=== PATIENT | female | born 1945 | race Caucasian/White ===

== ENCOUNTER 2016-09-10 07:58 | Inpatient (IN) | payer MEDICARE ==
[~2016-09-10] VITALS: Ht 167.6 cm; Wt 102.1 kg
[~2016-09-10 07:58] MED LIST: AC500T PO; ACYC800T PO; ASP81TEC PO; ASPI-892 PO; CLIN-62 PO; CLIN300C11 PO; COLON HEALTH PO; CPR500T PO; CYCL5TAB11 PO; HCT25T PO; HYDR-3583 PO; HYDR118S10 PO; LISI-593 PO; LISI1TAB10 PO; LISI40TA PO; LORA10TA7 PO; MAGN400T6 PO; METF1000 PO; METF500T8 PO; METR500T PO; MULT1TAB53 PO; OMEP20CA12 PO; OXYC-12 PO; PIOG1TAB PO; ROSI1TAB PO; SULF1TAB35 PO; VIT1CAPS9 PO; [UNRECOGNIZED DRUG - OTHER]
--- NOTE | 2016-09-10 08:28 | ED Upper Extremity ---
General Chief Complaint: Upper Extremity Stated Complaint: INFECTION L ARM FROM FALL Nursing Triage Note: AMBULATED TO ROOM 07 ET STATES SHE HAS AN INFECTION AND LYMPHODEMA IN LEFT ARM AFTER FALLING ONTO CONCRETE ON SUN. STATES SHE HAS HAD THIS IN THE PAST. Nursing Sepsis Screen: Possible Sepsis Risk Source: patient History of Present Illness Time seen by provider: 08:15 Initial Comments PT ARRIVES VIA POV FROM HOME C/O LEFT ARM REDNESS, WARMTH AND TENDERNESS TO ENTIRE LEFT ARM PT HAS CHRONIC LYMPHEDEMA TO LEFT ARM, FOLLOWING LEFT MASTECTOMY AND AXILLARY NODE REMOVAL IN 1999 FOR BREAST CANCE HAS HAD 3 PRIOR EPISODES OF CELLULITIS IN THIS ARM, USUALLY AFTER MINOR TRAUMA STATES SHE FELL ON SUNDAY, AND HAD BRUISE TO LEFT PALM--DID NOT BREAK THE SKIN. NO PAIN IN HAND FROM THAT INJURY SAW DR. JONAS ON SUNDAY FOR ROUTINE SCHEDULED VISIT, AND DISCUSSED THE INJURY AT THAT TIME, BUT WAS NOT HAVING THESE SYMPTOMS AT THAT TIME--WAS TOLD TO COME STRAIGHT TO ER AND GET ADMITTED IF SHE STARTED SHOWING SIGNS OF INFECTION PT STATES YESTERDAY SHE NOTED SOME REDNESS AND INCREASED WARMTH AND SWELLING AND TENDERNESS TO ARM, THEN BEGAN TO HAVE BODY ACHES AND CHILLS/SWEATS. DID NOT TAKE TEMPERATURE NO PARESTHESIAS OR MOTOR DEFICITS PCP: DR. JONAS Allergies and Home Medications Allergies Coded Allergies: No Known Drug Allergies (Unverified , 08/04/10) Home Medications Aspirin 81 Mg Judy., 81 MG PO DAILY, (Reported) Clindamycin HCl 300 Mg Capsule, 600 MG PO TID, #32 Prescribed by: EMERALD JONAS on 04/01/16 1112 Lisinopril/Hydrochlorothiazide 1 Each Tablet, 2 TAB PO DAILY, (Reported) Loratadine 10 Mg Tablet, 10 MG PO DAILY, (Reported) Multivit,Ther Iron,Ca,Fa & Min 1 Each Tablet, 1 TAB PO DAILY, (Reported) Constitutional: see HPI, chills, diaphoresis, malaise, other (BODY ACHES) Respiratory: no symptoms reported Cardiovascular: no symptoms reported Gastrointestinal: no symptoms reported Genitourinary: no symptoms reported Musculoskeletal: see HPI Skin: see HPI Psychiatric/Neurological: No Symptoms Reported Past [id number] Hx Patient Social History Alcohol Use: Occasionally Uses Recreational Drug Use: No Smoking Status: Never a Smoker Recent Foreign Travel: No Contact w/Someone Who Travel: No Recent Infectious Disease Expo: No Recent Hopitalizations: No Immunizations Up To Date Date of Pneumonia Vaccine: Jun 19, 2013 Seasonal Allergies Seasonal Allergies: No Surgeries HX Surgeries: Yes (LEFT MASTECTOMY WITH LEFT AXILLARY NODE DISSECTION 1999, [employer]ICK 2011; UMBILICAL HERNIA REPAIR WITH [employer]; LEFT ANKLE FX/ORIF; RIGHT KNEE SCOPE) Surgeries: Abdominal, Breast, Gallbladder, Orthopedic Respiratory Hx Respiratory Disorders: Yes (CPAP AT HS) Respiratory Disorders: Sleep Apnea Cardiovascular Hx Cardiac Disorders: Yes Cardiac Disorders: Hypertension Neurological Hx Neurological Disorders: No 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 System Hx 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 Disorders: No Sexually Transmitted Disease: No HIV/AIDS: No Female 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 Disorders: Denies [employer] 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 Genitourinary Hx Genitourinary Disorders: Yes Genitourinary Disorders: UTI-Chronic Gastrointestinal Hx Gastrointestinal Disorders: Yes (UMBILICAL HERNIA REPAIR WITH [employer]ICK) Gastrointestinal Disorders: Abdominal Hernia, C-Diff, Gall Bladder Disease Musculoskeletal Hx Musculoskeletal Disorders: Yes (CHRONIC LYMPHEDEMA LEFT ARM; LEFT ANKLE FX/ ORIF; RIGHT KNEE SCOPE) Endocrine Hx Endocrine Disorders: Yes (DIET CONTROLLED DIABETES) Endocrine Disorders: Diabetes, Non-Insulin dep HEENT HX ENT Disorders: No Cancer Hx Cancer: Yes (LEFT BREAST CANCER 1999--S/P LEFT MASTECTOMY WITH LEFT AXILLARY NODE DISSECTION + CHEMO. NO RADIATION) Cancer: Breast Psychosocial Hx Psychiatric Problems: No Integumentary HX Skin/Integumentary Disorder: Yes (SHINGLES; RECURRENT CELLULITIS LEFT ARM) Blood Transfusions Hx Blood Disorders: No Adverse Reaction to a Blood Tr: No Physical Exam Vital Signs Vital Sign - Last 12Hours 09/10/16 08:10 Temp 99.3 Pulse 92 Resp 16 B/P (MAP) 177/73 Pulse Ox 91 O2 Delivery Room Air Capillary Refill : Less Than 3 Seconds General Appearance: WD/WN, no apparent distress Neck: normal inspection Cardiovascular: regular rate, rhythm, no murmur Respiratory: normal breath sounds, no respiratory distress, no accessory muscle use Gastrointestinal: non tender, soft Back: normal inspection Shoulder: normal inspection Elbow/Forearm: Left (REDNESS, WARMTH, TENDERNESS AND SWELLING TO ENTIRE LEFT ARM AND HAND), pain, soft tissue tenderness, swelling Wrist: Yes pain, Yes soft tissue tenderness, Yes swelling Hand: Left, soft tissue tenderness, swelling Neurologic/Tendon: normal sensation, normal motor functions, normal tendon functions Neurologic/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 ) Progress/Results/Core Measures Results/Orders Lab Results Laboratory Tests Test 09/10/16 08:20 Range/Units White Blood Count 18.8 H 4.3-11.0 10^3/uL Red Blood Count 4.53 4.35-5.85 10^6/uL Hemoglobin 13.8 11.5-16.0 G/DL Hematocrit 41 35-52 % Mean Corpuscular Volume 90 80-99 FL Mean Corpuscular Hemoglobin 31 25-34 PG Mean Corpuscular Hemoglobin Concent 34 32-36 G/DL Red Cell Distribution Width 12.4 10.0-14.5 % Platelet Count 217 130-400 10^3/uL Mean Platelet Volume 9.8 7.4-10.4 FL Neutrophils (%) (Auto) 94 H 42-75 % Lymphocytes (%) (Auto) 3 L 12-44 % Monocytes (%) (Auto) 3 0-12 % Eosinophils (%) (Auto) 0 0-10 % Basophils (%) (Auto) 0 0-10 % Neutrophils # (Auto) 17.7 H 1.8-7.8 X 10^3 Lymphocytes # (Auto) 0.6 L 1.0-4.0 X 10^3 Monocytes # (Auto) 0.5 0.0-1.0 X 10^3 Eosinophils # (Auto) 0.0 0.0-0.3 10^3/uL Basophils # (Auto) 0.0 0.0-0.1 10^3/uL Neutrophils % (Manual) 96 % Lymphocytes % (Manual) 4 % Blood Morphology Comment NORMAL Sodium Level 136 135-145 MMOL/L Potassium Level 3.7 3.6-5.0 MMOL/L Chloride Level 101 98-107 MMOL/L Carbon Dioxide Level 22 21-32 MMOL/L Anion Gap 13 5-14 MMOL/L Blood Urea Nitrogen 23 H 7-18 MG/DL Creatinine 0.81 0.60-1.30 MG/DL Estimat Glomerular Filtration Rate > 60 BUN/Creatinine Ratio 28 Glucose Level 159 H 70-105 MG/DL Lactic Acid Level 0.70 0.50-2.00 MMOL/L Calcium Level 9.3 8.5-10.1 MG/DL Total Bilirubin 0.9 0.1-1.0 MG/DL Aspartate Amino Transf (AST/SGOT) 19 5-34 U/L Alanine Aminotransferase (ALT/SGPT) 16 0-55 U/L Alkaline Phosphatase 64 40-136 U/L Total Protein 6.8 6.4-8.2 G/DL Albumin 3.8 3.2-4.5 G/DL My Orders Orders - YVONNE MALIK DO Saline Lock/Iv-Start (09/10/16 08:19) Cbc With Automated Diff (09/10/16 08:19) Comprehensive Metabolic Panel (09/10/16 08:19) Lactic Acid Analyzer (09/10/16 08:19) Blood Culture (09/10/16 08:19) Manual Differential (09/10/16 08:20) Clindamycin Injection (Cleocin Injection (09/10/16 08:45) Medications Given in ED Current Medications Medications Dose Ordered Sig/Lyndon Route Start Time Stop Time Status Last Admin Dose Admin Clindamycin Phosphate 900 mg/ Sodium Chloride 56 ml @ 100 mls/hr ONCE ONCE IV 09/10/16 08:45 09/10/16 09:18 09/10/16 08:54 100 MLS/HR Vital Signs/I&O Vital Sign - Last 12Hours 09/10/16 08:10 Temp 99.3 Pulse 92 Resp 16 B/P (MAP) 177/73 Pulse Ox 91 O2 Delivery Room Air Blood Pressure Mean: 107 Departure Communication Progress Notes 0850--SPOKE WITH DR. Kim SIMONS, PUBLIC WORKS LABORER FOR DR. JONAS. ACCEPTS PT FOR ADMIT Impression Impression: Primary Impression: CELLULITIS OF ENTIRE LEFT ARM Additional Impression: CHRONIC LYMPHEDEMA OF LEFT ARM Disposition: ADMITTED INPATIENT Condition: Stable Decision to Admit Reason: Admit from ER (General) Decision to Admit/Date: September 10, 2016 Time/Decision to Admit Time: 08:50 Departure-Patient Inst. Referrals: EMERALD JONAS DO (PCP) Primary Care Physician YVONNE MALIK DO September 10, 2016 08:27
[2016-09-10 08:38] LABS: BASOPHILS % (AUTO) 0 % (0-10); EOSINOPHILS % (AUTO) 0 % (0-10); LYMPHOCYTES # (AUTO) 0.6 X 10^3 (1.0-4.0); LYMPHOCYTES % (AUTO) 3 % (12-44); MEAN CORPUSCULAR HEMOGLOBIN 31 PG (25-34); MEAN CORPUSCULAR HGB CONC 34 G/DL (32-36); MEAN CORPUSCULAR VOLUME 90 FL (80-99); MEAN PLATELET VOLUME 9.8 FL (7.4-10.4); MONOCYTES # (AUTO) 0.5 X 10^3 (0.0-1.0); MONOCYTES % (AUTO) 3 % (0-12); NEUTROPHILS # (AUTO) 17.7 X 10^3 (1.8-7.8); NEUTROPHILS % (AUTO) 94 % (42-75); PLATELET COUNT 217 10^3/uL (130-400); RED BLOOD COUNT 4.53 10^6/uL (4.35-5.85); RED CELL DISTRIBUTION WIDTH 12.4 % (10.0-14.5); WHITE BLOOD COUNT 18.8 10^3/uL (4.3-11.0)
[2016-09-10] MEDS ORDERED: CLINDAMYCIN INJECTION 900 MG in NS (IVPB) 50 ML IV ONE (08:45)
[2016-09-10 08:54] LABS: LYMPHOCYTES % (MANUAL) 4 %; NEUTROPHILS % (MANUAL) 96 %
[2016-09-10 08:57] LABS: ANION GAP 13 MMOL/L (5-14); BLOOD UREA NITROGEN 23 MG/DL (7-18); BUN/CREATININE RATIO 28; CARBON DIOXIDE 22 MMOL/L (21-32); CHLORIDE 101 MMOL/L (98-107); CREATININE SERUM 0.81 MG/DL (0.60-1.30); POTASSIUM 3.7 MMOL/L (3.6-5.0); SODIUM 136 MMOL/L (135-145)
[2016-09-10 08:58] LABS: ALANINE AMINOTRANSFERASE 16 U/L (0-55); ALBUMIN 3.8 G/DL (3.2-4.5); ASPARTATE AMINO TRANSFERASE 19 U/L (5-34); BILIRUBIN,TOTAL 0.9 MG/DL (0.1-1.0); CALCIUM 9.3 MG/DL (8.5-10.1); GFR ESTIMATED > 60; GLUCOSE 159 MG/DL (70-105); TOTAL PROTEIN 6.8 G/DL (6.4-8.2)
[2016-09-10] MEDS: KETOROLAC 30 MG/ML VIAL IV PRN ×2 (11:15→17:19)
[2016-09-10] MEDS ORDERED: CATHETER FLUSH 10 ML SYR IV PRN (11:15)
[2016-09-10 12:00] VITALS: BP 182/81
--- NOTE | 2016-09-10 13:35 | Progress Note (SOAP) ---
Subjective Subjective 70 yo F with history of chronic left upper extremity lymphedema and cellulitis- admitted for cellulitis of her left arm- extending from her hand up to her shoulder/axilla. She reports 4 days prior she slipped on her patio as it was wet from the rain and fell to her left side with her left hand/arm taking the brunt of the fall- she noticed palmar bruising - but no break in the skin. She saw Dr. Lubin the following day and was advised to monitor it- if the cardinal signs of infection (redness,warmth,swelling,etc) occur go to the hospital to be admitted. She notice this am, she was more nauseated and felt like her hand/arm were warm, definitely red. Family members were concerned so she came to the ER. She didn't want to come in because she knew she would be admitted. She is very frustrated that this keeps happening. She also feels achy, pain all over her body- shoulder, legs, arms- attributed to the fall. -She feels like once she gets fluids and clindamycin in she will start feeling better. -Pt also has diabetes but was happy to report she no longer takes metformin. -Htn under control. ED course- she was given clindamycin and ketoralac and admitted. Review of Systems General: No Chills, No Night Sweats HEENT: No Head Aches Pulmonary: No Dyspnea, No Cough Cardiovascular: No: Chest Pain Gastrointestinal: Nausea, No: Abdominal Pain, Vomiting Genitourinary: No Dysuria, No Frequency Musculoskeletal: arm pain, back pain, hand pain, leg pain, neck pain, shoulder pain Neurological: Weakness, No: Numbness Objective Exam Vital Signs Vital Sign - Last 12Hours 09/10/16 08:10 Temp 99.3 Pulse 92 Resp 16 B/P (MAP) 177/73 Pulse Ox 91 O2 Delivery Room Air Capillary Refill : Less Than 3 Seconds General Appearance: Mild Distress (upset and frustrated) Eyes: Bilateral Eye Normal Inspection HEENT: PERRL/EOMI Neck: Non Tender, Supple Respiratory: Chest Non Tender, Lungs Clear, Normal Breath Sounds, No Accessory Muscle Use, No Respiratory Distress Cardiovascular: Regular Rate, Rhythm Gastrointestinal: Normal Bowel Sounds, Non Tender, Soft Rectal: Deferred Back: Normal Inspection, No CVA Tenderness Extremity: Normal Capillary Refill, Other (left upper extremity 2+ pitting edema- warm to touch, erythema) Neurologic/Psychiatric: Alert, Oriented x3, Depressed Affect Skin: Warm/Dry Results Lab Laboratory Tests 09/10/16 08:20: White Blood Count 18.8H, Red Blood Count 4.53, Hemoglobin 13.8, Hematocrit 41, Mean Corpuscular Volume 90, Mean Corpuscular Hemoglobin 31, Mean Corpuscular Hemoglobin Concent 34, Red Cell Distribution Width 12.4, Platelet Count 217, Mean Platelet Volume 9.8, Neutrophils (%) (Auto) 94H, Lymphocytes (%) (Auto) 3L , Monocytes (%) (Auto) 3, Eosinophils (%) (Auto) 0, Basophils (%) (Auto) 0, Neutrophils # (Auto) 17.7H, Lymphocytes # (Auto) 0.6L, Monocytes # (Auto) 0.5, Eosinophils # (Auto) 0.0, Basophils # (Auto) 0.0, Neutrophils % (Manual) 96, Lymphocytes % (Manual) 4, Blood Morphology Comment NORMAL, Sodium Level 136, Potassium Level 3.7, Chloride Level 101, Carbon Dioxide Level 22, Anion Gap 13, Blood Urea Nitrogen 23H, Creatinine 0.81, Estimat Glomerular Filtration Rate > 60, BUN/Creatinine Ratio 28, Glucose Level 159H, Lactic Acid Level 0.70, Calcium Level 9.3, Total Bilirubin 0.9, Aspartate Amino Transf (AST/SGOT) 19, Alanine Aminotransferase (ALT/SGPT) 16, Alkaline Phosphatase 64, Total Protein 6.8, Albumin 3.8 Assessment/Plan Assessment/Plan Assessment/Plan 70 yo F Left Upper Extremity Cellulitis--IV clindamycin, elevate extremity Recent fall- likely etiology for the cellulitis- no noticable break in the skin. Chronic Lymphedema of Left Arm due to h/o breast cancer tx--monitor Diabetes mellitus, II--SSI A Hypertension--normotensive, home meds- hctz, lisinopril nausea- zofran DVT ppx- lovenox Dispo: continue clindamycin- keep a close eye on left arm exam. suspect transition to po clindamycin and home when noticeable improvement is seen- Problems: Clinical Quality Measures DVT/VTE Risk/Contraindication: Risk Factor Score Per Nursin RFS Level Per Nursing on Admit: 3=High RHODA SIMONS MD September 10, 2016 13:35
[2016-09-10] MEDS: ONDANSETRON 4 MG/2 ML (SDV) Z0FRAN IVP PRN (14:55)
[2016-09-10] MEDS: CATHETER FLUSH 10 ML SYR IV SCH ×2 (14:55→22:02)
[2016-09-10] MEDS: CLINDAMYCIN 900 MG/NS 50 ML IVPB IV SCH ×4 (15:06→20:04)
[2016-09-10 16:00] VITALS: BP 163/78
[2016-09-10] MEDS: lisINopril 20 MG (ZESTRIL) TAB PO SCH (16:26)
[2016-09-10] MEDS: NS IV 1000 ML 1,000 ML IV SCH (16:26)
[2016-09-10] MEDS: ENOXAPARIN 40 MG/0.4 ML (LOVENOX) SYR SC SCH (16:26)
[2016-09-10] MEDS: HYDROCHLOROTHIAZIDE 25 MG (HCTZ) TAB PO SCH (16:26)
[2016-09-10] MEDS: ACETAMINOPHEN 500 MG TAB (TYLENOL) PO PRN (16:27)
[2016-09-10] MEDS: inSUlin ASPART (NovoLOG) 1 UNIT/0.01 ML (CHARGE PER UNIT) SC SCH (16:52)
[2016-09-10 20:00] VITALS: BP 140/64
[2016-09-11 00:15] VITALS: BP 113/67
[2016-09-11] MEDS: NS IV 1000 ML 1,000 ML IV SCH ×3 (01:53→23:46)
[2016-09-11] MEDS: CLINDAMYCIN 900 MG/NS 50 ML IVPB IV SCH ×8 (01:53→20:22)
[2016-09-11] MEDS: ONDANSETRON 4 MG/2 ML (SDV) Z0FRAN IVP PRN ×2 (01:55→17:28)
[2016-09-11 04:10] VITALS: BP 113/67
[2016-09-11 05:17] LABS: BASOPHILS % (AUTO) 0 % (0-10); EOSINOPHILS % (AUTO) 0 % (0-10); LYMPHOCYTES # (AUTO) 0.8 X 10^3 (1.0-4.0); LYMPHOCYTES % (AUTO) 8 % (12-44); MEAN CORPUSCULAR HEMOGLOBIN 31 PG (25-34); MEAN CORPUSCULAR HGB CONC 34 G/DL (32-36); MEAN CORPUSCULAR VOLUME 90 FL (80-99); MONOCYTES # (AUTO) 0.5 X 10^3 (0.0-1.0); MONOCYTES % (AUTO) 5 % (0-12); NEUTROPHILS # (AUTO) 8.5 X 10^3 (1.8-7.8); NEUTROPHILS % (AUTO) 86 % (42-75); PLATELET COUNT 187 10^3/uL (130-400); RED BLOOD COUNT 4.24 10^6/uL (4.35-5.85); RED CELL DISTRIBUTION WIDTH 12.4 % (10.0-14.5); WHITE BLOOD COUNT 9.8 10^3/uL (4.3-11.0)
[2016-09-11 05:38] LABS: ALANINE AMINOTRANSFERASE 17 U/L (0-55); ALBUMIN 3.3 G/DL (3.2-4.5); ANION GAP 9 MMOL/L (5-14); ASPARTATE AMINO TRANSFERASE 18 U/L (5-34); BILIRUBIN,TOTAL 0.5 MG/DL (0.1-1.0); BLOOD UREA NITROGEN 21 MG/DL (7-18); BUN/CREATININE RATIO 25; CALCIUM 8.5 MG/DL (8.5-10.1); CARBON DIOXIDE 26 MMOL/L (21-32); CHLORIDE 100 MMOL/L (98-107); CREATININE SERUM 0.85 MG/DL (0.60-1.30); GFR ESTIMATED > 60; GLUCOSE 115 MG/DL (70-105); POTASSIUM 3.5 MMOL/L (3.6-5.0); SODIUM 135 MMOL/L (135-145); TOTAL PROTEIN 5.9 G/DL (6.4-8.2)
[2016-09-11] MEDS: ACETAMINOPHEN 500 MG TAB (TYLENOL) PO PRN (06:03)
[2016-09-11] MEDS: CATHETER FLUSH 10 ML SYR IV SCH ×3 (06:04→20:12)
[2016-09-11] MEDS: inSUlin ASPART (NovoLOG) 1 UNIT/0.01 ML (CHARGE PER UNIT) SC SCH ×2 (06:09→16:08)
[2016-09-11 08:21] VITALS: BP 141/62
[2016-09-11] MEDS: HYDROCHLOROTHIAZIDE 25 MG (HCTZ) TAB PO SCH (08:22)
[2016-09-11] MEDS: lisINopril 20 MG (ZESTRIL) TAB PO SCH (08:22)
[2016-09-11 12:00] VITALS: BP 123/60
[2016-09-11] MEDS: ENOXAPARIN 40 MG/0.4 ML (LOVENOX) SYR SC SCH (13:55)
[2016-09-11 16:00] VITALS: BP 141/63
[2016-09-11 20:12] VITALS: BP 138/60
[2016-09-11] MEDS: KETOROLAC 30 MG/ML VIAL IV PRN (20:22)
--- NOTE | 2016-09-11 21:01 | Progress Note (SOAP) ---
Subjective Subjective/Events-last exam Fwup LUE cellulitis, recent fall with left hand contusion, chronic lymphedema of left arm due to history of breast cancer with mastectomy, hypertension, diabetes mellitus--diet controlled. Still with redness to left arm and still spiked fevers overnight. Objective Exam Vital Signs Date Time Temp Pulse Resp B/P (MAP) Pulse Ox O2 Delivery O2 Flow Rate FiO2 09/11/16 16:00 98.9 62 18 141/63 93 Room Air 09/11/16 12:00 97.9 65 20 123/60 94 Room Air 09/11/16 08:21 98.3 67 16 141/62 95 Room Air 09/11/16 04:10 100.0 79 20 113/67 94 Room Air 09/11/16 00:15 99.3 70 18 113/67 96 Room Air I & O 09/11/16 07:00 Intake Total 1800 ml Output Total 925 ml Balance 875 ml Capillary Refill : Less Than 3 Seconds General Appearance: No Apparent Distress Neck: Supple Extremity: Non Tender, No Calf Tenderness, No Pedal Edema Neurologic/Psychiatric: Alert, Oriented x3 Skin: Erythema (from upper arm down to hands with some increased warmth and tenderness) Results Lab Laboratory Tests 09/11/16 04:40: White Blood Count 9.8, Red Blood Count 4.24L, Hemoglobin 13.0, Hematocrit 38, Mean Corpuscular Volume 90, Mean Corpuscular Hemoglobin 31, Mean Corpuscular Hemoglobin Concent 34, Red Cell Distribution Width 12.4, Platelet Count 187, Mean Platelet Volume 10.0, Neutrophils (%) (Auto) 86H, Lymphocytes (%) (Auto) 8L , Monocytes (%) (Auto) 5, Eosinophils (%) (Auto) 0, Basophils (%) (Auto) 0, Neutrophils # (Auto) 8.5H, Lymphocytes # (Auto) 0.8L, Monocytes # (Auto) 0.5, Eosinophils # (Auto) 0.0, Basophils # (Auto) 0.0, Sodium Level 135, Potassium Level 3.5L, Chloride Level 100, Carbon Dioxide Level 26, Anion Gap 9, Blood Urea Nitrogen 21H, Creatinine 0.85, Estimat Glomerular Filtration Rate > 60, BUN /Creatinine Ratio 25, Glucose Level 115H, Calcium Level 8.5, Total Bilirubin 0.5 , Aspartate Amino Transf (AST/SGOT) 18, Alanine Aminotransferase (ALT/SGPT) 17, Alkaline Phosphatase 53, Total Protein 5.9L, Albumin 3.3 09/11/16 06:06: Glucometer 108 09/11/16 15:52: Glucometer 121H Microbiology 09/10/16 Blood Culture - Preliminary, Resulted No growth Assessment/Plan Assessment/Plan Assess & Plan/Chief Complaint 1. RUE Cellulitis--continue IV clindamycin 2. Recent fall with right hand contusion--stable 3. Chronic Lymphedema of right arm due to history of breast cancer with mastectomy 4. Hypertension--stable 5. Diabetes mellitus--diet controlled--on accuchecks with SSI Clinical Quality Measures DVT/VTE Risk/Contraindication: Risk Factor Score Per Nursin RFS Level Per Nursing on Admit: 3=High EMERALD JONAS DO September 11, 2016 21:01
[2016-09-11] MEDS ORDERED: TEMAZEPAM 7.5 MG CAP (RESTORIL) PO ONE (21:20)
[2016-09-11] MEDS: TEMAZEPAM 7.5 MG CAP (RESTORIL) PO PRN (21:26)
[2016-09-12] VITALS: BP 124/73
[2016-09-12] MEDS: CLINDAMYCIN 900 MG/NS 50 ML IVPB IV SCH ×8 (02:15→19:59)
[2016-09-12] MEDS: CATHETER FLUSH 10 ML SYR IV SCH ×3 (04:39→22:28)
[2016-09-12] MEDS: inSUlin ASPART (NovoLOG) 1 UNIT/0.01 ML (CHARGE PER UNIT) SC SCH ×2 (06:20→16:22)
[2016-09-12] MEDS: MULTIVIT W/MINERALS TAB (THERAGRAN M) PO SCH (07:07)
[2016-09-12 07:30] VITALS: BP 141/64
--- NOTE | 2016-09-12 08:46 | Progress Note (SOAP) ---
Subjective Subjective/Events-last exam Fwup LUE cellulitis, recent fall with left hand contusion, chronic lymphedema of left arm due to history of breast cancer with mastectomy, hypertension, diabetes mellitus--diet controlled. Left arm not as red. Objective Exam Vital Signs Date Time Temp Pulse Resp B/P (MAP) Pulse Ox O2 Delivery O2 Flow Rate FiO2 09/12/16 07:30 98.8 52 20 141/64 93 Room Air 09/12/16 00:00 97.2 55 17 124/73 97 Room Air 09/11/16 20:12 99.9 80 20 138/60 93 Room Air 09/11/16 16:00 98.9 62 18 141/63 93 Room Air 09/11/16 12:00 97.9 65 20 123/60 94 Room Air I & O 09/12/16 07:00 Intake Total 2486 ml Output Total 1750 ml Balance 736 ml Capillary Refill : Less Than 3 Seconds General Appearance: No Apparent Distress Respiratory: Lungs Clear Cardiovascular: Regular Rate, Rhythm Extremity: Non Tender, No Calf Tenderness, No Pedal Edema Neurologic/Psychiatric: Alert, Oriented x3 Skin: Erythema (from upper arm down to hand but not as bright red--still with warmth, swelling less) Results Lab Laboratory Tests 09/11/16 15:52: Glucometer 121H 09/12/16 06:18: Glucometer 111H Microbiology 09/10/16 Blood Culture - Preliminary, Resulted No growth Assessment/Plan Assessment/Plan Assess & Plan/Chief Complaint 1. RUE Cellulitis--continue IV clindamycin, add Vancomycin 2. Recent fall with right hand contusion--stable 3. Chronic Lymphedema of right arm due to history of breast cancer with mastectomy 4. Hypertension--stable 5. Diabetes mellitus--diet controlled--on accuchecks with SSI Clinical Quality Measures DVT/VTE Risk/Contraindication: Risk Factor Score Per Nursin RFS Level Per Nursing on Admit: 3=High EMERALD JONAS DO September 12, 2016 08:46
[2016-09-12] MEDS: ASPIRIN E.C. 81 MG (ECOTRIN) TAB PO SCH (08:58)
[2016-09-12] MEDS: HYDROCHLOROTHIAZIDE 25 MG (HCTZ) TAB PO SCH (08:58)
[2016-09-12] MEDS: lisINopril 20 MG (ZESTRIL) TAB PO SCH (08:59)
[2016-09-12] MEDS: LORATADINE (CLARITIN) 10 MG TAB PO SCH (08:59)
[2016-09-12] MEDS: NS IV 1000 ML 1,000 ML IV SCH ×2 (09:38→17:15)
[2016-09-12] MEDS ORDERED: VANCOMYCIN INJECTION 2,250 MG in NS IV 500 ML 500 ML IV NR (10:08)
[2016-09-12] MEDS: ENOXAPARIN 40 MG/0.4 ML (LOVENOX) SYR SC SCH (13:41)
[2016-09-12 16:23] VITALS: BP 114/72
[2016-09-12] MEDS: VANCOMYCIN 1250 MG/NS 250 ML IVPB IV SCH ×2 (21:26)
[2016-09-12] MEDS: TEMAZEPAM 7.5 MG CAP (RESTORIL) PO PRN (22:07)
[2016-09-13 00:25] VITALS: BP 121/72
[2016-09-13] MEDS: CLINDAMYCIN 900 MG/NS 50 ML IVPB IV SCH ×8 (01:36→20:11)
[2016-09-13] MEDS: NS IV 1000 ML 1,000 ML IV SCH (02:32)
[2016-09-13 04:47] LABS: BASOPHILS % (AUTO) 1 % (0-10); EOSINOPHILS # (AUTO) 0.4 10^3/uL (0.0-0.3); EOSINOPHILS % (AUTO) 8 % (0-10); LYMPHOCYTES # (AUTO) 1.3 X 10^3 (1.0-4.0); LYMPHOCYTES % (AUTO) 22 % (12-44); MEAN CORPUSCULAR HEMOGLOBIN 30 PG (25-34); MEAN CORPUSCULAR HGB CONC 34 G/DL (32-36); MEAN CORPUSCULAR VOLUME 90 FL (80-99); MEAN PLATELET VOLUME 10.3 FL (7.4-10.4); MONOCYTES # (AUTO) 0.7 X 10^3 (0.0-1.0); MONOCYTES % (AUTO) 12 % (0-12); NEUTROPHILS # (AUTO) 3.3 X 10^3 (1.8-7.8); NEUTROPHILS % (AUTO) 58 % (42-75); PLATELET COUNT 163 10^3/uL (130-400); RED BLOOD COUNT 3.88 10^6/uL (4.35-5.85); RED CELL DISTRIBUTION WIDTH 12.5 % (10.0-14.5); WHITE BLOOD COUNT 5.8 10^3/uL (4.3-11.0)
[2016-09-13 05:08] LABS: ANION GAP 8 MMOL/L (5-14); BLOOD UREA NITROGEN 12 MG/DL (7-18); BUN/CREATININE RATIO 15; CALCIUM 8.5 MG/DL (8.5-10.1); CARBON DIOXIDE 23 MMOL/L (21-32); CHLORIDE 109 MMOL/L (98-107); GFR ESTIMATED > 60; GLUCOSE 106 MG/DL (70-105); SODIUM 140 MMOL/L (135-145)
[2016-09-13] MEDS: CATHETER FLUSH 10 ML SYR IV SCH ×3 (05:47→21:37)
[2016-09-13] MEDS: inSUlin ASPART (NovoLOG) 1 UNIT/0.01 ML (CHARGE PER UNIT) SC SCH ×2 (05:51→16:28)
[2016-09-13] MEDS: MULTIVIT W/MINERALS TAB (THERAGRAN M) PO SCH (06:03)
[2016-09-13 07:32] VITALS: BP 144/76
[2016-09-13] MEDS ORDERED: TROUGH ORDER-PHARMACY XX NR (08:00)
[2016-09-13] MEDS: lisINopril 20 MG (ZESTRIL) TAB PO SCH (08:09)
[2016-09-13] MEDS: ASPIRIN E.C. 81 MG (ECOTRIN) TAB PO SCH (08:09)
[2016-09-13] MEDS: LORATADINE (CLARITIN) 10 MG TAB PO SCH (08:09)
[2016-09-13] MEDS: HYDROCHLOROTHIAZIDE 25 MG (HCTZ) TAB PO SCH (08:09)
[2016-09-13] MEDS: VANCOMYCIN 1250 MG/NS 250 ML IVPB IV SCH ×4 (09:54→21:33)
[2016-09-13] MEDS ORDERED: FUROSEMIDE 40 MG (LASIX) TAB PO NR (13:00)
[2016-09-13] MEDS ORDERED: KCL 20 MEQ TAB (K-DUR) PO NR (13:00)
[2016-09-13] MEDS: ENOXAPARIN 40 MG/0.4 ML (LOVENOX) SYR SC SCH (13:37)
[2016-09-13 16:15] VITALS: BP 117/69
--- NOTE | 2016-09-13 21:31 | Progress Note (SOAP) ---
Subjective Subjective/Events-last exam Fwup LUE cellulitis, recent fall with left hand contusion, chronic lymphedema of left arm due to history of breast cancer with mastectomy, hypertension, diabetes mellitus--diet controlled. Left arm redness and pain much better. Does complain of puffy from IV fluids. Objective Exam Vital Signs Date Time Temp Pulse Resp B/P (MAP) Pulse Ox O2 Delivery O2 Flow Rate FiO2 09/13/16 16:15 96.9 55 18 117/69 99 Room Air 09/13/16 07:32 96.5 56 20 144/76 97 Room Air 09/13/16 00:25 96.1 59 20 121/72 98 Room Air I & O 09/13/16 07:00 Intake Total 5135.0 ml Output Total 3300 ml Balance 1835.0 ml Capillary Refill : Less Than 3 Seconds General Appearance: No Apparent Distress Neck: Supple Respiratory: Lungs Clear Cardiovascular: Regular Rate, Rhythm Extremity: Non Tender, No Calf Tenderness, No Pedal Edema Neurologic/Psychiatric: Alert, Oriented x3 Skin: Erythema (to left arm much improved with much less warmth and no pain with palpation--some increased lymphedema today) Results Lab Laboratory Tests 09/13/16 04:35: White Blood Count 5.8, Red Blood Count 3.88L, Hemoglobin 11.7, Hematocrit 35, Mean Corpuscular Volume 90, Mean Corpuscular Hemoglobin 30, Mean Corpuscular Hemoglobin Concent 34, Red Cell Distribution Width 12.5, Platelet Count 163, Mean Platelet Volume 10.3, Neutrophils (%) (Auto) 58, Lymphocytes (%) (Auto) 22 , Monocytes (%) (Auto) 12, Eosinophils (%) (Auto) 8, Basophils (%) (Auto) 1, Neutrophils # (Auto) 3.3, Lymphocytes # (Auto) 1.3, Monocytes # (Auto) 0.7, Eosinophils # (Auto) 0.4H, Basophils # (Auto) 0.0, Sodium Level 140, Potassium Level 4.0, Chloride Level 109H, Carbon Dioxide Level 23, Anion Gap 8, Blood Urea Nitrogen 12, Creatinine 0.80, Estimat Glomerular Filtration Rate > 60, BUN/ Creatinine Ratio 15, Glucose Level 106H, Calcium Level 8.5 09/13/16 05:27: Glucometer 116H 09/13/16 08:30: Vancomycin Level Trough 18.0 5/10/17 16:11: Glucometer 115H Microbiology 09/10/16 Blood Culture - Preliminary, Resulted No growth Assessment/Plan Assessment/Plan Assess & Plan/Chief Complaint 1. RUE Cellulitis--continue IV clindamycin and Vancomycin 2. Recent fall with right hand contusion--stable 3. Chronic Lymphedema of right arm due to history of breast cancer with mastectomy--exacerbation due to fluids so will stop IV fluids and give dose of oral lasix with potassium 4. Hypertension--stable 5. Diabetes mellitus--diet controlled--on accuchecks with SSI Clinical Quality Measures DVT/VTE Risk/Contraindication: Risk Factor Score Per Nursin RFS Level Per Nursing on Admit: 3=High EMERALD JONAS DO September 13, 2016 9:30 pm
[2016-09-13] MEDS: TEMAZEPAM 7.5 MG CAP (RESTORIL) PO PRN (23:02)
[2016-09-14 00:34] VITALS: BP 143/65
[2016-09-14] MEDS: CLINDAMYCIN 900 MG/NS 50 ML IVPB IV SCH ×4 (02:28→07:42)
[2016-09-14] MEDS: inSUlin ASPART (NovoLOG) 1 UNIT/0.01 ML (CHARGE PER UNIT) SC SCH (05:40)
[2016-09-14] MEDS: CATHETER FLUSH 10 ML SYR IV SCH (06:16)
[2016-09-14] MEDS: MULTIVIT W/MINERALS TAB (THERAGRAN M) PO SCH (06:16)
[2016-09-14 08:00] VITALS: BP 141/74
[2016-09-14] MEDS: VANCOMYCIN 1250 MG/NS 250 ML IVPB IV SCH ×2 (08:14)
[2016-09-14] MEDS: LORATADINE (CLARITIN) 10 MG TAB PO SCH (08:15)
[2016-09-14] MEDS: lisINopril 20 MG (ZESTRIL) TAB PO SCH (08:15)
[2016-09-14] MEDS: HYDROCHLOROTHIAZIDE 25 MG (HCTZ) TAB PO SCH (08:15)
[2016-09-14] MEDS: ASPIRIN E.C. 81 MG (ECOTRIN) TAB PO SCH (08:15)
[2016-09-14] MEDS ORDERED: L.AC1CAP6 PO (08:55)
[2016-09-14] MEDS ORDERED: CLIN300C11 PO (08:55)
[2016-09-14 10:57] VITALS: BP 141/74
== END 2016-09-14 11:02 | disposition home or self-care (01) | DRG 603 ==
LOC: EDUNIT# 07:58 → ER 08:01 → 4TH 09:08
PROVIDERS: ADMIT Family Medicine; ATTEND Family Medicine
DX: L03.114 Cellulitis of left upper limb (principal); S60.222A Contusion of left hand, initial encounter; I89.0 Lymphedema, not elsewhere classified; R11.0 Nausea; I10 Essential (primary) hypertension; E11.9 Type 2 diabetes mellitus without complications; G47.30 Sleep apnea, unspecified; Z85.3 Personal history of malignant neoplasm of breast; Z90.12 Acquired absence of left breast and nipple; Z92.21 Personal history of antineoplastic chemotherapy; W01.0XXA Fall on same level from slipping, tripping and stumbling without subsequent striking against object, initial encounter; Y92.008 Other place in unspecified non-institutional (private) residence as the place of occurrence of the external cause
CPT/HCPCS: 36415; 80048; 80053; 80202; 82962; 83605; 85007; 85025; 85027; 87040; 94760; 96365

== ENCOUNTER 2016-10-12 15:51 | Outpatient (RCR) | payer MEDICARE ==
[~2016-10-12 15:51] MED LIST changes: +L.AC1CAP6 PO
== END 2016-11-20 15:51 | disposition home or self-care (01) ==
PROVIDERS: ATTEND Family Medicine
DX: I89.0 Lymphedema, not elsewhere classified (principal); C50.919 Malignant neoplasm of unspecified site of unspecified female breast

== ENCOUNTER → 2016-10-24 | Outpatient (CLI) | payer MEDICARE ==
--- NOTE | 2016-10-25 11:41 | Diagnostic Imaging Report ---
EXAMINATION: Screening right breast mammogram with a Computer Aided Detection (CAD) system. INDICATION: Screening. The patient had a left mastectomy for breast cancer in 1999. COMPARISON: 10/19/2015. FINDINGS: The right breast demonstrates scattered fibroglandular densities. There are scattered benign-appearing calcifications. Allowing for technique and positional differences, no suspicious change is seen. IMPRESSION: No significant change. ACR BI-RADS Category 2: Benign findings. Result letter will be mailed to the patient. Note: At least 10% of breast cancer is not imaged by mammography. Dictated by: Dictated on workstation # [id number]
== END ==
LOC: RAD 08:31
PROVIDERS: ATTEND Internal Medicine Hematology & Oncology
DX: Z12.31 Encounter for screening mammogram for malignant neoplasm of breast (principal)

== ENCOUNTER 2016-11-01 05:30 | Emergency (ER) | payer MEDICARE ==
[~2016-11-01] VITALS: Ht 167.6 cm; Wt 99.8 kg
--- OUTSIDE RECORDS SUMMARY | 2016-11-01 05:38 | XMS REPORT | Continuity of Care Document ---
Author Author [facility] Organization [facility] Address Unknown Phone Unavailable Allergies Active Description Code Type Severity Reaction Onset Reported/Identified Relationship to Patient Clinical Status Yes No Known Drug Allergies [id number] Drug Allergy Unknown N/ A 08/04/2010 Medications Problems Date Dx Coded Attending Type Code Diagnosis Diagnosed By 12/01/2009 Ot 174.9 12/01/2009 Ot 457.0 12/01/2009 Ot V45.71 12/01/2009 Ot V57.21 08/09/2010 Ot 250.00 08/09/2010 Ot 275.2 08/09/2010 Ot 278.01 08/09/2010 Ot 327.23 08/09/2010 Ot 401.9 08/09/2010 Ot 457.1 08/09/2010 Ot 682.3 08/09/2010 Ot 682.4 08/09/2010 Ot 883.1 08/09/2010 Ot E849.6 08/09/2010 Ot E920.8 08/09/2010 Ot V10.3 08/09/2010 Ot V45.71 08/09/2010 Ot V85.42 08/26/2010 Ot 327.23 08/26/2010 Ot 401.9 09/16/2010 Ot 174.9 09/16/2010 Ot 457.1 09/16/2010 Ot V57.21 03/07/2011 Ot 250.00 DIAB MICHAEL WO COMPL, TYPE II OR UNSPEC TY 03/07/2011 Ot 272.4 HYPERLIPIDEMIA NEC/NOS 03/07/2011 Ot 278.00 OBESITY, NOS 03/07/2011 Ot 327.23 OBSTRUCTIVE SLEEP APNEA (ADULT) (PEDIATR 03/07/2011 Ot 401.9 HYPERTENSION NOS 03/07/2011 Ot 457.1 OTHER LYMPHEDEMA 03/07/2011 Ot 682.3 CELLULITIS OF ARM 03/07/2011 Ot V10.3 HX OF BREAST MALIGNANCY 03/07/2011 Ot V45.71 ACQUIRED ABSENCE OF BREAST AND NIPPLE 03/07/2011 Ot V85.42 BODY MASS INDEX 45.0-49.9, ADULT 09/05/2011 Ot 845.10 SPRAIN OF FOOT NOS 09/05/2011 Ot 959.7 LOWER LEG INJURY NOS 09/05/2011 Ot E000.8 OTHER EXTERNAL CAUSE STATUS 09/05/2011 Ot E849.0 ACCIDENT IN HOME 09/05/2011 Ot E927.0 OVEREXERTION FROM SUDDEN STRENUOUS MOVEM 09/13/2011 Ot 008.45 INTESTINAL INFECTION DUE TO CLOSTRIDIUM 09/13/2011 Ot 053.9 HERPES ZOSTER NOS 09/13/2011 Ot 250.00 DIAB MICHAEL WO COMPL, TYPE II OR UNSPEC TY 09/13/2011 Ot 272.0 PURE HYPERCHOLESTEROLEM 09/13/2011 Ot 276.51 DEHYDRATION 09/13/2011 Ot 278.01 MORBID OBESITY 09/13/2011 Ot 327.23 OBSTRUCTIVE SLEEP APNEA (ADULT) (PEDIATR 09/13/2011 Ot 401.9 HYPERTENSION NOS 09/13/2011 Ot 574.20 CHOLELITHIASIS NOS 09/13/2011 Ot V10.3 HX OF BREAST MALIGNANCY 09/13/2011 Ot V12.59 HX-CIRCULATORY SYST DIS,NEC 09/13/2011 Ot V13.02 PERSONAL HISTORY, URINARY (TRACT) INFECT 09/13/2011 Ot V45.71 ACQUIRED ABSENCE OF BREAST AND NIPPLE 09/13/2011 Ot V85.41 BODY MASS INDEX 40.0-44.9, ADULT 11/08/2011 Ot 250.00 DIAB MICHAEL WO COMPL, TYPE II OR UNSPEC TY 11/08/2011 Ot 278.01 MORBID OBESITY 11/08/2011 Ot 552.1 UMBILICAL HERNIA W OBSTR 11/08/2011 Ot 574.10 CHOLELITH W CHOLECYS NEC 11/08/2011 Ot V64.41 LAPAROSCOPIC SURGICAL PROC CONVERTED TO 11/08/2011 Ot V85.42 BODY MASS INDEX 45.0-49.9, ADULT 05/02/2012 Ot 174.9 MALIGN NEOPL BREAST NOS 05/02/2012 Ot 457.1 OTHER LYMPHEDEMA 05/02/2012 Ot V57.21 ENCOUNTER FOR OCCUPATIONAL THERAPY 05/07/2013 AMITA FOREMAN Ot 174.9 MALIGN NEOPL BREAST NOS 05/07/2013 AMITA FOREMAN Ot V45.71 ACQUIRED ABSENCE OF BREAST AND NIPPLE 12/17/2013 AMITA FOREMAN Ot 174.9 MALIGN NEOPL BREAST NOS 12/17/2013 AMITA FOREMAN Ot 457.1 OTHER LYMPHEDEMA 12/17/2013 AMITA FOREMAN Ot V57.1 PHYSICAL THERAPY NEC 04/28/2014 AMITA FOREMAN N Ot 174.9 04/28/2014 AMITA FOREMAN N Ot V45.71 05/05/2014 AMITA FOREMAN N Ot 174.9 05/05/2014 AMITA FOREMAN N Ot V45.71 05/06/2014 AMITA FOREMAN Ot 174.9 MALIGN NEOPL BREAST NOS 05/06/2014 AMITA FOREMAN N Ot V45.71 ACQUIRED ABSENCE OF BREAST AND NIPPLE 10/14/2014 Ot 457.1 10/14/2014 Ot V10.3 10/14/2014 Ot V45.71 10/14/2014 Ot V58.69 10/14/2014 Ot V67.2 10/14/2014 Ot 174.9 10/14/2014 Ot V76.11 10/14/2014 Ot 682.3 10/14/2014 Ot V10.3 10/14/2014 Ot 278.00 10/14/2014 Ot 327.23 10/14/2014 Ot 457.1 10/14/2014 Ot 585.3 10/14/2014 Ot V10.3 10/14/2014 Ot V45.71 10/14/2014 Ot V58.69 10/14/2014 Ot V67.2 10/14/2014 Ot 174.9 10/14/2014 Ot V76.11 10/14/2014 Ot 553.1 10/14/2014 Ot 574.20 10/14/2014 Ot V72.63 10/14/2014 Ot V72.81 10/14/2014 Ot V74.8 10/14/2014 Ot 174.9 10/14/2014 Ot 174.9 10/14/2014 Ot V45.71 10/14/2014 Ot V76.11 10/14/2014 Ot 174.9 10/14/2014 Ot 793.89 10/14/2014 AMITA FOREMAN N Ot 174.9 10/14/2014 AMITA FOREMAN N Ot V45.71 10/14/2014 AMITA FOREMAN N Ot 174.9 10/14/2014 ALYSSA GRIMES Ot 786.07 10/14/2014 ALYSSA GRIMES TEAM PHYSICIAN Ot 786.2 10/14/2014 ALYSSA GRIMES TEAM PHYSICIAN Ot 793.19 10/14/2014 ALYSSA GRIMES TEAM PHYSICIAN Ot 486 10/14/2014 AMITA FOREMAN N Ot 174.9 10/14/2014 KELLENAMITA AN N Ot V45.71 11/02/2014 KELLENAMITA AN N Ot 174.9 11/02/2014 KELLENAMITA AN N Ot 457.1 11/12/2014 KELLENAMITA AN N Ot 174.9 11/12/2014 KELLENAMITA AN N Ot 457.1 02/16/2015 KELLY REYES, MARY Costa Ot K57.90 DVRTCLOS OF INTEST, PART UNS, W/O PERF 02/16/2015 KELLY REYES, MRAY Costa Ot Z12.11 ENCOUNTER FOR SCREENING FOR MALIGNANT NE 02/17/2015 EMERALD JONAS DO S Ot 433.10 03/01/2015 EMERALD JONAS DO S Ot 433.10 03/03/2015 MARY EASTMAN S TEAM PHYSICIAN Ot I89.0 03/03/2015 EASTMANMARY Green S TEAM PHYSICIAN Ot Z08 03/03/2015 EASTMANMARY Green S TEAM PHYSICIAN Ot Z85.3 03/03/2015 EASTMANMARY Green S TEAM PHYSICIAN Ot Z90.12 03/03/2015 EASTMANMARY Green S TEAM PHYSICIAN Ot Z92.21 03/09/2015 MARY EASTMAN S TEAM PHYSICIAN Ot I89.0 03/09/2015 EASTMANMARY Green S TEAM PHYSICIAN Ot Z08 03/09/2015 EASTMANMARY Green S TEAM PHYSICIAN Ot Z85.3 03/09/2015 EASTMANMARY Green S TEAM PHYSICIAN Ot Z90.12 03/09/2015 EASTMANMARY Green S TEAM PHYSICIAN Ot Z92.21 10/20/2015 Ot Z12.31 ENCNTR SCREEN MAMMOGRAM FOR MALIGNANT NE 10/21/2015 Ot Z12.31 ENCNTR SCREEN MAMMOGRAM FOR MALIGNANT NE 11/10/2015 Ot Z12.31 ENCNTR SCREEN MAMMOGRAM FOR MALIGNANT NE 11/23/2015 CAT BUSH APRN Ot R01.1 CARDIAC MURMUR, UNSPECIFIED 11/23/2015 CAT BUSH GRILL ATTENDANT Ot R01.1 CARDIAC MURMUR, UNSPECIFIED 12/17/2015 RACHELLECAT APRN Ot R01.1 CARDIAC MURMUR, UNSPECIFIED 01/03/2016 RACHELLECAT APRN Ot R01.1 CARDIAC MURMUR, UNSPECIFIED 02/03/2016 AMITA FOREMAN Jordi Ot 174.9 MALIGN NEOPL BREAST NOS 02/03/2016 AMITA FOREMAN N Ot V45.71 ACQUIRED ABSENCE OF BREAST AND NIPPLE 02/03/2016 AMITA FOREMAN Jordi Ot 174.9 MALIGN NEOPL BREAST NOS 02/03/2016 AMITA FOREMAN Jordi Ot V45.71 ACQUIRED ABSENCE OF BREAST AND NIPPLE 02/11/2016 AMITA FOREMAN Jordi Ot I89.0 LYMPHEDEMA, NOT ELSEWHERE CLASSIFIED 02/11/2016 AMITA FOREMAN Jordi Ot Z08 ENCNTR FOR FOLLOW-UP EXAM AFTER TRTMT FO 02/11/2016 AMITA FOREMAN Jordi Ot Z85.3 PERSONAL HISTORY OF MALIGNANT NEOPLASM O 02/11/2016 AMITA FOREMAN N Ot Z90.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 02/11/2016 AMITA FOREMAN N Ot Z92.21 PERSONAL HISTORY OF ANTINEOPLASTIC CHEMO 03/02/2016 AMITA FOREMAN Jordi Ot I89.0 LYMPHEDEMA, NOT ELSEWHERE CLASSIFIED 03/02/2016 AMITA FOREMAN Jordi Ot Z08 ENCNTR FOR FOLLOW-UP EXAM AFTER TRTMT FO 03/02/2016 AMITA FOREMAN Jordi Ot Z85.3 PERSONAL HISTORY OF MALIGNANT NEOPLASM O 03/02/2016 AMITA FOREMAN N Ot Z90.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 03/02/2016 AMITA FOREMAN Jordi Ot Z92.21 PERSONAL HISTORY OF ANTINEOPLASTIC CHEMO 03/29/2016 Ot 278.00 OBESITY, NOS 03/29/2016 Ot 327.23 OBSTRUCTIVE SLEEP APNEA (ADULT) (PEDIATR 03/29/2016 Ot 457.1 OTHER LYMPHEDEMA 03/29/2016 Ot 585.3 CHRONIC KIDNEY DISEASE, STAGE III (MODER 03/29/2016 Ot V10.3 HX OF BREAST MALIGNANCY 03/29/2016 Ot V45.71 ACQUIRED ABSENCE OF BREAST AND NIPPLE 03/29/2016 Ot V58.69 OTH MED,LT,CURRENT USE 03/29/2016 Ot V67.2 CHEMOTHERAPY FOLLOW-UP 03/29/2016 Ot 174.9 MALIGN NEOPL BREAST NOS 03/29/2016 Ot V76.11 SCRN MAMMO-HIGH RISK PT, MALIGNANT NEOPL 03/29/2016 Ot 553.1 UMBILICAL HERNIA 03/29/2016 Ot 574.20 CHOLELITHIASIS NOS 03/29/2016 Ot V72.63 PRE-PROCEDURAL LABORATORY EXAMINATION 03/29/2016 Ot V72.81 VHNU-EOP-PUMQBUDZO CARDIOVASCULAR 03/29/2016 Ot V74.8 SCREEN-BACTERIAL DIS NEC 03/29/2016 Ot 174.9 MALIGN NEOPL BREAST NOS 03/29/2016 Ot 174.9 MALIGN NEOPL BREAST NOS 03/29/2016 Ot V45.71 ACQUIRED ABSENCE OF BREAST AND NIPPLE 03/29/2016 Ot V76.11 SCRN MAMMO-HIGH RISK PT, MALIGNANT NEOPL 03/29/2016 Ot 174.9 MALIGN NEOPL BREAST NOS 03/29/2016 Ot 793.89 OTH (ABN) FINDINGS ON RADIOLOGICAL EXAMI 03/29/2016 AMITA FOREMAN Ot 174.9 MALIGN NEOPL BREAST NOS 03/29/2016 AMITA FOREMAN Ot V45.71 ACQUIRED ABSENCE OF BREAST AND NIPPLE 03/29/2016 AMITA FOREMAN Ot 174.9 MALIGN NEOPL BREAST NOS 03/29/2016 VANBECELAERE, ALYSSA M TEAM PHYSICIAN Ot 786.07 WHEEZING 03/29/2016 VANBECELAERE, ALYSSA M TEAM PHYSICIAN Ot 786.2 COUGH 03/29/2016 VANBECELAERE, ALYSSA M TEAM PHYSICIAN Ot 793.19 OTHER NONSPECIFIC ABNORMAL FINDING OF SABR[place] 03/29/2016 VANBECELAERE, ALYSSA M TEAM PHYSICIAN Ot 486 PNEUMONIA, ORGANISM NOS 03/29/2016 AMITA FOREMAN Ot 174.9 MALIGN NEOPL BREAST NOS 03/29/2016 AMITA FOREMAN Ot 457.1 OTHER LYMPHEDEMA 03/29/2016 AMITA FOREMAN Ot I89.0 LYMPHEDEMA, NOT ELSEWHERE CLASSIFIED 03/29/2016 AMITA FOREMAN Ot Z08 ENCNTR FOR FOLLOW-UP EXAM AFTER TRTMT FO 03/29/2016 AMITA FOREMAN Ot Z85.3 PERSONAL HISTORY OF MALIGNANT NEOPLASM O 03/29/2016 AMITA FOREMAN Ot Z90.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 03/29/2016 AMITA FOREMAN Ot Z92.21 PERSONAL HISTORY OF ANTINEOPLASTIC CHEMO 03/29/2016 EMERALD JONAS DO S Ot 433.10 CAROTID ARTERY OCCLUSION W O CEREBRAL IN 03/29/2016 KELLY REYES, MARY Costa Ot Z01.818 ENCOUNTER FOR OTHER PREPROCEDURAL EXAMIN 03/29/2016 MARY EASTMAN Ot I89.0 LYMPHEDEMA, NOT ELSEWHERE CLASSIFIED 03/29/2016 MARY EASTMANP Ot Z08 ENCNTR FOR FOLLOW-UP EXAM AFTER TRTMT FO 03/29/2016 MARY EASTMANP Ot Z85.3 PERSONAL HISTORY OF MALIGNANT NEOPLASM O 03/29/2016 MARY EASTMAN Ot Z90.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 03/29/2016 MARY EASTMANP Ot Z92.21 PERSONAL HISTORY OF ANTINEOPLASTIC CHEMO 03/29/2016 Ot Z12.31 ENCNTR SCREEN MAMMOGRAM FOR MALIGNANT NE 03/29/2016 CAT BUSH APRN Ot R01.1 CARDIAC MURMUR, UNSPECIFIED 04/01/2016 SIM JONAS DOQUELINE S Ot E11.9 TYPE 2 DIABETES MELLITUS WITHOUT COMPLIC 04/01/2016 ABDON JONAS DOLINE S Ot E87.6 HYPOKALEMIA 04/01/2016 ABDON JONAS DOLINE S Ot I10 ESSENTIAL (PRIMARY) HYPERTENSION 04/01/2016 ABDON JONAS DOLINE S Ot 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 04/01/2016 ABDON JONAS DOLINE S Ot L03.114 CELLULITIS OF LEFT UPPER LIMB 04/01/2016 SIM JONAS DOQUELINE S Ot Z79.4 TEAM LEADER (CURRENT) USE OF INSULIN 04/01/2016 SIM JONAS DOQUELINE S Ot Z90.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 09/13/2016 SIM JONAS DOQUELINE S Ot E11.9 TYPE 2 DIABETES MELLITUS WITHOUT COMPLIC 09/13/2016 SIM JONAS DOQUELINE S Ot G47.30 SLEEP APNEA, UNSPECIFIED 09/13/2016 [id number] SALMERON EMERALD S Ot I10 ESSENTIAL (PRIMARY) HYPERTENSION 09/13/2016 SIM JONAS DOQUELINE S Ot I89.0 LYMPHEDEMA, NOT ELSEWHERE CLASSIFIED 09/13/2016 EMERALD JONAS DO Ot L03.114 CELLULITIS OF LEFT UPPER LIMB 09/13/2016 EMERALD JONAS DO S Ot R11.0 NAUSEA 09/13/2016 EMERALD JONAS DO S Ot S60.222A CONTUSION OF LEFT HAND, INITIAL ENCOUNTE 09/13/2016 EMERALD JONAS DO Ot W01.0XXA FALL SAME LEV FROM SLIP/TRIP W/O STRIKE 09/13/2016 EMERALD JONAS DO Ot Y92.[address] IN [facility] ( [facility]) 09/13/2016 EMERALD JONAS DO S Ot Z85.3 PERSONAL HISTORY OF MALIGNANT NEOPLASM O 09/13/2016 EMERALD JONAS DO S Ot Z90.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 09/13/2016 EMERALD JONAS DO S Ot Z92.21 PERSONAL HISTORY OF ANTINEOPLASTIC CHEMO 09/14/2016 EMERALD JONAS DO S Ot E11.9 TYPE 2 DIABETES MELLITUS WITHOUT COMPLIC 09/14/2016 EMERALD JONAS DO S Ot G47.30 SLEEP APNEA, UNSPECIFIED 09/14/2016 EMERALD JONAS DO S Ot I10 ESSENTIAL (PRIMARY) HYPERTENSION 09/14/2016 MEERALD JONAS DO Ot I89.0 LYMPHEDEMA, NOT ELSEWHERE CLASSIFIED 09/14/2016 EMERALD JONAS DO Ot L03.114 CELLULITIS OF LEFT UPPER LIMB 09/14/2016 EMERALD JONAS DO Ot R11.0 NAUSEA 09/14/2016 EMERALD JONAS DO S Ot S60.222A CONTUSION OF LEFT HAND, INITIAL ENCOUNTE 09/14/2016 EMERALD JONAS DO Ot W01.0XXA FALL SAME LEV FROM SLIP/TRIP W/O STRIKE 09/14/2016 EMERALD JONAS DO Ot Y92.[address] IN [facility] ( [facility]) 09/14/2016 EMERALD JONAS DO S Ot Z85.3 PERSONAL HISTORY OF MALIGNANT NEOPLASM O 09/14/2016 ABDON JONAS DOLINE S Ot Z90.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 09/14/2016 EMERALD JONAS DO Ot Z92.21 PERSONAL HISTORY OF ANTINEOPLASTIC CHEMO 10/04/2016 EMERALD JONAS DO Ot C50.919 MALIGNANT NEOPLASM OF UNSP SITE OF UNSPE 10/04/2016 EMERALD JONAS DO Ot I89.0 LYMPHEDEMA, NOT ELSEWHERE CLASSIFIED 10/20/2016 AMITA FOREMAN N Ot Z12.31 ENCNTR SCREEN MAMMOGRAM FOR MALIGNANT NE 10/23/2016 KELLEN, BOBYASH N Ot Z12.31 ENCNTR SCREEN MAMMOGRAM FOR MALIGNANT NE 10/23/2016 KELLEN, BOBAN N Ot Z12.31 ENCNTR SCREEN MAMMOGRAM FOR MALIGNANT NE 10/25/2016 KELLEN, BOBAN N Ot Z12.31 ENCNTR SCREEN MAMMOGRAM FOR MALIGNANT NE 10/25/2016 KELLEN, BOBAN N Ot Z12.31 ENCNTR SCREEN MAMMOGRAM FOR MALIGNANT NE 10/25/2016 KELLEN, BOBYASH N Ot Z12.31 ENCNTR SCREEN MAMMOGRAM FOR MALIGNANT NE 10/25/2016 KELLEN, BOBAN N Ot Z12.31 ENCNTR SCREEN MAMMOGRAM FOR MALIGNANT NE 10/25/2016 KELLEN, DEANDREAN N Ot Z12.31 ENCNTR SCREEN MAMMOGRAM FOR MALIGNANT NE 10/25/2016 KELLEN, AMITA N Ot Z12.31 ENCNTR SCREEN MAMMOGRAM FOR MALIGNANT NE 10/27/2016 EMERALD JONAS DO Ot C50.919 [facility] 10/27/2016 EMERALD JONAS DO Ot I89.0 LYMPHEDEMA, NOT ELSEWHERE CLASSIFIED Procedures Code Description Performed By Performed On 38.93 VENOUS CATHETERIZATION [facility] 09/11/2011 Results Test Result Range Complete blood count (CBC) with automated white blood cell (WBC) differential - 03/29/16 10:30 Blood leukocytes automated count (number/volume) 14.3 10*3/ uL 4.3-11.0 Blood erythrocytes automated count (number/volume) 4.66 10*6 /uL 4.35-5.85 Venous blood hemoglobin measurement (mass/volume) 14.5 g/dL 11.5-16.0 Blood hematocrit (volume fraction) 42 % 35-52 Automated erythrocyte mean corpuscular volume 90 [foz_us] 80-99 Automated erythrocyte mean corpuscular hemoglobin (mass per erythrocyte) 31 pg 25-34 Automated erythrocyte mean corpuscular hemoglobin concentration measurement ( mass/volume) 34 g/dL 32-36 Automated erythrocyte distribution width ratio 12.4 % 10.0-14.5 Automated blood platelet count (count/volume) 185 10*3/uL 130-400 Automated blood platelet mean volume measurement 10.2 [foz_ us] 7.4-10.4 Automated blood neutrophils/100 leukocytes 92 % 42-75 Automated blood lymphocytes/100 leukocytes 5 % 12-44 Blood monocytes/100 leukocytes 3 % 0-12 Automated blood eosinophils/100 leukocytes 0 % 0-10 Automated blood basophils/100 leukocytes 0 % 0-10 Blood neutrophils automated count (number/volume) 13.2 10*3 1.8-7.8 Blood lymphocytes automated count (number/volume) 0.7 10*3 1.0-4.0 Blood monocytes automated count (number/volume) 0.4 10*3 0.0-1.0 Automated eosinophil count 0.0 10*3/uL 0.0-0.3 Automated blood basophil count (count/volume) 0.0 10*3/uL 0.0-0.1 Comprehensive metabolic panel - 03/29/16 10:30 Serum or plasma sodium measurement (moles/volume) 135 mmol/ L 135-145 Serum or plasma potassium measurement (moles/volume) 3.5 mmol/L 3.6-5.0 Serum or plasma chloride measurement (moles/volume) 102 mmol /L 98-107 Carbon dioxide 21 mmol/L 21-32 Serum or plasma anion gap determination (moles/volume) 12 mmol/L 5-14 Serum or plasma urea nitrogen measurement (mass/volume) 16 mg/dL 7-18 Serum or plasma creatinine measurement (mass/volume) 0.78 mg /dL 0.60-1.30 Serum or plasma urea nitrogen/creatinine mass ratio 21 NRG Serum or plasma creatinine measurement with calculation of estimated glomerular filtration rate > NRG Serum or plasma glucose measurement (mass/volume) 125 mg/dL 70-105 Serum or plasma calcium measurement (mass/volume) 10.0 mg/ dL 8.5-10.1 Serum or plasma total bilirubin measurement (mass/volume) 1.0 mg/dL 0.1-1.0 Serum or plasma alkaline phosphatase measurement (enzymatic activity/volume) 65 U/L 40-136 Serum or plasma aspartate aminotransferase measurement (enzymatic activity/ volume) 23 U/L 5-34 Serum or plasma alanine aminotransferase measurement (enzymatic activity/volume ) 19 U/L 0-55 Serum or plasma protein measurement (mass/volume) 6.9 g/dL 6.4-8.2 Serum or plasma albumin measurement (mass/volume) 4.1 g/dL 3.2-4.5 Serum or plasma C reactive protein measurement (mass/volume) - 03/29/16 10:30 Serum or plasma C reactive protein measurement (mass/volume) 7.34 mg/dL 0.00-0.50 Blood manual differential performed detection - 03/29/16 10:30 Blood monocytes/100 leukocytes 2 % NRG Manual blood segmented neutrophils/100 leukocytes 90 % NRG Blood band neutrophils/100 leukocytes 0 % NRG Manual blood lymphocytes/100 leukocytes 8 % NRG Manual eosinophils/100 leukocytes in nose 0 % NRG Manual blood basophils/100 leukocytes 0 % NRG Blood erythrocyte morphology finding identification NORMAL NRG Capillary blood glucose measurement by glucometer (mass/volume) - 03/29/16 11: 19 Capillary blood glucose measurement by glucometer (mass/volume) 117 mg/dL 70-110 Capillary blood glucose measurement by glucometer (mass/volume) - 03/29/16 15: 42 Capillary blood glucose measurement by glucometer (mass/volume) 144 mg/dL 70-110 Capillary blood glucose measurement by glucometer (mass/volume) - 03/29/16 20: 36 Capillary blood glucose measurement by glucometer (mass/volume) 157 mg/dL 70-110 Complete blood count (CBC) with automated white blood cell (WBC) differential - 03/30/16 05:07 Blood leukocytes automated count (number/volume) 7.5 10*3/ uL 4.3-11.0 Blood erythrocytes automated count (number/volume) 3.78 10*6 /uL 4.35-5.85 Venous blood hemoglobin measurement (mass/volume) 11.8 g/dL 11.5-16.0 Blood hematocrit (volume fraction) 34 % 35-52 Automated erythrocyte mean corpuscular volume 91 [foz_us] 80-99 Automated erythrocyte mean corpuscular hemoglobin (mass per erythrocyte) 31 pg 25-34 Automated erythrocyte mean corpuscular hemoglobin concentration measurement ( mass/volume) 34 g/dL 32-36 Automated erythrocyte distribution width ratio 12.6 % 10.0-14.5 Automated blood platelet count (count/volume) 150 10*3/uL 130-400 Automated blood platelet mean volume measurement 10.4 [foz_ us] 7.4-10.4 Automated blood neutrophils/100 leukocytes 71 % 42-75 Automated blood lymphocytes/100 leukocytes 21 % 12-44 Blood monocytes/100 leukocytes 7 % 0-12 Automated blood eosinophils/100 leukocytes 1 % 0-10 Automated blood basophils/100 leukocytes 1 % 0-10 Blood neutrophils automated count (number/volume) 5.3 10*3 1.8-7.8 Blood lymphocytes automated count (number/volume) 1.6 10*3 1.0-4.0 Blood monocytes automated count (number/volume) 0.5 10*3 0.0-1.0 Automated eosinophil count 0.1 10*3/uL 0.0-0.3 Automated blood basophil count (count/volume) 0.0 10*3/uL 0.0-0.1 Comprehensive metabolic panel - 03/30/16 05:07 Serum or plasma sodium measurement (moles/volume) 132 mmol/ L 135-145 Serum or plasma potassium measurement (moles/volume) 3.9 mmol/L 3.6-5.0 Serum or plasma chloride measurement (moles/volume) 102 mmol /L 98-107 Carbon dioxide 19 mmol/L 21-32 Serum or plasma anion gap determination (moles/volume) 11 mmol/L 5-14 Serum or plasma urea nitrogen measurement (mass/volume) 19 mg/dL 7-18 Serum or plasma creatinine measurement (mass/volume) 0.82 mg /dL 0.60-1.30 Serum or plasma urea nitrogen/creatinine mass ratio 23 NRG Serum or plasma creatinine measurement with calculation of estimated glomerular filtration rate > NRG Serum or plasma glucose measurement (mass/volume) 100 mg/dL 70-105 Serum or plasma calcium measurement (mass/volume) 8.2 mg/dL 8.5-10.1 Serum or plasma total bilirubin measurement (mass/volume) 0.6 mg/dL 0.1-1.0 Serum or plasma alkaline phosphatase measurement (enzymatic activity/volume) 53 U/L 40-136 Serum or plasma aspartate aminotransferase measurement (enzymatic activity/ volume) 26 U/L 5-34 Serum or plasma alanine aminotransferase measurement (enzymatic activity/volume ) 24 U/L 0-55 Serum or plasma protein measurement (mass/volume) 5.3 g/dL 6.4-8.2 Serum or plasma albumin measurement (mass/volume) 3.2 g/dL 3.2-4.5 Capillary blood glucose measurement by glucometer (mass/volume) - 03/30/16 10: 42 Capillary blood glucose measurement by glucometer (mass/volume) 132 mg/dL 70-110 Capillary blood glucose measurement by glucometer (mass/volume) - 03/30/16 15: 54 Capillary blood glucose measurement by glucometer (mass/volume) 120 mg/dL 70-110 Capillary blood glucose measurement by glucometer (mass/volume) - 03/30/16 20: 29 Capillary blood glucose measurement by glucometer (mass/volume) 155 mg/dL 70-110 Complete blood count (CBC) with automated white blood cell (WBC) differential - 03/31/16 05:48 Blood leukocytes automated count (number/volume) 7.6 10*3/ uL 4.3-11.0 Blood erythrocytes automated count (number/volume) 4.05 10*6 /uL 4.35-5.85 Venous blood hemoglobin measurement (mass/volume) 12.3 g/dL 11.5-16.0 Blood hematocrit (volume fraction) 36 % 35-52 Automated erythrocyte mean corpuscular volume 90 [foz_us] 80-99 Automated erythrocyte mean corpuscular hemoglobin (mass per erythrocyte) 30 pg 25-34 Automated erythrocyte mean corpuscular hemoglobin concentration measurement ( mass/volume) 34 g/dL 32-36 Automated erythrocyte distribution width ratio 12.4 % 10.0-14.5 Automated blood platelet count (count/volume) 169 10*3/uL 130-400 Automated blood platelet mean volume measurement 10.6 [foz_ us] 7.4-10.4 Automated blood neutrophils/100 leukocytes 61 % 42-75 Automated blood lymphocytes/100 leukocytes 26 % 12-44 Blood monocytes/100 leukocytes 10 % 0-12 Automated blood eosinophils/100 leukocytes 3 % 0-10 Automated blood basophils/100 leukocytes 0 % 0-10 Blood neutrophils automated count (number/volume) 4.6 10*3 1.8-7.8 Blood lymphocytes automated count (number/volume) 2.0 10*3 1.0-4.0 Blood monocytes automated count (number/volume) 0.8 10*3 0.0-1.0 Automated eosinophil count 0.2 10*3/uL 0.0-0.3 Automated blood basophil count (count/volume) 0.0 10*3/uL 0.0-0.1 Serum or plasma renal function panel (Na, K, Cl, CO2, BUN, Cr, glucose,Ca, phos , alb) - 03/31/16 05:48 Serum or plasma sodium measurement (moles/volume) 137 mmol/ L 135-145 Serum or plasma potassium measurement (moles/volume) 3.7 mmol/L 3.6-5.0 Serum or plasma chloride measurement (moles/volume) 106 mmol /L 98-107 Carbon dioxide 22 mmol/L 21-32 Serum or plasma anion gap determination (moles/volume) 9 mmol/L 5-14 Serum or plasma urea nitrogen measurement (mass/volume) 15 mg/dL 7-18 Serum or plasma creatinine measurement (mass/volume) 0.75 mg /dL 0.60-1.30 Serum or plasma urea nitrogen/creatinine mass ratio 20 NRG Serum or plasma creatinine measurement with calculation of estimated glomerular filtration rate > NRG Serum or plasma glucose measurement (mass/volume) 102 mg/dL 70-105 Serum or plasma calcium measurement (mass/volume) 9.0 mg/dL 8.5-10.1 Serum or plasma albumin measurement (mass/volume) 3.2 g/dL 3.2-4.5 Serum or plasma phosphate measurement (mass/volume) 2.9 mg/ dL 2.3-4.7 Capillary blood glucose measurement by glucometer (mass/volume) - 03/31/16 11: 10 Capillary blood glucose measurement by glucometer (mass/volume) 103 mg/dL 70-110 Capillary blood glucose measurement by glucometer (mass/volume) - 03/31/16 15: 53 Capillary blood glucose measurement by glucometer (mass/volume) 99 mg/dL 70-110 Capillary blood glucose measurement by glucometer (mass/volume) - 03/31/16 20: 28 Capillary blood glucose measurement by glucometer (mass/volume) 137 mg/dL 70-110 Capillary blood glucose measurement by glucometer (mass/volume) - 04/01/16 06: 03 Capillary blood glucose measurement by glucometer (mass/volume) 120 mg/dL 70-110 Complete blood count (CBC) with automated white blood cell (WBC) differential - 09/10/16 08:20 Blood leukocytes automated count (number/volume) 18.8 10*3/ uL 4.3-11.0 Blood erythrocytes automated count (number/volume) 4.53 10*6 /uL 4.35-5.85 Venous blood hemoglobin measurement (mass/volume) 13.8 g/dL 11.5-16.0 Blood hematocrit (volume fraction) 41 % 35-52 Automated erythrocyte mean corpuscular volume 90 [foz_us] 80-99 Automated erythrocyte mean corpuscular hemoglobin (mass per erythrocyte) 31 pg 25-34 Automated erythrocyte mean corpuscular hemoglobin concentration measurement ( mass/volume) 34 g/dL 32-36 Automated erythrocyte distribution width ratio 12.4 % 10.0-14.5 Automated blood platelet count (count/volume) 217 10*3/uL 130-400 Automated blood platelet mean volume measurement 9.8 [foz_us ] 7.4-10.4 Automated blood neutrophils/100 leukocytes 94 % 42-75 Automated blood lymphocytes/100 leukocytes 3 % 12-44 Blood monocytes/100 leukocytes 3 % 0-12 Automated blood eosinophils/100 leukocytes 0 % 0-10 Automated blood basophils/100 leukocytes 0 % 0-10 Blood neutrophils automated count (number/volume) 17.7 10*3 1.8-7.8 Blood lymphocytes automated count (number/volume) 0.6 10*3 1.0-4.0 Blood monocytes automated count (number/volume) 0.5 10*3 0.0-1.0 Automated eosinophil count 0.0 10*3/uL 0.0-0.3 Automated blood basophil count (count/volume) 0.0 10*3/uL 0.0-0.1 Blood lactic acid measurement (moles/volume) - 09/10/16 08:20 Blood lactic acid measurement (moles/volume) 0.70 mmol/L 0.50-2.00 Blood manual differential performed detection - 09/10/16 08:20 Manual blood segmented neutrophils/100 leukocytes 96 % NRG Manual blood lymphocytes/100 leukocytes 4 % NRG Blood erythrocyte morphology finding identification NORMAL NR Comprehensive metabolic panel - 09/10/16 08:20 Serum or plasma sodium measurement (moles/volume) 136 mmol/ L 135-145 Serum or plasma potassium measurement (moles/volume) 3.7 mmol/L 3.6-5.0 Serum or plasma chloride measurement (moles/volume) 101 mmol /L 98-107 Carbon dioxide 22 mmol/L 21-32 Serum or plasma anion gap determination (moles/volume) 13 mmol/L 5-14 Serum or plasma urea nitrogen measurement (mass/volume) 23 mg/dL 7-18 Serum or plasma creatinine measurement (mass/volume) 0.81 mg /dL 0.60-1.30 Serum or plasma urea nitrogen/creatinine mass ratio 28 NRG Serum or plasma creatinine measurement with calculation of estimated glomerular filtration rate > NRG Serum or plasma glucose measurement (mass/volume) 159 mg/dL 70-105 Serum or plasma calcium measurement (mass/volume) 9.3 mg/dL 8.5-10.1 Serum or plasma total bilirubin measurement (mass/volume) 0.9 mg/dL 0.1-1.0 Serum or plasma alkaline phosphatase measurement (enzymatic activity/volume) 64 U/L 40-136 Serum or plasma aspartate aminotransferase measurement (enzymatic activity/ volume) 19 U/L 5-34 Serum or plasma alanine aminotransferase measurement (enzymatic activity/volume ) 16 U/L 0-55 Serum or plasma protein measurement (mass/volume) 6.8 g/dL 6.4-8.2 Serum or plasma albumin measurement (mass/volume) 3.8 g/dL 3.2-4.5 Bacterial blood culture - 09/10/16 08:20 Bacterial blood culture NG NRG Bacterial blood culture - 09/10/16 08:45 Bacterial blood culture NG NR Capillary blood glucose measurement by glucometer (mass/volume) - 09/10/16 16: 49 Capillary blood glucose measurement by glucometer (mass/volume) 111 mg/dL 70-110 Complete blood count (CBC) with automated white blood cell (WBC) differential - 09/11/16 04:40 Blood leukocytes automated count (number/volume) 9.8 10*3/ uL 4.3-11.0 Blood erythrocytes automated count (number/volume) 4.24 10*6 /uL 4.35-5.85 Venous blood hemoglobin measurement (mass/volume) 13.0 g/dL 11.5-16.0 Blood hematocrit (volume fraction) 38 % 35-52 Automated erythrocyte mean corpuscular volume 90 [foz_us] 80-99 Automated erythrocyte mean corpuscular hemoglobin (mass per erythrocyte) 31 pg 25-34 Automated erythrocyte mean corpuscular hemoglobin concentration measurement ( mass/volume) 34 g/dL 32-36 Automated erythrocyte distribution width ratio 12.4 % 10.0-14.5 Automated blood platelet count (count/volume) 187 10*3/uL 130-400 Automated blood platelet mean volume measurement 10.0 [foz_ us] 7.4-10.4 Automated blood neutrophils/100 leukocytes 86 % 42-75 Automated blood lymphocytes/100 leukocytes 8 % 12-44 Blood monocytes/100 leukocytes 5 % 0-12 Automated blood eosinophils/100 leukocytes 0 % 0-10 Automated blood basophils/100 leukocytes 0 % 0-10 Blood neutrophils automated count (number/volume) 8.5 10*3 1.8-7.8 Blood lymphocytes automated count (number/volume) 0.8 10*3 1.0-4.0 Blood monocytes automated count (number/volume) 0.5 10*3 0.0-1.0 Automated eosinophil count 0.0 10*3/uL 0.0-0.3 Automated blood basophil count (count/volume) 0.0 10*3/uL 0.0-0.1 Comprehensive metabolic panel - 09/11/16 04:40 Serum or plasma sodium measurement (moles/volume) 135 mmol/ L 135-145 Serum or plasma potassium measurement (moles/volume) 3.5 mmol/L 3.6-5.0 Serum or plasma chloride measurement (moles/volume) 100 mmol /L 98-107 Carbon dioxide 26 mmol/L 21-32 Serum or plasma anion gap determination (moles/volume) 9 mmol/L 5-14 Serum or plasma urea nitrogen measurement (mass/volume) 21 mg/dL 7-18 Serum or plasma creatinine measurement (mass/volume) 0.85 mg /dL 0.60-1.30 Serum or plasma urea nitrogen/creatinine mass ratio 25 NRG Serum or plasma creatinine measurement with calculation of estimated glomerular filtration rate > NRG Serum or plasma glucose measurement (mass/volume) 115 mg/dL 70-105 Serum or plasma calcium measurement (mass/volume) 8.5 mg/dL 8.5-10.1 Serum or plasma total bilirubin measurement (mass/volume) 0.5 mg/dL 0.1-1.0 Serum or plasma alkaline phosphatase measurement (enzymatic activity/volume) 53 U/L 40-136 Serum or plasma aspartate aminotransferase measurement (enzymatic activity/ volume) 18 U/L 5-34 Serum or plasma alanine aminotransferase measurement (enzymatic activity/volume ) 17 U/L 0-55 Serum or plasma protein measurement (mass/volume) 5.9 g/dL 6.4-8.2 Serum or plasma albumin measurement (mass/volume) 3.3 g/dL 3.2-4.5 Capillary blood glucose measurement by glucometer (mass/volume) - 09/11/16 06: 06 Capillary blood glucose measurement by glucometer (mass/volume) 108 mg/dL 70-110 Capillary blood glucose measurement by glucometer (mass/volume) - 09/11/16 15: 52 Capillary blood glucose measurement by glucometer (mass/volume) 121 mg/dL 70-110 Capillary blood glucose measurement by glucometer (mass/volume) - 09/12/16 06: 18 Capillary blood glucose measurement by glucometer (mass/volume) 111 mg/dL 70-110 Capillary blood glucose measurement by glucometer (mass/volume) - 09/12/16 16: 13 Capillary blood glucose measurement by glucometer (mass/volume) 118 mg/dL 70-110 Complete blood count (CBC) with automated white blood cell (WBC) differential - 09/13/16 04:35 Blood leukocytes automated count (number/volume) 5.8 10*3/ uL 4.3-11.0 Blood erythrocytes automated count (number/volume) 3.88 10*6 /uL 4.35-5.85 Venous blood hemoglobin measurement (mass/volume) 11.7 g/dL 11.5-16.0 Blood hematocrit (volume fraction) 35 % 35-52 Automated erythrocyte mean corpuscular volume 90 [foz_us] 80-99 Automated erythrocyte mean corpuscular hemoglobin (mass per erythrocyte) 30 pg 25-34 Automated erythrocyte mean corpuscular hemoglobin concentration measurement ( mass/volume) 34 g/dL 32-36 Automated erythrocyte distribution width ratio 12.5 % 10.0-14.5 Automated blood platelet count (count/volume) 163 10*3/uL 130-400 Automated blood platelet mean volume measurement 10.3 [foz_ us] 7.4-10.4 Automated blood neutrophils/100 leukocytes 58 % 42-75 Automated blood lymphocytes/100 leukocytes 22 % 12-44 Blood monocytes/100 leukocytes 12 % 0-12 Automated blood eosinophils/100 leukocytes 8 % 0-10 Automated blood basophils/100 leukocytes 1 % 0-10 Blood neutrophils automated count (number/volume) 3.3 10*3 1.8-7.8 Blood lymphocytes automated count (number/volume) 1.3 10*3 1.0-4.0 Blood monocytes automated count (number/volume) 0.7 10*3 0.0-1.0 Automated eosinophil count 0.4 10*3/uL 0.0-0.3 Automated blood basophil count (count/volume) 0.0 10*3/uL 0.0-0.1 Whole blood basic metabolic panel - 09/13/16 04:35 Serum or plasma sodium measurement (moles/volume) 140 mmol/ L 135-145 Serum or plasma potassium measurement (moles/volume) 4.0 mmol/L 3.6-5.0 Serum or plasma chloride measurement (moles/volume) 109 mmol /L 98-107 Carbon dioxide 23 mmol/L 21-32 Serum or plasma anion gap determination (moles/volume) 8 mmol/L 5-14 Serum or plasma urea nitrogen measurement (mass/volume) 12 mg/dL 7-18 Serum or plasma creatinine measurement (mass/volume) 0.80 mg /dL 0.60-1.30 Serum or plasma urea nitrogen/creatinine mass ratio 15 NRG Serum or plasma creatinine measurement with calculation of estimated glomerular filtration rate > NRG Serum or plasma glucose measurement (mass/volume) 106 mg/dL 70-105 Serum or plasma calcium measurement (mass/volume) 8.5 mg/dL 8.5-10.1 Capillary blood glucose measurement by glucometer (mass/volume) - 09/13/16 05: 27 Capillary blood glucose measurement by glucometer (mass/volume) 116 mg/dL 70-110 Vancomycin trough - 09/13/16 08:30 Vancomycin trough 18.0 ug/mL 10.0-20.0 Capillary blood glucose measurement by glucometer (mass/volume) - 09/13/16 16: 11 Capillary blood glucose measurement by glucometer (mass/volume) 115 mg/dL 70-110 Capillary blood glucose measurement by glucometer (mass/volume) - 09/14/16 05: 24 Capillary blood glucose measurement by glucometer (mass/volume) 116 mg/dL 70-110 Encounters ACCT No. Visit Date/Time Discharge Status Pt. Type Provider Facility Loc./Unit Complaint [id number] 09/10/2016 09:08:00 2016 11:02:00 DIS Inpatient EMERALD JONAS DO [facility] 4TH CELLULITIS L ARM, CHRONIC LYMPHEDEMA L ARM [id number] 03/29/2016 09:24:00 2015 12:28:00 DIS Inpatient EMERALD JONAS DO [facility] 4TH LT UPPER EXT CELLULITIS [id number] 02/16/2015 07:08:00 2014 09:50:00 DIS Outpatient MARY MENDOZA MD [facility] SDC SCREENING [id number] 02/12/2015 05:39:00 2014 23:59:59 CLS Outpatient MARY MENDOZA MD [facility] PREOP SCREENING [id number] 02/11/2015 13:03:00 2014 23:59:59 CLS Outpatient MARY EASTMAN TEAM PHYSICIAN [facility] ONC [id number] 01/27/2015 11:08:00 2014 23:59:59 CLS Outpatient EMERALD JONAS DO [facility] RAD RT CAROTID BRUIT [id number] 10/14/2014 08:30:00 2014 23:59:59 CLS Outpatient AMITA FOREMAN [facility] RAD BREAST CA [id number] 02/05/2014 13:17:00 2013 00:01:00 DIS Outpatient AMITA FOREMAN [facility] ONC [id number] 10/16/2013 14:30:00 2013 12:01:00 DIS Outpatient AMITA FOREMAN [facility] REHAB LYMPHEDEMA LUE, BREAST CA [id number] 10/09/2013 12:11:00 2013 23:59:59 CLS Outpatient AMITA FOREMAN [facility] RAD HX OF BREAST CANCER [id number] 02/06/2013 15:13:00 2013 00:01:00 DIS Outpatient DEANDRE FOREMANYASH Bacon [facility] ONC [id number] 04/28/2013 10:44:00 2012 23:59:59 CLS Outpatient ALYSSA GRIMES TEAM PHYSICIAN [facility] RAD PNEUMONIA IZABEL [id number] 04/23/2013 11:28:00 2012 23:59:59 CLS Outpatient VANBECALYSSA STEPHENS TEAM PHYSICIAN [facility] RAD COUGH,WHEEZING [id number] 10/07/2012 08:20:00 2012 23:59:59 CLS Outpatient AMITA FOREMAN [facility] RAD SIX MONTH F/U [id number] 10/24/2016 08:31:00 ACT Outpatient AMITA FOREMAN [facility] RAD SCREENING [id number] 10/12/2016 15:51:00 ACT Outpatient EMERALD JONAS DO [facility] REHAB LYMPHEDEMA CONSULT [id number] 09/13/2016 10:47:00 PEN Preadmit EMERALD JONAS DO SWB [id number] 02/10/2016 14:40:00 ACT Outpatient AMITA FOREMAN [facility] ONC [id number] 11/22/2015 08:41:00 ACT Outpatient CAT BUSH APRN [facility] CARD CARDIAC MURMUR [id number] 10/19/2015 09:04:00 Document Registration [id number] 10/14/2014 11:29:00 Document Registration [id number] 10/14/2014 11:29:00 Document Registration [id number] 10/14/2014 11:29:00 Document Registration [id number] 10/14/2014 11:29:00 Document Registration [id number] 04/26/2012 10:23:00 Document Registration [id number] 04/08/2012 12:55:00 Document Registration [id number] 03/21/2012 09:18:00 Document Registration [id number] 11/23/2011 14:50:00 Document Registration [id number] 11/07/2011 05:36:00 Document Registration [id number] 11/01/2011 08:10:00 Document Registration [id number] 09/11/2011 12:30:00 Document Registration [id number] 09/05/2011 00:09:00 Document Registration [id number] 03/20/2011 07:15:00 Document Registration [id number] 03/05/2011 13:46:00 Document Registration [id number] 11/17/2010 14:54:00 Document Registration [id number] 08/04/2010 10:34:00 Document Registration [id number] 01/03/2010 15:04:00 Document Registration [id number] 11/30/2009 15:35:00 Document Registration
[2016-11-01] MEDS ORDERED: LACTATED RINGERS 1,000 ML IV ONE (06:09)
[2016-11-01 06:19] LABS: BASOPHILS # (AUTO) 0.1 10^3/uL (0.0-0.1); BASOPHILS % (AUTO) 1 % (0-10); EOSINOPHILS # (AUTO) 0.3 10^3/uL (0.0-0.3); EOSINOPHILS % (AUTO) 3 % (0-10); LYMPHOCYTES # (AUTO) 2.2 X 10^3 (1.0-4.0); LYMPHOCYTES % (AUTO) 23 % (12-44); MEAN CORPUSCULAR HEMOGLOBIN 31 PG (25-34); MEAN CORPUSCULAR HGB CONC 34 G/DL (32-36); MEAN CORPUSCULAR VOLUME 92 FL (80-99); MEAN PLATELET VOLUME 10.1 FL (7.4-10.4); MONOCYTES # (AUTO) 0.6 X 10^3 (0.0-1.0); MONOCYTES % (AUTO) 7 % (0-12); NEUTROPHILS # (AUTO) 6.5 X 10^3 (1.8-7.8); NEUTROPHILS % (AUTO) 67 % (42-75); PLATELET COUNT 266 10^3/uL (130-400); RED BLOOD COUNT 4.39 10^6/uL (4.35-5.85); RED CELL DISTRIBUTION WIDTH 13.6 % (10.0-14.5); WHITE BLOOD COUNT 9.7 10^3/uL (4.3-11.0)
[2016-11-01 06:34] LABS: ALBUMIN 3.9 GM/DL (3.2-4.5); BILIRUBIN,TOTAL 0.7 MG/DL (0.1-1.0); CREATININE SERUM 0.99 MG/DL (0.60-1.30); MAGNESIUM 1.4 MG/DL (1.8-2.4); POTASSIUM 3.8 MMOL/L (3.6-5.0); TOTAL PROTEIN 7.2 GM/DL (6.4-8.2); hs C REACTIVE PROTEIN 0.4 MG/DL (0.00-0.50)
--- NOTE | 2016-11-01 06:45 | ED GI ---
General Chief Complaint: Abdominal/GI Problems Stated Complaint: LOOSE STOOL,DEHYDRATED Nursing Triage Note: Pt. advises she has been experiencing diarrhea x 1 week that has become progressively worse. Pt. advises that she has had a hx. c-diff. Sepsis Screen: No Definite Risk Source of Information: Patient Exam Limitations: No Limitations History of Present Illness Time Seen By Provider: 06:12 Initial Comments Here with increasing diarrhea over the last week which has become markedly worse overnight. States that she had multiple back to back diarrhea stools. She has recently been on antibiotics for left arm cellulitis related to lymphedema status post lymph node dissection and mastectomy many years ago. Does have history of C. difficile infection in the past after antibiotics. Does not report significant foul smaller blood this episode. Denies current symptoms of urinary tract infection. Overall does feel a little better after having a bowel movement here. Timing/Duration: 1 Week Severity/Quality: Moderate, Cramping Location: RLQ, LLQ Radiation: No Radiation Activities at Onset: None Associated Symptoms: No Back Pain, No Chest Pain, No Fever/Chills, No Nausea/ Vomiting, No Shortness of Air, No Weakness Allergies and Home Medications Allergies Coded Allergies: No Known Drug Allergies (Unverified , 11/01/16) Home Medications Aspirin 81 Mg Tablet.dr, 81 MG PO DAILY, (Reported) Clindamycin HCl 300 Mg Capsule, 600 MG PO TID, #60 Prescribed by: EMERALD JONAS on 09/14/16 0855 L.acidoph & Paracasei,B.lactis 1 Each Capsule, 1 EACH PO BID, #30 Prescribed by: EMERALD JONAS on 09/14/16 0855 Lisinopril/Hydrochlorothiazide 1 Each Tablet, 2 TAB PO DAILY, (Reported) Loratadine 10 Mg Tablet, 10 MG PO DAILY, (Reported) Multivit,Ther Iron,Ca,Fa & Min 1 Each Tablet, 1 TAB PO DAILY, (Reported) Review of Systems Constitutional: see HPI, No chills, No fever EENTM: No Symptoms Reported Respiratory: No Symptoms Reported Cardiovascular: No Symptoms Reported Gastrointestinal: See HPI, Abdominal Pain, Diarrhea, Denies Rectal Bleeding, Denies Vomiting Genitourinary: No Symptoms Reported Musculoskeletal: no symptoms reported All Other Systems Reviewed Negative Unless Noted: Yes Past Gbeocwp-Ldzznm-Iopxog Hx Patient Social History Alcohol Use: Occasionally Uses Recreational Drug Use: No Smoking Status: Never a Smoker Recent Foreign Travel: No Contact w/Someone Who Travel: No Recent Infectious Disease Expo: No Recent Hopitalizations: No Immunizations Up To Date Date of Pneumonia Vaccine: Jun 19, 2013 Seasonal Allergies Seasonal Allergies: No Surgeries HX Surgeries: Yes Surgeries: Abdominal, Breast, Gallbladder, Orthopedic Respiratory Hx Respiratory Disorders: Yes (CPAP AT HS) Respiratory Disorders: Sleep Apnea Cardiovascular Hx Cardiac Disorders: Yes Cardiac Disorders: Hypertension Neurological Hx Neurological Disorders: No 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 System Hx 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 Disorders: No Sexually Transmitted Disease: No HIV/AIDS: No Female 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 Disorders: Denies [employer] History: Menopausal Genitourinary Hx Genitourinary Disorders: Yes Genitourinary Disorders: UTI-Chronic Gastrointestinal Hx Gastrointestinal Disorders: Yes (UMBILICAL HERNIA REPAIR WITH [employer]) Gastrointestinal Disorders: Abdominal Hernia, C-Diff, Gall Bladder Disease Musculoskeletal Hx Musculoskeletal Disorders: Yes (CHRONIC LYMPHEDEMA LEFT ARM; LEFT ANKLE FX/ ORIF; RIGHT KNEE SCOPE) Musculoskeletal Disorders: Fractures Endocrine Hx Endocrine Disorders: Yes (DIET CONTROLLED DIABETES) Endocrine Disorders: Diabetes, Non-Insulin dep HEENT HX ENT Disorders: No Cancer Hx Cancer: Yes Cancer: Breast Psychosocial Hx Psychiatric Problems: No Integumentary HX Skin/Integumentary Disorder: Yes (SHINGLES; RECURRENT CELLULITIS LEFT ARM) Skin/Integumentary Disorders: Recent Skin Changes Blood Transfusions Hx Blood Disorders: No Adverse Reaction to a Blood Tr: No Reviewed Nursing Assessment Reviewed/Agree w Nursing PMH: Yes Family Medical History Significant Family History: No Pertinent Family Hx Physical Exam Vital Signs VS - Last 72 Hours, by Label 11/01/16 05:46 Temp 97.3 Pulse 86 Resp 14 B/P (MAP) 161/63 Pulse Ox 98 O2 Delivery Room Air Capillary Refill : Less Than 3 Seconds General Appearance: WD/WN, no apparent distress HEENT: PERRL/EOMI, pharynx normal Neck: full range of motion, supple Respiratory: lungs clear, normal breath sounds Cardiovascular: regular rate, rhythm, no murmur Peripheral Pulses: 2+ Dorsalis Pedis (R), 2+ Left Dors-Pedis (L), 2+ Radial Pulses (R), 2+ Radial Pulses (L) Gastrointestinal: non tender, soft, abnormal bowel sounds (hyperactive) Extremities: non-tender, normal inspection Back: normal inspection, no CVA tenderness, no vertebral tenderness Neurologic/Psychiatric: alert, oriented x 3 Skin: normal color, warm/dry Progress/Results/Core Measures Results/Orders Lab Results Laboratory Tests Test 11/01/16 05:43 Range/Units White Blood Count 9.7 4.3-11.0 10^3/uL Red Blood Count 4.39 4.35-5.85 10^6/uL Hemoglobin 13.5 11.5-16.0 G/DL Hematocrit 40 35-52 % Mean Corpuscular Volume 92 80-99 FL Mean Corpuscular Hemoglobin 31 25-34 PG Mean Corpuscular Hemoglobin Concent 34 32-36 G/DL Red Cell Distribution Width 13.6 10.0-14.5 % Platelet Count 266 130-400 10^3/uL Mean Platelet Volume 10.1 7.4-10.4 FL Neutrophils (%) (Auto) 67 42-75 % Lymphocytes (%) (Auto) 23 12-44 % Monocytes (%) (Auto) 7 0-12 % Eosinophils (%) (Auto) 3 0-10 % Basophils (%) (Auto) 1 0-10 % Neutrophils # (Auto) 6.5 1.8-7.8 X 10^3 Lymphocytes # (Auto) 2.2 1.0-4.0 X 10^3 Monocytes # (Auto) 0.6 0.0-1.0 X 10^3 Eosinophils # (Auto) 0.3 0.0-0.3 10^3/uL Basophils # (Auto) 0.1 0.0-0.1 10^3/uL Sodium Level 141 135-145 MMOL/L Potassium Level 3.8 3.6-5.0 MMOL/L Chloride Level 105 98-107 MMOL/L Carbon Dioxide Level 25 21-32 MMOL/L Anion Gap 11 5-14 MMOL/L Blood Urea Nitrogen 23 H 7-18 MG/DL Creatinine 0.99 0.60-1.30 MG/DL Estimat Glomerular Filtration Rate 56 BUN/Creatinine Ratio 23 Glucose Level 121 H 70-105 MG/DL Calcium Level 10.0 8.5-10.1 MG/DL Magnesium Level 1.4 L 1.8-2.4 MG/DL Total Bilirubin 0.7 0.1-1.0 MG/DL Aspartate Amino Transf (AST/SGOT) 18 5-34 U/L Alanine Aminotransferase (ALT/SGPT) 18 0-55 U/L Alkaline Phosphatase 67 40-136 U/L C-Reactive Protein High Sensitivity 0.40 0.00-0.50 MG/DL Total Protein 7.2 6.4-8.2 GM/DL Albumin 3.9 3.2-4.5 GM/DL My Orders Orders - DEISI HAMLIN MD Cbc With Automated Diff (11/01/16 06:09) Comprehensive Metabolic Panel (11/01/16 06:09) Hs C Reactive Protein (11/01/16 06:09) Magnesium (11/01/16 06:09) Stool Culture (11/01/16 06:09) Saline Lock/Iv-Start (11/01/16 06:09) Lactated Ringers (Lr 1000 Ml Iv Solution (11/01/16 06:09) C Difficile Ag + Toxin A/B. (11/01/16 06:11) Medications Given in ED Current Medications Medications Dose Ordered Sig/Lyndon Route Start Time Stop Time Status Last Admin Dose Admin Lactated Ringer's 1,000 ml @ 0 mls/hr Q0M ONCE IV 11/01/16 06:09 11/01/16 06:11 DC 11/01/16 06:18 0 MLS/HR Vital Signs/I&O Vital Sign - Last 12Hours 11/01/16 05:46 Temp 97.3 Pulse 86 Resp 14 B/P (MAP) 161/63 Pulse Ox 98 O2 Delivery Room Air Blood Pressure Mean: 95 Progress Note : Progress Note Seen and evaluated. IV, labs and stool sample with culture and C. difficile evaluation ordered. LR 1 L bolus ordered. Monitor patient. 0715: Overall much improved. Patient's labs at this point look good. 0720: I did discuss the case with Dr. Jonas. She will follow C. difficile evaluation. Agrees with discharge with continued rehydration and light diet at home. Also agrees with provides. Discharged home with return precautions. Patient verbalize understanding instructions and agreement with plan. Departure Impression Impression: Primary Impression: Diarrhea Qualified Codes: R19.7 - Diarrhea, unspecified Disposition: 01 HOME, SELF-CARE Condition: Improved Departure-Patient Inst. Decision time for Depature: 07:21 Referrals: EMERALD JONAS DO (PCP/Family) Primary Care Physician Patient Instructions: Diarrhea in Adolescents and Adults Add. Discharge Instructions: All discharge instructions reviewed with patient and/or family. Voiced understanding. Continue probiotic as directed. Drink plenty of fluids. Follow-up with your Dr. in one to 2 days for recheck and further evaluation. If your C. difficile test is positive, you will be contacted. Return for worse pain, fever, vomiting , weakness, increasing diarrhea, blood in your stool, breathing problems or other concerns as needed. DEISI HAMLIN MD Nov 01, 2016 06:45
[2016-11-01 07:27] VITALS: BP 174/76
[2016-11-01 08:02] LABS: BILIRUBIN,URINE NEGATIVE (NEGATIVE); KETONES,URINE NEGATIVE (NEGATIVE); LEUKOCYTE ESTERASE ,URINE 2+ (NEGATIVE); NITRITE,URINE NEGATIVE (NEGATIVE); PH,URINE 5 (5-9); PROTEIN,URINE NEGATIVE (NEGATIVE); UROBILINOGEN,URINE NORMAL (NORMAL)
[2016-11-01 08:16] LABS: SQUAMOUS EPITHELIAL CELL,UR 0-2 /HPF
== END 2016-11-01 07:27 | disposition home or self-care (01) ==
LOC: EDUNIT# 05:30 → ER 05:33
DX: R19.7 Diarrhea, unspecified (principal); E11.9 Type 2 diabetes mellitus without complications; I10 Essential (primary) hypertension; G47.30 Sleep apnea, unspecified; Z79.82 Long term (current) use of aspirin
CPT/HCPCS: 36415; 80053; 81000; 83735; 85025; 86141; 87045; 87046; 87324; 87449; 96360

== ENCOUNTER 2016-12-21 08:39 | Inpatient (IN) | payer MEDICARE ==
[~2016-12-21] VITALS: Ht 167.6 cm; Wt 103.4 kg
[2016-12-21] VITALS (11 sets, daily range): BP systolic 69–138; BP diastolic 31–94
[2016-12-21 09:31] LABS: BASOPHILS # (AUTO) 0.1 10^3/uL (0.0-0.1); BASOPHILS % (AUTO) 1 % (0-10); EOSINOPHILS # (AUTO) 0.1 10^3/uL (0.0-0.3); EOSINOPHILS % (AUTO) 1 % (0-10); LYMPHOCYTES # (AUTO) 1.7 X 10^3 (1.0-4.0); LYMPHOCYTES % (AUTO) 16 % (12-44); MEAN CORPUSCULAR HEMOGLOBIN 31 PG (25-34); MEAN CORPUSCULAR HGB CONC 34 G/DL (32-36); MEAN CORPUSCULAR VOLUME 91 FL (80-99); MEAN PLATELET VOLUME 10.2 FL (7.4-10.4); MONOCYTES # (AUTO) 0.6 X 10^3 (0.0-1.0); MONOCYTES % (AUTO) 6 % (0-12); NEUTROPHILS # (AUTO) 8.1 X 10^3 (1.8-7.8); NEUTROPHILS % (AUTO) 76 % (42-75); PLATELET COUNT 240 10^3/uL (130-400); RED BLOOD COUNT 4.75 10^6/uL (4.35-5.85); RED CELL DISTRIBUTION WIDTH 12.9 % (10.0-14.5); WHITE BLOOD COUNT 10.6 10^3/uL (4.3-11.0)
--- NOTE | 2016-12-21 09:44 | Diagnostic Imaging Report ---
INDICATION: Chest pain Portable upright view of the chest is obtained with comparison made to study of 04/28/2013. Heart size is at the upper limits of normal. Pulmonary vascularity is unremarkable. There is continued hilar prominence, greater on the right. There is no evidence of pneumothorax. There is blunting of the left costophrenic sulcus. Surgical clips are seen in the left axilla. There is an old left clavicle fracture. IMPRESSION: Blunting of the left costophrenic sulcus may be related to small amount of pleural fluid or pleural thickening. Otherwise, no acute abnormality or significant change is identified. Dictated by: Dictated on workstation # [id number]
[2016-12-21 09:53] LABS: ALANINE AMINOTRANSFERASE 25 U/L (0-55); ALBUMIN 3.8 GM/DL (3.2-4.5); ANION GAP 8 MMOL/L (5-14); ASPARTATE AMINO TRANSFERASE 25 U/L (5-34); BILIRUBIN,TOTAL 0.6 MG/DL (0.1-1.0); BLOOD UREA NITROGEN 15 MG/DL (7-18); BUN/CREATININE RATIO 19; CALCIUM 10.4 MG/DL (8.5-10.1); CARBON DIOXIDE 28 MMOL/L (21-32); CHLORIDE 102 MMOL/L (98-107); GFR ESTIMATED > 60; GLUCOSE 110 MG/DL (70-105); SODIUM 138 MMOL/L (135-145); TOTAL PROTEIN 6.8 GM/DL (6.4-8.2)
[2016-12-21 10:08] LABS: TROPONIN I 0.59 NG/ML (<0.30)
--- NOTE | 2016-12-21 10:27 | ED Chest Pain ---
General Chief Complaint: Chest Pain Stated Complaint: CHEST PAIN Nursing Triage Note: AMB TO ROOM C/O CHEST PAIN SINCE YESTERDAY AND DIARRHEA FOR 1 MONTH. Nursing Sepsis Screen: No Definite Risk Source: patient Exam Limitations: no limitations History of Present Illness Time seen by provider: 10:22 Initial Comments The patient is a 71-year-old white female who presents with a chief complaint of chest pain. She reports that she awakened at 02 30 Sunday a.m. with a pain in her epigastric area. This passed and she was able to go back to sleep. When she awakened Sunday morning she had another short episode of this discomfort. THAT ALSO PASSED. She then did well until Sunday evening when she had another episode of pain. She was finally awakened again this morning with a pressure in the chest this time there was a radiation towards the jaw and shoulders. She is a nonsmoker. She has high blood pressure and takes lisinopril. Her father had heart disease but at age 92. She reports that she has been troubled by abdominal discomfort for a week or more. She has also had urgency and rather fulminant diarrhea at times. Timing/Duration: 1 week Severity/Quality: moderate Location: substernal, central Radiation: jaw, shoulders Activities at Onset: activity Prior CP/Workup: no prior chest pain Allergies and Home Medications Allergies Coded Allergies: No Known Drug Allergies (Unverified , 11/01/16) Home Medications Aspirin 81 Mg Tablet.dr, 81 MG PO DAILY, (Reported) Lisinopril/Hydrochlorothiazide 1 Each Tablet, 2 TAB PO DAILY, (Reported) Loratadine 10 Mg Tablet, 10 MG PO DAILY, (Reported) Multivit,Ther Iron,Ca,Fa & Min 1 Each Tablet, 1 TAB PO DAILY, (Reported) Review of Systems Constitutional: see HPI EENTM: No Symptoms Reported Respiratory: No Symptoms Reported Cardiovascular: See HPI, Chest Pain Gastrointestinal: Abdomen Distended, Diarrhea Genitourinary: No Symptoms Reported Musculoskeletal: no symptoms reported Skin: no symptoms reported Psychiatric/Neurological: No Symptoms Reported Endocrine: No Symptoms Reported Hematologic/Lymphatic: No Symptoms Reported Past Ueufopk-Ydbazg-Ydrupy Hx Patient Social History Alcohol Use: Occasionally Uses Recreational Drug Use: No Smoking Status: Never a Smoker Recent Foreign Travel: No Contact w/Someone Who Travel: No Recent Infectious Disease Expo: No Recent Hopitalizations: No Immunizations Up To Date Date of Pneumonia Vaccine: Jun 19, 2013 Seasonal Allergies Seasonal Allergies: No Surgeries HX Surgeries: Yes Surgeries: Abdominal, Breast, Gallbladder, Orthopedic Respiratory Hx Respiratory Disorders: Yes (CPAP AT HS) Respiratory Disorders: Sleep Apnea Cardiovascular Hx Cardiac Disorders: Yes Cardiac Disorders: Hypertension Neurological Hx Neurological Disorders: No 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 System Hx 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 Disorders: No Sexually Transmitted Disease: No HIV/AIDS: No Female 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 Disorders: 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 Genitourinary Hx Genitourinary Disorders: Yes Genitourinary Disorders: UTI-Chronic Gastrointestinal Hx Gastrointestinal Disorders: Yes (UMBILICAL HERNIA REPAIR WITH [employer]) Gastrointestinal Disorders: Abdominal Hernia, C-Diff, Gall Bladder Disease Musculoskeletal Hx Musculoskeletal Disorders: Yes (CHRONIC LYMPHEDEMA LEFT ARM; LEFT ANKLE FX/ ORIF; RIGHT KNEE SCOPE) Musculoskeletal Disorders: Fractures Endocrine Hx Endocrine Disorders: Yes (DIET CONTROLLED DIABETES) Endocrine Disorders: Diabetes, Non-Insulin dep HEENT HX ENT Disorders: No Cancer Hx Cancer: Yes Cancer: Breast Psychosocial Hx Psychiatric Problems: No Integumentary HX Skin/Integumentary Disorder: Yes (SHINGLES; RECURRENT CELLULITIS LEFT ARM) Skin/Integumentary Disorders: Recent Skin Changes Blood Transfusions Hx Blood Disorders: No Adverse Reaction to a Blood Tr: No Family Medical History Significant Family History: No Pertinent Family Hx Physical Exam Vital Signs Vital Sign - Last 12Hours 12/21/16 08:39 Temp 97.4 Pulse 80 Resp 18 B/P (MAP) 194/94 Pulse Ox 98 O2 Delivery Room Air Capillary Refill : Less Than 3 Seconds General Appearance: Mild Distress HEENT: Normal ENT Inspection Neck: Normal Inspection Respiratory: Chest Non Tender, Lungs Clear, Normal Breath Sounds, No Accessory Muscle Use, No Respiratory Distress Cardiovascular: Regular Rate, Rhythm, No Edema, No Gallop, No JVD, No Murmur, Normal Peripheral Pulses Gastrointestinal: Other (obese and distended) Extremity: Normal Capillary Refill, Normal Inspection, Normal Range of Motion, Non Tender, No Calf Tenderness, No Pedal Edema Neurologic/Psychiatric: Alert, Oriented x3, No Motor/Sensory Deficits, Normal Mood/Affect Skin: Normal Color, Warm/Dry Lymphatic: No Adenopathy Progress/Results/Core Measures Results/Orders Lab Results Laboratory Tests Test 12/21/16 09:20 Range/Units White Blood Count 10.6 4.3-11.0 10^3/uL Red Blood Count 4.75 4.35-5.85 10^6/uL Hemoglobin 14.5 11.5-16.0 G/DL Hematocrit 43 35-52 % Mean Corpuscular Volume 91 80-99 FL Mean Corpuscular Hemoglobin 31 25-34 PG Mean Corpuscular Hemoglobin Concent 34 32-36 G/DL Red Cell Distribution Width 12.9 10.0-14.5 % Platelet Count 240 130-400 10^3/uL Mean Platelet Volume 10.2 7.4-10.4 FL Neutrophils (%) (Auto) 76 H 42-75 % Lymphocytes (%) (Auto) 16 12-44 % Monocytes (%) (Auto) 6 0-12 % Eosinophils (%) (Auto) 1 0-10 % Basophils (%) (Auto) 1 0-10 % Neutrophils # (Auto) 8.1 H 1.8-7.8 X 10^3 Lymphocytes # (Auto) 1.7 1.0-4.0 X 10^3 Monocytes # (Auto) 0.6 0.0-1.0 X 10^3 Eosinophils # (Auto) 0.1 0.0-0.3 10^3/uL Basophils # (Auto) 0.1 0.0-0.1 10^3/uL Sodium Level 138 135-145 MMOL/L Potassium Level 4.0 3.6-5.0 MMOL/L Chloride Level 102 98-107 MMOL/L Carbon Dioxide Level 28 21-32 MMOL/L Anion Gap 8 5-14 MMOL/L Blood Urea Nitrogen 15 7-18 MG/DL Creatinine 0.80 0.60-1.30 MG/DL Estimat Glomerular Filtration Rate > 60 BUN/Creatinine Ratio 19 Glucose Level 110 H 70-105 MG/DL Calcium Level 10.4 H 8.5-10.1 MG/DL Total Bilirubin 0.6 0.1-1.0 MG/DL Aspartate Amino Transf (AST/SGOT) 25 5-34 U/L Alanine Aminotransferase (ALT/SGPT) 25 0-55 U/L Alkaline Phosphatase 66 40-136 U/L Troponin I 0.59 *H <0.30 NG/ML Total Protein 6.8 6.4-8.2 GM/DL Albumin 3.8 3.2-4.5 GM/DL My Orders Orders - JOSE ANTONIO MAYORGA MD Ekg Tracing (12/21/16 08:42) Cbc With Automated Diff (12/21/16 08:48) Comprehensive Metabolic Panel (12/21/16 08:48) Troponin I (12/21/16 08:48) Ua Culture If Indicated (12/21/16 08:48) Chest 1 View, Ap/Pa Only (12/21/16 08:48) Vital Signs/I&O Vital Sign - Last 12Hours 12/21/16 12/21/16 08:39 09:19 Temp 97.4 Pulse 80 Resp 18 B/P (MAP) 194/94 Pulse Ox 98 O2 Delivery Room Air Room Air Blood Pressure Mean: 127 Departure Communication Progress Notes Troponin returned positive at 0.59. EKGs showed loss of R-wave forces in V1 and V2 with borderline J-point elevation. ST abnormality extended to V4. YRN Lang manager star on-call was notified of these findings at Departure-Patient Inst. Referrals: EMERALD JONAS DO (PCP/Family) Primary Care Physician JOSE ANTONIO MAYORGA MD Dec 21, 2016 10:27
--- NOTE | 2016-12-21 10:33 | Cardiology History & Physical ---
HPI-Cardiology Cardiology H&P Date of Admission (Time seen 10:15 am) Primary Care Physician Kerline Lubin DO Attending Physician Michael Weston MD MA [facility] Consulting Physician [facility] CC: Chest discomfort HPI; 71 yo woman who has been having chest discomfort: started 4am on 12/20/16 ( 10 min), feeling of indigestion, mild, nonradiating, relieved with TUMS. Recurrent episode lasting approx 30 min at night. Another episode this am lasting 30 min. One episode associated with diaphoresis. These episodes followed by diarrhea. Has not had such discomfort before. Has mild shortness of breath with chest discomfort. Denies palpitations or syncope or leg swelling Has had intermittent diarrhea and nausea which has been present since antibiotic treatment in September 2016 (arm cellulitis) and October 2016 (bladder infection) Review of Systems-Cardiology Review of Systems Constitutional: malaise, tiredness Eyes: vision change Ears/Nose/Throat: No ear discharge, No nasal drainage, No recent hearing loss Respiratory: As described under HPI Cardiovascular: As described under HPI Gastrointestinal: As described under HPI Genitourinary: No dysuria, No hematuria, No urine frequency changes Musculoskeletal: No back pain, No joint pain Skin: No rash, No ulcerations Psychiatric/Neurological: No seizure, No focal weakness, No syncope Hematologic: No bleeding abnormalities TTR-Uafteg-Djmlki Hx Patient Social History Alcohol Use: Occasionally Uses Recreational Drug Use: No Smoking Status: Never a Smoker Recent Foreign Travel: No Recent Infectious Disease Expo: No Hospitalization with Isolation: Denies Immunizations Up To Date Date of Pneumonia Vaccine: Jun 19, 2013 Past Medical History PMH As described under Assessment. Family Medical History Family Medical History: Does not report fam h/o early CAD or SCD Allergies and Home Medications Allergies Coded Allergies: No Known Drug Allergies (Unverified , 11/01/16) Home Medications Aspirin 81 Mg Tablet.dr, 81 MG PO DAILY, (Reported) Lisinopril/Hydrochlorothiazide 1 Each Tablet, 2 TAB PO DAILY, (Reported) Loratadine 10 Mg Tablet, 10 MG PO DAILY, (Reported) Multivit,Ther Iron,Ca,Fa & Min 1 Each Tablet, 1 TAB PO DAILY, (Reported) Physical Exam-Cardiology Physical Exam Vital Signs/I&O Vital Sign - Last 12Hours 12/21/16 12/21/16 08:39 09:19 Temp 97.4 Pulse 80 Resp 18 B/P (MAP) 194/94 Pulse Ox 98 O2 Delivery Room Air Room Air Capillary Refill : Less Than 3 Seconds Constitutional: AAO x 3, well-developed, well-nourished HEENT: hearing is well preserved, oral hygience is good, No xanthelasmas are seen Neck: carotid pulses are 2 + bilaterally, with good upstrokes Respiratory: No accessory muscle use, lungs clear to percussion, lungs clear to auscultation Cardiovascular: regular rate-rhythm, S1 and S2, systolic murmur (soft MARISELA at card base) Gastrointestinal: No tender, No guarding, rebound, audible bowel sounds Extremities: No clubbing, No cyanosis, No significant edema Neurologic/Psychiatric: oriented x 3, grossly intact, power is 5/5 both on sides Skin: No rash on exposed areas, No ulcerations on exposed areas Data Review Labs Laboratory Tests 12/21/16 09:20: White Blood Count 10.6, Red Blood Count 4.75, Hemoglobin 14.5, Hematocrit 43, Mean Corpuscular Volume 91, Mean Corpuscular Hemoglobin 31, Mean Corpuscular Hemoglobin Concent 34, Red Cell Distribution Width 12.9, Platelet Count 240, Mean Platelet Volume 10.2, Neutrophils (%) (Auto) 76H, Lymphocytes (%) (Auto) 16 , Monocytes (%) (Auto) 6, Eosinophils (%) (Auto) 1, Basophils (%) (Auto) 1, Neutrophils # (Auto) 8.1H, Lymphocytes # (Auto) 1.7, Monocytes # (Auto) 0.6, Eosinophils # (Auto) 0.1, Basophils # (Auto) 0.1, Sodium Level 138, Potassium Level 4.0, Chloride Level 102, Carbon Dioxide Level 28, Anion Gap 8, Blood Urea Nitrogen 15, Creatinine 0.80, Estimat Glomerular Filtration Rate > 60, BUN/ Creatinine Ratio 19, Glucose Level 110H, Calcium Level 10.4H, Total Bilirubin 0.6, Aspartate Amino Transf (AST/SGOT) 25, Alanine Aminotransferase (ALT/SGPT) 25, Alkaline Phosphatase 66, Troponin I 0.59*H, Total Protein 6.8, Albumin 3.8 Laboratory Tests 12/21/16 09:20 A/P-Cardiology Assessment/Admission Diagnosis Ac NSTEMI DM II, diet-controlled Obesity with BM approx 35.5 Hypertension L mastectomy with lymph node dissection in Apr 2000. Has had L arm lymphedema since then Persistent diarrhea, probably antibiotic-related, after recent treatments for arm cellulitis and UTI Discussion and Recomendations * Given unstable symptoms and elevated troponin and abn ECG, we recommend urgent card cath. I explained the rationale, procedure, risks, benefits, potential complications and alternative of card cath with possible ad hoc cor intervention. She understands and provides informed consent * I called Dr Lubin, her pcp, and discussed the case with her. She also recommends card cath * We will proceed MICHELLE and further recs are to be based on the results of this Clinical Quality Measures AMI/AHF: ASA po Prior to arrival: MICHAEL Tee MD FACP FAC CCDS Dec 21, 2016 10:33
[2016-12-21] MEDS ORDERED: fentaNYL INJECTION 100 MCG/2 ML AMP ONE (10:53)
[2016-12-21] MEDS ORDERED: MIDAZOLAM 5 MG/5 ML (VERSED) VIAL ONE (10:53)
[2016-12-21] MEDS ORDERED: diphenhydrAMINE 50 MG/ML INJ (BENADRYL) ONE (10:53)
[2016-12-21] MEDS ORDERED: HEParin (CATH LAB) 2,000 ML IV ONE (10:53)
[2016-12-21] MEDS ORDERED: NS IV 1000 ML 1,000 ML ONE (10:53)
[2016-12-21] MEDS ORDERED: ASPIRIN 81 MG CHEW (CHILDREN'S ASA) PO ONE (11:15)
[2016-12-21] MEDS ORDERED: meTOprolol TARTRATE 25 MG (LOPRESSOR) TABLET PO ONE (11:15)
[2016-12-21] MEDS ORDERED: NITROGLYCERIN DRIP 25 MG/D5W 250 ML IV ONE (11:36)
[2016-12-21] MEDS ORDERED: niCARdipine 25 MG/10 ML (CARDENE) AMP IV ONE (11:36)
[2016-12-21] MEDS ORDERED: NS (IVPB) 250 ML ONE (11:36)
[2016-12-21] MEDS ORDERED: EPTIFIBATIDE DRIP 100 ML IV ONE (11:36)
[2016-12-21] MEDS ORDERED: EPTIFIBATIDE BOLUS 20 ML IV ONE (11:37)
[2016-12-21] MEDS ORDERED: HEParin 1000 UNIT/ML (10ML VIAL) FOR BOLUS ONE (11:37)
[2016-12-21] MEDS ORDERED: NS IV 1000 ML 1,000 ML IV SCH ×2 (11:45→12:27)
[2016-12-21] MEDS ORDERED: ASPIRIN 81 MG CHEW (CHILDREN'S ASA) ONE (12:06)
[2016-12-21] MEDS ORDERED: CLOPIDOGREL 300 MG (PLAVIX) TABLET PO ONE (12:06)
[2016-12-21] MEDS ORDERED: ONDANSETRON 4 MG/2 ML (SDV) Z0FRAN ONE (12:26)
[2016-12-21] MEDS ORDERED: ACETAMINOPHEN 325 MG TABLET/CAPLET (TYLENOL) PO PRN (12:30)
[2016-12-21] MEDS ORDERED: PATIENT MAY USE OWN MEDS, ALL PO SCH (12:30)
[2016-12-21] MEDS ORDERED: meTOproloL SUCCINATE 50 MG (TOPROL XL) TAB PO NR (12:30)
[2016-12-21] MEDS ORDERED: ONDANSETRON 4 MG/2 ML (SDV) Z0FRAN IVP PRN (12:30)
[2016-12-21] MEDS ORDERED: ATROPINE INJECTION 1 MG/10 ML SYR (ABBOTT) ONE ×2 (12:57→13:27)
[2016-12-21] MEDS ORDERED: lisINopril 10 MG (PRINIVIL) TAB PO NR (13:31)
[2016-12-21] MEDS ORDERED: PANTOPRAZOLE 40 MG/10 ML (PROTONIX) VIAL IV NR (13:31)
[2016-12-21] MEDS ORDERED: ATROPINE INJECTION 1 MG/10 ML SYR (ABBOTT) IV NR (13:32)
[2016-12-21] MEDS ORDERED: BACI1TAB3 PO (14:03)
[2016-12-21] MEDS ORDERED: ATROPINE INJ 0.4 MG/ML SDV IV ONE (15:00)
--- NOTE | 2016-12-21 15:08 | CARDIAC CATHETERIZATION ---
DATE OF SERVICE: 12/21/2016 The patient is a 71-year-old lady who presented to the emergency room with chest discomfort and was found to have elevated troponin, indicative of acute non-ST elevation myocardial infarction. She has symptoms of continuing angina. Urgent cardiac catheterization was recommended and carried out after having obtained informed consent. PROCEDURE: She was brought to the cardiac catheterization laboratory. Right groin was prepared and draped in the usual sterile fashion. One-percent lidocaine for local anesthesia. Modified Seldinger technique was used to advance a 5-Iraqi sheath in the right femoral artery. A 5-Iraqi JL4 catheter was used for left coronary angiography. A 5-Iraqi JR4 catheter, right coronary angiography. A 5-Iraqi pigtail catheter, left heart catheterization and left ventricular angiography. PERCUTANEOUS INTERVENTION TO THE LEFT ANTERIOR DESCENDING ARTERY: Following completion of the diagnostic procedure, we carried out percutaneous intervention to the mid right coronary artery where the patient had 99% stenosis with TIMI1 distal flow. We exchanged the sheath over a wire for a 6-Iraqi sheath. We gave 7000 units of intravenous heparin. We gave a double bolus Integrilin and Integrilin infusion was continued throughout the procedure. We used a 6-Iraqi JL4 guide catheter to engage the left coronary artery. We advanced a Choice floppy wire across the lesion with moderate difficulty and the tip was placed in the distal vessel. Prior to advancing wire, we gave 400 mcg of nicardipine, given that patient had slow distal flow to begin with. Following wire advancement across the lesion, we carried out balloon angioplasty with Emerge 2.5 x 30 mm balloon which reduced the 99% stenosis to approximately 70% residual, and we gave another 400 mcg of nicardipine immediately following balloon angioplasty. Subsequent angiography revealed that flow throughout the vessel was now CHELSEA 3 (normal). We removed the balloon and advanced Alpine Xience 2.75 x 18 mm stent to the lesion. This was carefully positioned to cover the entire lesion. The stent was deployed at 14 atmospheres. Full stent expansion was achieved. We then gave 200 mcg of intracoronary nitroglycerin. Subsequent angiography revealed 0% residual stenosis at the site of the 99% stenosis and flow throughout the vessel is normal. There are additional 30% to 40% stenoses in the proximal mid and distal left anterior descending artery which were not intervened on. The patient tolerated the procedure well. Angiography of the right femoral artery had been carried out through the sheath at the beginning of the procedure. At the end of the procedure, Mynx was used to achieve hemostasis. She tolerated the procedure well. HEMODYNAMICS: Left ventricular end-diastolic pressure following coronary angiography was 27 mmHg. There was no significant pressure gradient on pullback across the aortic valve. Ascending aortic pressure was 169/89 with a mean of 118 mmHg. LEFT VENTRICULAR ANGIOGRAPHY: Left ventricular angiography was carried out in the right anterior oblique projection. Global left ventricular systolic function is impaired. There is anterolateral and apical hypokinesis. Left ventricular ejection fraction is 40%. There did not appear to be significant mitral regurgitation. CORONARY ANGIOGRAPHY: Mild coronary calcification is seen. Left main coronary artery does not exhibit significant disease. Left anterior descending artery had 99% mid vessel stenosis with very slow distal flow. Following balloon angioplasty and stenting to this lesion, there is 0% residual stenosis and flow throughout the vessel is normal. The stent used in the mid left anterior descending artery is Alpine Xience 2.75 x 18 mm. A ramus intermedius artery has diffuse moderate disease. Left circumflex artery has mild diffuse disease. Right coronary artery is dominant and has approximately 40% mid vessel stenosis. CONCLUSIONS: 1. Coronary artery disease primarily consisting of 99% mid vessel stenosis of the left anterior descending artery with slow distal flow. To this, successful intervention was carried out. Following deployment of Alpine Xience 2.75 x 18 mm stent, there is 0% residual stenosis and distal flow was normal. The rest of the coronary vessels have mild to moderate disease. 2. Impairment of global left ventricular systolic function with left ventricular ejection fraction of 40%. 3. Anterolateral apical hypokinesis. 4. Elevated left ventricular end-diastolic pressure. 5. No significant mitral regurgitation seen on this study. DISCUSSION AND RECOMMENDATIONS: Aspirin, Plavix, CY inhibitors, beta blockers and statins will be the mainstay of therapy. She is being hospitalized after this urgent procedure. Job ID: [id number] DocumentID: [id number] Dictated Date: 12/21/2016 12:24:03 Hvac Residential Service Technician Date: 12/21/2016 13:34:09 Dictated By: YRN OSBORN MD, MA, FACP, FACC,
[2016-12-21] MEDS ORDERED: ATROPINE INJECTION 1 MG/1 ML SDV IJ ONE (15:30)
[2016-12-21] MEDS ORDERED: ATROPINE INJECTION 1 MG/10 ML SYR (ABBOTT) IV ONE (15:30)
[2016-12-21] MEDS: NS IV 1000 ML 1,000 ML IV SCH (17:16)
[2016-12-21] MEDS: ATORVASTATIN 40 MG (LIPITOR) TABLET PO SCH (20:47)
[2016-12-22] VITALS: BP 124/58
[2016-12-22 04:00] VITALS: BP 118/53
[2016-12-22 05:09] LABS: MEAN PLATELET VOLUME 10.1 FL (7.4-10.4); RED BLOOD COUNT 3.99 10^6/uL (4.35-5.85); RED CELL DISTRIBUTION WIDTH 12.9 % (10.0-14.5); WHITE BLOOD COUNT 12.9 10^3/uL (4.3-11.0)
[2016-12-22 05:45] LABS: ANION GAP 12 MMOL/L (5-14); BLOOD UREA NITROGEN 15 MG/DL (7-18); BUN/CREATININE RATIO 20; CALCIUM 8.8 MG/DL (8.5-10.1); CARBON DIOXIDE 21 MMOL/L (21-32); CHLORIDE 106 MMOL/L (98-107); CREATININE SERUM 0.75 MG/DL (0.60-1.30); GFR ESTIMATED > 60; GLUCOSE 106 MG/DL (70-105); POTASSIUM 3.6 MMOL/L (3.6-5.0); SODIUM 139 MMOL/L (135-145)
[2016-12-22] MEDS: PANTOPRAZOLE 40 MG (PROTONIX) TAB PO SCH (06:37)
[2016-12-22 08:27] VITALS: BP 114/54
[2016-12-22] MEDS: lisINopril 10 MG (PRINIVIL) TAB PO SCH (08:31)
[2016-12-22] MEDS: meTOproloL SUCCINATE 50 MG (TOPROL XL) TAB PO SCH (08:31)
[2016-12-22] MEDS: CLOPIDOGREL 75 MG (PLAVIX) TABLET PO SCH (08:31)
[2016-12-22] MEDS: ASPIRIN E.C. 81 MG (ECOTRIN) TAB PO SCH (08:31)
[2016-12-22] MEDS ORDERED: RIFA550T PO (11:21)
--- NOTE | 2016-12-22 12:05 | Consultation ---
History of Present Illness History of Present Illness Patient Consulted On(joan/time) 12/22/16 11:59 Date Seen by Provider: Dec 22, 2016 Time Seen by Provider: 11:00 History of Present Illness This is a 71 year old female with a history of diabetes mellitus, hypertension, and JUAN who presented to the emergency room with chest pressure radiating to her shoulders and neck. She has had recent loose stools and initially thought the chest pressure may have been related to her recent GI issues so she had stopped in my office first, but was told to go directly to the emergency room when she told my nurse that she was having substernal chest pressure radiating to her shoulders and neck. She was found to have an acute non-STEMI and Dr. Weston was called for emergent cardiac catheterization. The patient was taken to the labor mediator and found to have a 99% blockage in her LAD--this was successfully stented. I am asked to consult for medical management and to assess her ongoing loose stools. She has a previous history of clostridium difficile colitis but her C. Diff is negative and she had a normal colonoscopy last year. Allergies and Home Medications Allergies Coded Allergies: No Known Drug Allergies (Unverified , 11/01/16) Home Medications Aspirin 81 Mg Tablet.dr, 81 MG PO DAILY, (Reported) Bacillus Coagulans 1 Each Tab.chew, 2 TAB PO DAILY, (Reported) Lisinopril/Hydrochlorothiazide 1 Each Tablet, 2 TAB PO DAILY, (Reported) Loratadine 10 Mg Tablet, 10 MG PO DAILY PRN for ALLERGIES, (Reported) Multivit,Ther Iron,Ca,Fa & Min 1 Each Tablet, 1 TAB PO DAILY, (Reported) Rifaximin 550 Mg Tablet, 550 MG PO BID, #13 Prescribed by: EMERALD JONAS on 12/22/16 1121 Past [facility]-Oiwt[facility]-Cffh[facility] Hx Patient Social History Alcohol Use: Occasionally Uses Recreational Drug Use: No Smoking Status: Never a Smoker Recent Foreign Travel: No Contact w/Someone Who Travel: No Recent Infectious Disease Expo: No Recent Hopitalizations: No Physical Abuse Screen: No Sexual Abuse: No Immunizations Up To Date Date of Pneumonia Vaccine: Jun 19, 2013 Seasonal Allergies Seasonal Allergies: No Surgeries HX Surgeries: Yes Surgeries: Abdominal, Breast, Gallbladder, Orthopedic Respiratory Hx Respiratory Disorders: Yes (CPAP AT HS) Respiratory Disorders: Sleep Apnea Cardiovascular Hx Cardiac Disorders: Yes Cardiac Disorders: Hypertension Neurological Hx Neurological Disorders: No 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 System Hx 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 Disorders: No Sexually Transmitted Disease: No HIV/AIDS: No Female 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 Disorders: Denies [employer] History: Menopausal Genitourinary Hx Genitourinary Disorders: Yes Genitourinary Disorders: UTI-Chronic Gastrointestinal Hx Gastrointestinal Disorders: Yes (UMBILICAL HERNIA REPAIR WITH [employer]) Gastrointestinal Disorders: Abdominal Hernia, C-Diff, Gall Bladder Disease Musculoskeletal Hx Musculoskeletal Disorders: Yes (CHRONIC LYMPHEDEMA LEFT ARM; LEFT ANKLE FX/ ORIF; RIGHT KNEE SCOPE) Musculoskeletal Disorders: Fractures Endocrine Hx Endocrine Disorders: Yes (DIET CONTROLLED DIABETES) Endocrine Disorders: Diabetes, Non-Insulin dep HEENT HX ENT Disorders: No Cancer Hx Cancer: Yes Cancer: Breast Psychosocial Hx Psychiatric Problems: No Integumentary HX Skin/Integumentary Disorder: Yes (SHINGLES; RECURRENT CELLULITIS LEFT ARM) Skin/Integumentary Disorders: Recent Skin Changes Blood Transfusions Hx Blood Disorders: No Adverse Reaction to a Blood Tr: No Family Medical History Significant Family History: No Pertinent Family Hx Family Medial History: Cardiovascular disease 19 FATHER Hypertension DAUGHTER Kidney disease 19 MOTHER POOR LEG CIRCULATION G8 SISTER Review of Systems-General Constitutional: weakness EENTM: No see HPI, No no symptoms reported, No ear discharge, No hearing loss, No ear pain, No blurred vision, No double vision, No eye pain, No tearing, No vision loss, No dental problems, No hoarseness, No mouth pain, No mouth swelling , No epistaxis, No nose congestion, No nose pain, No throat pain, No throat swelling, No other Respiratory: No no symptoms reported, No see HPI, No cough, No dyspnea on exertion, No hemoptysis, No orthopnea, No phlegm, No short of breath, No stridor , No wheezing, No other Cardiovascular: chest pain, edema Gastrointestinal: diarrhea Genitourinary: No no symptoms reported, No see HPI, No decreased output, No discharge, No dysuria, No frequency, No hematuria, No hesitancy, No incontinence , No nocturia, No pain, No other Musculoskeletal: joint pain (chest pain radiated to both shoulders and neck) Psychiatric/Neurological: Anxiety, Weakness Physical Exam-General Problems Physical Exam Vital Signs Vital Sign - Last 12Hours 12/21/16 08:39 Temp 97.4 Pulse 80 Resp 18 B/P (MAP) 194/94 Pulse Ox 98 O2 Delivery Room Air Capillary Refill : Less Than 3 Seconds General Appearance: mild distress (tearful about situation) HEENT: pharynx normal Neck: supple Respiratory: lungs clear Cardiovascular: regular rate, rhythm, gallop/S4 Gastrointestinal: normal bowel sounds, non tender, soft Rectal: deferred Back: no CVA tenderness Extremities: non-tender, no pedal edema, no calf tenderness, swelling (left arm lymphedema) Neurologic/Psychiatric: alert, oriented x 3, depressed affect Skin: warm/dry Comments Laboratory Tests 12/21/16 09:20: White Blood Count 10.6, Red Blood Count 4.75, Hemoglobin 14.5, Hematocrit 43, Mean Corpuscular Volume 91, Mean Corpuscular Hemoglobin 31, Mean Corpuscular Hemoglobin Concent 34, Red Cell Distribution Width 12.9, Platelet Count 240, Mean Platelet Volume 10.2, Neutrophils (%) (Auto) 76H, Lymphocytes (%) (Auto) 16 , Monocytes (%) (Auto) 6, Eosinophils (%) (Auto) 1, Basophils (%) (Auto) 1, Neutrophils # (Auto) 8.1H, Lymphocytes # (Auto) 1.7, Monocytes # (Auto) 0.6, Eosinophils # (Auto) 0.1, Basophils # (Auto) 0.1, Sodium Level 138, Potassium Level 4.0, Chloride Level 102, Carbon Dioxide Level 28, Anion Gap 8, Blood Urea Nitrogen 15, Creatinine 0.80, Estimat Glomerular Filtration Rate > 60, BUN/ Creatinine Ratio 19, Glucose Level 110H, Calcium Level 10.4H, Total Bilirubin 0.6, Aspartate Amino Transf (AST/SGOT) 25, Alanine Aminotransferase (ALT/SGPT) 25, Alkaline Phosphatase 66, Troponin I 0.59*H, Total Protein 6.8, Albumin 3.8 12/21/16 17:21: Glucometer 100 12/21/16 21:48: Glucometer 129H 12/22/16 05:01: White Blood Count 12.9H, Red Blood Count 3.99L, Hemoglobin 12.3, Hematocrit 37, Mean Corpuscular Volume 93, Mean Corpuscular Hemoglobin 31, Mean Corpuscular Hemoglobin Concent 33, Red Cell Distribution Width 12.9, Platelet Count 229, Mean Platelet Volume 10.1, Sodium Level 139, Potassium Level 3.6, Chloride Level 106, Carbon Dioxide Level 21, Anion Gap 12, Blood Urea Nitrogen 15, Creatinine 0.75, Estimat Glomerular Filtration Rate > 60, BUN/Creatinine Ratio 20, Glucose Level 106H, Calcium Level 8.8 Microbiology 12/22/16 C. difficile GDH Antigen & Toxins - Final, Complete Assessment/Plan Assessment/Plan Admission Diagnosis/Plan 1. Acute non-STEMI with 99% blockage to LAD--S/P angioplasty with stent placement 2. Hypertension--stable 3. Diabetes mellitus type II--currently diet controlled 4. Diarrhea--C. Diff negative and normal colonoscopy last year, likely IBS but will cover with xifaxin and fwup as outpatient, has levsin to use prn 5. History of Breast Cancer with Chronic Left Arm Lymphedema--follows with oncology routinely Clinical Quality Measures AMI/AHF: ASA po Prior to arrival: No DVT/VTE Risk/Contraindication: Risk Factor Score Per Nursin RFS Level Per Nursing on Admit: 4+=Very High EMERALD JONAS DO Dec 22, 2016 12:05 pm
[2016-12-22] MEDS: NS IV 1000 ML 1,000 ML IV SCH (12:28)
[2016-12-22] MEDS: RIFAXIMIN 550 MG TABLET (XIFAXAN) PO SCH ×2 (12:29→20:37)
[2016-12-22 12:56] VITALS: BP 95/87
--- NOTE | 2016-12-22 14:10 | Progress Note-Cardiology ---
Cardiology SOAP Progress Note Subjective: Sitting up in bed. No c/o CP, palpitations, syncope or near syncope. No c/o groin site discomfort. She does report diarrhea, but states she was having this prior to her cardiac cath yesterday. Objective: I&O/Vital Signs Vital Sign - Last 12Hours 12/22/16 12/22/16 12/22/16 12/22/16 07:00 08:00 08:27 12:56 Temp 97.3 97.6 Pulse 54 53 52 Resp 12 12 B/P (MAP) 114/54 95/87 Pulse Ox 93 94 O2 Delivery Room Air Room Air Room Air 12/22/16 13:00 Pulse 51 Intake and Output 12/23/16 00:00 Intake Total 1000 ml Balance 1000 ml Weight (Pounds): 228 Weight (Ounces): 3.0 Weight (Calculated Kilograms): 103.912132 Side: right Groin site without hematoma: Yes Condition: DP/PT pulses palpable, extremity w/d/p Bruising: mild bruising Constitutional: AAO x 3, well-developed, well-nourished Respiratory: No accessory muscle use, lungs clear to percussion, lungs clear to auscultation Cardiovascular: regular rate-rhythm, S1 and S2, systolic murmur (soft MARISELA at card base) Gastrointestional: No tender, No guarding, rebound, audible bowel sounds Extremities: No clubbing, No cyanosis, No significant edema Neurologic/Psychiatric: oriented x 3, grossly intact, power is 5/5 both on sides Skin: No rash on exposed areas, No ulcerations on exposed areas Results/Procedures: Labs Laboratory Tests 12/21/16 17:21: Glucometer 100 12/21/16 21:48: Glucometer 129H 12/22/16 05:01: White Blood Count 12.9H, Red Blood Count 3.99L, Hemoglobin 12.3, Hematocrit 37, Mean Corpuscular Volume 93, Mean Corpuscular Hemoglobin 31, Mean Corpuscular Hemoglobin Concent 33, Red Cell Distribution Width 12.9, Platelet Count 229, Mean Platelet Volume 10.1, Sodium Level 139, Potassium Level 3.6, Chloride Level 106, Carbon Dioxide Level 21, Anion Gap 12, Blood Urea Nitrogen 15, Creatinine 0.75, Estimat Glomerular Filtration Rate > 60, BUN/Creatinine Ratio 20, Glucose Level 106H, Calcium Level 8.8 Microbiology 12/22/16 C. difficile GDH Antigen & Toxins - Final, Complete Procedures S/P successful PCI on 12-21-16. Please refer to Dr. Weston's cardiac cath report for details. A/P: Assessment: Ac NSTEMI Card cath of 12/21/16: Coronary artery disease primarily consisting of 99% mid vessel stenosis of the left anterior descending artery with slow distal flow. To this, successful intervention was carried out. Following deployment of Alpine Xience 2.75 x 18 mm stent, there is 0% residual stenosis and distal flow was normal. The rest of the coronary vessels have mild to moderate disease. Impairment of global left ventricular systolic function with left ventricular ejection fraction of 40%. Anterolateral apical hypokinesis. Elevated left ventricular end-diastolic pressure. No significant mitral regurgitation seen on this study. ICM per cardiac cath of 12-21-16 DM II, diet-controlled Obesity with BM approx 35.5 Hypertension HLP - statin tx L mastectomy with lymph node dissection in Apr 2000. Has had L arm lymphedema since then Diarrhea, improved, followed by Dr uLbin Plan: * S/P successful PCI intervention on 12-21-16 * Ambulate in the halls * Continue ASA, statin, Plavix, and BB * D/t relative bradycardia we will reduce BB to 25mg daily * Diarrhea which is being managed by her PCP * F/U as an out pt in 1-2 weeks Physician Assessment Physician Assessment No cp at the time of this exam Lung: clear Cor: reg Ext: no c/c/e A&R * As documented in our note above that I updated (italics) and as noted below * I explained to her and to her daughter the findings of her cardiac cath and the interventions undertake * I reviewed and appreciate Dr Lubin's note. I also spoke with Dr Lubin on the phone yesterday * I discussed cardiac risk factor modification with Ms Rodriguez * Increase ambulation Clinical Quality Measures AMI/AHF: ASA po Prior to arrival: FRANDY Radford [employer] Dec 22, 2016 14:10 YRN WESTON MD [facility] Dec 22, 2016 16:31
[2016-12-22] MEDS ORDERED: METO-351 PO (14:14)
[2016-12-22] MEDS ORDERED: ATOR40TA PO (14:14)
[2016-12-22] MEDS ORDERED: LISI10TA2 PO (14:14)
[2016-12-22] MEDS ORDERED: ASPI-983 PO (14:14)
[2016-12-22] MEDS ORDERED: CLOP75TA28 PO (14:14)
--- NOTE | 2016-12-22 14:15 | Discharge Inst-Cardiology ---
Discharge Inst-Cardiac Discharge Medications New Medications: Metoprolol Succinate (Toprol Xl) 25 Mg Tab.er.24h 25 MG PO DAILY, #30 TAB 5 Refills Aspirin (Aspirin EC) 81 Mg Tablet.dr 81 MG PO DAILY, #90 TAB 5 Refills Atorvastatin Calcium (Lipitor) 40 Mg Tablet 40 MG PO HS, #30 TAB 5 Refills Clopidogrel Bisulfate (Clopidogrel) 75 Mg Tablet 75 MG PO DAILY, #90 TAB 3 Refills Lisinopril (Lisinopril) 10 Mg Tablet 10 MG PO DAILY, #30 TAB 5 Refills Rifaximin (Xifaxan) 550 Mg Tablet 550 MG PO BID, #13 TAB Continued Medications: Aspirin (Low Dose Aspirin) 81 Mg Tablet.dr 81 MG PO DAILY, TAB Loratadine (Loratadine) 10 Mg Tablet 10 MG PO DAILY PRN for ALLERGIES, TAB Discontinued Medications: Bacillus Coagulans (Probiotic) 1 Each Tab.chew 2 TAB PO DAILY, TAB Lisinopril/Hydrochlorothiazide (Lisinopril-Hctz 20-25 mg Tab) 1 Each Tablet 2 TAB PO DAILY, TAB Multivit,Ther Iron,Ca,Fa & Min (Therapeutic Vit-Mineral Tab) 1 Each Tablet 1 TAB PO DAILY, TAB New, Converted or Re-Newed RX: Transmitted to Pharmacy Patient Instructions Patient Instructions: Please schedule follow up appt to see Dr. Weston in 2 weeks FRANDY VASQUEZ Dec 22, 2016 14:15
[2016-12-22 17:41] VITALS: BP 121/50
[2016-12-22 19:42] VITALS: BP 129/94
[2016-12-22] MEDS: ATORVASTATIN 40 MG (LIPITOR) TABLET PO SCH (20:37)
[2016-12-23] VITALS: BP 116/88
[2016-12-23 03:55] VITALS: BP 124/84
[2016-12-23 04:26] LABS: BASOPHILS % (AUTO) 0 % (0-10); EOSINOPHILS # (AUTO) 0.3 10^3/uL (0.0-0.3); EOSINOPHILS % (AUTO) 2 % (0-10); LYMPHOCYTES # (AUTO) 2.9 X 10^3 (1.0-4.0); LYMPHOCYTES % (AUTO) 25 % (12-44); MEAN CORPUSCULAR HEMOGLOBIN 31 PG (25-34); MEAN CORPUSCULAR HGB CONC 33 G/DL (32-36); MEAN CORPUSCULAR VOLUME 93 FL (80-99); MEAN PLATELET VOLUME 10.4 FL (7.4-10.4); MONOCYTES # (AUTO) 0.8 X 10^3 (0.0-1.0); MONOCYTES % (AUTO) 7 % (0-12); NEUTROPHILS # (AUTO) 7.7 X 10^3 (1.8-7.8); NEUTROPHILS % (AUTO) 66 % (42-75); PLATELET COUNT 216 10^3/uL (130-400); RED CELL DISTRIBUTION WIDTH 12.9 % (10.0-14.5); WHITE BLOOD COUNT 11.7 10^3/uL (4.3-11.0)
[2016-12-23 04:55] LABS: ANION GAP 8 MMOL/L (5-14); BLOOD UREA NITROGEN 13 MG/DL (7-18); BUN/CREATININE RATIO 19; CALCIUM 8.6 MG/DL (8.5-10.1); CARBON DIOXIDE 24 MMOL/L (21-32); CHLORIDE 108 MMOL/L (98-107); CREATININE SERUM 0.68 MG/DL (0.60-1.30); GFR ESTIMATED > 60; GLUCOSE 110 MG/DL (70-105); MAGNESIUM 1.2 MG/DL (1.8-2.4); POTASSIUM 3.5 MMOL/L (3.6-5.0); SODIUM 140 MMOL/L (135-145)
[2016-12-23 08:00] VITALS: BP 125/59
[2016-12-23] MEDS: ASPIRIN E.C. 81 MG (ECOTRIN) TAB PO SCH (08:27)
[2016-12-23] MEDS: lisINopril 10 MG (PRINIVIL) TAB PO SCH (08:27)
[2016-12-23] MEDS: RIFAXIMIN 550 MG TABLET (XIFAXAN) PO SCH (08:27)
[2016-12-23] MEDS: meTOproloL SUCCINATE 50 MG (TOPROL XL) TAB PO SCH (08:27)
[2016-12-23] MEDS: PANTOPRAZOLE 40 MG (PROTONIX) TAB PO SCH (08:27)
[2016-12-23] MEDS: CLOPIDOGREL 75 MG (PLAVIX) TABLET PO SCH (08:27)
[2016-12-23] MEDS: NS IV 1000 ML 1,000 ML IV SCH (08:28)
[2016-12-23 12:00] VITALS: BP 139/66
--- NOTE | 2016-12-23 12:18 | Progress Note-Cardiology ---
Cardiology SOAP Progress Note Subjective: Feels well. No cp or palp or shortness of breath or syncope. Wishes to go home Objective: I&O/Vital Signs Vital Sign - Last 12Hours 12/23/16 12/23/16 12/23/16 12/23/16 01:00 03:55 04:00 07:00 Temp 98.7 Pulse 58 52 B/P (MAP) 124/84 O2 Delivery Room Air Room Air 12/23/16 12/23/16 12/23/16 12/23/16 07:55 08:00 08:39 11:58 Temp 98.0 Pulse 94 Resp 20 B/P (MAP) 125/59 Pulse Ox 97 97 O2 Delivery Room Air Room Air Room Air Room Air Weight (Pounds): 228 Weight (Ounces): 3.0 Weight (Calculated Kilograms): 103.735234 Side: right Groin site without hematoma: Yes Condition: DP/PT pulses palpable, extremity w/d/p Bruising: mild bruising Constitutional: AAO x 3, well-developed, well-nourished Respiratory: No accessory muscle use, lungs clear to percussion, lungs clear to auscultation Cardiovascular: regular rate-rhythm, S1 and S2, systolic murmur (soft MARISELA at card base) Gastrointestional: No tender, No guarding, rebound, audible bowel sounds Extremities: No clubbing, No cyanosis, No significant edema Neurologic/Psychiatric: oriented x 3, grossly intact, power is 5/5 both on sides Skin: No rash on exposed areas, No ulcerations on exposed areas Results/Procedures: Labs Laboratory Tests 12/22/16 14:54: Glucometer 137H 12/23/16 03:56: White Blood Count 11.7H, Red Blood Count 3.70L, Hemoglobin 11.4L, Hematocrit 34L , Mean Corpuscular Volume 93, Mean Corpuscular Hemoglobin 31, Mean Corpuscular Hemoglobin Concent 33, Red Cell Distribution Width 12.9, Platelet Count 216, Mean Platelet Volume 10.4, Neutrophils (%) (Auto) 66, Lymphocytes (%) (Auto) 25 , Monocytes (%) (Auto) 7, Eosinophils (%) (Auto) 2, Basophils (%) (Auto) 0, Neutrophils # (Auto) 7.7, Lymphocytes # (Auto) 2.9, Monocytes # (Auto) 0.8, Eosinophils # (Auto) 0.3, Basophils # (Auto) 0.0, Sodium Level 140, Potassium Level 3.5L, Chloride Level 108H, Carbon Dioxide Level 24, Anion Gap 8, Blood Urea Nitrogen 13, Creatinine 0.68, Estimat Glomerular Filtration Rate > 60, BUN/ Creatinine Ratio 19, Glucose Level 110H, Calcium Level 8.6, Magnesium Level 1.2L 12/23/16 11:01: Glucometer 163H Microbiology 12/22/16 C. difficile GDH Antigen & Toxins - Final, Complete Laboratory Tests 12/22/16 05:01 12/23/16 03:56 A/P: Assessment: Ac NSTEMI Card cath of 12/21/16: Coronary artery disease primarily consisting of 99% mid vessel stenosis of the left anterior descending artery with slow distal flow. To this, successful intervention was carried out. Following deployment of Alpine Xience 2.75 x 18 mm stent, there is 0% residual stenosis and distal flow was normal. The rest of the coronary vessels have mild to moderate disease. Impairment of global left ventricular systolic function with left ventricular ejection fraction of 40%. Anterolateral apical hypokinesis. Elevated left ventricular end-diastolic pressure. No significant mitral regurgitation seen on this study. ICM per cardiac cath of 12-21-16 DM II, diet-controlled Obesity with BM approx 35.5 Hypertension HLP - statin tx L mastectomy with lymph node dissection in Apr 2000. Has had L arm lymphedema since then Diarrhea, improved, followed by Dr Lubin Hypokalemia and hypomagnesemia, likely related to chronic diarrhea, being replenished. Diarrhea now resolved Plan: * Risk factor modification reviewed with her and her daughter * Oupt f/u advised * Replenish K and Mg prior to discharge today * Have referred to card rehab Clinical Quality Measures AMI/AHF: ASA po Prior to arrival: YRN Tee MD FACP FAC CCDS Dec 23, 2016 12:18
--- NOTE | 2016-12-23 12:20 | Cardiology Discharge Summary ---
Diagnosis/Chief Complaint Date of Admission Dec 21, 2016 at 12:28 Date of Discharge 12/23/16 Final/Discharge Diagnosis Ac NSTEMI on 12/21/16 Card cath of 12/21/16: Coronary artery disease primarily consisting of 99% mid vessel stenosis of the left anterior descending artery with slow distal flow. To this, successful intervention was carried out. Following deployment of Alpine Xience 2.75 x 18 mm stent, there is 0% residual stenosis and distal flow was normal. The rest of the coronary vessels have mild to moderate disease. Impairment of global left ventricular systolic function with left ventricular ejection fraction of 40%. Anterolateral apical hypokinesis. Elevated left ventricular end-diastolic pressure. No significant mitral regurgitation seen on this study. ICM per cardiac cath of 12-21-16 DM II, diet-controlled Obesity with BM approx 35.5 Hypertension HLP - statin tx L mastectomy with lymph node dissection in Apr 2000. Has had L arm lymphedema since then Diarrhea, improved, followed by Dr Lubin Hypokalemia and hypomagnesemia, likely related to chronic diarrhea, being replenished. Diarrhea now resolved Chief Complaint/HPI Chief Complaint/HPI CC: Chest discomfort HPI; 71 yo woman who has been having chest discomfort: started 4am on 12/20/16 ( 10 min), feeling of indigestion, mild, nonradiating, relieved with TUMS. Recurrent episode lasting approx 30 min at night. Another episode this am lasting 30 min. One episode associated with diaphoresis. These episodes followed by diarrhea. Has not had such discomfort before. Has mild shortness of breath with chest discomfort. Denies palpitations or syncope or leg swelling Has had intermittent diarrhea and nausea which has been present since antibiotic treatment in September 2016 (arm cellulitis) and October 2016 (bladder infection) Discharge Summary Procedures card cath and cor intervention on 12/21/16 Hospital Course Pending Labs Laboratory Tests 12/23/16 11:01: Glucometer 163 Discussion & Recommendations Home Medications Reviewed patient Home Medication Reconciliation Form Discharge Home Medications: Reviewed and agree with Discharge Medication list on patient's Discharge Instruction sheet Clinical Quality Measures AMI/AHF: ASA po Prior to arrival: No DVT/VTE Risk/Contraindication: Risk Factor Score Per Nursin RFS Level Per Nursing on Admit: 4+=Very High YRN OSBORN MD FACP FACC CCDS Dec 23, 2016 12:20
[2016-12-23] MEDS ORDERED: KCL 20 MEQ TAB (K-DUR) PO NR (12:30)
[2016-12-23] MEDS: MAGNESIUM 1 GM/100 ML IVPB 100 ML IV SCH ×2 (13:01→13:02)
== END 2016-12-23 16:34 | disposition home or self-care (01) | DRG 247 ==
LOC: EDUNIT# 08:39 → ER 08:40 → CATH 11:29 → ICU 12:28
PROVIDERS: ADMIT Internal Medicine Cardiovascular Disease; ATTEND Internal Medicine Cardiovascular Disease
PROC: 027034Z Dilation of Coronary Artery, One Artery with Drug-eluting Intraluminal Device, Percutaneous Approach (ICD-10-PCS; principal; 2016-12-21)
PROC: 4A023N7 Measurement of Cardiac Sampling and Pressure, Left Heart, Percutaneous Approach (ICD-10-PCS; 2016-12-21)
PROC: B2111ZZ Fluoroscopy of Multiple Coronary Arteries using Low Osmolar Contrast (ICD-10-PCS; 2016-12-21)
PROC: B2151ZZ Fluoroscopy of Left Heart using Low Osmolar Contrast (ICD-10-PCS; 2016-12-21)
DX: I21.4 Non-ST elevation (NSTEMI) myocardial infarction (principal); I25.119 Atherosclerotic heart disease of native coronary artery with unspecified angina pectoris; I25.5 Ischemic cardiomyopathy; I10 Essential (primary) hypertension; K52.1 Toxic gastroenteritis and colitis; K58.0 Irritable bowel syndrome with diarrhea; E11.9 Type 2 diabetes mellitus without complications; E66.9 Obesity, unspecified; I97.2 Postmastectomy lymphedema syndrome; G47.33 Obstructive sleep apnea (adult) (pediatric); E78.5 Hyperlipidemia, unspecified; R00.1 Bradycardia, unspecified; E87.6 Hypokalemia; E83.42 Hypomagnesemia; T36.95XA Adverse effect of unspecified systemic antibiotic, initial encounter; Z68.36 Body mass index [BMI] 36.0-36.9, adult; Z90.12 Acquired absence of left breast and nipple; Z90.89 Acquired absence of other organs; Z87.440 Personal history of urinary (tract) infections
CPT/HCPCS: 36415; 71010; 76937; 80048; 80053; 82962; 83735; 84484; 85025; 85027; 87324; 87449; 93005; 93458

== ENCOUNTER 2017-02-02 10:25 | Outpatient (RCR) | payer MEDICARE ==
[~2017-02-02 10:25] MED LIST changes: +ASPI-983 PO; +ATOR40TA PO; +BACI1TAB3 PO; +CLOP75TA28 PO; +LISI10TA2 PO; +METO-351 PO; +RIFA550T PO
== END 2017-02-03 | disposition home or self-care (01) ==
LOC: CR 10:25
PROVIDERS: ATTEND Internal Medicine Cardiovascular Disease
DX: I25.2 Old myocardial infarction; Z95.5 Presence of coronary angioplasty implant and graft; Z48.812 Encounter for surgical aftercare following surgery on the circulatory system
CPT/HCPCS: 93798

== ENCOUNTER 2017-02-09 09:19 | Outpatient (RCR) | payer MEDICARE | END 2017-05-10 | disposition home or self-care (01) | LOC: ONC 09:19 | PROVIDERS: ATTEND Internal Medicine Hematology & Oncology | DX: Z08 Encounter for follow-up examination after completed treatment for malignant neoplasm (principal); Z85.3 Personal history of malignant neoplasm of breast; I89.0 Lymphedema, not elsewhere classified; Z90.12 Acquired absence of left breast and nipple; Z92.21 Personal history of antineoplastic chemotherapy | CPT/HCPCS: 99213 ==

== ENCOUNTER 2017-04-20 11:11 | Outpatient (RCR) | payer MEDICARE | END 2017-05-06 | disposition home or self-care (01) | LOC: CR 11:11 | PROVIDERS: ATTEND Internal Medicine Cardiovascular Disease | DX: Z48.812 Encounter for surgical aftercare following surgery on the circulatory system (principal); I25.2 Old myocardial infarction; Z95.5 Presence of coronary angioplasty implant and graft | CPT/HCPCS: 93798 ==

== ENCOUNTER 2017-05-28 10:28 | Outpatient (RCR) | payer MEDICARE | END 2017-08-12 | disposition home or self-care (01) | LOC: CR 10:28 | PROVIDERS: ATTEND Internal Medicine Cardiovascular Disease | DX: Z48.812 Encounter for surgical aftercare following surgery on the circulatory system (principal); I25.2 Old myocardial infarction; Z95.5 Presence of coronary angioplasty implant and graft | CPT/HCPCS: 93798 ==

== ENCOUNTER 2017-08-13 17:00 | Outpatient (RCR) | payer MEDICARE ==
[~2017-08-13 17:00] MED LIST changes: -METF1000 PO; +METF10002 PO
== END 2017-09-09 | disposition home or self-care (01) ==
LOC: CR3 17:00
PROVIDERS: ATTEND Internal Medicine Cardiovascular Disease
DX: Z29.8 Encounter for other specified prophylactic measures (principal)

== ENCOUNTER → 2017-10-25 | Outpatient (CLI) | payer MEDICARE ==
--- NOTE | 2017-10-25 10:32 | Diagnostic Imaging Report ---
INDICATION: Routine screening. COMPARISON: 10/24/2016 and 10/19/2015. TECHNIQUE: 2D and 3D unilateral right screening mammography was performed with CAD. FINDINGS: Scattered fibroglandular densities are identified. No mass or malignant appearing microcalcifications are seen. The right axilla is unremarkable. IMPRESSION: No mammographic features suspicious for malignancy are identified. ACR BI-RADS Category 2: Benign findings. Result letter will be mailed to the patient. Note: At least 10% of breast cancer is not imaged by mammography. Dictated by: Dictated on workstation # [id number]
== END ==
LOC: RAD 07:13
PROVIDERS: ATTEND Internal Medicine Hematology & Oncology
DX: Z12.31 Encounter for screening mammogram for malignant neoplasm of breast (principal)

== ENCOUNTER 2018-02-19 09:09 | Outpatient (RCR) | payer MEDICARE ==
[~2018-02-19 09:09] MED LIST changes: +METF-399 PO; -METF10002 PO
[2018-02-19 09:15] LABS: BASOPHILS # (AUTO) 0.1 10^3/uL (0.0-0.1); BASOPHILS % (AUTO) 1 % (0-10); EOSINOPHILS # (AUTO) 0.4 10^3/uL (0.0-0.3); EOSINOPHILS % (AUTO) 5 % (0-10); HEMATOCRIT 44 % (35-52); LYMPHOCYTES % (AUTO) 22 % (12-44); MEAN CORPUSCULAR HEMOGLOBIN 31 PG (25-34); MEAN CORPUSCULAR HGB CONC 34 G/DL (32-36); MEAN CORPUSCULAR VOLUME 92 FL (80-99); MONOCYTES # (AUTO) 0.6 X 10^3 (0.0-1.0); MONOCYTES % (AUTO) 7 % (0-12); NEUTROPHILS % (AUTO) 66 % (42-75); PLATELET COUNT 255 10^3/uL (130-400); RED CELL DISTRIBUTION WIDTH 12.9 % (10.0-14.5); WHITE BLOOD COUNT 9.1 10^3/uL (4.3-11.0)
[2018-02-19 09:35] LABS: ALBUMIN 4.2 GM/DL (3.2-4.5); BILIRUBIN,TOTAL 0.8 MG/DL (0.1-1.0); CALCIUM 9.6 MG/DL (8.5-10.1); CREATININE SERUM 0.92 MG/DL (0.60-1.30); POTASSIUM 4.3 MMOL/L (3.6-5.0); TOTAL PROTEIN 7.2 GM/DL (6.4-8.2)
== END 2018-05-20 | disposition home or self-care (01) ==
LOC: ONC 09:09
PROVIDERS: ATTEND Internal Medicine Hematology & Oncology
DX: Z08 Encounter for follow-up examination after completed treatment for malignant neoplasm (principal); Z85.3 Personal history of malignant neoplasm of breast; Z90.12 Acquired absence of left breast and nipple; Z92.21 Personal history of antineoplastic chemotherapy
CPT/HCPCS: 36415; 80053; 85025; 99213

== ENCOUNTER → 2018-05-15 | Outpatient (RCR) | payer MEDICARE | END | disposition home or self-care (01) | LOC: CR3 04-15 13:00 | PROVIDERS: ATTEND Internal Medicine Cardiovascular Disease | DX: Z29.8 Encounter for other specified prophylactic measures (principal) ==

== ENCOUNTER 2018-05-20 15:13 | Outpatient (RCR) | payer MEDICARE ==
[2018-05-31] MEDS ORDERED: LOSA1TAB26 PO (08:39)
[2018-05-31] MEDS ORDERED: ATOR10TA66 PO (08:39)
[2018-05-31] MEDS ORDERED: ASPI-999 PO (08:39)
[2018-05-31] MEDS ORDERED: CLOP75TA69 PO (08:39)
[2018-05-31] MEDS ORDERED: METO-387 PO (08:39)
[2018-05-31] MEDS ORDERED: AMLO5TAB9 PO (08:39)
[2018-06-03] MEDS ORDERED: POTA10TA6 PO (08:23)
[2018-06-03] MEDS ORDERED: SULF1TAB35 PO (08:23)
[2018-06-03] MEDS ORDERED: METR500T PO (08:23)
[2018-06-03] MEDS ORDERED: LACT1CAP7 PO (08:23)
== END 2018-06-19 | disposition home or self-care (01) ==
LOC: CR3 15:13
PROVIDERS: ATTEND Internal Medicine Cardiovascular Disease
DX: Z29.8 Encounter for other specified prophylactic measures (principal)

== ENCOUNTER 2018-05-30 15:02 | Inpatient (IN) | payer MEDICARE ==
[~2018-05-30] VITALS: Ht 167.6 cm; Wt 108.6 kg
[2018-05-30 15:40] VITALS: BP 144/66
--- NOTE | 2018-05-30 15:40 | NUR ---
CELINA ESPINOZA admitted to room 417-1, with an admitting diagnosis of left arm cellulitis, on 05/30/18 via DIRECT ADMIT, accompanied by SELF.CELINA ESPINOZA introduced to surroundings, call light, bed controls, phone, TV, temperature control, lights, meal times, smoking policy, visitor policy, side rail policy, bathrooms and showers. Patient Rights given to patient in the handbook. CELINA ESPINOZA verbalizes understanding that [facility] is not responsible for the loss or damage to any personal effects or valuables that are kept in the patients posession during their hospitalization. CELINA ESPINOZA verbalizes understanding of Interdisciplinary Patient Education. Patient and/or family were informed about the Rapid Response Team and its purpose.
[2018-05-30 16:54] VITALS: BP 144/66
[2018-05-30] MEDS ORDERED: VANCOMYCIN INJECTION 1,000 MG in NS (IVPB) 250 ML IV ONE ×2 (17:30→17:45)
[2018-05-30] MEDS ORDERED: inSUlin ASPART (NovoLOG) 1 UNIT/0.01 ML (CHARGE PER UNIT) SC SCH (17:30)
[2018-05-30] MEDS ORDERED: NS (IVPB) 250 ML ONE (17:44)
[2018-05-30] MEDS ORDERED: VANCOMYCIN 1000 MG/VIAL ONE (17:44)
[2018-05-30] MEDS ORDERED: PATIENT MAY USE OWN MEDS, ALL PO SCH (17:45)
[2018-05-30] MEDS ORDERED: ONDANSETRON 4 MG/2 ML (SDV) Z0FRAN IVP PRN (17:45)
[2018-05-30] MEDS ORDERED: VANCOMYCIN INJECTION 0.1 MG in NS (IVPB) 250 ML IV SCH (17:45)
[2018-05-30] MEDS ORDERED: VANCOMYCIN 2000 MG/NS 500 ML IVPB IV NR ×2 (18:30)
[2018-05-30] MEDS: ENOXAPARIN 40 MG/0.4 ML (LOVENOX) SYR SC SCH (18:38)
--- NOTE | 2018-05-30 18:39 | History & Physicial ---
History of Present Illness History of Present Illness Reason for visit/HPI This is a 72 year old female with chronic lymphedema of her left upper arm from previous mastectomy and a history of recurrent cellulitis of that arm who presented to my office with redness and warmth to her left arm. She stated that 2 days prior she started feeling achey like she may be coming down with a virus or the flu but when she woke up this morning her arm was tender, red and hot. She had erythema extending all the way up her left arm to just below her shoulder socket. She will be directly admitted from my office for IV antibiotics. Date of Admission May 30, 2018 at 15:25 Date Seen by a Provider: May 30, 2018 Time Seen by a Provider: 15:00 I consulted on this patient on 05/30/18 18:32 Attending Physician Kerline Lubin DO Admitting Physician Kerline Lubin DO Consult Allergies and Home Medications Allergies Coded Allergies: No Known Drug Allergies (Unverified , 11/01/16) Home Medications Aspirin 81 Mg Tablet.dr, 81 MG PO DAILY, (Reported) Aspirin 81 Mg Tablet.dr, 81 MG PO DAILY Prescribed by: FRANDY VASQUEZ on 12/22/16 1414 Atorvastatin Calcium 40 Mg Tablet, 40 MG PO HS Prescribed by: FRANDY VASQUEZ on 12/22/16 1414 Clopidogrel Bisulfate 75 Mg Tablet, 75 MG PO DAILY Prescribed by: FRANDY VASQUEZ on 12/22/16 1414 Lisinopril 10 Mg Tablet, 10 MG PO DAILY Prescribed by: FRANDY VASQUEZ on 12/22/16 1414 Loratadine 10 Mg Tablet, 10 MG PO DAILY PRN for ALLERGIES, (Reported) Metoprolol Succinate 25 Mg Tab.er.24h, 25 MG PO DAILY Prescribed by: FRANDY VASQUEZ on 12/22/16 1414 Rifaximin 550 Mg Tablet, 550 MG PO BID Prescribed by: KERLIEN LUBIN on 12/22/16 1121 Patient Home Medication List Home Medication List Reviewed: Yes Past Yfviyqt-Lpakdz-Mdkefe Hx Patient Social History Alcohol Use: Rarely Uses Number of Drinks Today: 0 Alcohol Beverage of Choice: Beer Recreational Drug Use: No Physical Abuse Screen: No Sexual Abuse: No Recent Foreign Travel: No Contact w/other who traveled: No Recent Hopitalizations: No Recent Infectious Disease Expo: No Immunizations Up To Date Date of Pneumonia Vaccine: Jun 19, 2013 Seasonal Allergies Seasonal Allergies: No Surgeries Yes Abdominal, Breast, Gallbladder, Orthopedic Respiratory Yes Currently Using CPAP: Yes Currently Using BIPAP: No Cardiovascular Yes Hypertension Neurological No 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 System Hx 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 Disorders: No Sexually Transmitted Disease: No HIV/AIDS: No Female 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 Disorders: Denies [employer] History: Menopausal Genitourinary Yes (OCCASIONAL UTI) UTI-Chronic Gastrointestinal Yes Abdominal Hernia, C-Diff, Gall Bladder Disease Musculoskeletal Yes (CHRONIC LYMPHEDEMA LEFT ARM; LEFT ANKLE FX/ORIF; RIGHT KNEE SCOPE) Fractures Endocrine History of Endocrine Disorders: Yes Endocrine Disorders: Diabetes, Non-Insulin dep Are Your Blood Sugars Over 250: No HEENT History of HEENT Disorders: No Cancer Yes Breast Did You Recieve Any Treatments: No Psychosocial History of Psychiatric Problem: No Integumentary History of Skin or Integumenta: Yes (SHINGLES; RECURRENT CELLULITIS LEFT ARM) Skin/Integumentary Disorders: Recent Skin Changes Blood Transfusions History of Blood Disorders: No Adverse Reaction to a Blood Tr: No Family Medical History Significant Family History: No Pertinent Family Hx Family Hx: Cardiovascular disease 19 FATHER Hypertension DAUGHTER Kidney disease 19 MOTHER POOR LEG CIRCULATION G8 SISTER Review of Systems Constitutional: malaise, weakness EENTM: nose congestion Respiratory: No no symptoms reported, No see HPI, No cough, No dyspnea on exertion, No hemoptysis, No orthopnea, No phlegm, No short of breath, No stridor , No wheezing, No other Cardiovascular: No no symptoms reported, No see HPI, No chest pain, No edema, No Hx of Intervention, No palpitations, No syncope, No vascular heart diseas, No other Gastrointestinal: loss of appetite Genitourinary: No no symptoms reported, No see HPI, No decreased output, No discharge, No dysuria, No frequency, No hematuria, No hesitancy, No incontinence , No nocturia, No pain, No other Musculoskeletal: joint swelling, muscle pain Skin: change in color Psychiatric/Neurological: Weakness Physical Exam Vital Signs Vital Signs - First Documented 05/30/18 15:40 Temp 100.1 Pulse 82 Resp 18 B/P (MAP) 144/66 (92) Pulse Ox 96 O2 Delivery Room Air Capillary Refill : Height, Weight, BMI Height: 5'6.00" Weight: 228lbs. 3.0oz. 103.845504nd; 37.8 BMI Method:Stated General Appearance: Moderate Distress HEENT: Pharynx Normal Neck: Supple Respiratory: Lungs Clear Cardiovascular: Regular Rate, Rhythm, Systolic Murmur Gastrointestinal: Normal Bowel Sounds, Non Tender, Soft Rectal: Deferred Back: No CVA Tenderness Extremity: Non Tender, No Calf Tenderness, No Pedal Edema, Inflammation (left upper arm) Neurologic/Psychiatric: Alert, Oriented x3 Skin: Erythema (from hand up entire arm to just below shoulder joint--warm and tender to touch) Comments Laboratory Tests 05/30/18 18:20: White Blood Count 16.5H, Red Blood Count 4.11L, Hemoglobin 12.9, Hematocrit 38, Mean Corpuscular Volume 93, Mean Corpuscular Hemoglobin 31, Mean Corpuscular Hemoglobin Concent 34, Red Cell Distribution Width 13.1, Platelet Count 141, Mean Platelet Volume 9.7 Assessment/Plan Assessment and Plan 1. Acute LUE Cellulitis--admit and start Vancomycin 2. Chronic Lymphedema of LUE--elevate 3. Diabetes mellitus II--start accuchecks with SSI A 4. Hypertension--resume home medications Admission Diagnosis Admission Status: Inpatient Order (span 2 midnights) Reason for Inpatient Admission: Will need at least 48 hrs of IV antibiotics Clinical Quality Measures DVT/VTE Risk/Contraindication: Risk Factor Score Per Nursin RFS Level Per Nursing on Admit: 4+=Very High KERLINE LUBIN DO May 30, 2018 18:39
[2018-05-30 18:40] LABS: HEMOGLOBIN 12.9 G/DL (11.5-16.0); MEAN PLATELET VOLUME 9.7 FL (7.4-10.4); RED CELL DISTRIBUTION WIDTH 13.1 % (10.0-14.5); WHITE BLOOD COUNT 16.5 10^3/uL (4.3-11.0)
[2018-05-30 19:05] LABS: ALANINE AMINOTRANSFERASE 21 U/L (0-55); ALBUMIN 3.6 GM/DL (3.2-4.5); ALKALINE PHOSPHATASE 64 U/L (40-136); BILIRUBIN,TOTAL 1.2 MG/DL (0.1-1.0); BUN/CREATININE RATIO 24; CALCIUM 8.7 MG/DL (8.5-10.1); CARBON DIOXIDE 23 MMOL/L (21-32); CHLORIDE 99 MMOL/L (98-107); CREATININE SERUM 0.79 MG/DL (0.60-1.30); GFR ESTIMATED > 60; GLUCOSE 109 MG/DL (70-105); POTASSIUM 3.2 MMOL/L (3.6-5.0); SODIUM 135 MMOL/L (135-145); TOTAL PROTEIN 6.3 GM/DL (6.4-8.2)
[2018-05-30] MEDS ORDERED: FLU QUADRIvalent (5+ YOA) 2018-2019 (AFLURIA) 0.5 ML IM ONE (19:15)
--- NOTE | 2018-05-30 19:37 | NUR ---
CR 0.79; WT 103 KG; CR CL ~60; VANCO 2000 MG IV BOLUS THEN 1250 MG IV Q12H; TROUGH AFTER 3RD DOSE
[2018-05-30 19:52] VITALS: BP 159/77
[2018-05-30] MEDS: ACETAMINOPHEN 325 MG TABLET PO PRN (19:57)
[2018-05-30] MEDS: FAMOTIDINE 20 MG (PEPCID) TABLET PO SCH (20:57)
[2018-05-30] MEDS: inSUlin ASPART (NovoLOG) 1 UNIT/0.01 ML (CHARGE PER UNIT) SC SCH (20:58)
[2018-05-30 22:37] VITALS: BP 129/72
[2018-05-31] VITALS: BP 129/72
[2018-05-31 03:41] VITALS: BP 120/71
[2018-05-31] MEDS: VANCOMYCIN 1250 MG/NS 250 ML IVPB IV SCH ×4 (06:04→18:21)
[2018-05-31] MEDS: LACTOBACILLUS ACIDOPHILUS (PROBIOTIC) CAPSULE PO SCH ×3 (06:04→17:15)
[2018-05-31 06:28] LABS: BASOPHILS % (AUTO) 0 % (0-10); EOSINOPHILS % (AUTO) 0 % (0-10); HEMATOCRIT 39 % (35-52); HEMOGLOBIN 13.3 G/DL (11.5-16.0); LYMPHOCYTES # (AUTO) 1.1 X 10^3 (1.0-4.0); LYMPHOCYTES % (AUTO) 8 % (12-44); MEAN CORPUSCULAR HEMOGLOBIN 31 PG (25-34); MEAN CORPUSCULAR HGB CONC 34 G/DL (32-36); MEAN CORPUSCULAR VOLUME 93 FL (80-99); MEAN PLATELET VOLUME 10.1 FL (7.4-10.4); MONOCYTES # (AUTO) 0.6 X 10^3 (0.0-1.0); MONOCYTES % (AUTO) 4 % (0-12); NEUTROPHILS % (AUTO) 88 % (42-75); PLATELET COUNT 171 10^3/uL (130-400); WHITE BLOOD COUNT 14.8 10^3/uL (4.3-11.0)
[2018-05-31 06:37] LABS: ALANINE AMINOTRANSFERASE 20 U/L (0-55); ALBUMIN 3.6 GM/DL (3.2-4.5); ALKALINE PHOSPHATASE 68 U/L (40-136); BILIRUBIN,TOTAL 0.9 MG/DL (0.1-1.0); BUN/CREATININE RATIO 20; CALCIUM 8.9 MG/DL (8.5-10.1); CARBON DIOXIDE 22 MMOL/L (21-32); CHLORIDE 100 MMOL/L (98-107); CREATININE SERUM 0.75 MG/DL (0.60-1.30); GFR ESTIMATED > 60; GLUCOSE 140 MG/DL (70-105); POTASSIUM 3.7 MMOL/L (3.6-5.0); SODIUM 134 MMOL/L (135-145); TOTAL PROTEIN 6.7 GM/DL (6.4-8.2)
[2018-05-31] MEDS: inSUlin ASPART (NovoLOG) 1 UNIT/0.01 ML (CHARGE PER UNIT) SC SCH ×4 (06:40→20:42)
[2018-05-31 08:00] VITALS: BP 159/75
--- NOTE | 2018-05-31 08:00 | NUR ---
TEMP 101.9.
[2018-05-31] MEDS ORDERED: METO-387 PO (08:39)
[2018-05-31] MEDS ORDERED: ASPI-999 PO (08:39)
[2018-05-31] MEDS ORDERED: LOSA1TAB26 PO (08:39)
[2018-05-31] MEDS ORDERED: AMLO5TAB9 PO (08:39)
[2018-05-31] MEDS ORDERED: CLOP75TA69 PO (08:39)
[2018-05-31] MEDS ORDERED: ATOR10TA66 PO (08:39)
--- NOTE | 2018-05-31 08:41 | NUR ---
SPOKE WITH THE PATIENT ABOUT HER MEDICATIONS. SHE HAD A LIST WITH HER AND I COMPARED IT WITH THE EXT MED HX. SHE TAKES LORATADINE AND ASPIRIN OTC.
[2018-05-31] MEDS: HYDROCHLOROTHIAZIDE 25 MG (HCTZ) TAB PO SCH (09:27)
[2018-05-31] MEDS: amLODIPine 5 MG (NORVASC) TAB PO SCH (09:27)
[2018-05-31] MEDS: CLOPIDOGREL 75 MG (PLAVIX) TABLET PO SCH (09:27)
[2018-05-31] MEDS: ASPIRIN 81 MG CHEW (CHILDREN'S ASA) PO SCH (09:27)
[2018-05-31] MEDS: FAMOTIDINE 20 MG (PEPCID) TABLET PO SCH (09:27)
[2018-05-31] MEDS: LOSARTAN 100 MG (COZAAR) TABLET PO SCH (09:27)
[2018-05-31] MEDS: ACETAMINOPHEN 325 MG TABLET PO PRN (09:30)
--- NOTE | 2018-05-31 09:30 | NUR ---
TYLENOL 650MG FOR ELEVATED TEMP. MIDLINE PLACEMENT IN PROGRESS.
[2018-05-31 12:00] VITALS: BP 136/86
--- NOTE | 2018-05-31 13:42 | Progress Note (SOAP) ---
Subjective Date Seen by a Provider: May 31, 2018 Time Seen by a Provider: 13:39 Subjective/Events-last exam Fwup LUE cellulitis, DM II, HTN, URI. C/O diarrhea this morning as well as cold symptoms with congestion/cough. Focused Exam Lactate Level 05/30/18 16:58: Lactic Acid Level 1.17 Objective Exam Vital Signs Date Time Temp Pulse Resp B/P (MAP) Pulse Ox O2 Delivery O2 Flow Rate FiO2 05/31/18 10:47 98.9 05/31/18 10:00 99.5 05/31/18 09:30 101.9 05/31/18 08:00 96 Room Air 05/31/18 08:00 101.9 84 20 159/75 (103) 96 Room Air 05/31/18 03:41 98.0 77 18 120/71 (87) 96 Room Air 05/31/18 00:00 98.7 67 20 129/72 (91) 96 Room Air 05/30/18 22:37 98.7 67 20 129/72 (91) 96 Room Air 05/30/18 19:55 96 Room Air 05/30/18 19:52 100.6 81 20 159/77 (104) 97 Room Air 05/30/18 19:50 Room Air 05/30/18 16:54 100.1 82 18 144/66 96 Nasal Cannula 05/30/18 15:40 100.1 82 18 144/66 (92) 96 Room Air I & O 05/31/18 07:00 Intake Total 1720 ml Balance 1720 ml Capillary Refill : Less Than 3 Seconds General Appearance: Mild Distress Neck: Supple Respiratory: Lungs Clear Cardiovascular: Regular Rate, Rhythm Extremity: Non Tender, No Calf Tenderness, No Pedal Edema Neurologic/Psychiatric: Alert, Oriented x3 Skin: Erythema (to LUE improved) Results Lab Laboratory Tests 05/30/18 16:58: Lactic Acid Level 1.17 05/30/18 18:20: White Blood Count 16.5H, Red Blood Count 4.11L, Hemoglobin 12.9, Hematocrit 38, Mean Corpuscular Volume 93, Mean Corpuscular Hemoglobin 31, Mean Corpuscular Hemoglobin Concent 34, Red Cell Distribution Width 13.1, Platelet Count 141, Mean Platelet Volume 9.7, Erythrocyte Sedimentation Rate 17, Sodium Level 135, Potassium Level 3.2L, Chloride Level 99, Carbon Dioxide Level 23, Anion Gap 13, Blood Urea Nitrogen 19H, Creatinine 0.79, Estimat Glomerular Filtration Rate > 60, BUN/Creatinine Ratio 24, Glucose Level 109H, Calcium Level 8.7, Corrected Calcium 9.0, Total Bilirubin 1.2H, Aspartate Amino Transf (AST/SGOT) 22, Alanine Aminotransferase (ALT/SGPT) 21, Alkaline Phosphatase 64, C-Reactive Protein High Sensitivity 20.63H, Total Protein 6.3L, Albumin 3.6 05/30/18 20:36: Glucometer 184H 05/31/18 05:35: White Blood Count 14.8H, Red Blood Count 4.24L, Hemoglobin 13.3, Hematocrit 39, Mean Corpuscular Volume 93, Mean Corpuscular Hemoglobin 31, Mean Corpuscular Hemoglobin Concent 34, Red Cell Distribution Width 13.0, Platelet Count 171, Mean Platelet Volume 10.1, Sodium Level 134L, Potassium Level 3.7, Chloride Level 100, Carbon Dioxide Level 22, Anion Gap 12, Blood Urea Nitrogen 15, Creatinine 0.75, Estimat Glomerular Filtration Rate > 60, BUN/Creatinine Ratio 20, Glucose Level 140H, Calcium Level 8.9, Corrected Calcium 9.2, Total Bilirubin 0.9, Aspartate Amino Transf (AST/SGOT) 24, Alanine Aminotransferase ( ALT/SGPT) 20, Alkaline Phosphatase 68, Total Protein 6.7, Albumin 3.6, Neutrophils (%) (Auto) 88H, Lymphocytes (%) (Auto) 8L, Monocytes (%) (Auto) 4, Eosinophils (%) (Auto) 0, Basophils (%) (Auto) 0, Neutrophils # (Auto) 13.0H, Lymphocytes # (Auto) 1.1, Monocytes # (Auto) 0.6, Eosinophils # (Auto) 0.0, Basophils # (Auto) 0.0 05/31/18 11:35: Glucometer 157H Assessment/Plan Assessment/Plan Assess & Plan/Chief Complaint 1. LUE Cellulitis--continue with IV Vancomycin, patient has had C. Diff with cephalosporins and clindamycin in past for her cellulitis 2. Hypertension--home meds resumed 3. Diabetes mellitus II--on SSI 4. URI/Viral Syndrome--supportive care Clinical Quality Measures Admission Status Admission Dx 1. Acute LUE Cellulitis--admit and start Vancomycin 2. Chronic Lymphedema of LUE--elevate 3. Diabetes mellitus II--start accuchecks with SSI A 4. Hypertension--resume home medications DVT/VTE Risk/Contraindication: Risk Factor Score Per Nursin RFS Level Per Nursing on Admit: 4+=Very High EMERALD JONAS DO May 31, 2018 13:42
[2018-05-31 15:50] VITALS: BP 137/67
[2018-05-31] MEDS: ENOXAPARIN 40 MG/0.4 ML (LOVENOX) SYR SC SCH (17:16)
[2018-05-31 20:10] VITALS: BP 158/72
[2018-06-01 00:03] VITALS: BP 156/78
[2018-06-01] MEDS ORDERED: TROUGH ORDER-PHARMACY XX NR (06:00)
[2018-06-01] MEDS: inSUlin ASPART (NovoLOG) 1 UNIT/0.01 ML (CHARGE PER UNIT) SC SCH ×4 (06:02→21:40)
[2018-06-01] MEDS: LACTOBACILLUS ACIDOPHILUS (PROBIOTIC) CAPSULE PO SCH ×3 (06:02→18:51)
[2018-06-01 06:12] LABS: BASOPHILS % (AUTO) 0 % (0-10); EOSINOPHILS # (AUTO) 0.1 10^3/uL (0.0-0.3); EOSINOPHILS % (AUTO) 1 % (0-10); HEMATOCRIT 38 % (35-52); HEMOGLOBIN 13.1 G/DL (11.5-16.0); LYMPHOCYTES # (AUTO) 1.7 X 10^3 (1.0-4.0); LYMPHOCYTES % (AUTO) 15 % (12-44); MEAN CORPUSCULAR HEMOGLOBIN 31 PG (25-34); MEAN CORPUSCULAR HGB CONC 35 G/DL (32-36); MEAN CORPUSCULAR VOLUME 91 FL (80-99); MEAN PLATELET VOLUME 10.2 FL (7.4-10.4); MONOCYTES # (AUTO) 0.8 X 10^3 (0.0-1.0); MONOCYTES % (AUTO) 7 % (0-12); NEUTROPHILS # (AUTO) 8.3 X 10^3 (1.8-7.8); NEUTROPHILS % (AUTO) 77 % (42-75); PLATELET COUNT 159 10^3/uL (130-400); RED CELL DISTRIBUTION WIDTH 13.4 % (10.0-14.5); WHITE BLOOD COUNT 10.8 10^3/uL (4.3-11.0)
[2018-06-01 06:55] LABS: ALANINE AMINOTRANSFERASE 24 U/L (0-55); ALBUMIN 3.2 GM/DL (3.2-4.5); ALKALINE PHOSPHATASE 55 U/L (40-136); BILIRUBIN,TOTAL 0.7 MG/DL (0.1-1.0); BUN/CREATININE RATIO 18; CALCIUM 8.9 MG/DL (8.5-10.1); CARBON DIOXIDE 21 MMOL/L (21-32); CHLORIDE 103 MMOL/L (98-107); CREATININE SERUM 0.74 MG/DL (0.60-1.30); GFR ESTIMATED > 60; GLUCOSE 118 MG/DL (70-105); POTASSIUM 3.3 MMOL/L (3.6-5.0); SODIUM 136 MMOL/L (135-145); TOTAL PROTEIN 5.9 GM/DL (6.4-8.2)
[2018-06-01 07:01] LABS: VANCOMYCIN,TROUGH 21.5 UG/ML (10.0-20.0)
[2018-06-01] MEDS: VANCOMYCIN 1250 MG/NS 250 ML IVPB IV SCH ×2 (07:10)
[2018-06-01 08:01] VITALS: BP 133/64
[2018-06-01] MEDS: CLOPIDOGREL 75 MG (PLAVIX) TABLET PO SCH (10:30)
[2018-06-01] MEDS: HYDROCHLOROTHIAZIDE 25 MG (HCTZ) TAB PO SCH (10:30)
[2018-06-01] MEDS: ASPIRIN 81 MG CHEW (CHILDREN'S ASA) PO SCH (10:31)
[2018-06-01] MEDS: LOSARTAN 100 MG (COZAAR) TABLET PO SCH (10:31)
[2018-06-01] MEDS: amLODIPine 5 MG (NORVASC) TAB PO SCH (10:31)
--- NOTE | 2018-06-01 12:11 | Progress Note-Hospitalist ---
Subjective HPI/CC On Admission Date Seen by Provider: Jun 01, 2018 Time Seen by Provider: 11:30 Subjective/Events-last exam Patient doing much better Left arm resolving redness and swelling and pain Does have loose stools but they are not terrible but would like something to firm them up so I will will order Questran Maintain on Lactinex probiotic She does have a history of C. difficile so on vancomycin IV Patient will be monitored closely Review of Systems Musculoskeletal: arm pain Focused Exam Lactate Level 05/30/18 16:58: Lactic Acid Level 1.17 Objective Exam Vital Signs Vital Signs Date Time Temp Pulse Resp B/P (MAP) Pulse Ox O2 Delivery O2 Flow Rate FiO2 06/01/18 08:05 Room Air 06/01/18 08:01 98.9 67 18 133/64 (87) 94 Capillary Refill : Less Than 3 Seconds General Appearance: No Apparent Distress, WD/WN, Chronically ill, Obese Respiratory: Chest Non Tender, Lungs Clear, Normal Breath Sounds, No Accessory Muscle Use, No Respiratory Distress Cardiovascular: Regular Rate, Rhythm, No Edema, No Gallop, No JVD, No Murmur, Normal Peripheral Pulses Extremity: Pedal Edema, Swelling, Other (erythema left arm much improved) Neurologic/Psychiatric: Alert, Oriented x3, No Motor/Sensory Deficits, Normal Mood/Affect Results/Procedures Lab Laboratory Tests 06/01/18 06:00 06/01/18 06:30 Patient resulted labs reviewed. Assessment/Plan Assessment and Plan Assess & Plan/Chief Complaint Assessment: Acute left arm cellulitis with history of 6 prior episodes Chronic left arm lymphedema Loose stools on antibiotics will place on Questran and maintain probiotic Obesity Leukocytosis Hypokalemia acute Plan: Maintain vancomycin Probiotic Questran Monitor for C. difficile recurrence closely Monitor labs Replace potassium Diagnosis/Problems Diagnosis/Problems (1) Cellulitis of left arm Status: Acute (2) Hx of Clostridium difficile infection Status: Chronic (3) Loose stools Status: Acute (4) Hypokalemia Status: Acute (5) Obesity Status: Chronic Qualifiers: Obesity type: due to excess calories Obesity classification: adult class 2 (BMI 35 - 39.9) Serious obesity comorbidity presence: with serious comorbidity (6) Leukocytosis Status: Acute Qualifiers: Leukocytosis type: leukemoid reaction Qualified Codes: D72.823 - Leukemoid reaction (7) CAD (coronary artery disease) Status: Chronic Qualifiers: Coronary Disease-Associated Artery/Lesion type: [place] artery [place] vs. transplanted heart: [place] heart Associated angina: without angina Qualified Codes: I25.10 - Atherosclerotic heart disease of [place] coronary artery without angina pectoris Clinical Quality Measures DVT/VTE Risk/Contraindication: Risk Factor Score Per Nursin RFS Level Per Nursing on Admit: 4+=Very High BRYAN LEDEZMA DO Jun 01, 2018 12:11
[2018-06-01] MEDS ORDERED: KCL 10 MEQ TAB (MICRO K) PO NR (12:51)
[2018-06-01] MEDS ORDERED: CHOLESTYRAMINE 4 GM (QUESTRAN LITE, PREVALITE) PKT PO NR (12:53)
[2018-06-01 16:15] VITALS: BP 138/67
[2018-06-01] MEDS: ENOXAPARIN 40 MG/0.4 ML (LOVENOX) SYR SC SCH (18:52)
[2018-06-01] MEDS: VANCOMYCIN 1 GM/NS 250 ML IVPB IV SCH ×2 (19:59)
[2018-06-01] MEDS: KCL 10 MEQ TAB (MICRO K) PO SCH (20:03)
[2018-06-01] MEDS: CHOLESTYRAMINE 4 GM (QUESTRAN LITE, PREVALITE) PKT PO SCH (22:31)
[2018-06-02 00:59] VITALS: BP 158/72
[2018-06-02] MEDS: LACTOBACILLUS ACIDOPHILUS (PROBIOTIC) CAPSULE PO SCH ×3 (06:27→17:43)
[2018-06-02 06:30] LABS: BASOPHILS % (AUTO) 1 % (0-10); EOSINOPHILS # (AUTO) 0.2 10^3/uL (0.0-0.3); EOSINOPHILS % (AUTO) 3 % (0-10); HEMATOCRIT 37 % (35-52); HEMOGLOBIN 12.2 G/DL (11.5-16.0); LYMPHOCYTES # (AUTO) 1.3 X 10^3 (1.0-4.0); LYMPHOCYTES % (AUTO) 21 % (12-44); MEAN CORPUSCULAR HEMOGLOBIN 31 PG (25-34); MEAN CORPUSCULAR HGB CONC 33 G/DL (32-36); MEAN CORPUSCULAR VOLUME 92 FL (80-99); MEAN PLATELET VOLUME 10.4 FL (7.4-10.4); MONOCYTES # (AUTO) 0.7 X 10^3 (0.0-1.0); MONOCYTES % (AUTO) 11 % (0-12); NEUTROPHILS # (AUTO) 3.9 X 10^3 (1.8-7.8); NEUTROPHILS % (AUTO) 63 % (42-75); PLATELET COUNT 185 10^3/uL (130-400); RED CELL DISTRIBUTION WIDTH 12.8 % (10.0-14.5); WHITE BLOOD COUNT 6.2 10^3/uL (4.3-11.0)
[2018-06-02 06:51] LABS: ALANINE AMINOTRANSFERASE 33 U/L (0-55); ALBUMIN 3.2 GM/DL (3.2-4.5); ALKALINE PHOSPHATASE 65 U/L (40-136); BILIRUBIN,TOTAL 0.5 MG/DL (0.1-1.0); BUN/CREATININE RATIO 18; CALCIUM 9.1 MG/DL (8.5-10.1); CARBON DIOXIDE 21 MMOL/L (21-32); CHLORIDE 108 MMOL/L (98-107); CREATININE SERUM 0.74 MG/DL (0.60-1.30); GFR ESTIMATED > 60; GLUCOSE 120 MG/DL (70-105); POTASSIUM 3.7 MMOL/L (3.6-5.0); SODIUM 138 MMOL/L (135-145); TOTAL PROTEIN 5.9 GM/DL (6.4-8.2)
[2018-06-02] MEDS: inSUlin ASPART (NovoLOG) 1 UNIT/0.01 ML (CHARGE PER UNIT) SC SCH ×4 (06:56→20:35)
[2018-06-02 07:47] VITALS: BP 152/67
[2018-06-02] MEDS: VANCOMYCIN 1 GM/NS 250 ML IVPB IV SCH ×4 (08:17→19:35)
[2018-06-02] MEDS: amLODIPine 5 MG (NORVASC) TAB PO SCH (08:18)
[2018-06-02] MEDS: LOSARTAN 100 MG (COZAAR) TABLET PO SCH (08:18)
[2018-06-02] MEDS: HYDROCHLOROTHIAZIDE 25 MG (HCTZ) TAB PO SCH (08:18)
[2018-06-02] MEDS: ASPIRIN 81 MG CHEW (CHILDREN'S ASA) PO SCH (08:19)
[2018-06-02] MEDS: CLOPIDOGREL 75 MG (PLAVIX) TABLET PO SCH (08:19)
[2018-06-02] MEDS: KCL 10 MEQ TAB (MICRO K) PO SCH ×2 (08:19→20:35)
[2018-06-02] MEDS: CHOLESTYRAMINE 4 GM (QUESTRAN LITE, PREVALITE) PKT PO SCH ×3 (10:15→21:19)
--- NOTE | 2018-06-02 12:58 | Progress Note-Hospitalist ---
Subjective HPI/CC On Admission Date Seen by Provider: Jun 02, 2018 Time Seen by Provider: 11:45 Subjective/Events-last exam Patient doing much better Questran working well and firming up stools Left arm pain improved Ambulating around well Focused Exam Lactate Level 05/30/18 16:58: Lactic Acid Level 1.17 Objective Exam Vital Signs Vital Signs Date Time Temp Pulse Resp B/P (MAP) Pulse Ox O2 Delivery O2 Flow Rate FiO2 06/02/18 08:28 Room Air 06/02/18 07:47 99.0 51 18 152/67 (95) 95 Capillary Refill : Less Than 3 Seconds General Appearance: No Apparent Distress, WD/WN Respiratory: Chest Non Tender, Lungs Clear, Normal Breath Sounds, No Accessory Muscle Use, No Respiratory Distress Cardiovascular: Regular Rate, Rhythm, No Edema, No Gallop, No JVD, No Murmur, Normal Peripheral Pulses Extremity: Swelling, Other (Improved erythema left arm) Neurologic/Psychiatric: Alert, Oriented x3, No Motor/Sensory Deficits, Normal Mood/Affect Results/Procedures Lab Laboratory Tests 06/02/18 06:00 Patient resulted labs reviewed. Assessment/Plan Assessment and Plan Assess & Plan/Chief Complaint Assessment: Acute left arm cellulitis with history of 6 prior episodes Chronic left arm lymphedema Loose stools on antibiotics will place on Questran and maintain probiotic Obesity Leukocytosis Hypokalemia acute Plan: Maintain vancomycin Probiotic Questran Monitor for C. difficile recurrence closely Monitor labs Replace potassium Diagnosis/Problems Diagnosis/Problems (1) Cellulitis of left arm Status: Acute (2) Hx of Clostridium difficile infection Status: Chronic (3) Loose stools Status: Acute (4) Hypokalemia Status: Acute (5) Obesity Status: Chronic Qualifiers: Obesity type: due to excess calories Obesity classification: adult class 2 (BMI 35 - 39.9) Serious obesity comorbidity presence: with serious comorbidity (6) Leukocytosis Status: Acute Qualifiers: Leukocytosis type: leukemoid reaction Qualified Codes: D72.823 - Leukemoid reaction (7) CAD (coronary artery disease) Status: Chronic Qualifiers: Coronary Disease-Associated Artery/Lesion type: [place] artery [place] vs. transplanted heart: [place] heart Associated angina: without angina Qualified Codes: I25.10 - Atherosclerotic heart disease of [place] coronary artery without angina pectoris Clinical Quality Measures DVT/VTE Risk/Contraindication: Risk Factor Score Per Nursin RFS Level Per Nursing on Admit: 4+=Very High BRYAN LEDEZMA DO Jun 02, 2018 12:58
[2018-06-02 16:00] VITALS: BP 141/65
[2018-06-02] MEDS: ENOXAPARIN 40 MG/0.4 ML (LOVENOX) SYR SC SCH (17:43)
[2018-06-03 00:28] VITALS: BP 151/67
[2018-06-03] MEDS: inSUlin ASPART (NovoLOG) 1 UNIT/0.01 ML (CHARGE PER UNIT) SC SCH (05:54)
[2018-06-03 06:14] LABS: BASOPHILS # (AUTO) 0.1 10^3/uL (0.0-0.1); BASOPHILS % (AUTO) 1 % (0-10); EOSINOPHILS # (AUTO) 0.3 10^3/uL (0.0-0.3); EOSINOPHILS % (AUTO) 5 % (0-10); HEMATOCRIT 36 % (35-52); HEMOGLOBIN 12.2 G/DL (11.5-16.0); LYMPHOCYTES # (AUTO) 1.7 X 10^3 (1.0-4.0); LYMPHOCYTES % (AUTO) 27 % (12-44); MEAN CORPUSCULAR HEMOGLOBIN 31 PG (25-34); MEAN CORPUSCULAR HGB CONC 34 G/DL (32-36); MEAN CORPUSCULAR VOLUME 92 FL (80-99); MEAN PLATELET VOLUME 9.9 FL (7.4-10.4); MONOCYTES # (AUTO) 0.7 X 10^3 (0.0-1.0); MONOCYTES % (AUTO) 11 % (0-12); NEUTROPHILS # (AUTO) 3.7 X 10^3 (1.8-7.8); NEUTROPHILS % (AUTO) 56 % (42-75); PLATELET COUNT 209 10^3/uL (130-400); RED CELL DISTRIBUTION WIDTH 12.8 % (10.0-14.5); WHITE BLOOD COUNT 6.5 10^3/uL (4.3-11.0)
[2018-06-03] MEDS: LACTOBACILLUS ACIDOPHILUS (PROBIOTIC) CAPSULE PO SCH (06:16)
[2018-06-03] MEDS ORDERED: TROUGH ORDER-PHARMACY XX ONE (07:34)
[2018-06-03 08:06] VITALS: BP 149/74
--- NOTE | 2018-06-03 08:19 | NUR ---
PTD VANCOMYCIN LABS: SCR 0.74 VANCOMYCIN TROUGH (PRIOR TO 4TH DOSE OF NEW DOSING SCHEDULE) 18.2, ALSO DRAWN ABOUT 2 HOURS BEFORE NEXT DOSE DUE. ABX: VANCOMYCIN 1 GRAM IV BID (DAY 09/10) PLAN: CONTINUE WITH CURRENT DOSING, AND RECHECK A LEVEL TOWARDS END OF WEEK IF PLAN TO CONTINUE ON VANCOMYCIN
[2018-06-03] MEDS ORDERED: SULF1TAB35 PO (08:23)
[2018-06-03] MEDS ORDERED: METR500T PO (08:23)
[2018-06-03] MEDS ORDERED: POTA10TA6 PO (08:23)
[2018-06-03] MEDS ORDERED: LACT1CAP7 PO (08:23)
--- NOTE | 2018-06-03 08:24 | Discharge Inst-Simple/Standard ---
Discharge Inst-Standard Discharge Medications New, Converted or Re-Newed RX: Transmitted to Pharmacy Patient Instructions/Follow Up Plan of Care/Instructions/FU: Fwup 1 week Activity as Tolerated: Yes Discharge Diet: ADA Diet, Cardiac Diet EMERALD JONAS DO Jun 03, 2018 08:24
[2018-06-03] MEDS: VANCOMYCIN 1 GM/NS 250 ML IVPB IV SCH ×2 (08:52)
[2018-06-03] MEDS: CLOPIDOGREL 75 MG (PLAVIX) TABLET PO SCH (08:56)
[2018-06-03] MEDS: ASPIRIN 81 MG CHEW (CHILDREN'S ASA) PO SCH (08:56)
[2018-06-03] MEDS: HYDROCHLOROTHIAZIDE 25 MG (HCTZ) TAB PO SCH (08:56)
[2018-06-03] MEDS: amLODIPine 5 MG (NORVASC) TAB PO SCH (08:56)
[2018-06-03] MEDS: KCL 10 MEQ TAB (MICRO K) PO SCH (08:56)
[2018-06-03] MEDS: LOSARTAN 100 MG (COZAAR) TABLET PO SCH (08:56)
[2018-06-03] MEDS: CHOLESTYRAMINE 4 GM (QUESTRAN LITE, PREVALITE) PKT PO SCH (08:56)
--- NOTE | 2018-06-03 11:00 | NUR ---
REVIEWED RX AND INST AND VERBALIZED UNDERSTANDING. MIDLINE REMOVED AND SITE BRUISED. DC'D PER WC WITH DTR.
[2018-06-03] MEDS ORDERED: TROUGH ORDER-PHARMACY XX NR (19:00)
--- NOTE | 2018-06-13 13:00 | Discharge Summary ---
Diagnosis/Chief Complaint Date of Admission May 30, 2018 at 15:25 Date of Discharge Jun 03, 2018 at 11:00 Discharge Date: Jun 03, 2018 Discharge Diagnosis 1. Acute Left Arm Cellulitis--improved 2. Chronic Left Arm Lymphedema 3. Antibiotic Induced Diarrhea 4. Acute URI 5. Hypertension 6. Diabetes mellitus, II 7. Acute Hypokalemia Reason Hospital Visit This is a 72 year old female with chronic lymphedema of her left upper arm from previous mastectomy and a history of recurrent cellulitis of that arm who presented to my office with redness and warmth to her left arm. She stated that 2 days prior she started feeling achey like she may be coming down with a virus or the flu but when she woke up this morning her arm was tender, red and hot. She had erythema extending all the way up her left arm to just below her shoulder socket. She will be directly admitted from my office for IV antibiotics. Discharge Summary Hospital Course Hospital Course This is a 72 year old female with chronic lymphedema of her left upper arm from previous mastectomy and a history of recurrent cellulitis of that arm who presented to my office with redness and warmth to her left arm. She stated that 2 days prior she started feeling achey like she may be coming down with a virus or the flu but when she woke up this morning her arm was tender, red and hot. She had erythema extending all the way up her left arm to just below her shoulder socket. She will be directly admitted from my office for IV antibiotics. She was admitted to the medical floor and started on IV Vancomycin due to previous C. Diff with antibiotics. She was continued on her home medications and placed on accuchecks. She did have upper respiratory symptoms of nasal congestion and cough but these improved during her hospital stay. She also had some diarrhea but cholestyramine was added and this improved the diarrhea. She had a drop in her potassium following her diarrhea but this responded to oral potassium replacement. By the time of discharge, her left arm redness was almost completely resolved and she was feeling much better. We did discuss that she needs to be more diligent about wrapping her arm and exercising that arm for the chronic lymphedema. I will see her in my office in 1 week. Procedures None. Discharge Physical Examination Allergies: Coded Allergies: No Known Drug Allergies (Unverified , 11/01/16) General Appearance: Alert, Oriented X3, Cooperative, No Acute Distress Respiratory: Clear to Auscultation Cardiovascular: Regular Rate Extremities: Other (edema to left arm but erythema much improved) Skin: No Rashes, No Breakdown Psych/Mental Status: Mental Status NL, Mood NL Discharge Home Medications Reviewed and agree with Discharge Medication list on patient's Discharge Instruction sheet Instructions to Patient/Family Please see electronic discharge instructions given to patient. Clinical Quality Measures DVT/VTE Risk/Contraindication: Risk Factor Score Per Nursin RFS Level Per Nursing on Admit: 4+=Very High EMERALD JONAS DO Jun 13, 2018 13:00
== END 2018-06-03 11:00 | disposition home or self-care (01) | DRG 603 ==
LOC: 4TH 15:25
PROVIDERS: ADMIT Family Medicine; ATTEND Family Medicine
DX: L03.114 Cellulitis of left upper limb (principal); I97.2 Postmastectomy lymphedema syndrome; I10 Essential (primary) hypertension; E11.9 Type 2 diabetes mellitus without complications; J06.9 Acute upper respiratory infection, unspecified; R19.7 Diarrhea, unspecified; E87.6 Hypokalemia; D72.823 Leukemoid reaction; E66.09 Other obesity due to excess calories; Z68.38 Body mass index [BMI] 38.0-38.9, adult; I25.10 Atherosclerotic heart disease of native coronary artery without angina pectoris; Z85.3 Personal history of malignant neoplasm of breast; Z90.12 Acquired absence of left breast and nipple
CPT/HCPCS: 36415; 76937; 80053; 80202; 82962; 83605; 85025; 85027; 85652; 86141; 87040

== ENCOUNTER 2018-07-01 15:25 | Outpatient (RCR) | payer MEDICARE ==
[~2018-07-01 15:25] MED LIST changes: +AMLO5TAB9 PO; +ASPI-999 PO; +ATOR10TA66 PO; +CLOP75TA69 PO; +LACT1CAP7 PO; +LOSA1TAB26 PO; +METO-387 PO; +OCUVITE SOFTGE1 EACH PO; +POTA10TA6 PO; -VIT1CAPS9 PO
== END 2018-07-31 | disposition home or self-care (01) ==
LOC: CR3 15:25
PROVIDERS: ATTEND Internal Medicine Cardiovascular Disease
DX: Z29.8 Encounter for other specified prophylactic measures (principal)

== ENCOUNTER 2018-08-10 16:02 | Inpatient (IN) | payer MEDICARE ==
[~2018-08-10] VITALS: Ht 167.6 cm; Wt 108.6 kg
[2018-08-10] MEDS ORDERED: VANCOMYCIN INJECTION 1,000 MG in NS (IVPB) 250 ML IV SCH (16:45)
[2018-08-10] MEDS ORDERED: cefTRIAXone FOR IV USE 1,000 MG in WATER (STERILE) FOR INJECTION 10 ML IV ONE (16:45)
[2018-08-10 16:52] LABS: HEMATOCRIT 44 % (35-52); MEAN CORPUSCULAR HEMOGLOBIN 31 PG (25-34); MEAN CORPUSCULAR HGB CONC 34 G/DL (32-36); MEAN CORPUSCULAR VOLUME 91 FL (80-99); PLATELET COUNT 224 10^3/uL (130-400); WHITE BLOOD COUNT 15.7 10^3/uL (4.3-11.0)
[2018-08-10 16:53] LABS: BASOPHILS % (AUTO) 0 % (0-10); EOSINOPHILS % (AUTO) 0 % (0-10); LYMPHOCYTES # (AUTO) 0.9 X 10^3 (1.0-4.0); LYMPHOCYTES % (AUTO) 6 % (12-44); MEAN PLATELET VOLUME 10.2 FL (7.4-10.4); MONOCYTES # (AUTO) 0.7 X 10^3 (0.0-1.0); MONOCYTES % (AUTO) 4 % (0-12); NEUTROPHILS # (AUTO) 14.1 X 10^3 (1.8-7.8); NEUTROPHILS % (AUTO) 90 % (42-75)
[2018-08-10 17:16] LABS: ALBUMIN 4.1 GM/DL (3.2-4.5); BILIRUBIN,TOTAL 0.9 MG/DL (0.1-1.0); CALCIUM 10.2 MG/DL (8.5-10.1); CREATININE SERUM 0.97 MG/DL (0.60-1.30); POTASSIUM 4.4 MMOL/L (3.6-5.0)
[2018-08-10] MEDS ORDERED: ONDANSETRON 4 MG/2 ML (SDV) Z0FRAN ONE (17:21)
[2018-08-10 17:27] LABS: BAND NEUTROPHILS 11 %; BASOPHILS % (MANUAL) 0 %; EOSINOPHILS % (MANUAL) 0 %; LYMPHOCYTES % (MANUAL) 8 %; MONOCYTES % (MANUAL) 1 %; NEUTROPHILS % (MANUAL) 80 %
[2018-08-10 17:28] LABS: RBC MORPH NORMAL; TOXIC GRANULATION/VACUOLAZATIO 1+
--- NOTE | 2018-08-10 17:28 | ED General ---
General Chief Complaint: Skin/Wound Problems Stated Complaint: L ARM SWELLING Source of Information: Patient Exam Limitations: No Limitations History of Present Illness Date Seen by Provider: Aug 10, 2018 Time Seen by Provider: 16:23 Initial Comments This 72-year-old woman presents to the emergency room with rapid onset of erythema, heat, pain, and swelling of the left upper extremity that just started today. She is afebrile. She has had problems with cellulitis of this extremity in the past, and she has lymphedema of the left upper extremity. Dr. James her primary care provider and has instructed her to present to the emergency room if she has onset of cellulitis symptoms such as this. Allergies and Home Medications Allergies Coded Allergies: No Known Drug Allergies (Unverified , 11/01/16) Home Medications Amlodipine Besylate 5 Mg Tablet, 5 MG PO DAILY, (Reported) Aspirin 81 Mg Tab.chew, 81 MG PO DAILY, (Reported) Atorvastatin Calcium 10 Mg Tablet, 10 MG PO DAILY, (Reported) Clopidogrel Bisulfate 75 Mg Tablet, 75 MG PO DAILY, (Reported) Lactobacillus Acidophilus/Pect 1 Each Capsule, 2 EACH PO TIDWM Prescribed by: EMERALD JONAS on 06/03/18822 Loratadine 10 Mg Tablet, 10 MG PO DAILY, (Reported) Losartan/Hydrochlorothiazide 1 Each Tablet, 1 TAB PO DAILY, (Reported) Metoprolol Succinate 25 Mg Tab.er.24h, 25 MG PO DAILY, (Reported) Metronidazole 500 Mg Tablet, 500 MG PO BID Prescribed by: EMERALD JONAS on 06/03/18822 Potassium Chloride 10 Meq Tablet.er, 10 MEQ PO BID Prescribed by: EMERALD JONAS on 06/03/18822 Sulfamethoxazole/Trimethoprim 1 Each Tablet, 1 EACH PO BID Prescribed by: EMERALD JONAS on 06/03/18822 Patient Home Medication List Home Medication List Reviewed: Yes Review of Systems Review of Systems Constitutional: no symptoms reported EENTM: no symptoms reported Respiratory: no symptoms reported Cardiovascular: no symptoms reported Gastrointestinal: no symptoms reported Genitourinary: no symptoms reported : No Musculoskeletal: see HPI Skin: see HPI Psychiatric/Neurological: No Symptoms Reported Hematologic/Lymphatic: See HPI Immunological/Allergic: no symptoms reported Past Dhkzhzm-Haybeo-Nbzkya Hx Past Med/Social Hx: Reviewed and Corrections made Patient Social History Alcohol Use: Occasionally Uses Alcohol Beverage of Choice: Beer Recreational Drug Use: No Smoking Status: Never a Smoker Recent Foreign Travel: No Contact w/Someone Who Travel: No Recent Hopitalizations: No Physical Abuse: No Sexual Abuse: No Mistreated: No Fear: No Immunizations Up To Date Date of Pneumonia Vaccine: Jun 19, 2013 Seasonal Allergies Seasonal Allergies: No Past Medical History Surgeries: Yes Abdominal, Breast (mastectomy), Gallbladder, Orthopedic Respiratory: Yes Sleep Apnea Currently Using CPAP: Yes Currently Using BIPAP: No Cardiac: Yes Chronic Edema/Swelling (lymphedema of the left upper extremity), Hypertension Neurological: No 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 Disorders: No Female 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 Disorders: Denies 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 Sexually Transmitted Disease: No HIV/AIDS: No Genitourinary: Yes (OCCASIONAL UTI) UTI-Chronic Gastrointestinal: Yes Abdominal Hernia, C-Diff, Gall Bladder Disease Musculoskeletal: Yes (CHRONIC LYMPHEDEMA LEFT ARM; LEFT ANKLE FX/ORIF; RIGHT KNEE SCOPE) Fractures Endocrine: Yes Diabetes, Non-Insulin dep HEENT: No Cancer: Yes Breast Did You Recieve Any Treatments: Yes What Type of Treatment Did You: Surgical Intervention Psychosocial: No Integumentary: Yes (SHINGLES; RECURRENT CELLULITIS LEFT ARM) Recent Skin Changes Blood Disorders: No Adverse Reaction/Blood Tranf: No Family Medical History Cardiovascular disease 19 FATHER Hypertension DAUGHTER Kidney disease 19 MOTHER POOR LEG CIRCULATION G8 SISTER No Pertinent Family Hx Physical Exam Vital Signs Vital Signs - First Documented 08/10/18 17:50 Temp 98.2 Pulse 65 Resp 18 B/P (MAP) 124/60 Pulse Ox 95 O2 Delivery Room Air Capillary Refill : Height, Weight, BMI Height: 5'6.00" Weight: 239lbs. 8.0oz. 108.812024tn; 36.8 BMI Method:Stated General Appearance: No Apparent Distress, WD/WN HEENT: PERRL/EOMI, Normal ENT Inspection Neck: Normal Inspection Respiratory: Lungs Clear, Normal Breath Sounds, No Accessory Muscle Use, No Respiratory Distress Cardiovascular: Regular Rate, Rhythm, No Edema, No Murmur Extremity: Other (marked edema of the left upper extremity with patches of well demarcated cellulitis extending up to the shoulder. 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 Skin: Warm/Dry, Erythema Progress/Results/Core Measures Suspected Sepsis SIRS Temperature: Pulse: Respiratory Rate: Laboratory Tests 08/10/18 16:42: White Blood Count 15.7H Blood Pressure / Mean: Laboratory Tests 08/10/18 16:42: Creatinine 0.97, Platelet Count 224, Total Bilirubin 0.9 Results/Orders Lab Results Laboratory Tests Test 08/10/18 16:42 Range/Units White Blood Count 15.7 H 4.3-11.0 10^3/uL Red Blood Count 4.87 4.35-5.85 10^6/uL Hemoglobin 15.0 11.5-16.0 G/DL Hematocrit 44 35-52 % Mean Corpuscular Volume 91 80-99 FL Mean Corpuscular Hemoglobin 31 25-34 PG Mean Corpuscular Hemoglobin Concent 34 32-36 G/DL Red Cell Distribution Width 13.0 10.0-14.5 % Platelet Count 224 130-400 10^3/uL Mean Platelet Volume 10.2 7.4-10.4 FL Neutrophils (%) (Auto) 90 H 42-75 % Lymphocytes (%) (Auto) 6 L 12-44 % Monocytes (%) (Auto) 4 0-12 % Eosinophils (%) (Auto) 0 0-10 % Basophils (%) (Auto) 0 0-10 % Neutrophils # (Auto) 14.1 H 1.8-7.8 X 10^3 Lymphocytes # (Auto) 0.9 L 1.0-4.0 X 10^3 Monocytes # (Auto) 0.7 0.0-1.0 X 10^3 Eosinophils # (Auto) 0.0 0.0-0.3 10^3/uL Basophils # (Auto) 0.0 0.0-0.1 10^3/uL Neutrophils % (Manual) 80 % Lymphocytes % (Manual) 8 % Monocytes % (Manual) 1 % Eosinophils % (Manual) 0 % Basophils % (Manual) 0 % Band Neutrophils 11 % Toxic Granulation 1+ Blood Morphology Comment NORMAL Sodium Level 136 135-145 MMOL/L Potassium Level 4.4 3.6-5.0 MMOL/L Chloride Level 104 98-107 MMOL/L Carbon Dioxide Level 21 21-32 MMOL/L Anion Gap 11 5-14 MMOL/L Blood Urea Nitrogen 21 H 7-18 MG/DL Creatinine 0.97 0.60-1.30 MG/DL Estimat Glomerular Filtration Rate 57 BUN/Creatinine Ratio 22 Glucose Level 122 H 70-105 MG/DL Calcium Level 10.2 H 8.5-10.1 MG/DL Corrected Calcium 10.1 8.5-10.1 MG/DL Total Bilirubin 0.9 0.1-1.0 MG/DL Aspartate Amino Transf (AST/SGOT) 21 5-34 U/L Alanine Aminotransferase (ALT/SGPT) 20 0-55 U/L Alkaline Phosphatase 78 40-136 U/L C-Reactive Protein High Sensitivity 1.04 H 0.00-0.50 MG/DL Total Protein 7.0 6.4-8.2 GM/DL Albumin 4.1 3.2-4.5 GM/DL My Orders Orders - MAYRA FROST MD Cbc With Automated Diff (08/10/18 16:32) Comprehensive Metabolic Panel (08/10/18 16:32) Hs C Reactive Protein (08/10/18 16:32) Blood Culture (08/10/18 16:32) Saline Lock/Iv-Start (08/10/18 16:32) Ceftriaxone For Iv Use (Rocephin For I (08/10/18 16:45) Vancomycin Injection (Vancomycin Injecti (08/10/18 16:45) Manual Differential (08/10/18 16:42) Ondansetron Injection (Zofran Injectio (08/10/18 17:30) Ondansetron Injection (Zofran Injectio (08/10/18 17:21) Medications Given in ED Current Medications Medications Dose Ordered Sig/Lyndon Route Start Time Stop Time Status Last Admin Dose Admin Ceftriaxone Sodium 1000 mg/ Sterile Water 10 ml @ 200 mls/hr ONCE ONCE IV 08/10/18 16:45 08/10/18 16:47 DC 08/10/18 17:27 200 MLS/HR Vital Signs/I&O 08/10/18 08/10/18 17:50 18:00 Temp 98.2 Pulse 65 Resp 18 B/P (MAP) 124/60 Pulse Ox 95 95 O2 Delivery Room Air Room Air Capillary Refill : Progress Note : Progress Note Case was discussed with Dr. JONAS who agrees with admission. Blood cultures were drawn and antibiotic therapy with Rocephin and vancomycin was ordered. Departure Communication (Admissions) Time/Spoke to Admitting Phy: 17:24 Dr. JONAS Impression Primary Impression: Cellulitis of left arm Disposition: ADMITTED INPATIENT Condition: Improved Admissions Decision to Admit Reason: Admit from ER (General) Decision to Admit/Date: Aug 10, 2018 Time/Decision to Admit Time: 16:34 Departure-Patient Inst. Referrals: EMERALD JONAS DO (PCP/Family) Primary Care Physician MAYRA FROST MD Aug 10, 2018 17:28
[2018-08-10] MEDS ORDERED: ONDANSETRON 4 MG/2 ML (SDV) Z0FRAN IVP ONE (17:30)
[2018-08-10 17:50] VITALS: BP 124/60
--- NOTE | 2018-08-10 17:50 | NUR ---
[place]] admitted to room 408-1, with an admitting diagnosis of cellulitis L arm, on 08/10/18 from ED via wheelchair, accompanied by staff. ARMINDA ESPINOZA introduced to surroundings, call light, bed controls, phone, TV, temperature control, lights, meal times, smoking policy, visitor policy, side rail policy, bathrooms and showers. Patient Rights given to patient in the handbook. ARMINDA ESPINOZA verbalizes understanding that [facility] is not responsible for the loss or damage to any personal effects or valuables that are kept in the patients possession during their hospitalization. The following Patient Care Plans were discussed with the : Discharge Planning, medications, dehydration,pain management and . ARMINDA ESPINOZA verbalizes understanding of Interdisciplinary Patient Education. Patient and/or family were informed about the Rapid Response Team and its purpose.
--- OUTSIDE RECORDS SUMMARY | 2018-08-10 18:54 | XMS REPORT | Continuity of Care Document ---
Author Organization Unknown Address Unknown Allergies Active Description Code Type Severity Reaction Onset Reported/Identified Relationship to Patient Clinical Status Yes No Known Drug Allergies [id number] Drug Allergy Unknown N/A 11/01/2016 Medications There is no data. 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,NEC 09/13/2011 Ot V13.02 PERSONAL HISTORY, [...] Ot V57.21 ENCOUNTER FOR OCCUPATIONAL THERAPY 05/07/2013 KELLEN, BOBAN N Ot 174.9 MALIGN NEOPL BREAST NOS 05/07/2013 AMITA FOREMAN Ot V45.71 ACQUIRED ABSENCE OF BREAST AND NIPPLE 12/17/2013 AMITA FOREMAN N Ot 174.9 MALIGN NEOPL BREAST NOS 12/17/2013 AMITA FOREMAN Ot 457.1 OTHER LYMPHEDEMA 12/17/2013 AMITA FOREMAN Ot V57.1 PHYSICAL THERAPY NEC 04/28/2014 AMITA FOREMAN N Ot 174.9 04/28/2014 AMITA FOREMAN N Ot V45.71 05/05/2014 AMITA FOREMAN N Ot 174.9 05/05/2014 AMITA FOREMAN N Ot V45.71 05/06/2014 AMITA FOREMAN N Ot 174.9 MALIGN NEOPL BREAST NOS 05/06/2014 AMITA FOREMAN Ot V45.71 ACQUIRED ABSENCE OF [...] 10/14/2014 AMITA FOREMAN N Ot V45.71 10/14/2014 KELLENAMITA AN N Ot 174.9 10/14/2014 VANALYSSA CUELLAR M CAR SHAGGER Ot 786.07 10/14/2014 VANBECELAEREALYSSA M CAR SHAGGER Ot 786.2 10/14/2014 VANBECELAERE, ALYSSA M CAR SHAGGER Ot 793.19 10/14/2014 VANBECELAEREALYSSA M CAR SHAGGER Ot 486 10/14/2014 KELLENAMITA AN N Ot 174.9 10/14/2014 KELLENAMITA AN N Ot V45.71 11/02/2014 KELLENAMITA AN N Ot 174.9 11/02/2014 KELLENAMITA AN N Ot 457.1 11/12/2014 KELLENAMITA AN N Ot 174.9 11/12/2014 KELLENAMITA AN N Ot 457.1 02/16/2015 KELLY REYES, MARY Costa Ot K57.90 DVRTCLOS OF [facility], PART [facility], W/O PERF 02/16/2015 KELLY REYES, MARY Costa Ot Z12.11 ENCOUNTER FOR SCREENING FOR MALIGNANT NE 02/17/2015 ABDON LUBIN DOLINE S Ot 433.10 03/01/2015 ABDON LUBIN DOLINE S Ot 433.10 03/03/2015 MARY EASTMAN CAR SHAGGER Ot I89.0 03/03/2015 EASTMANMARY Green S CAR SHAGGER Ot Z08 03/03/2015 EASTMANMARY Green S CAR SHAGGER Ot Z85.3 03/03/2015 EASTMANMARY Green S CAR SHAGGER Ot Z90.12 03/03/2015 EASTMANMARY Green S CAR SHAGGER Ot Z92.21 03/09/2015 EASTMANMARY Green S CAR SHAGGER Ot I89.0 03/09/2015 EASTMANMARY S CAR SHAGGER Ot Z08 03/09/2015 EASTMANMARY S CAR SHAGGER Ot Z85.3 03/09/2015 EASTMANMARY S CAR SHAGGER Ot Z90.12 03/09/2015 EASTMANMARY Green S CAR SHAGGER Ot Z92.21 10/20/2015 Ot Z12.31 ENCNTR SCREEN MAMMOGRAM FOR MALIGNANT NE 10/21/2015 Ot Z12.31 ENCNTR SCREEN MAMMOGRAM FOR MALIGNANT NE 11/10/2015 Ot Z12.31 ENCNTR SCREEN MAMMOGRAM FOR MALIGNANT NE 11/23/2015 CAT BUSH APRN Ot R01.1 CARDIAC MURMUR, UNSPECIFIED 11/23/2015 CAT BUSH APRN Ot R01.1 CARDIAC MURMUR, UNSPECIFIED 12/17/2015 CAT BUSH APRN Ot R01.1 CARDIAC MURMUR, UNSPECIFIED 01/03/2016 CAT BUSH APRN Ot R01.1 CARDIAC MURMUR, UNSPECIFIED 02/03/2016 AMITA FOREMAN Jordi Ot 174.9 MALIGN NEOPL BREAST NOS 02/03/2016 AMITA FOREMAN N Ot V45.71 ACQUIRED ABSENCE OF BREAST AND NIPPLE 02/03/2016 AMITA FOREMAN Jordi Ot 174.9 MALIGN NEOPL BREAST NOS 02/03/2016 AMITA FOREMAN N Ot V45.71 ACQUIRED ABSENCE OF BREAST AND NIPPLE 02/11/2016 KELLENAMITA AN Jordi Ot I89.0 LYMPHEDEMA, NOT ELSEWHERE CLASSIFIED 02/11/2016 KELLENAMITA AN Jordi Ot Z08 ENCNTR FOR FOLLOW-UP EXAM AFTER TRTMT FO 02/11/2016 AMITA FOREMAN N Ot Z85.3 PERSONAL HISTORY OF MALIGNANT NEOPLASM O 02/11/2016 KELLENAMITA AN N Ot Z90.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 02/11/2016 KELLENAMITA AN N Ot Z92.21 PERSONAL HISTORY OF ANTINEOPLASTIC CHEMO 03/02/2016 AMITA FOREMAN Jordi Ot I89.0 LYMPHEDEMA, NOT ELSEWHERE CLASSIFIED 03/02/2016 KELLENAMITA AN Jordi Ot Z08 ENCNTR FOR FOLLOW-UP EXAM AFTER TRTMT FO 03/02/2016 AMITA FOREMAN N Ot Z85.3 PERSONAL HISTORY OF MALIGNANT NEOPLASM O 03/02/2016 AMITA FOREMAN N Ot Z90.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 03/02/2016 AMITA FOREMAN N Ot Z92.21 PERSONAL HISTORY OF ANTINEOPLASTIC CHEMO 03/29/2016 Ot 278.00 OBESITY, NOS 03/29/2016 Ot 327.23 OBSTRUCTIVE SLEEP APNEA (ADULT) (PEDIATR 03/29/2016 Ot 457.1 OTHER LYMPHEDEMA 03/29/2016 Ot 585.3 CHRONIC KIDNEY DISEASE, STAGE III (MODER 03/29/2016 Ot V10.3 HX OF BREAST MALIGNANCY 03/29/2016 Ot V45.71 ACQUIRED ABSENCE OF BREAST AND NIPPLE 03/29/2016 Ot V58.69 OTH MED,LT, CURRENT USE 03/29/2016 Ot V67.2 CHEMOTHERAPY FOLLOW-UP 03/29/2016 Ot 174.9 MALIGN NEOPL BREAST NOS 03/29/2016 Ot V76.11 SCRN MAMMO- HIGH RISK PT, MALIGNANT NEOPL 03/29/2016 Ot 553.1 UMBILICAL HERNIA 03/29/2016 Ot 574.20 CHOLELITHIASIS NOS 03/29/2016 Ot V72.63 PRE- PROCEDURAL LABORATORY EXAMINATION 03/29/2016 Ot V72.81 EXAM-PRE- OPERATIVE CARDIOVASCULAR 03/29/2016 Ot V74.8 SCREEN- BACTERIAL DIS NEC 03/29/2016 Ot 174.9 MALIGN NEOPL BREAST NOS 03/29/2016 Ot 174.9 MALIGN NEOPL BREAST NOS 03/29/2016 Ot V45.71 ACQUIRED ABSENCE OF BREAST AND NIPPLE 03/29/2016 Ot V76.11 SCRN MAMMO- HIGH RISK PT, MALIGNANT NEOPL 03/29/2016 Ot 174.9 MALIGN NEOPL BREAST NOS 03/29/2016 Ot 793.89 OTH (ABN) FINDINGS ON RADIOLOGICAL EXAMI 03/29/2016 AMITA FOREMAN Ot 174.9 MALIGN NEOPL BREAST NOS 03/29/2016 AMITA FOREMAN Ot V45.71 ACQUIRED ABSENCE OF BREAST AND NIPPLE 03/29/2016 AMITA FOREMAN Ot 174.9 MALIGN NEOPL BREAST NOS 03/29/2016 VANBECELAERE, ALYSSA M CAR SHAGGER Ot 786.07 WHEEZING 03/29/2016 VANBECELAERE, ALYSSA M CAR SHAGGER Ot 786.2 COUGH 03/29/2016 VANBECELAERE, ALYSSA M CAR SHAGGER Ot 793.19 OTHER NONSPECIFIC ABNORMAL FINDING OF [place] 03/29/2016 VANBECELAERE, ALYSSA M CAR SHAGGER Ot 486 PNEUMONIA, ORGANISM NOS 03/29/2016 AMITA FOREMAN Ot 174.9 MALIGN NEOPL BREAST NOS 03/29/2016 AMITA FOREMAN Ot 457.1 OTHER LYMPHEDEMA 03/29/2016 AMITA FOREMAN Ot I89.0 LYMPHEDEMA, NOT ELSEWHERE CLASSIFIED 03/29/2016 AMITA FOREMAN Ot Z08 ENCNTR FOR FOLLOW-UP EXAM AFTER TRTMT FO 03/29/2016 AMITA FOREMAN Jordi Ot Z85.3 PERSONAL HISTORY OF MALIGNANT NEOPLASM O 03/29/2016 AMTIA FOREMAN Jordi Ot Z90.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 03/29/2016 AMITA FOREMAN Jordi Ot Z92.21 PERSONAL HISTORY OF ANTINEOPLASTIC CHEMO 03/29/2016 KERLINE LUBIN DO S Ot 433.10 CAROTID ARTERY OCCLUSION W O CEREBRAL IN 03/29/2016 KELLY REYES, MARY Costa Ot Z01.818 ENCOUNTER FOR OTHER PREPROCEDURAL EXAMIN 03/29/2016 MARY EASTMAN Ot I89.0 LYMPHEDEMA, NOT ELSEWHERE CLASSIFIED 03/29/2016 MARY EASTMAN Ot Z08 ENCNTR FOR FOLLOW-UP EXAM AFTER TRTMT FO 03/29/2016 MARY EASTMANP Ot Z85.3 PERSONAL HISTORY OF MALIGNANT NEOPLASM O 03/29/2016 MARY EASTMANP Ot Z90.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 03/29/2016 MARY EASTMANP Ot Z92.21 PERSONAL HISTORY OF ANTINEOPLASTIC CHEMO 03/29/2016 Ot Z12.31 ENCNTR SCREEN MAMMOGRAM FOR MALIGNANT NE 03/29/2016 CAT BUSH APRN Ot R01.1 CARDIAC MURMUR, UNSPECIFIED 04/01/2016 ABDON LUBIN DOLINE S Ot E11.9 TYPE 2 DIABETES MELLITUS WITHOUT COMPLIC 04/01/2016 ABDON LUBIN DOLINE S Ot E87.6 HYPOKALEMIA 04/01/2016 KERLINE LUBIN DO S Ot I10 ESSENTIAL (PRIMARY) HYPERTENSION 04/01/2016 ABDON LUBIN DOLINE S Ot 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 04/01/2016 ABDON LUBIN DOLINE S Ot L03.114 CELLULITIS OF LEFT UPPER LIMB 04/01/2016 ABDON LUBIN DOLINE S Ot Z79.4 CUSTODIAL (CURRENT) USE OF INSULIN 04/01/2016 ABDON LUBIN DOLINE S Ot Z90.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 09/13/2016 KERLINE LUBIN DO S Ot E11.9 TYPE 2 DIABETES MELLITUS WITHOUT COMPLIC 09/13/2016 OREKERLINE HERNANDEZ DO Ot G47.30 SLEEP APNEA, UNSPECIFIED 09/13/2016 PRITESH SALMERON, KERLINE S Ot I10 ESSENTIAL (PRIMARY) HYPERTENSION 09/13/2016 PRITESH SALMERON, KERLINE S Ot I89.0 LYMPHEDEMA, NOT ELSEWHERE CLASSIFIED 09/13/2016 ABDON LUBIN DOLINE S Ot L03.114 CELLULITIS OF LEFT UPPER LIMB 09/13/2016 KERLINE LUBIN DO Ot R11.0 NAUSEA 09/13/2016 ABDON LUBIN DOLINE S Ot S60.222A CONTUSION OF LEFT HAND, INITIAL ENCOUNTE 09/13/2016 KERLINE LUBIN DO S Ot W01.0XXA FALL SAME LEV FROM SLIP/TRIP W/O STRIKE 09/13/2016 KERLINE LUBIN DO Ot Y92.[address] IN [facility] (PRIVATE) 09/13/2016 KERLINE LUBIN DO Ot Z85.3 PERSONAL HISTORY OF MALIGNANT NEOPLASM O 09/13/2016 KERLINE LUBIN DO S Ot Z90.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 09/13/2016 KERLINE LUBIN DO S Ot Z92.21 PERSONAL HISTORY OF ANTINEOPLASTIC CHEMO 09/14/2016 KERLINE LUBIN DO Ot E11.9 TYPE 2 DIABETES MELLITUS WITHOUT COMPLIC 09/14/2016 KERLINE LUBIN DO Ot G47.30 SLEEP APNEA, UNSPECIFIED 09/14/2016 ABDON LUBIN DOLINE S Ot I10 ESSENTIAL (PRIMARY) HYPERTENSION 09/14/2016 KERLINE LUBIN DO S Ot I89.0 LYMPHEDEMA, NOT ELSEWHERE CLASSIFIED 09/14/2016 KERLINE LUBIN DO S Ot L03.114 CELLULITIS OF LEFT UPPER LIMB 09/14/2016 KERLINE LUBIN DO S Ot R11.0 NAUSEA 09/14/2016 ABDON LUBIN DOLINE S Ot S60.222A CONTUSION OF LEFT HAND, INITIAL ENCOUNTE 09/14/2016 ABDON LUBIN DOLINE S Ot W01.0XXA FALL SAME LEV FROM SLIP/TRIP W/O STRIKE 09/14/2016 ABDON LUBIN DOLINE S Ot Y92.[address] IN [facility] NON[facility] (PRIVATE) 09/14/2016 KERLINE LUBIN DO Ot Z85.3 PERSONAL HISTORY OF MALIGNANT NEOPLASM O 09/14/2016 KERLINE LUBIN DO S Ot Z90.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 09/14/2016 KERLINE LUBIN DO S Ot Z92.21 PERSONAL HISTORY OF ANTINEOPLASTIC CHEMO 10/04/2016 ABDON LUBIN DOLINE S Ot C50.919 MALIGNANT NEOPLASM OF [facility] SITE OF UNSPE 10/04/2016 ABDON LUBIN DOLINE S Ot I89.0 LYMPHEDEMA, NOT ELSEWHERE CLASSIFIED 10/20/2016 KELLEN, BOBAN N Ot Z12.31 ENCNTR SCREEN [...] ENCNTR SCREEN MAMMOGRAM FOR MALIGNANT NE 10/27/2016 ABDON LUBIN DOLINE S Ot C50.919 MALIGNANT NEOPLASM OF [facility] SITE OF [facility] 10/27/2016 ABDON LUBIN DOLINE S Ot I89.0 LYMPHEDEMA, NOT ELSEWHERE CLASSIFIED 11/01/2016 DEISI HAMLIN MD Ot E11.9 TYPE 2 DIABETES MELLITUS WITHOUT COMPLIC 11/01/2016 DEISI HAMLIN MD Ot G47.30 SLEEP APNEA, UNSPECIFIED 11/01/2016 DEISI HAMLIN MD Ot I10 ESSENTIAL (PRIMARY) HYPERTENSION 11/01/2016 DEISI HAMLIN MD Ot R19.7 DIARRHEA, UNSPECIFIED 11/01/2016 YAKELIN REYES, DEISI Costa Ot Z79.82 CUSTODIAL (CURRENT) USE OF ASPIRIN 11/02/2016 ABDON LUBIN DOLINE S Ot C50.919 MALIGNANT NEOPLASM OF [facility] SITE OF [place]NSPE 11/02/2016 ABDON LUBIN DOLINE S Ot I89.0 LYMPHEDEMA, NOT ELSEWHERE CLASSIFIED 11/15/2016 KELLENAMITA AN Jordi Ot Z12.31 ENCNTR SCREEN MAMMOGRAM FOR MALIGNANT NE 11/20/2016 RAÚLNDER , KERLINE S Ot C50.919 MALIGNANT NEOPLASM OF [facility] SITE OF [place]NS[place] 11/20/2016 RAÚLNDER DOSIMKERLINE S Ot I89.0 LYMPHEDEMA, NOT ELSEWHERE CLASSIFIED 12/23/2016 IRENA REYES FACC, ALI FACP CCDS Ot E11.9 TYPE 2 DIABETES MELLITUS WITHOUT COMPLIC 12/23/2016 IRENA REYES FACC, ALI FACP CCDS Ot E66.9 OBESITY, UNSPECIFIED 12/23/2016 IRENA REYES FACC, ALI FACP CCDS Ot G47.30 SLEEP APNEA, UNSPECIFIED 12/23/2016 IRENA REYES FACC, ALI FACP CCDS Ot I10 ESSENTIAL (PRIMARY) HYPERTENSION 12/23/2016 IRENA REYES FACC, ALI FACP CCDS Ot I21.4 NON-ST ELEVATION (NSTEMI) MYOCARDIAL INF 12/23/2016 IRENA REYES FACC, ALI FACP CCDS Ot I25.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 OF [place] COR ART W 12/23/2016 IRENA REYES FACC, ALI FACP CCDS Ot 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 12/23/2016 IRENA REYES FACC, ALI FACP CCDS Ot K52.1 TOXIC GASTROENTERITIS AND COLITIS 12/23/2016 IRENA REYES FACC, ALI FACP CCDS Ot T36.95XA ADVERSE EFFECT OF UNSP SYSTEMIC ANTIBIOT 12/23/2016 IRENA REYES FACC, ALI FACP CCDS Ot Z68.36 BODY MASS INDEX (BMI) 36.0-36.9, ADULT 12/23/2016 IRENA REYES FACC, ALI FACP CCDS Ot Z87.440 PERSONAL HISTORY OF URINARY (TRACT) INFE 12/23/2016 IRENA REYES FACC, ALI FACP CCDS Ot Z90.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 12/23/2016 IRENA REYES FACC, ALI FACP CCDS Ot Z90.89 ACQUIRED ABSENCE OF OTHER ORGANS 12/23/2016 IRENA REYES FACC, ALI FACP CCDS Ot E11.9 TYPE 2 DIABETES MELLITUS WITHOUT COMPLIC 12/23/2016 IRENA REYES FACC, ALI FACP CCDS Ot E66.9 OBESITY, UNSPECIFIED 12/23/2016 IRENA REYES FACC, ALI FACP CCDS Ot E78.5 HYPERLIPIDEMIA, UNSPECIFIED 12/23/2016 IRENA REYES FACC, ALI FACP CCDS Ot E83.42 HYPOMAGNESEMIA 12/23/2016 IRENA REYES FACC, ALI FACP CCDS Ot E87.6 HYPOKALEMIA 12/23/2016 IRENA REYES FACC, ALI FACP CCDS Ot G47.30 SLEEP APNEA, UNSPECIFIED 12/23/2016 IRENA REYES FACC, ALI FACP CCDS Ot G47.33 OBSTRUCTIVE SLEEP APNEA (ADULT) (PEDIATR 12/23/2016 IRENA REYES FACC, ALI FACP CCDS Ot I10 ESSENTIAL (PRIMARY) HYPERTENSION 12/23/2016 IRENA REYES FACC, YRN FACP CCDS Ot I21.4 NON-ST ELEVATION (NSTEMI) MYOCARDIAL INF 12/23/2016 IRENA REYES FACC, ALI FACP CCDS Ot I25.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 OF [place] ART W 12/23/2016 IRENA REYES FACC, ALI FACP CCDS Ot I25.5 ISCHEMIC CARDIOMYOPATHY 12/23/2016 IRENA REYES FACC, YRN FACP CCDS Ot 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 12/23/2016 IRENA REYES FACC, ALI FACP CCDS Ot K52.1 TOXIC GASTROENTERITIS AND COLITIS 12/23/2016 IRENA REYES FACC, ALI FACP CCDS Ot K58.0 IRRITABLE BOWEL SYNDROME WITH DIARRHEA 12/23/2016 IRENA REYES FACC, ALI FACP CCDS Ot R00.1 BRADYCARDIA, UNSPECIFIED 12/23/2016 IRENA REYES FACC, ALI FACP CCDS Ot T36.95XA ADVERSE EFFECT OF [place] SYSTEMIC ANTIBIOT 12/23/2016 IRENA REYES FACC ALI FACP CCDS Ot Z68.36 BODY MASS INDEX (BMI) 36.0-36.9, ADULT 12/23/2016 IRENA REYES FACC, ALI FACP CCDS Ot Z87.440 PERSONAL HISTORY OF URINARY (TRACT) INFE 12/23/2016 IRENA REYES FACC, ALI FACP CCDS Ot Z90.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 12/23/2016 IRENA REYES FACC, ALI FACP CCDS Ot Z90.89 ACQUIRED ABSENCE OF OTHER ORGANS 01/02/2017 IRENA REYES FACC, ALI FACP CCDS Ot I25.2 OLD MYOCARDIAL INFARCTION 01/02/2017 IRENA REYES FACC, ALI FACP CCDS Ot Z48.812 ENCNTR FOR SURGICAL AFTCR FOLLOWING SURG 01/02/2017 IRENA REYES FACC, ALI FACP CCDS Ot Z95.5 PRESENCE OF CORONARY ANGIOPLASTY IMPLANT 01/26/2017 IRENA REYES FACC, ALI FACP CCDS Ot I25.2 OLD MYOCARDIAL INFARCTION 01/26/2017 IRENA REYES FACC, ALI FACP CCDS Ot Z48.812 ENCNTR FOR SURGICAL AFTCR FOLLOWING SURG 01/26/2017 IRENA REYES FACC, ALI FACP CCDS Ot Z95.5 PRESENCE OF CORONARY ANGIOPLASTY IMPLANT 01/31/2017 IRENA REYES FACC, ALI FACP CCDS Ot I25.2 OLD MYOCARDIAL INFARCTION 01/31/2017 IRENA REYES FACC, ALI FACP CCDS Ot Z48.812 ENCNTR FOR SURGICAL AFTCR FOLLOWING SURG 01/31/2017 IRENA REYES FACC, ALI FACP CCDS Ot Z95.5 PRESENCE OF CORONARY ANGIOPLASTY IMPLANT 02/03/2017 IRENA REYES FACC, ALI FACP CCDS Ot I25.2 OLD MYOCARDIAL INFARCTION 02/03/2017 IRENA REYES FACC, ALI FACP CCDS Ot Z48.812 ENCNTR FOR SURGICAL AFTCR FOLLOWING SURG 02/03/2017 IRENA REYES FACC, ALI FACP CCDS Ot Z95.5 PRESENCE OF CORONARY ANGIOPLASTY IMPLANT 02/09/2017 IRENA REYES FACC, ALI FACP CCDS Ot I25.2 OLD MYOCARDIAL INFARCTION 02/09/2017 IRENA REYES FACC, ALI FACP CCDS Ot Z48.812 ENCNTR FOR SURGICAL AFTCR FOLLOWING SURG 02/09/2017 IRENA REYES FACC, ALI FACP CCDS Ot Z95.5 PRESENCE OF CORONARY ANGIOPLASTY IMPLANT 02/12/2017 AMITA FOREMAN N Ot I89.0 LYMPHEDEMA, NOT ELSEWHERE CLASSIFIED 02/12/2017 KELLEN DEANDREYASH N Ot Z08 ENCNTR FOR FOLLOW-UP EXAM AFTER TRTMT FO 02/12/2017 KELLEN AMITA N Ot Z85.3 PERSONAL HISTORY OF MALIGNANT NEOPLASM O 02/12/2017 KELLEN AMITA N Ot Z90.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 02/12/2017 KELLEN, AMITA N Ot Z92.21 PERSONAL HISTORY OF ANTINEOPLASTIC CHEMO 03/12/2017 IRENA REYES FACC, ALI FACP CCDS Ot I25.2 OLD MYOCARDIAL INFARCTION 03/12/2017 IRENA REYES FACC, ALI FACP CCDS Ot Z48.812 ENCNTR FOR SURGICAL AFTCR FOLLOWING SURG 03/12/2017 IRENA REYES FACC, ALI FACP CCDS Ot Z95.5 PRESENCE OF CORONARY ANGIOPLASTY IMPLANT 03/12/2017 KELLEN, AMITA N Ot I89.0 LYMPHEDEMA, NOT ELSEWHERE CLASSIFIED 03/12/2017 AMITA FOREMAN N Ot Z08 ENCNTR FOR FOLLOW-UP EXAM AFTER TRTMT FO 03/12/2017 KELLENAMITA N Ot Z85.3 PERSONAL HISTORY OF MALIGNANT NEOPLASM O 03/12/2017 AMITA FOREMAN N Ot Z90.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 03/12/2017 AMITA FOREMAN N Ot Z92.21 PERSONAL HISTORY OF ANTINEOPLASTIC CHEMO 04/02/2017 IRENA REYES FACC, ALI FACP CCDS Ot I25.2 OLD MYOCARDIAL INFARCTION 04/02/2017 IRENA REYES FACC, ALI FACP CCDS Ot Z48.812 ENCNTR FOR SURGICAL AFTCR FOLLOWING SURG 04/02/2017 IRENA REYES FACC, ALI FACP CCDS Ot Z95.5 PRESENCE OF CORONARY ANGIOPLASTY IMPLANT 04/02/2017 KELLEN, AMITA N Ot I89.0 LYMPHEDEMA, NOT ELSEWHERE CLASSIFIED 04/02/2017 KELLEN, AMITA N Ot Z08 ENCNTR FOR FOLLOW-UP EXAM AFTER TRTMT FO 04/02/2017 KELLENAMITA N Ot Z85.3 PERSONAL HISTORY OF MALIGNANT NEOPLASM O 04/02/2017 AMITA FOREMAN N Ot Z90.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 04/02/2017 AMITA FOREMAN N Ot Z92.21 PERSONAL HISTORY OF ANTINEOPLASTIC CHEMO 04/04/2017 IRENA REYES FACC, YRN FACP CCDS Ot E66.09 OTHER OBESITY DUE TO EXCESS CALORIES 04/04/2017 IRENA REYES FACC, ALI FACP CCDS Ot E78.4 OTHER HYPERLIPIDEMIA 04/04/2017 IRENA REYES FACC, ALI FACP CCDS Ot I10 ESSENTIAL (PRIMARY) HYPERTENSION 04/04/2017 IRENA REYES FACC, ALI FACP CCDS Ot I25.10 ATHSCL HEART DISEASE OF [place] CORONARY 04/04/2017 IRENA REYES FACC, ALI FACP CCDS Ot I25.5 ISCHEMIC CARDIOMYOPATHY 04/04/2017 IRENA REYES FACC, ALI FACP CCDS Ot I65.23 OCCLUSION AND STENOSIS OF BILATERAL [place] 04/05/2017 YRN OSBORN MD, FACC FACP CCDS Ot I25.2 OLD MYOCARDIAL INFARCTION 04/05/2017 YRN OSBORN MD, FACC FACP CCDS Ot Z48.812 ENCNTR FOR SURGICAL AFTCR FOLLOWING SURG 04/05/2017 YRN OSBORN MD, FACC FACP CCDS Ot Z95.5 PRESENCE OF CORONARY ANGIOPLASTY IMPLANT 04/05/2017 AMITA FOREMAN Ot I89.0 LYMPHEDEMA, NOT ELSEWHERE CLASSIFIED 04/05/2017 AMITA FOREMAN Ot Z08 ENCNTR FOR FOLLOW-UP EXAM AFTER TRTMT FO 04/05/2017 AMITA FOREMAN Ot Z85.3 PERSONAL HISTORY OF MALIGNANT NEOPLASM O 04/05/2017 AMITA FOREMAN Ot Z90.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 04/05/2017 AMITA FOREMAN Ot Z92.21 PERSONAL HISTORY OF ANTINEOPLASTIC CHEMO 04/09/2017 IRENA REYES FACC, YRN FACP CCDS Ot E66.09 OTHER OBESITY DUE TO EXCESS CALORIES 04/09/2017 IRENA REYES FACC, YRN FACP CCDS Ot E78.4 OTHER HYPERLIPIDEMIA 04/09/2017 IRENA REYES FACC, ALI FACP CCDS Ot I10 ESSENTIAL (PRIMARY) HYPERTENSION 04/09/2017 IRENA REYES FACC, ALI FACP CCDS Ot I25.10 ATHSCL HEART DISEASE OF [place] CORONARY 04/09/2017 IRENA REYES FACC, ALI FACP CCDS Ot I25.5 ISCHEMIC CARDIOMYOPATHY 04/09/2017 IRENA REYES FACC, ALI FACP CCDS Ot I65.23 OCCLUSION AND STENOSIS OF BILATERAL [place] 05/06/2017 IRENA REYES FACC, ALI FACP CCDS Ot I25.2 OLD MYOCARDIAL INFARCTION 05/06/2017 IRENA REYES FACC, ALI FACP CCDS Ot Z48.812 ENCNTR FOR SURGICAL AFTCR FOLLOWING SURG 05/06/2017 IRENA REYES FACC, ALI FACP CCDS Ot Z95.5 PRESENCE OF CORONARY ANGIOPLASTY IMPLANT 05/10/2017 KELLENAMITA Ot I89.0 LYMPHEDEMA, NOT ELSEWHERE CLASSIFIED 05/10/2017 AMITA FOREMAN Jordi Ot Z08 ENCNTR FOR FOLLOW-UP EXAM AFTER TRTMT FO 05/10/2017 DEANDRE FOREMANYASH Bacon Ot Z85.3 PERSONAL HISTORY OF MALIGNANT NEOPLASM O 05/10/2017 KELLENAMITA Ot Z90.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 05/10/2017 AMITA FOREMAN Ot Z92.21 PERSONAL HISTORY OF ANTINEOPLASTIC CHEMO 05/14/2017 IRENA REYES FACC, ALI FACP CCDS Ot I25.2 OLD MYOCARDIAL INFARCTION 05/14/2017 IRENA REYES FACC, ALI FACP CCDS Ot Z48.812 ENCNTR FOR SURGICAL AFTCR FOLLOWING SURG 05/14/2017 IRENA REYES FACC, YRN FACP CCDS Ot Z95.5 PRESENCE OF CORONARY ANGIOPLASTY IMPLANT 05/14/2017 IRENA REYES FACC, ALI FACP CCDS Ot I25.2 OLD MYOCARDIAL INFARCTION 05/14/2017 IRENA REYES FACC, ALI FACP CCDS Ot Z48.812 ENCNTR FOR SURGICAL AFTCR FOLLOWING SURG 05/14/2017 IRENA REYES FACC, ALI FACP CCDS Ot Z95.5 PRESENCE OF CORONARY ANGIOPLASTY IMPLANT 06/13/2017 IRENA REYES FACC, ALI FACP CCDS Ot I25.2 OLD MYOCARDIAL INFARCTION 06/13/2017 IRENA REYES FACC, ALI FACP CCDS Ot Z48.812 ENCNTR FOR SURGICAL AFTCR FOLLOWING SURG 06/13/2017 IRENA REYES FACC, ALI FACP CCDS Ot Z95.5 PRESENCE OF CORONARY ANGIOPLASTY IMPLANT 07/02/2017 IRENA REYES FACC, ALI FACP CCDS Ot I25.2 OLD MYOCARDIAL INFARCTION 07/02/2017 IRENA REYES FACC, ALI FACP CCDS Ot Z48.812 ENCNTR FOR SURGICAL AFTCR FOLLOWING SURG 07/02/2017 IRENA REYES FACC, ALI FACP CCDS Ot Z95.5 PRESENCE OF CORONARY ANGIOPLASTY IMPLANT 08/12/2017 IRENA REYES FACC, ALI FACP CCDS Ot I25.2 OLD MYOCARDIAL INFARCTION 08/12/2017 IRENA MD FACC, ALI FACP CCDS Ot Z48.812 ENCNTR FOR SURGICAL AFTCR FOLLOWING SURG 08/12/2017 IRENA REYES FACC, ALI FACP CCDS Ot Z95.5 PRESENCE OF CORONARY ANGIOPLASTY IMPLANT 08/14/2017 IRENA REYES FACC, ALI FACP CCDS Ot I25.2 OLD MYOCARDIAL INFARCTION 08/14/2017 IRENA REYES FACC, ALI FACP CCDS Ot Z48.812 ENCNTR FOR SURGICAL AFTCR FOLLOWING SURG 08/14/2017 IRENA REYES FACC, ALI FACP CCDS Ot Z95.5 PRESENCE OF CORONARY ANGIOPLASTY IMPLANT 09/09/2017 IRENA REYES FACC, ALI FACP CCDS Ot Z29.8 ENCOUNTER FOR OTHER SPECIFIED PROPHYLACT 09/13/2017 IRENA REYES FACC, ALI FACP CCDS Ot Z29.8 ENCOUNTER FOR OTHER SPECIFIED PROPHYLACT 10/26/2017 AMITA FOREMAN Ot Z12.31 ENCNTR SCREEN MAMMOGRAM FOR MALIGNANT NE 11/15/2017 AMITA FOREMAN Ot Z12.31 ENCNTR SCREEN MAMMOGRAM FOR MALIGNANT NE 02/19/2018 AMITA FOREMAN Ot 174.9 MALIGN NEOPL BREAST NOS 02/19/2018 AMITA FOREMAN Ot V45.71 ACQUIRED ABSENCE OF BREAST AND NIPPLE 02/19/2018 AMITA FOREMAN Ot 174.9 MALIGN NEOPL BREAST NOS 02/19/2018 VANBECELAERE, ALYSSA M CAR SHAGGER Ot 786.07 WHEEZING 02/19/2018 VANBECELAERE, ALYSSA M CAR SHAGGER Ot 786.2 COUGH 02/19/2018 VANBECELAERE, ALYSSA M CAR SHAGGER Ot 793.19 OTHER NONSPECIFIC ABNORMAL FINDING OF [place] 02/19/2018 VANBECELAERE, ALYSSA M CAR SHAGGER Ot 486 PNEUMONIA, ORGANISM NOS 02/19/2018 AMITA FOREMAN N Ot 174.9 MALIGN NEOPL BREAST NOS 02/19/2018 AMITA FOREMAN Ot 457.1 OTHER LYMPHEDEMA 02/19/2018 AMITA FOREMAN Ot I89.0 LYMPHEDEMA, NOT ELSEWHERE CLASSIFIED 02/19/2018 AMITA FOREMAN Ot Z08 ENCNTR FOR FOLLOW-UP EXAM AFTER TRTMT FO 02/19/2018 AMITA FOREMAN Jordi Ot Z85.3 PERSONAL HISTORY OF MALIGNANT NEOPLASM O 02/19/2018 AMITA FOREMAN Jordi Ot Z90.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 02/19/2018 AMITA FOREMAN Jordi Ot Z92.21 PERSONAL HISTORY OF ANTINEOPLASTIC CHEMO 02/19/2018 KERLINE LUBIN DO Ot 433.10 CAROTID ARTERY OCCLUSION W O CEREBRAL IN 02/19/2018 KELLY REYES, MARY Costa Ot Z01.818 ENCOUNTER FOR OTHER PREPROCEDURAL EXAMIN 02/19/2018 MARY EASTMAN CAR SHAGGER Ot I89.0 LYMPHEDEMA, NOT ELSEWHERE CLASSIFIED 02/19/2018 MARY EASTMAN CAR SHAGGER Ot Z08 ENCNTR FOR FOLLOW-UP EXAM AFTER TRTMT FO 02/19/2018 MARY EASTMAN CAR SHAGGER Ot Z85.3 PERSONAL HISTORY OF MALIGNANT NEOPLASM O 02/19/2018 MARY EASTMAN CAR SHAGGER Ot Z90.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 02/19/2018 MARY EASTMAN CAR SHAGGER Ot Z92.21 PERSONAL HISTORY OF ANTINEOPLASTIC CHEMO 02/19/2018 Ot Z12.31 ENCNTR SCREEN MAMMOGRAM FOR MALIGNANT NE 02/19/2018 CAT BUSH BULLET 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 Ot R01.1 CARDIAC MURMUR, UNSPECIFIED 02/19/2018 AMITA FOREMAN Jordi Ot Z12.31 ENCNTR SCREEN MAMMOGRAM FOR MALIGNANT NE 02/19/2018 AMITA FOREMAN Jordi Ot Z12.31 ENCNTR SCREEN MAMMOGRAM FOR MALIGNANT NE 02/19/2018 IRENA REYES FACC, ALI FACP CCDS Ot E66.09 OTHER OBESITY DUE TO EXCESS CALORIES 02/19/2018 IRENA REYES FACC, ALI FACP CCDS Ot E78.4 OTHER HYPERLIPIDEMIA 02/19/2018 IRENA REYES FACC, ALI FACP CCDS Ot I10 ESSENTIAL (PRIMARY) HYPERTENSION 02/19/2018 IRENA REYES FACC, ALI FACP CCDS Ot I25.10 ATHSCL HEART DISEASE OF [place] CORONARY 02/19/2018 IRENA REYES FACC, ALI FACP CCDS Ot I25.5 ISCHEMIC CARDIOMYOPATHY 02/19/2018 IRENA REYES FACC, ALI FACP CCDS Ot I65.23 OCCLUSION AND STENOSIS OF BILATERAL [place] 02/19/2018 IRENA REYES FACC, YRN FACP CCDS Ot I25.2 OLD MYOCARDIAL INFARCTION 02/19/2018 IRENA REYES FACC, YRN FACP CCDS Ot Z48.812 ENCNTR FOR SURGICAL AFTCR FOLLOWING SURG 02/19/2018 IRENA REYES FACC, YRN FACP CCDS Ot Z95.5 PRESENCE OF CORONARY ANGIOPLASTY IMPLANT 04/01/2018 AMITA FOREMAN Ot Z08 ENCNTR FOR FOLLOW-UP EXAM AFTER TRTMT FO 04/01/2018 AMITA FOREMAN Ot Z85.3 PERSONAL HISTORY OF MALIGNANT NEOPLASM O 04/01/2018 AMITA FOREMAN N Ot Z90.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 04/01/2018 AMITA FOREMAN N Ot Z92.21 PERSONAL HISTORY OF ANTINEOPLASTIC CHEMO 05/16/2018 IRENA REYES FACC, YRN FACP CCDS Ot Z29.8 ENCOUNTER FOR OTHER SPECIFIED PROPHYLACT 05/20/2018 AMITA FOREMAN Ot Z08 ENCNTR FOR FOLLOW-UP EXAM AFTER TRTMT FO 05/20/2018 AMITA FOREMAN Ot Z85.3 PERSONAL HISTORY OF MALIGNANT NEOPLASM O 05/20/2018 AMITA FOREMAN N Ot Z90.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 05/20/2018 AMITA FOREMAN N Ot Z92.21 PERSONAL HISTORY OF ANTINEOPLASTIC CHEMO 05/21/2018 AMITA FOREMAN Ot Z08 ENCNTR FOR FOLLOW-UP EXAM AFTER TRTMT FO 05/21/2018 AMITA FOREMAN Ot Z85.3 PERSONAL HISTORY OF MALIGNANT NEOPLASM O 05/21/2018 AMITA FOREMAN N Ot Z90.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 05/21/2018 AMITA FOREMAN N Ot Z92.21 PERSONAL HISTORY OF ANTINEOPLASTIC CHEMO 05/26/2018 AMITA FOREMAN N Ot Z08 ENCNTR FOR FOLLOW-UP EXAM AFTER TRTMT FO 05/26/2018 AMITA FOREMAN N Ot Z85.3 PERSONAL HISTORY OF MALIGNANT NEOPLASM O 05/26/2018 AMITA FOREMAN N Ot Z90.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 05/26/2018 AMITA FOREMAN Ot Z92.21 PERSONAL HISTORY OF ANTINEOPLASTIC CHEMO 06/01/2018 [facility] KERLINE SALMERON Ot E11.9 TYPE 2 DIABETES MELLITUS WITHOUT COMPLIC 06/01/2018 RAÚL[facility] DOKERLINE S Ot I10 ESSENTIAL (PRIMARY) [facility]ENSION 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 06/01/[facility] Ot L03.114 CELLULITIS OF LEFT UPPER LIMB 06/01/[facility] Z90.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 06/02/2018 RAÚL[facility] KERLINE SALMERON Ot E11.9 TYPE 2 DIABETES MELLITUS WITHOUT COMPLIC 06/02/2018 RAÚL[facility] DOKERLINE Ot I10 ESSENTIAL (PRIMARY) HYPERTENSION 06/02/2018 [facility] DOKERLINE Ot 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 06/02/[facility] L03.114 CELLULITIS OF LEFT UPPER LIMB 06/02/[address] [facility] Z90.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 06/03/2018 RAÚLND KERLINE SALMERON Ot E11.9 TYPE 2 DIABETES MELLITUS WITHOUT COMPLIC [facility]/03/[facility] HYPERTENSION 06/03/2018 [facility] KERLINE SALMERON Ot 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 06/03/2018 RAÚLND KERLINE SALMERON Ot L03.114 CELLULITIS OF LEFT UPPER LIMB 06/03/2018 [facility] KER[facility] SALMERON Ot Z90.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 06/03/[facility] Ot 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 06/03/2018 [facility] DO[facility] Ot E11.9 TYPE 2 DIABETES MELLITUS WITHOUT COMPLIC 06/03/2018 RAÚLND KERLINE SALMERON S Ot E66.09 OTHER OBESITY DUE TO EXCESS CALORIES 06/03/2018 [facility] DOKERLINE S Ot E87.6 HYPOKALEMIA 06/03/2018 KERLINE LUBIN DO Ot I10 ESSENTIAL (PRIMARY) HYPERTENSION 06/03/2018 KERLINE LUBIN DO Ot I25.10 ATHSCL HEART DISEASE OF [place] CORONARY 06/03/2018 KERLINE LUBIN DO Ot 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 06/03/2018 KERLINE LUBIN DO Ot J06.9 ACUTE UPPER RESPIRATORY INFECTION, UNSPE 06/03/2018 KERLINE LUBIN DO Ot L03.114 CELLULITIS OF LEFT UPPER LIMB 06/03/2018 PRITESH SALMERON KERLINE Green Ot R19.7 DIARRHEA, UNSPECIFIED 06/03/2018 KERLINE LUBIN DO Ot Z68.38 BODY MASS INDEX (BMI) 38.0-38.9, ADULT 06/03/2018 KERLINE LUBIN DO Ot Z85.3 PERSONAL HISTORY OF MALIGNANT NEOPLASM O 06/03/2018 KERLINE LUBIN DO Ot Z90.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 06/20/2018 IRENA REYES FAC, [facility] CCDS Ot Z29.8 ENCOUNTER FOR OTHER SPECIFIED PROPHYLACT 08/02/2018 IRENA REYES [facility], [facility] CCDS Ot Z29.8 ENCOUNTER FOR OTHER SPECIFIED PROPHYLACT Procedures Code Description Performed By Performed On 38.93 VENOUS CATHETERIZATION NEC 09/11/2011 [id number] DILATION OF 1 COR ART WITH DRUG-ELUT INT 12/21/2016 [id number] MEASURE OF CARDIAC SAMPL PRESSURE, L H 12/21/2016 [id number] FLUOROSCOPY OF MULT COR ART USING L OSM 12/21/2016 [id number] FLUOROSCOPY OF LEFT HEART USING LOW OSMO 12/21/2016 Results Test Result Range Complete blood count (CBC) with automated white blood cell (WBC) differential - 03/29/16 10:30 Blood leukocytes automated count (number/volume) 14.3 10*3/uL 4.3-11.0 Blood erythrocytes automated count (number/volume) 4.66 10*6/uL 4.35-5.85 Venous blood hemoglobin measurement (mass/volume) 14.5 [...] Automated blood platelet mean volume measurement 10.2 [foz_us] 7.4-10.4 Automated blood neutrophils/100 leukocytes 92 % [...] Serum or plasma sodium measurement (moles/volume) 135 mmol/L 135-145 Serum or plasma potassium measurement (moles/volume) 3.5 mmol/L 3.6-5.0 Serum or plasma chloride measurement (moles/volume) 102 mmol/L 98-107 Carbon dioxide 21 mmol/L 21-32 Serum or plasma anion gap determination (moles/volume) 12 mmol/L 5-14 Serum or plasma urea nitrogen measurement (mass/volume) 16 mg/dL 7-18 Serum or plasma creatinine measurement (mass/volume) 0.78 mg/dL 0.60-1.30 Serum or plasma urea nitrogen/creatinine mass ratio 21 NRG Serum or plasma creatinine measurement with calculation of estimated glomerular filtration rate > NRG Serum or plasma glucose measurement (mass/volume) 125 mg/dL 70-105 Serum or plasma calcium measurement (mass/volume) 10.0 mg/dL 8.5-10.1 Serum or plasma total bilirubin [...] plasma C reactive protein measurement (mass/volume) 7.34 mg /dL 0.00-0.50 Blood manual differential performed detection - [...] 05:07 Blood leukocytes automated count (number/volume) 7.5 10*3/uL 4.3-11.0 Blood erythrocytes automated count (number/volume) 3.78 10*6/uL 4.35-5.85 Venous blood hemoglobin measurement (mass/volume) 11.8 [...] Automated blood platelet mean volume measurement 10.4 [foz_us] 7.4-10.4 Automated blood neutrophils/100 leukocytes 71 % [...] Serum or plasma sodium measurement (moles/volume) 132 mmol/L 135-145 Serum or plasma potassium measurement (moles/volume) 3.9 mmol/L 3.6-5.0 Serum or plasma chloride measurement (moles/volume) 102 mmol/L 98-107 Carbon dioxide 19 mmol/L 21-32 Serum or plasma anion gap determination (moles/volume) 11 mmol/L 5-14 Serum or plasma urea nitrogen measurement (mass/volume) 19 mg/dL 7-18 Serum or plasma creatinine measurement (mass/volume) 0.82 mg/dL 0.60-1.30 Serum or plasma urea nitrogen/creatinine mass [...] 05:48 Blood leukocytes automated count (number/volume) 7.6 10*3/uL 4.3-11.0 Blood erythrocytes automated count (number/volume) 4.05 10*6/uL 4.35-5.85 Venous blood hemoglobin measurement (mass/volume) 12.3 [...] Automated blood platelet mean volume measurement 10.6 [foz_us] 7.4-10.4 Automated blood neutrophils/100 leukocytes 61 % [...] Serum or plasma sodium measurement (moles/volume) 137 mmol/L 135-145 Serum or plasma potassium measurement (moles/volume) 3.7 mmol/L 3.6-5.0 Serum or plasma chloride measurement (moles/volume) 106 mmol/L 98-107 Carbon dioxide 22 mmol/L 21-32 Serum or plasma anion gap determination (moles/volume) 9 mmol/L 5-14 Serum or plasma urea nitrogen measurement (mass/volume) 15 mg/dL 7-18 Serum or plasma creatinine measurement (mass/volume) 0.75 mg/dL 0.60-1.30 Serum or plasma urea nitrogen/creatinine mass ratio 20 NRG Serum or plasma creatinine measurement with calculation of estimated glomerular filtration rate > NRG Serum or plasma glucose measurement (mass/volume) 102 mg/dL 70-105 Serum or plasma calcium measurement (mass/volume) 9.0 mg/dL 8.5-10.1 Serum or plasma albumin measurement (mass/volume) 3.2 g/dL 3.2-4.5 Serum or plasma phosphate measurement (mass/volume) 2.9 mg/dL 2.3-4.7 Capillary blood glucose measurement by glucometer [...] 08:20 Blood leukocytes automated count (number/volume) 18.8 10*3/uL 4.3-11.0 Blood erythrocytes automated count (number/volume) 4.53 10*6/uL 4.35-5.85 Venous blood hemoglobin measurement (mass/volume) 13.8 [...] Automated blood platelet mean volume measurement 9.8 [foz_us] 7.4-10.4 Automated blood neutrophils/100 leukocytes 94 % [...] Serum or plasma sodium measurement (moles/volume) 136 mmol/L 135-145 Serum or plasma potassium measurement (moles/volume) 3.7 mmol/L 3.6-5.0 Serum or plasma chloride measurement (moles/volume) 101 mmol/L 98-107 Carbon dioxide 22 mmol/L 21-32 Serum or plasma anion gap determination (moles/volume) 13 mmol/L 5-14 Serum or plasma urea nitrogen measurement (mass/volume) 23 mg/dL 7-18 Serum or plasma creatinine measurement (mass/volume) 0.81 mg/dL 0.60-1.30 Serum or plasma urea nitrogen/creatinine mass [...] 04:40 Blood leukocytes automated count (number/volume) 9.8 10*3/uL 4.3-11.0 Blood erythrocytes automated count (number/volume) 4.24 10*6/uL 4.35-5.85 Venous blood hemoglobin measurement (mass/volume) 13.0 [...] Automated blood platelet mean volume measurement 10.0 [foz_us] 7.4-10.4 Automated blood neutrophils/100 leukocytes 86 % [...] Serum or plasma sodium measurement (moles/volume) 135 mmol/L 135-145 Serum or plasma potassium measurement (moles/volume) 3.5 mmol/L 3.6-5.0 Serum or plasma chloride measurement (moles/volume) 100 mmol/L 98-107 Carbon dioxide 26 mmol/L 21-32 Serum or plasma anion gap determination (moles/volume) 9 mmol/L 5-14 Serum or plasma urea nitrogen measurement (mass/volume) 21 mg/dL 7-18 Serum or plasma creatinine measurement (mass/volume) 0.85 mg/dL 0.60-1.30 Serum or plasma urea nitrogen/creatinine mass [...] 04:35 Blood leukocytes automated count (number/volume) 5.8 10*3/uL 4.3-11.0 Blood erythrocytes automated count (number/volume) 3.88 10*6/uL 4.35-5.85 Venous blood hemoglobin measurement (mass/volume) 11.7 [...] Automated blood platelet mean volume measurement 10.3 [foz_us] 7.4-10.4 Automated blood neutrophils/100 leukocytes 58 % [...] Serum or plasma sodium measurement (moles/volume) 140 mmol/L 135-145 Serum or plasma potassium measurement (moles/volume) 4.0 mmol/L 3.6-5.0 Serum or plasma chloride measurement (moles/volume) 109 mmol/L 98-107 Carbon dioxide 23 mmol/L 21-32 Serum or plasma anion gap determination (moles/volume) 8 mmol/L 5-14 Serum or plasma urea nitrogen measurement (mass/volume) 12 mg/dL 7-18 Serum or plasma creatinine measurement (mass/volume) 0.80 mg/dL 0.60-1.30 Serum or plasma urea nitrogen/creatinine mass [...] measurement by glucometer (mass/volume) 116 mg/dL 70-110 Complete blood count (CBC) with automated white blood cell (WBC) differential - 11/01/16 05:43 Blood leukocytes automated count (number/volume) 9.7 10*3/uL 4.3-11.0 Blood erythrocytes automated count (number/volume) 4.39 10*6/uL 4.35-5.85 Venous blood hemoglobin measurement (mass/volume) 13.5 g/dL 11.5-16.0 Blood hematocrit (volume fraction) 40 % 35-52 Automated erythrocyte mean corpuscular volume 92 [foz_us] 80-99 Automated erythrocyte mean corpuscular hemoglobin (mass per erythrocyte) 31 pg 25-34 Automated erythrocyte mean corpuscular hemoglobin concentration measurement ( mass/volume) 34 g/dL 32-36 Automated erythrocyte distribution width ratio 13.6 % 10.0-14.5 Automated blood platelet count (count/volume) 266 10*3/uL 130-400 Automated blood platelet mean volume measurement 10.1 [foz_us] 7.4-10.4 Automated blood neutrophils/100 leukocytes 67 % 42-75 Automated blood lymphocytes/100 leukocytes 23 % 12-44 Blood monocytes/100 leukocytes 7 % 0-12 Automated blood eosinophils/100 leukocytes 3 % 0-10 Automated blood basophils/100 leukocytes 1 % 0-10 Blood neutrophils automated count (number/volume) 6.5 10*3 1.8-7.8 Blood lymphocytes automated count (number/volume) 2.2 10*3 1.0-4.0 Blood monocytes automated count (number/volume) 0.6 10*3 0.0-1.0 Automated eosinophil count 0.3 10*3/uL 0.0-0.3 Automated blood basophil count (count/volume) 0.1 10*3/uL 0.0-0.1 Comprehensive metabolic panel - 11/01/16 05:43 Serum or plasma sodium measurement (moles/volume) 141 mmol/L 135-145 Serum or plasma potassium measurement (moles/volume) 3.8 mmol/L 3.6-5.0 Serum or plasma chloride measurement (moles/volume) 105 mmol/L 98-107 Carbon dioxide 25 mmol/L 21-32 Serum or plasma anion gap determination (moles/volume) 11 mmol/L 5-14 Serum or plasma urea nitrogen measurement (mass/volume) 23 mg/dL 7-18 Serum or plasma creatinine measurement (mass/volume) 0.99 mg/dL 0.60-1.30 Serum or plasma urea nitrogen/creatinine mass ratio 23 NRG Serum or plasma creatinine measurement with calculation of estimated glomerular filtration rate 56 NRG Serum or plasma glucose measurement (mass/volume) 121 mg/dL 70-105 Serum or plasma calcium measurement (mass/volume) 10.0 mg/dL 8.5-10.1 Serum or plasma total bilirubin measurement (mass/volume) 0.7 mg/dL 0.1-1.0 Serum or plasma alkaline phosphatase measurement (enzymatic activity/volume) 67 U/L 40-136 Serum or plasma aspartate aminotransferase measurement (enzymatic activity/ volume) 18 U/L 5-34 Serum or plasma alanine aminotransferase measurement (enzymatic activity/volume ) 18 U/L 0-55 Serum or plasma protein measurement (mass/volume) 7.2 g/dL 6.4-8.2 Serum or plasma albumin measurement (mass/volume) 3.9 g/dL 3.2-4.5 Magnesium - 11/01/16 05:43 Magnesium 1.4 mg/dL 1.8-2.4 Serum or plasma C reactive protein measurement (mass/volume) - 11/01/16 05:43 Serum or plasma C reactive protein measurement (mass/volume) 0.40 mg /dL 0.00-0.50 C DIFFICILE AG + TOXIN A/B. - 11/01/16 05:43 RESULTS NEGATIVE FOR ANTIGEN AND TOXIN A/B NRG Stool bacteria identification by culture - 11/01/16 05:43 Stool bacteria identification by culture N2 NRG Complete urinalysis with reflex to culture - 11/01/16 07:39 Urine color determination YELLOW NRG Urine clarity determination CLEAR NRG Urine pH measurement by test strip 5 5-9 Specific gravity of urine by test strip 1.010 1.016- 1.022 Urine protein assay by test strip, semi-quantitative NEGATIVE NEGATIVE Urine glucose detection by automated test strip NEGATIVE NEGATIVE Erythrocytes detection in urine sediment by light microscopy NEGATIVE NEGATIVE Urine ketones detection by automated test strip NEGATIVE NEGATIVE Urine nitrite detection by test strip NEGATIVE NEGATIVE Urine total bilirubin detection by test strip NEGATIVE NEGATIVE Urine urobilinogen measurement by automated test strip (mass/volume) NORMAL NORMAL Urine leukocyte esterase detection by dipstick 2+ NEGATIVE Automated urine sediment erythrocyte count by microscopy (number/high power field) NONE NRG Automated urine sediment leukocyte count by microscopy (number/high power field ) [HPF] NRG Bacteria detection in urine sediment by light microscopy NEGATIVE NRG Squamous epithelial cells detection in urine sediment by light microscopy 0-2 NRG Crystals detection in urine sediment by light microscopy NONE NRG Casts detection in urine sediment by light microscopy NONE NRG Mucus detection in urine sediment by light microscopy NEGATIVE NRG Complete urinalysis with reflex to culture NO NRG Complete blood count (CBC) with automated white blood cell (WBC) differential - 12/21/16 09:20 Blood leukocytes automated count (number/volume) 10.6 10*3/uL 4.3-11.0 Blood erythrocytes automated count (number/volume) 4.75 10*6/uL 4.35-5.85 Venous blood hemoglobin measurement (mass/volume) 14.5 g/dL 11.5-16.0 Blood hematocrit (volume fraction) 43 % 35-52 Automated erythrocyte mean corpuscular volume 91 [foz_us] 80-99 Automated erythrocyte mean corpuscular hemoglobin (mass per erythrocyte) 31 pg 25-34 Automated erythrocyte mean corpuscular hemoglobin concentration measurement ( mass/volume) 34 g/dL 32-36 Automated erythrocyte distribution width ratio 12.9 % 10.0-14.5 Automated blood platelet count (count/volume) 240 10*3/uL 130-400 Automated blood platelet mean volume measurement 10.2 [foz_us] 7.4-10.4 Automated blood neutrophils/100 leukocytes 76 % 42-75 Automated blood lymphocytes/100 leukocytes 16 % 12-44 Blood monocytes/100 leukocytes 6 % 0-12 Automated blood eosinophils/100 leukocytes 1 % 0-10 Automated blood basophils/100 leukocytes 1 % 0-10 Blood neutrophils automated count (number/volume) 8.1 10*3 1.8-7.8 Blood lymphocytes automated count (number/volume) 1.7 10*3 1.0-4.0 Blood monocytes automated count (number/volume) 0.6 10*3 0.0-1.0 Automated eosinophil count 0.1 10*3/uL 0.0-0.3 Automated blood basophil count (count/volume) 0.1 10*3/uL 0.0-0.1 Comprehensive metabolic panel - 12/21/16 09:20 Serum or plasma sodium measurement (moles/volume) 138 mmol/L 135-145 Serum or plasma potassium measurement (moles/volume) 4.0 mmol/L 3.6-5.0 Serum or plasma chloride measurement (moles/volume) 102 mmol/L 98-107 Carbon dioxide 28 mmol/L 21-32 Serum or plasma anion gap determination (moles/volume) 8 mmol/L 5-14 Serum or plasma urea nitrogen measurement (mass/volume) 15 mg/dL 7-18 Serum or plasma creatinine measurement (mass/volume) 0.80 mg/dL 0.60-1.30 Serum or plasma urea nitrogen/creatinine mass ratio 19 NRG Serum or plasma creatinine measurement with calculation of estimated glomerular filtration rate > NRG Serum or plasma glucose measurement (mass/volume) 110 mg/dL 70-105 Serum or plasma calcium measurement (mass/volume) 10.4 mg/dL 8.5-10.1 Serum or plasma total bilirubin measurement (mass/volume) 0.6 mg/dL 0.1-1.0 Serum or plasma alkaline phosphatase measurement (enzymatic activity/volume) 66 U/L 40-136 Serum or plasma aspartate aminotransferase measurement (enzymatic activity/ volume) 25 U/L 5-34 Serum or plasma alanine aminotransferase measurement (enzymatic activity/volume ) 25 U/L 0-55 Serum or plasma protein measurement (mass/volume) 6.8 g/dL 6.4-8.2 Serum or plasma albumin measurement (mass/volume) 3.8 g/dL 3.2-4.5 Serum or plasma troponin i.cardiac measurement (mass/volume) - 12/21/16 09:20 Serum or plasma troponin i.cardiac measurement (mass/volume) 0.59 ng /mL <0.30 Capillary blood glucose measurement by glucometer (mass/volume) - 12/21/16 17: 21 Capillary blood glucose measurement by glucometer (mass/volume) 100 mg/dL 70-110 Capillary blood glucose measurement by glucometer (mass/volume) - 12/21/16 21: 48 Capillary blood glucose measurement by glucometer (mass/volume) 129 mg/dL 70-110 Automated blood complete blood count (hemogram) panel - 12/22/16 05:01 Blood leukocytes automated count (number/volume) 12.9 10*3/uL 4.3-11.0 Blood erythrocytes automated count (number/volume) 3.99 10*6/uL 4.35-5.85 Venous blood hemoglobin measurement (mass/volume) 12.3 g/dL 11.5-16.0 Blood hematocrit (volume fraction) 37 % 35-52 Automated erythrocyte mean corpuscular volume 93 [foz_us] 80-99 Automated erythrocyte mean corpuscular hemoglobin (mass per erythrocyte) 31 pg 25-34 Automated erythrocyte mean corpuscular hemoglobin concentration measurement ( mass/volume) 33 g/dL 32-36 Automated erythrocyte distribution width ratio 12.9 % 10.0-14.5 Automated blood platelet count (count/volume) 229 10*3/uL 130-400 Automated blood platelet mean volume measurement 10.1 [foz_us] 7.4-10.4 Whole blood basic metabolic panel - 12/22/16 05:01 Serum or plasma sodium measurement (moles/volume) 139 mmol/L 135-145 Serum or plasma potassium measurement (moles/volume) 3.6 mmol/L 3.6-5.0 Serum or plasma chloride measurement (moles/volume) 106 mmol/L 98-107 Carbon dioxide 21 mmol/L 21-32 Serum or plasma anion gap determination (moles/volume) 12 mmol/L 5-14 Serum or plasma urea nitrogen measurement (mass/volume) 15 mg/dL 7-18 Serum or plasma creatinine measurement (mass/volume) 0.75 mg/dL 0.60-1.30 Serum or plasma urea nitrogen/creatinine mass ratio 20 NRG Serum or plasma creatinine measurement with calculation of estimated glomerular filtration rate > NRG Serum or plasma glucose measurement (mass/volume) 106 mg/dL 70-105 Serum or plasma calcium measurement (mass/volume) 8.8 mg/dL 8.5-10.1 C DIFFICILE AG + TOXIN A/B. - 12/22/16 07:50 RESULTS NEGATIVE FOR ANTIGEN AND TOXIN A/B NRG Capillary blood glucose measurement by glucometer (mass/volume) - 12/22/16 14: 54 Capillary blood glucose measurement by glucometer (mass/volume) 137 mg/dL 70-110 Complete blood count (CBC) with automated white blood cell (WBC) differential - 12/23/16 03:56 Blood leukocytes automated count (number/volume) 11.7 10*3/uL 4.3-11.0 Blood erythrocytes automated count (number/volume) 3.70 10*6/uL 4.35-5.85 Venous blood hemoglobin measurement (mass/volume) 11.4 g/dL 11.5-16.0 Blood hematocrit (volume fraction) 34 % 35-52 Automated erythrocyte mean corpuscular volume 93 [foz_us] 80-99 Automated erythrocyte mean corpuscular hemoglobin (mass per erythrocyte) 31 pg 25-34 Automated erythrocyte mean corpuscular hemoglobin concentration measurement ( mass/volume) 33 g/dL 32-36 Automated erythrocyte distribution width ratio 12.9 % 10.0-14.5 Automated blood platelet count (count/volume) 216 10*3/uL 130-400 Automated blood platelet mean volume measurement 10.4 [foz_us] 7.4-10.4 Automated blood neutrophils/100 leukocytes 66 % 42-75 Automated blood lymphocytes/100 leukocytes 25 % 12-44 Blood monocytes/100 leukocytes 7 % 0-12 Automated blood eosinophils/100 leukocytes 2 % 0-10 Automated blood basophils/100 leukocytes 0 % 0-10 Blood neutrophils automated count (number/volume) 7.7 10*3 1.8-7.8 Blood lymphocytes automated count (number/volume) 2.9 10*3 1.0-4.0 Blood monocytes automated count (number/volume) 0.8 10*3 0.0-1.0 Automated eosinophil count 0.3 10*3/uL 0.0-0.3 Automated blood basophil count (count/volume) 0.0 10*3/uL 0.0-0.1 Whole blood basic metabolic panel - 12/23/16 03:56 Serum or plasma sodium measurement (moles/volume) 140 mmol/L 135-145 Serum or plasma potassium measurement (moles/volume) 3.5 mmol/L 3.6-5.0 Serum or plasma chloride measurement (moles/volume) 108 mmol/L 98-107 Carbon dioxide 24 mmol/L 21-32 Serum or plasma anion gap determination (moles/volume) 8 mmol/L 5-14 Serum or plasma urea nitrogen measurement (mass/volume) 13 mg/dL 7-18 Serum or plasma creatinine measurement (mass/volume) 0.68 mg/dL 0.60-1.30 Serum or plasma urea nitrogen/creatinine mass ratio 19 NRG Serum or plasma creatinine measurement with calculation of estimated glomerular filtration rate > NRG Serum or plasma glucose measurement (mass/volume) 110 mg/dL 70-105 Serum or plasma calcium measurement (mass/volume) 8.6 mg/dL 8.5-10.1 Magnesium - 12/23/16 03:56 Magnesium 1.2 mg/dL 1.8-2.4 Capillary blood glucose measurement by glucometer (mass/volume) - 12/23/16 11: 01 Capillary blood glucose measurement by glucometer (mass/volume) 163 mg/dL 70-110 Blood lactic acid measurement (moles/volume) - 05/30/18 16:58 Blood lactic acid measurement (moles/volume) 1.17 mmol/L 0.50-2.00 Bacterial blood culture - 05/30/18 16:58 Bacterial blood culture NG NRG Automated blood complete blood count (hemogram) panel - 05/30/18 18:20 Blood leukocytes automated count (number/volume) 16.5 10*3/uL 4.3-11.0 Blood erythrocytes automated count (number/volume) 4.11 10*6/uL 4.35-5.85 Venous blood hemoglobin measurement (mass/volume) 12.9 g/dL 11.5-16.0 Blood hematocrit (volume fraction) 38 % 35-52 Automated erythrocyte mean corpuscular volume 93 [foz_us] 80-99 Automated erythrocyte mean corpuscular hemoglobin (mass per erythrocyte) 31 pg 25-34 Automated erythrocyte mean corpuscular hemoglobin concentration measurement ( mass/volume) 34 g/dL 32-36 Automated erythrocyte distribution width ratio 13.1 % 10.0-14.5 Automated blood platelet count (count/volume) 141 10*3/uL 130-400 Automated blood platelet mean volume measurement 9.7 [foz_us] 7.4-10.4 Comprehensive metabolic panel - 05/30/18 18:20 Serum or plasma sodium measurement (moles/volume) 135 mmol/L 135-145 Serum or plasma potassium measurement (moles/volume) 3.2 mmol/L 3.6-5.0 Serum or plasma chloride measurement (moles/volume) 99 mmol/L 98-107 Carbon dioxide 23 mmol/L 21-32 Serum or plasma anion gap determination (moles/volume) 13 mmol/L 5-14 Serum or plasma urea nitrogen measurement (mass/volume) 19 mg/dL 7-18 Serum or plasma creatinine measurement (mass/volume) 0.79 mg/dL 0.60-1.30 Serum or plasma urea nitrogen/creatinine mass ratio 24 NRG Serum or plasma creatinine measurement with calculation of estimated glomerular filtration rate > NRG Serum or plasma glucose measurement (mass/volume) 109 mg/dL 70-105 Serum or plasma calcium measurement (mass/volume) 8.7 mg/dL 8.5-10.1 Serum or plasma total bilirubin measurement (mass/volume) 1.2 mg/dL 0.1-1.0 Serum or plasma alkaline phosphatase measurement (enzymatic activity/volume) 64 U/L 40-136 Serum or plasma aspartate aminotransferase measurement (enzymatic activity/ volume) 22 U/L 5-34 Serum or plasma alanine aminotransferase measurement (enzymatic activity/volume ) 21 U/L 0-55 Serum or plasma protein measurement (mass/volume) 6.3 g/dL 6.4-8.2 Serum or plasma albumin measurement (mass/volume) 3.6 g/dL 3.2-4.5 CALCIUM CORRECTED 9.0 mg/dL 8.5-10.1 Serum or plasma C reactive protein measurement (mass/volume) - 05/30/18 18:20 Serum or plasma C reactive protein measurement (mass/volume) 20.63 mg/dL 0.00-0.50 Erythrocyte sedimentation rate by westergren method - 05/30/18 18:20 Erythrocyte sedimentation rate by westergren method 17 mm 0-30 Bacterial blood culture - 05/30/18 19:08 Bacterial blood culture NG NRG Capillary blood glucose measurement by glucometer (mass/volume) - 05/30/18 20: 36 Capillary blood glucose measurement by glucometer (mass/volume) 184 mg/dL 70-110 Complete blood count (CBC) with automated white blood cell (WBC) differential - 05/31/18 05:35 Blood leukocytes automated count (number/volume) 14.8 10*3/uL 4.3-11.0 Blood erythrocytes automated count (number/volume) 4.24 10*6/uL 4.35-5.85 Venous blood hemoglobin measurement (mass/volume) 13.3 g/dL 11.5-16.0 Blood hematocrit (volume fraction) 39 % 35-52 Automated erythrocyte mean corpuscular volume 93 [foz_us] 80-99 Automated erythrocyte mean corpuscular hemoglobin (mass per erythrocyte) 31 pg 25-34 Automated erythrocyte mean corpuscular hemoglobin concentration measurement ( mass/volume) 34 g/dL 32-36 Automated erythrocyte distribution width ratio 13.0 % 10.0-14.5 Automated blood platelet count (count/volume) 171 10*3/uL 130-400 Automated blood platelet mean volume measurement 10.1 [foz_us] 7.4-10.4 Automated blood neutrophils/100 leukocytes 88 % 42-75 Automated blood lymphocytes/100 leukocytes 8 % 12-44 Blood monocytes/100 leukocytes 4 % 0-12 Automated blood eosinophils/100 leukocytes 0 % 0-10 Automated blood basophils/100 leukocytes 0 % 0-10 Blood neutrophils automated count (number/volume) 13.0 10*3 1.8-7.8 Blood lymphocytes automated count (number/volume) 1.1 10*3 1.0-4.0 Blood monocytes automated count (number/volume) 0.6 10*3 0.0-1.0 Automated eosinophil count 0.0 10*3/uL 0.0-0.3 Automated blood basophil count (count/volume) 0.0 10*3/uL 0.0-0.1 Comprehensive metabolic panel - 05/31/18 05:35 Serum or plasma sodium measurement (moles/volume) 134 mmol/L 135-145 Serum or plasma potassium measurement (moles/volume) 3.7 mmol/L 3.6-5.0 Serum or plasma chloride measurement (moles/volume) 100 mmol/L 98-107 Carbon dioxide 22 mmol/L 21-32 Serum or plasma anion gap determination (moles/volume) 12 mmol/L 5-14 Serum or plasma urea nitrogen measurement (mass/volume) 15 mg/dL 7-18 Serum or plasma creatinine measurement (mass/volume) 0.75 mg/dL 0.60-1.30 Serum or plasma urea nitrogen/creatinine mass ratio 20 NRG Serum or plasma creatinine measurement with calculation of estimated glomerular filtration rate > NRG Serum or plasma glucose measurement (mass/volume) 140 mg/dL 70-105 Serum or plasma calcium measurement (mass/volume) 8.9 mg/dL 8.5-10.1 Serum or plasma total bilirubin measurement (mass/volume) 0.9 mg/dL 0.1-1.0 Serum or plasma alkaline phosphatase measurement (enzymatic activity/volume) 68 U/L 40-136 Serum or plasma aspartate aminotransferase measurement (enzymatic activity/ volume) 24 U/L 5-34 Serum or plasma alanine aminotransferase measurement (enzymatic activity/volume ) 20 U/L 0-55 Serum or plasma protein measurement (mass/volume) 6.7 g/dL 6.4-8.2 Serum or plasma albumin measurement (mass/volume) 3.6 g/dL 3.2-4.5 CALCIUM CORRECTED 9.2 mg/dL 8.5-10.1 Capillary blood glucose measurement by glucometer (mass/volume) - 05/31/18 11: 35 Capillary blood glucose measurement by glucometer (mass/volume) 157 mg/dL 70-110 Capillary blood glucose measurement by glucometer (mass/volume) - 05/31/18 15: 47 Capillary blood glucose measurement by glucometer (mass/volume) 135 mg/dL 70-110 Capillary blood glucose measurement by glucometer (mass/volume) - 05/31/18 20: 15 Capillary blood glucose measurement by glucometer (mass/volume) 117 mg/dL 70-110 Complete blood count (CBC) with automated white blood cell (WBC) differential - 06/01/18 06:00 Blood leukocytes automated count (number/volume) 10.8 10*3/uL 4.3-11.0 Blood erythrocytes automated count (number/volume) 4.16 10*6/uL 4.35-5.85 Venous blood hemoglobin measurement (mass/volume) 13.1 g/dL 11.5-16.0 Blood hematocrit (volume fraction) 38 % 35-52 Automated erythrocyte mean corpuscular volume 91 [foz_us] 80-99 Automated erythrocyte mean corpuscular hemoglobin (mass per erythrocyte) 31 pg 25-34 Automated erythrocyte mean corpuscular hemoglobin concentration measurement ( mass/volume) 35 g/dL 32-36 Automated erythrocyte distribution width ratio 13.4 % 10.0-14.5 Automated blood platelet count (count/volume) 159 10*3/uL 130-400 Automated blood platelet mean volume measurement 10.2 [foz_us] 7.4-10.4 Automated blood neutrophils/100 leukocytes 77 % 42-75 Automated blood lymphocytes/100 leukocytes 15 % 12-44 Blood monocytes/100 leukocytes 7 % 0-12 Automated blood eosinophils/100 leukocytes 1 % 0-10 Automated blood basophils/100 leukocytes 0 % 0-10 Blood neutrophils automated count (number/volume) 8.3 10*3 1.8-7.8 Blood lymphocytes automated count (number/volume) 1.7 10*3 1.0-4.0 Blood monocytes automated count (number/volume) 0.8 10*3 0.0-1.0 Automated eosinophil count 0.1 10*3/uL 0.0-0.3 Automated blood basophil count (count/volume) 0.0 10*3/uL 0.0-0.1 Capillary blood glucose measurement by glucometer (mass/volume) - 06/01/18 06: 01 Capillary blood glucose measurement by glucometer (mass/volume) 121 mg/dL 70-110 Comprehensive metabolic panel - 06/01/18 06:30 Serum or plasma sodium measurement (moles/volume) 136 mmol/L 135-145 Serum or plasma potassium measurement (moles/volume) 3.3 mmol/L 3.6-5.0 Serum or plasma chloride measurement (moles/volume) 103 mmol/L 98-107 Carbon dioxide 21 mmol/L 21-32 Serum or plasma anion gap determination (moles/volume) 12 mmol/L 5-14 Serum or plasma urea nitrogen measurement (mass/volume) 13 mg/dL 7-18 Serum or plasma creatinine measurement (mass/volume) 0.74 mg/dL 0.60-1.30 Serum or plasma urea nitrogen/creatinine mass ratio 18 NRG Serum or plasma creatinine measurement with calculation of estimated glomerular filtration rate > NRG Serum or plasma glucose measurement (mass/volume) 118 mg/dL 70-105 Serum or plasma calcium measurement (mass/volume) 8.9 mg/dL 8.5-10.1 Serum or plasma total bilirubin measurement (mass/volume) 0.7 mg/dL 0.1-1.0 Serum or plasma alkaline phosphatase measurement (enzymatic activity/volume) 55 U/L 40-136 Serum or plasma aspartate aminotransferase measurement (enzymatic activity/ volume) 22 U/L 5-34 Serum or plasma alanine aminotransferase measurement (enzymatic activity/volume ) 24 U/L 0-55 Serum or plasma protein measurement (mass/volume) 5.9 g/dL 6.4-8.2 Serum or plasma albumin measurement (mass/volume) 3.2 g/dL 3.2-4.5 CALCIUM CORRECTED 9.5 mg/dL 8.5-10.1 Vancomycin trough - 06/01/18 06:30 Vancomycin trough 21.5 ug/mL 10.0-20.0 Capillary blood glucose measurement by glucometer (mass/volume) - 06/01/18 11: 26 Capillary blood glucose measurement by glucometer (mass/volume) 167 mg/dL 70-110 Capillary blood glucose measurement by glucometer (mass/volume) - 06/01/18 16: 15 Capillary blood glucose measurement by glucometer (mass/volume) 113 mg/dL 70-110 Capillary blood glucose measurement by glucometer (mass/volume) - 06/01/18 21: 27 Capillary blood glucose measurement by glucometer (mass/volume) 181 mg/dL 70-110 Complete blood count (CBC) with automated white blood cell (WBC) differential - 06/02/18 06:00 Blood leukocytes automated count (number/volume) 6.2 10*3/uL 4.3-11.0 Blood erythrocytes automated count (number/volume) 3.96 10*6/uL 4.35-5.85 Venous blood hemoglobin measurement (mass/volume) 12.2 g/dL 11.5-16.0 Blood hematocrit (volume fraction) 37 % 35-52 Automated erythrocyte mean corpuscular volume 92 [foz_us] 80-99 Automated erythrocyte mean corpuscular hemoglobin (mass per erythrocyte) 31 pg 25-34 Automated erythrocyte mean corpuscular hemoglobin concentration measurement ( mass/volume) 33 g/dL 32-36 Automated erythrocyte distribution width ratio 12.8 % 10.0-14.5 Automated blood platelet count (count/volume) 185 10*3/uL 130-400 Automated blood platelet mean volume measurement 10.4 [foz_us] 7.4-10.4 Automated blood neutrophils/100 leukocytes 63 % 42-75 Automated blood lymphocytes/100 leukocytes 21 % 12-44 Blood monocytes/100 leukocytes 11 % 0-12 Automated blood eosinophils/100 leukocytes 3 % 0-10 Automated blood basophils/100 leukocytes 1 % 0-10 Blood neutrophils automated count (number/volume) 3.9 10*3 1.8-7.8 Blood lymphocytes automated count (number/volume) 1.3 10*3 1.0-4.0 Blood monocytes automated count (number/volume) 0.7 10*3 0.0-1.0 Automated eosinophil count 0.2 10*3/uL 0.0-0.3 Automated blood basophil count (count/volume) 0.0 10*3/uL 0.0-0.1 Comprehensive metabolic panel - 06/02/18 06:00 Serum or plasma sodium measurement (moles/volume) 138 mmol/L 135-145 Serum or plasma potassium measurement (moles/volume) 3.7 mmol/L 3.6-5.0 Serum or plasma chloride measurement (moles/volume) 108 mmol/L 98-107 Carbon dioxide 21 mmol/L 21-32 Serum or plasma anion gap determination (moles/volume) 9 mmol/L 5-14 Serum or plasma urea nitrogen measurement (mass/volume) 13 mg/dL 7-18 Serum or plasma creatinine measurement (mass/volume) 0.74 mg/dL 0.60-1.30 Serum or plasma urea nitrogen/creatinine mass ratio 18 NRG Serum or plasma creatinine measurement with calculation of estimated glomerular filtration rate > NRG Serum or plasma glucose measurement (mass/volume) 120 mg/dL 70-105 Serum or plasma calcium measurement (mass/volume) 9.1 mg/dL 8.5-10.1 Serum or plasma total bilirubin measurement (mass/volume) 0.5 mg/dL 0.1-1.0 Serum or plasma alkaline phosphatase measurement (enzymatic activity/volume) 65 U/L 40-136 Serum or plasma aspartate aminotransferase measurement (enzymatic activity/ volume) 27 U/L 5-34 Serum or plasma alanine aminotransferase measurement (enzymatic activity/volume ) 33 U/L 0-55 Serum or plasma protein measurement (mass/volume) 5.9 g/dL 6.4-8.2 Serum or plasma albumin measurement (mass/volume) 3.2 g/dL 3.2-4.5 CALCIUM CORRECTED 9.7 mg/dL 8.5-10.1 Capillary blood glucose measurement by glucometer (mass/volume) - 06/02/18 11: 08 Capillary blood glucose measurement by glucometer (mass/volume) 129 mg/dL 70-110 Capillary blood glucose measurement by glucometer (mass/volume) - 06/02/18 16: 19 Capillary blood glucose measurement by glucometer (mass/volume) 110 mg/dL 70-110 Capillary blood glucose measurement by glucometer (mass/volume) - 06/02/18 20: 16 Capillary blood glucose measurement by glucometer (mass/volume) 143 mg/dL 70-110 Capillary blood glucose measurement by glucometer (mass/volume) - 06/03/18 05: 45 Capillary blood glucose measurement by glucometer (mass/volume) 121 mg/dL 70-110 Complete blood count (CBC) with automated white blood cell (WBC) differential - 06/03/18 05:53 Blood leukocytes automated count (number/volume) 6.5 10*3/uL 4.3-11.0 Blood erythrocytes automated count (number/volume) 3.93 10*6/uL 4.35-5.85 Venous blood hemoglobin measurement (mass/volume) 12.2 g/dL 11.5-16.0 Blood hematocrit (volume fraction) 36 % 35-52 Automated erythrocyte mean corpuscular volume 92 [foz_us] 80-99 Automated erythrocyte mean corpuscular hemoglobin (mass per erythrocyte) 31 pg 25-34 Automated erythrocyte mean corpuscular hemoglobin concentration measurement ( mass/volume) 34 g/dL 32-36 Automated erythrocyte distribution width ratio 12.8 % 10.0-14.5 Automated blood platelet count (count/volume) 209 10*3/uL 130-400 Automated blood platelet mean volume measurement 9.9 [foz_us] 7.4-10.4 Automated blood neutrophils/100 leukocytes 56 % 42-75 Automated blood lymphocytes/100 leukocytes 27 % 12-44 Blood monocytes/100 leukocytes 11 % 0-12 Automated blood eosinophils/100 leukocytes 5 % 0-10 Automated blood basophils/100 leukocytes 1 % 0-10 Blood neutrophils automated count (number/volume) 3.7 10*3 1.8-7.8 Blood lymphocytes automated count (number/volume) 1.7 10*3 1.0-4.0 Blood monocytes automated count (number/volume) 0.7 10*3 0.0-1.0 Automated eosinophil count 0.3 10*3/uL 0.0-0.3 Automated blood basophil count (count/volume) 0.1 10*3/uL 0.0-0.1 Vancomycin trough - 06/03/18 05:53 Vancomycin trough 18.2 ug/mL 10.0-20.0 Encounters ACCT No. Visit Date/Time Discharge Status Pt. Type Provider Facility Loc./Unit Complaint [id number] 08/01/2018 07:20:00 08/01/2018 23:59:59 CLS Preadmit YRN OSBORN MD, FACC, FACP CCDS [facility] CR3 CARDIAC REHAB PHASE III [id number] 07/01/2018 15:25:00 07/31/2018 00:01:00 DIS Outpatient YRN OSBORN MD, FACC, FACP CCDS [facility]3 CARDIAC REHAB PHASE III [id number] 05/20/2018 15:13:00 06/19/2018 00:01:00 DIS Outpatient IRENA REYES FACC, YRN FACP CCDS [facility]3 CARDIAC REHAB PHASE III [id number] 05/30/2018 15:25:00 06/03/2018 11:00:00 DIS Inpatient KERLINE LUBIN DO S [facility] 4TH CELLULITUS OF LEFT ARM [id number] 05/21/2018 00:11:00 05/21/2018 23:59:59 CLS Preadmit KELLENAMITA AN [facility] ONC [id number] 02/19/2018 09:09:00 05/20/2018 00:01:00 DIS Outpatient AMITA FOREMAN [facility] ONC [id number] 05/15/2018 13:27:00 05/15/2018 00:01:00 DIS Outpatient IRENA REYES FACC, YRN FACP CCDS [facility]3 CARDIAC REHAB PHASE III [id number] 02/19/2018 11:22:00 02/19/2018 23:59:59 CLS Preadmit KELLEN, AMITA Jordi [facility] RAD SCREENING [id number] 10/25/2017 07:13:00 10/25/2017 23:59:59 CLS Outpatient DEANDRE FOREMANYASH Jordi [facility] RAD SCREENING [id number] 08/13/2017 17:00:00 09/09/2017 00:01:00 DIS Outpatient IRENA REYES FACC, YRN FACP CCDS [facility]3 CARDIAC REHAB [id number] 08/13/2017 10:00:00 08/13/2017 23:59:59 CLS Preadmit IRENA REYES FACC, YRN FACP CCDS [facility] CR AMI, STENT [id number] 05/28/2017 10:28:00 08/12/2017 00:01:00 DIS Outpatient IRENA REYES FACC, YRN FACP CCDS [facility] CR AMI, STENT [id number] 02/09/2017 09:19:00 05/10/2017 00:01:00 DIS Outpatient AMITA FOREMAN [facility] ONC [id number] 04/20/2017 11:11:00 05/06/2017 00:01:00 DIS Outpatient IRENA REYES FACC, ALI FACP CCDS [facility] CR AMI, STENT [id number] 03/14/2017 09:39:00 03/14/2017 23:59:59 CLS Outpatient IRENA REYES FACEvans, ALI FACP CCDS [facility] CARD CAD [id number] 02/02/2017 10:25:00 02/03/2017 00:01:00 DIS Outpatient IRENA REYES FACC, YRN FACP CCDS [facility] CR AMI, STENT [id number] 12/21/2016 12:28:00 12/23/2016 16:34:00 DIS Inpatient IRENA REYES FACC, YRN SERRANO CCDS [facility] ICU CHEST PAIN/ ACUTE [place] [id number] 10/12/2016 15:51:00 11/20/2016 15:51:00 DIS Outpatient KERLINE LUBIN DO [facility] REHAB LYMPHEDEMA CONSULT [id number] 11/01/2016 05:33:00 11/01/2016 07:27:00 DIS Emergency DEISI HAMLIN MD [facility] ER LOOSE STOOL, DEHYDRATED [id number] 10/24/2016 08:31:00 10/24/2016 23:59:59 CLS Outpatient AMITA FOREMAN [facility] RAD SCREENING [id number] 09/10/2016 09:08:00 09/14/2016 11:02:00 DIS Inpatient KERLINE LUBIN DO [facility] 4TH CELLULITIS L ARM, CHRONIC LYMPHEDEMA L ARM [id number] 09/13/2016 10:47:00 09/13/2016 23:59:59 CLS Preadmit KERLINE LUBIN DO SWB [id number] 03/29/2016 09:24:00 04/01/2016 12:28:00 DIS Inpatient KERLINE LUBIN DO S [facility] 4TH LT UPPER EXT CELLULITIS [id number] 02/10/2016 14:40:00 02/10/2016 23:59:59 CLS Outpatient AMITA FOREMAN [facility] ONC [id number] 11/22/2015 08:41:00 11/22/2015 23:59:59 CLS 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 CARDIAC MURMUR [id number] 02/16/2015 07:08:00 02/16/2015 09:50:00 DIS Outpatient MARY MENDOZA MD [facility] SDC SCREENING [id number] 02/12/2015 05:39:00 02/12/2015 23:59:59 CLS Outpatient MARY MENDOZA MD [facility] PREOP SCREENING [id number] 02/11/2015 13:03:00 02/11/2015 23:59:59 CLS Outpatient MARY EASTMAN CAR SHAGGER [facility] ONC [id number] 01/27/2015 11:08:00 01/27/2015 23:59:59 CLS Outpatient KERLINE LUBIN DO S [facility] RAD RT CAROTID BRUIT [id number] 10/14/2014 08:30:00 10/14/2014 23:59:59 CLS Outpatient AMITA FOREMAN [facility] RAD BREAST CA [id number] 02/05/2014 13:17:00 05/06/2014 00:01:00 DIS Outpatient AMITA FOREMAN [facility] ONC [id number] 10/16/2013 14:30:00 12/17/2013 12:01:00 DIS Outpatient AMITA FOREMAN [facility] REHAB LYMPHEDEMA LUE, BREAST CA [id number] 10/09/2013 12:11:00 10/09/2013 23:59:59 CLS Outpatient AMITA FOREMAN [facility] RAD HX OF BREAST CANCER [id number] 02/06/2013 15:13:00 05/07/2013 00:01:00 DIS Outpatient AMITA FOREMAN [facility] ONC [id number] 04/28/2013 10:44:00 04/28/2013 23:59:59 CLS Outpatient ALYSSA GRIMES CAR SHAGGER [facility] RAD PNEUMONIA IZABEL [id number] 04/23/2013 11:28:00 04/23/2013 23:59:59 CLS Outpatient VANALYSSA CUELLAR CAR SHAGGER [facility] RAD COUGH,WHEEZING [id number] 10/07/2012 08:20:00 10/07/2012 23:59:59 CLS Outpatient AMITA FOREMAN [facility] RAD SIX MONTH F/U [id number] 10/19/2015 09:04:00 Document Registration [id number] 10/14/2014 11:29:00 Document Registration [id number] 10/14/2014 11:29:00 Document Registration [id number] 10/14/2014 11:29:00 Document Registration [id number] 10/14/2014 11:29:00 Document Registration [id number] 04/26/2012 10:23:00 Document Registration [id number] 04/08/2012 12:55:00 Document Registration [id number] 03/21/2012 09:18:00 Document Registration [id number] 11/23/2011 14:50:00 Document Registration [id number] 11/07/2011 05:36:00 Document Registration [id number] 11/01/2011 08:10:00 Document Registration [id number] 09/11/2011 12:30:00 Document Registration [id number] 09/05/2011 00:09:00 Document Registration [id number] 03/20/2011 07:15:00 Document Registration [id number] 03/05/2011 13:46:00 Document Registration [id number] 11/17/2010 14:54:00 Document Registration [id number] 08/04/2010 10:34:00 Document Registration [id number] 01/03/2010 15:04:00 Document Registration [id number] 11/30/2009 15:35:00 Document Registration 09/201706/07/2018 10:43:38 06/07/2018 23:59:59 [facility] Outpatient Kerline LubinWeNita 02/16/2015 07:09:23 ACT Document Registration
--- OUTSIDE RECORDS SUMMARY | 2018-08-10 19:00 | XMS REPORT | Continuity of Care Document ---
Author Organization Unknown Address Unknown Allergies Active Description Code Type Severity Reaction Onset Reported/Identified Relationship to Patient Clinical Status Yes No Known Drug Allergies [id number] Drug Allergy Unknown N/A 11/01/2016 Medications There [...] N Ot 174.9 10/14/2014 VANALYSSA CUELLAR M SALES RELATIONSHIP MANAGER Ot 786.07 10/14/2014 VANBECELAEREALYSSA M SALES RELATIONSHIP MANAGER Ot 786.2 10/14/2014 VANBECELAERE, ALYSSA M SALES RELATIONSHIP MANAGER Ot 793.19 10/14/2014 VANBECELAEREALYSSA M SALES RELATIONSHIP MANAGER Ot 486 10/14/2014 KELLENAMITA AN N Ot 174.9 10/14/2014 KELLENAMITA AN N Ot V45.71 11/02/2014 KELLENAMITA AN N Ot 174.9 11/02/2014 KELLENAMITA AN N Ot 457.1 11/12/2014 KELLENAMITA AN N Ot 174.9 11/12/2014 KELLENAMITA AN N Ot 457.1 02/16/2015 KELLY REYES, MARY Costa Ot K57.90 DVRTCLOS OF [facility], PART [facility], W/O PERF 02/16/2015 KELLY REYES, MARY Costa Ot Z12.11 ENCOUNTER FOR SCREENING FOR MALIGNANT NE 02/17/2015 ABDON LUBIN DOLINE S Ot 433.10 03/01/2015 ABDON LUBIN DOLINE S Ot 433.10 03/03/2015 MARY EASTMAN SALES RELATIONSHIP MANAGER Ot I89.0 03/03/2015 EASTMANMARY Green S SALES RELATIONSHIP MANAGER Ot Z08 03/03/2015 EASTMANMARY Green S SALES RELATIONSHIP MANAGER Ot Z85.3 03/03/2015 EASTMANMARY Green S SALES RELATIONSHIP MANAGER Ot Z90.12 03/03/2015 EASTMANMARY Green S SALES RELATIONSHIP MANAGER Ot Z92.21 03/09/2015 EASTMANMARY Green S SALES RELATIONSHIP MANAGER Ot I89.0 03/09/2015 EASTMANMARY S SALES RELATIONSHIP MANAGER Ot Z08 03/09/2015 EASTMANMARY S SALES RELATIONSHIP MANAGER Ot Z85.3 03/09/2015 EASTMANMARY S SALES RELATIONSHIP MANAGER Ot Z90.12 03/09/2015 EASTMANMARY Green S SALES RELATIONSHIP MANAGER Ot Z92.21 10/20/2015 Ot Z12.31 ENCNTR SCREEN [...] ACQUIRED ABSENCE OF BREAST AND NIPPLE 02/11/2016 KELLENAIMTA AN Jordi Ot I89.0 LYMPHEDEMA, NOT ELSEWHERE CLASSIFIED 02/11/2016 KELLENAMITA AN Jorid Ot Z08 ENCNTR FOR FOLLOW-UP EXAM AFTER [...] PERSONAL HISTORY OF MALIGNANT NEOPLASM O 03/02/2016 MAITA FOREMAN N Ot Z90.12 ACQUIRED ABSENCE OF [...] NEOPL BREAST NOS 03/29/2016 VANBECELAERE, ALYSSA M SALES RELATIONSHIP MANAGER Ot 786.07 WHEEZING 03/29/2016 VANBECELAERE, ALYSSA M SALES RELATIONSHIP MANAGER Ot 786.2 COUGH 03/29/2016 VANBECELAERE, ALYSSA M SALES RELATIONSHIP MANAGER Ot 793.19 OTHER NONSPECIFIC ABNORMAL FINDING OF [place] 03/29/2016 VANBECELAERE, ALYSSA M SALES RELATIONSHIP MANAGER Ot 486 PNEUMONIA, ORGANISM NOS 03/29/2016 AMITA FOREMAN Ot 174.9 MALIGN NEOPL BREAST NOS 03/29/2016 AMITA FOREMAN Ot 457.1 OTHER LYMPHEDEMA 03/29/2016 AMITA FOREMAN Ot I89.0 LYMPHEDEMA, NOT ELSEWHERE CLASSIFIED 03/29/2016 AMITA FOREMAN Ot Z08 ENCNTR FOR FOLLOW-UP EXAM AFTER TRTMT FO 03/29/2016 AMITA FOREMAN Jordi Ot Z85.3 PERSONAL HISTORY OF MALIGNANT NEOPLASM O 03/29/2016 AMITA FOREMAN Jordi Ot Z90.12 ACQUIRED ABSENCE [...] 04/01/2016 ABDON LUBIN DOLINE S Ot Z79.4 SHELTER (CURRENT) USE OF INSULIN 04/01/2016 ABDON LUBIN DOLINE S Ot Z90.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 09/13/2016 KERLINE LUBIN DO S Ot E11.9 TYPE 2 DIABETES MELLITUS WITHOUT COMPLIC 09/13/2016 OREKERLINE HERNANDEZ DO Ot G47.30 SLEEP APNEA, UNSPECIFIED 09/13/2016 PRITESH SALMERON, KERLINE S Ot I10 ESSENTIAL (PRIMARY) HYPERTENSION 09/13/2016 PRITESH SALMERON, KERLINE S Ot I89.0 LYMPHEDEMA, NOT ELSEWHERE CLASSIFIED 09/13/2016 ABODN LUBIN DOLINE S Ot L03.114 CELLULITIS OF LEFT UPPER LIMB 09/13/2016 KERLINE LUBIN DO Ot R11.0 NAUSEA 09/13/2016 ABDON LUBIN DOLINE S Ot S60.222A CONTUSION OF LEFT HAND, INITIAL ENCOUNTE 09/13/2016 KERLINE LUBIN DO S Ot W01.0XXA FALL SAME LEV FROM SLIP/TRIP W/O STRIKE 09/13/2016 KERLINE LUBIN DO Ot Y92.[address] [facility] 09/13/2016 KERLINE LUBIN DO Ot Z85.3 [...] I89.0 LYMPHEDEMA, NOT ELSEWHERE CLASSIFIED 09/14/2016 KERLINE ULBIN DO S Ot L03.114 CELLULITIS OF LEFT [...] NEOPLASM OF [facility] 10/27/2016 ABDON LUBIN DOLINE S Ot I89.0 LYMPHEDEMA, NOT ELSEWHERE CLASSIFIED 11/01/2016 DEISI HAMLIN MD Ot E11.9 TYPE 2 DIABETES MELLITUS WITHOUT COMPLIC 11/01/2016 DEISI HAMLIN MD Ot G47.30 SLEEP APNEA, UNSPECIFIED 11/01/2016 DEISI HAMLIN MD Ot I10 ESSENTIAL (PRIMARY) HYPERTENSION 11/01/2016 DEISI HAMLIN MD Ot R19.7 DIARRHEA, UNSPECIFIED 11/01/2016 YAKELIN REYES, DEISI Costa Ot Z79.82 SHELTER (CURRENT) USE OF ASPIRIN 11/02/2016 ABDON LUBIN [...] CCDS Ot I25.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 OF [place] COR ART W 12/23/2016 IRENA REYES FACC, [...] CCDS Ot I25.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 OF [place] COR ART W 12/23/2016 IRENA REYES FACC, [...] CCDS Ot I25.10 ATHSCL HEART DISEASE OF [place] CORONARY 04/04/2017 IRENA REYES FACC, ALI FACP CCDS Ot I25.5 ISCHEMIC CARDIOMYOPATHY 04/04/2017 IRENA REYES FACC, ALI FACP CCDS Ot I65.23 OCCLUSION AND STENOSIS OF BILATERAL [place] 04/05/2017 YRN OSBORN MD, FACC FACP CCDS Ot I25.2 OLD MYOCARDIAL INFARCTION 04/05/2017 YNR OSBORN MD, FACC FACP CCDS Ot Z48.812 ENCNTR FOR SURGICAL AFTCR FOLLOWING SURG 04/05/2017 YRN OSBORN MD, FACC FACP CCDS Ot Z95.5 PRESENCE OF CORONARY ANGIOPLASTY IMPLANT 04/05/2017 AMITA FOREMAN Ot I89.0 LYMPHEDEMA, NOT ELSEWHERE CLASSIFIED 04/05/2017 AMIAT FOREMAN Ot Z08 ENCNTR FOR FOLLOW-UP EXAM AFTER TRTMT FO 04/05/2017 AMITA FOREMAN Ot Z85.3 PERSONAL HISTORY OF MALIGNANT NEOPLASM O 04/05/2017 AMITA FOREMAN Ot Z90.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 04/05/2017 AIMTA FOREMAN Ot Z92.21 PERSONAL HISTORY OF ANTINEOPLASTIC CHEMO 04/09/2017 IRENA REYES FACC, YRN FACP CCDS Ot E66.09 OTHER OBESITY DUE TO EXCESS CALORIES 04/09/2017 IRENA REYES FACC, YRN FACP CCDS Ot E78.4 OTHER HYPERLIPIDEMIA 04/09/2017 IRENA REYES FACC, ALI FACP CCDS Ot I10 ESSENTIAL (PRIMARY) HYPERTENSION 04/09/2017 IRENA REYES FACC, ALI FACP CCDS Ot I25.10 ATHSCL HEART DISEASE OF [place] CORONARY 04/09/2017 IRENA REYES FACC, ALI FACP [...] Ot I25.2 OLD MYOCARDIAL INFARCTION 05/14/2017 IRENA RYEES FACC, ALI FACP CCDS Ot Z48.812 ENCNTR [...] NEOPL BREAST NOS 02/19/2018 VANBECELAERE, ALYSSA M SALES RELATIONSHIP MANAGER Ot 786.07 WHEEZING 02/19/2018 VANBECELAERE, ALYSSA M SALES RELATIONSHIP MANAGER Ot 786.2 COUGH 02/19/2018 VANBECELAERE, ALYSSA M SALES RELATIONSHIP MANAGER Ot 793.19 OTHER NONSPECIFIC ABNORMAL FINDING OF [place] 02/19/2018 VANBECELAERE, ALYSSA M SALES RELATIONSHIP MANAGER Ot 486 PNEUMONIA, ORGANISM NOS 02/19/2018 AMITA [...] FOR OTHER PREPROCEDURAL EXAMIN 02/19/2018 MARY EASTMAN SALES RELATIONSHIP MANAGER Ot I89.0 LYMPHEDEMA, NOT ELSEWHERE CLASSIFIED 02/19/2018 MARY EASTMAN SALES RELATIONSHIP MANAGER Ot Z08 ENCNTR FOR FOLLOW-UP EXAM AFTER TRTMT FO 02/19/2018 MARY EASTMAN SALES RELATIONSHIP MANAGER Ot Z85.3 PERSONAL HISTORY OF MALIGNANT NEOPLASM O 02/19/2018 MARY EASTMAN SALES RELATIONSHIP MANAGER Ot Z90.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 02/19/2018 MARY EASTMAN SALES RELATIONSHIP MANAGER Ot Z92.21 PERSONAL HISTORY OF ANTINEOPLASTIC CHEMO 02/19/2018 Ot Z12.31 ENCNTR SCREEN MAMMOGRAM FOR MALIGNANT NE 02/19/2018 CAT BUSH VIRTUAL REALITY SPECIALIST Ot R01.1 CARDIAC MURMUR, UNSPECIFIED 02/19/2018 AMITA [...] CCDS Ot I25.10 ATHSCL HEART DISEASE OF [place] CORONARY 02/19/2018 IRENA REYES FACC, ALI FACP [...] S Ot I10 ESSENTIAL (PRIMARY) HYPERTENSION 06/01/2018 [facility] Ot 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 06/01/2018 [facility] K[facility] SALMERON S Ot L03.114 CELLULITIS OF LEFT UPPER LIMB 06/01/2018 [facility] KERLINE SALMERON Ot Z90.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 06/02/2018 [facility] KERLINE SALMERON Ot E11.9 TYPE 2 DIABETES MELLITUS WITHOUT COMPLIC 06/02/2018 [facility] DOKERLINE Ot I10 ESSENTIAL (PRIMARY) HYPERTENSION 06/02/2018 [facility] DOKERLINE Ot 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 06/02/2018 [facility] L03.114 CELLULITIS OF LEFT UPPER LIMB 06/02/2018 [facility].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 06/03/2018 [facility] KERLINE SALMERON Ot E11.9 TYPE 2 DIABETES MELLITUS WITHOUT COMPLIC 06/03/2018 [facility] I10 ESSENTIAL (PRIMARY) HYPERTENSION 06/03/2018 [facility] KERLINE SALMERON Ot 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 06/03/2018 [facility] KERLINE SALMERON Ot L03.114 CELLULITIS OF LEFT UPPER LIMB 06/03/2018 [facility] Ot Z90.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 06/03/2018 [facility] K[facility] SALMERON Ot 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 06/03/2018 [facility] DO[facility] Ot E11.9 TYPE 2 DIABETES MELLITUS WITHOUT COMPLIC 06/03/2018 [facility] KERLINE SALMERON S Ot E66.09 OTHER OBESITY DUE TO EXCESS CALORIES 06/03/2018 [facility] DOKERLINE S Ot E87.6 HYPOKALEMIA 06/03/2018 KERLINE LUBIN DO Ot I10 ESSENTIAL (PRIMARY) HYPERTENSION 06/03/2018 KERLINE LUBIN DO Ot I25.10 ATHSCL HEART DISEASE OF [place] CORONARY 06/03/2018 KERLINE LUBIN DO Ot I97.2 [...] BREAST AND NIPP 06/20/2018 IRENA REYES FAC, [facility] CCDS Ot Z29.8 ENCOUNTER FOR OTHER SPECIFIED PROPHYLACT 08/02/2018 IRENA REYES [facility], [facility] CCDS Ot Z29.8 ENCOUNTER FOR OTHER SPECIFIED PROPHYLACT Procedures Code Description Performed By Performed On 38.93 VENOUS CATHETERIZATION NEC 09/11/2011 [id number] DILATION OF 1 COR ART WITH DRUG-ELUT INT 12/21/2016 [id number] MEASURE OF CARDIAC SAMPL PRESSURE, L H 12/21/2016 [id number] FLUOROSCOPY OF MULT COR ART USING L OSM 12/21/2016 [id number] FLUOROSCOPY OF LEFT HEART USING LOW OSMO [...] 06/03/18 05:53 Vancomycin trough 18.2 ug/mL 10.0-20.0 Complete blood count (CBC) with automated white blood cell (WBC) differential - 08/10/18 16:42 Blood leukocytes automated count (number/volume) 15.7 10*3/uL 4.3-11.0 Blood erythrocytes automated count (number/volume) 4.87 10*6/uL 4.35-5.85 Venous blood hemoglobin measurement (mass/volume) 15.0 g/dL 11.5-16.0 Blood hematocrit (volume fraction) 44 % 35-52 Automated erythrocyte mean corpuscular volume 91 [foz_us] 80-99 Automated erythrocyte mean corpuscular hemoglobin (mass per erythrocyte) 31 pg 25-34 Automated erythrocyte mean corpuscular hemoglobin concentration measurement ( mass/volume) 34 g/dL 32-36 Automated erythrocyte distribution width ratio 13.0 % 10.0-14.5 Automated blood platelet count (count/volume) 224 10*3/uL 130-400 Automated blood platelet mean volume measurement 10.2 [foz_us] 7.4-10.4 Automated blood neutrophils/100 leukocytes 90 % 42-75 Automated blood lymphocytes/100 leukocytes 6 % 12-44 Blood monocytes/100 leukocytes 4 % 0-12 Automated blood eosinophils/100 leukocytes 0 % 0-10 Automated blood basophils/100 leukocytes 0 % 0-10 Blood neutrophils automated count (number/volume) 14.1 10*3 1.8-7.8 Blood lymphocytes automated count (number/volume) 0.9 10*3 1.0-4.0 Blood monocytes automated count (number/volume) 0.7 10*3 0.0-1.0 Automated eosinophil count 0.0 10*3/uL 0.0-0.3 Automated blood basophil count (count/volume) 0.0 10*3/uL 0.0-0.1 Comprehensive metabolic panel - 08/10/18 16:42 Serum or plasma sodium measurement (moles/volume) 136 mmol/L 135-145 Serum or plasma potassium measurement (moles/volume) 4.4 mmol/L 3.6-5.0 Serum or plasma chloride measurement (moles/volume) 104 mmol/L 98-107 Carbon dioxide 21 mmol/L 21-32 Serum or plasma anion gap determination (moles/volume) 11 mmol/L 5-14 Serum or plasma urea nitrogen measurement (mass/volume) 21 mg/dL 7-18 Serum or plasma creatinine measurement (mass/volume) 0.97 mg/dL 0.60-1.30 Serum or plasma urea nitrogen/creatinine mass ratio 22 NRG Serum or plasma creatinine measurement with calculation of estimated glomerular filtration rate 57 NRG Serum or plasma glucose measurement (mass/volume) 122 mg/dL 70-105 Serum or plasma calcium measurement (mass/volume) 10.2 mg/dL 8.5-10.1 Serum or plasma total bilirubin measurement (mass/volume) 0.9 mg/dL 0.1-1.0 Serum or plasma alkaline phosphatase measurement (enzymatic activity/volume) 78 U/L 40-136 Serum or plasma aspartate aminotransferase measurement (enzymatic activity/ volume) 21 U/L 5-34 Serum or plasma alanine aminotransferase measurement (enzymatic activity/volume ) 20 U/L 0-55 Serum or plasma protein measurement (mass/volume) 7.0 g/dL 6.4-8.2 Serum or plasma albumin measurement (mass/volume) 4.1 g/dL 3.2-4.5 CALCIUM CORRECTED 10.1 mg/dL 8.5-10.1 Serum or plasma C reactive protein measurement (mass/volume) - 08/10/18 16:42 Serum or plasma C reactive protein measurement (mass/volume) 1.04 mg /dL 0.00-0.50 Blood manual differential performed detection - 08/10/18 16:42 Blood monocytes/100 leukocytes 1 % NRG Manual blood segmented neutrophils/100 leukocytes 80 % NRG Blood band neutrophils/100 leukocytes 11 % NRG Manual blood lymphocytes/100 leukocytes 8 % NRG Manual eosinophils/100 leukocytes in nose 0 % NRG Manual blood basophils/100 leukocytes 0 % NRG Blood erythrocyte morphology finding identification NORMAL NRG Blood toxic granules detection by light microscopy 1+ NRG Encounters ACCT No. Visit Date/Time Discharge Status Pt. Type Provider Facility Loc./Unit Complaint [id number] 08/01/2018 07:20:00 08/01/2018 23:59:59 CLS Preadmit YRN OSBORN MD, FACC, FACP CCDS [facility] [place] [address] CARDIAC REHAB PHASE III [id number] 07/01/2018 15:25:00 07/31/2018 00:01:00 DIS Outpatient YRN OSBORN MD, FACC, FACP CCDS [facility] [place] [address] CARDIAC REHAB PHASE III [id number] 05/20/2018 15:13:00 06/19/2018 00:01:00 DIS Outpatient YRN OSBORN MD, FACC, FACP CCDS [facility] [place] [address] CARDIAC REHAB PHASE III [id number] 05/30/2018 15:25:00 06/03/2018 11:00:00 DIS Inpatient KERLINE LUBIN DO S [facility] 4TH CELLULITUS OF LEFT ARM [id number] 05/21/2018 00:11:00 05/21/2018 23:59:59 CLS Preadmit AMITA FOREMAN N [facility] ONC [id number] 02/19/2018 09:09:00 05/20/2018 00:01:00 DIS Outpatient KELLEN, AMITA Jordi [facility] ONC [id number] 05/15/2018 13:27:00 05/15/2018 00:01:00 DIS Outpatient IRENA REYES FACC, ALI FACP CCDS [facility] CARDIAC REHAB PHASE III [id number] 02/19/2018 11:22:00 02/19/2018 23:59:59 CLS Preadmit KELLEN, AMITA Jordi [facility] RAD SCREENING [id number] 10/25/2017 07:13:00 10/25/2017 23:59:59 CLS Outpatient DEANDRE FOREMANYASH Jordi [facility] RAD SCREENING [id number] 08/13/2017 17:00:00 09/09/2017 00:01:00 DIS Outpatient IRENA REYES FACC, YRN FACP CCDS [facility] CARDIAC REHAB [id number] 08/13/2017 10:00:00 08/13/2017 23:59:59 CLS Preadmit IRENA REYES FACC, YRN FACP CCDS [facility] CR AMI, STENT [id number] 05/28/2017 10:28:00 08/12/2017 00:01:00 DIS Outpatient IRENA REYES FACC, YRN FACP CCDS [facility] CR AMI, STENT [id number] 02/09/2017 09:19:00 05/10/2017 00:01:00 DIS Outpatient AMITA FOREMAN [facility] ONC [id number] 04/20/2017 11:11:00 05/06/2017 00:01:00 DIS Outpatient IRENA REYES FACC, YRN FACP CCDS [facility] CR AMI, STENT [id number] 03/14/2017 09:39:00 03/14/2017 23:59:59 CLS Outpatient IRENA REYES FACC, ALI FACP CCDS [facility] CARD CAD [id number] 02/02/2017 10:25:00 02/03/2017 00:01:00 DIS Outpatient IRENA REYES FACC, YRN SERRANO CCDS [facility] CR AMI, STENT [id number] 12/21/2016 12:28:00 12/23/2016 16:34:00 DIS Inpatient IRENA REYES FACC, YRN SERRANO CCDS [facility] ICU CHEST PAIN/ ACUTE AL [id number] 10/12/2016 15:51:00 11/20/2016 15:51:00 DIS Outpatient KERLINE LUBIN DO [facility] REHAB LYMPHEDEMA CONSULT [id number] 11/01/2016 05:33:00 11/01/2016 07:27:00 DIS Emergency DEISI HAMLIN MD [facility] ER LOOSE STOOL, DEHYDRATED [id number] 10/24/2016 08:31:00 10/24/2016 23:59:59 CLS Outpatient AMITA FOREMAN [facility] RAD SCREENING [id number] 09/10/2016 09:08:00 09/14/2016 11:02:00 DIS Inpatient SIM LUBIN DOQUELINE S [facility] 4TH CELLULITIS L ARM, CHRONIC LYMPHEDEMA L ARM [id number] 09/13/2016 10:47:00 09/13/2016 23:59:59 CLS Preadmit SIM LUBIN DOQUELINE S SWB [id number] 03/29/2016 09:24:00 04/01/2016 12:28:00 DIS Inpatient SIM LUBIN DOQUELINE S [facility] 4TH LT UPPER EXT CELLULITIS [id number] 02/10/2016 14:40:00 02/10/2016 23:59:59 CLS Outpatient AMITA FOREMAN [facility] ONC [id number] 11/22/2015 08:41:00 11/22/2015 23:59:59 CLS Outpatient CAT BUSH APRN [facility] CARD CARDIAC MURMUR [id number] 02/16/2015 07:08:00 02/16/2015 09:50:00 DIS Outpatient MARY MENDOZA MD [facility] SDC SCREENING [id number] 02/12/2015 05:39:00 02/12/2015 23:59:59 CLS Outpatient MARY MENDOZA MD [facility] PREOP SCREENING [id number] 02/11/2015 13:03:00 02/11/2015 23:59:59 CLS Outpatient MARY EASTMAN SALES RELATIONSHIP MANAGER [facility] ONC [id number] 01/27/2015 11:08:00 01/27/2015 23:59:59 CLS Outpatient KERLINE LUBIN DO S [facility] RAD RT CAROTID BRUIT [id number] 10/14/2014 08:30:00 10/14/2014 23:59:59 CLS Outpatient AMITA FOREMAN [facility] RAD BREAST CA [id number] 02/05/2014 13:17:00 05/06/2014 00:01:00 DIS Outpatient AMITA FOREMAN [facility] ONC [id number] 10/16/2013 14:30:00 12/17/2013 12:01:00 DIS Outpatient AMITA FOREMAN [facility] REHAB LYMPHEDEMA LUE, BREAST CA [id number] 10/09/2013 12:11:00 10/09/2013 23:59:59 CLS Outpatient AMITA FOREMAN [facility] RAD HX OF BREAST CANCER [id number] 02/06/2013 15:13:00 05/07/2013 00:01:00 DIS Outpatient AMITA FOREMAN [facility] ONC [id number] 04/28/2013 10:44:00 04/28/2013 23:59:59 CLS Outpatient ALYSSA GRIMES SALES RELATIONSHIP MANAGER [facility] RAD PNEUMONIA IZABEL [id number] 04/23/2013 11:28:00 04/23/2013 23:59:59 CLS Outpatient VANALSYSA CUELLAR SALES RELATIONSHIP MANAGER [facility] RAD COUGH,WHEEZING [id number] 10/07/2012 08:20:00 10/07/2012 23:59:59 CLS Outpatient AMITA FOREMAN [facility] RAD SIX MONTH F/U [id number] 08/10/2018 17:25:00 ACT Inpatient KERLINE LUBIN DO [facility] 4TH CELLULITIS OF LUE [id number] 10/19/2015 09:04:00 Document Registration [id number] 10/14/2014 11:29:00 Document Registration [id number] 10/14/2014 11:29:00 Document Registration [id number] 10/14/2014 11:29:00 Document Registration [id number] 10/14/2014 11:29:00 Document Registration [id number] 04/26/2012 10:23:00 Document Registration [id number] 04/08/2012 12:55:00 Document Registration [id number] 03/21/2012 09:18:00 Document Registration [id number] 11/23/2011 14:50:00 Document Registration [id number] 11/07/2011 05:36:00 Document Registration [id number] 11/01/2011 08:10:00 Document Registration [id number] 09/11/2011 12:30:00 Document Registration [id number] 09/05/2011 00:09:00 Document Registration [id number] 03/20/2011 07:15:00 Document Registration [id number] 03/05/2011 13:46:00 Document Registration [id number] 11/17/2010 14:54:00 Document Registration [id number] 08/04/2010 10:34:00 Document Registration [id number] 01/03/2010 15:04:00 Document Registration [id number] 11/30/2009 15:35:00 Document Registration 09/201706/07/2018 10:43:38 06/07/2018 23:59:59 CLS Outpatient Kerline Lubin [id number] 02/16/2015 07:09:23 ACT Document Registration
[2018-08-10] MEDS ORDERED: inSUlin ASPART (NovoLOG) 1 UNIT/0.01 ML (CHARGE PER UNIT) SC SCH (19:30)
--- NOTE | 2018-08-10 19:34 | History & Physicial ---
History of Present Illness History of Present Illness Reason for visit/HPI This is a 72 year old female with chronic lymphedema of her left upper extremity from previous radical mastectomy with lymph node dissection who has a history of cellulitis developing abruptly in that arm. She had an episode in May of 2018 and was admitted for IV antibiotics. She also had an episode about 3 weeks ago during which she was admitted for 2 days in [place]. She woke up this morning and noticed her arm was red and swollen so presented to the emergency room for evaluation. Her WBC count is elevated at 15.7 but her CRP is normal and her lactic acid is normal. She will be admitted for IV antibiotics. She is very depressed about her recurrent infections and states that she worries and frets about doing anything for fear that she may get an infection in her arm. Date of Admission Aug 10, 2018 at 17:25 Date Seen by a Provider: Aug 10, 2018 Time Seen by a Provider: 19:37 I consulted on this patient on 08/10/18 19:28 Attending Physician Kerline Lubin DO Admitting Physician Kerline Lubin DO Consult Allergies and Home Medications Allergies Coded Allergies: No Known Drug Allergies (Unverified , 11/01/16) Home Medications Amlodipine Besylate 5 Mg Tablet, 5 MG PO DAILY, (Reported) Aspirin 81 Mg Tab.chew, 81 MG PO DAILY, (Reported) Atorvastatin Calcium 10 Mg Tablet, 10 MG PO DAILY, (Reported) Clopidogrel Bisulfate 75 Mg Tablet, 75 MG PO DAILY, (Reported) Lactobacillus Acidophilus/Pect 1 Each Capsule, 2 EACH PO TIDWM Prescribed by: KERLINE LUBIN on 06/03/18822 Loratadine 10 Mg Tablet, 10 MG PO DAILY, (Reported) Losartan/Hydrochlorothiazide 1 Each Tablet, 1 TAB PO DAILY, (Reported) Metoprolol Succinate 25 Mg Tab.er.24h, 25 MG PO DAILY, (Reported) Metronidazole 500 Mg Tablet, 500 MG PO BID Prescribed by: KERLINE LUBIN on 06/03/18822 Potassium Chloride 10 Meq Tablet.er, 10 MEQ PO BID Prescribed by: KERLINE LUBIN on 06/03/18822 Sulfamethoxazole/Trimethoprim 1 Each Tablet, 1 EACH PO BID Prescribed by: KERLINE LUBIN on 06/03/18822 Patient Home Medication List Home Medication List Reviewed: Yes Past Yfzjjnj-Yhnttd-Llwbmo Hx Patient Social History Alcohol Use: Occasionally Uses Alcohol Beverage of Choice: Beer Recreational Drug Use: No Smoking Status: Never a Smoker Recent Foreign Travel: No Contact w/other who traveled: No Recent Hopitalizations: No Recent Infectious Disease Expo: No Immunizations Up To Date Date of Pneumonia Vaccine: Jun 19, 2013 Seasonal Allergies Seasonal Allergies: No Surgeries Yes Abdominal, Breast, Gallbladder, Orthopedic Respiratory Yes Currently Using CPAP: Yes Currently Using BIPAP: No Cardiovascular Yes Hypertension Neurological No 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 System Hx 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 Disorders: No Sexually Transmitted Disease: No HIV/AIDS: No Female 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 Disorders: Denies 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 Genitourinary Yes (OCCASIONAL UTI) UTI-Chronic Gastrointestinal Yes Abdominal Hernia, C-Diff, Gall Bladder Disease Musculoskeletal Yes (CHRONIC LYMPHEDEMA LEFT ARM; LEFT ANKLE FX/ORIF; RIGHT KNEE SCOPE) Fractures Endocrine History of Endocrine Disorders: Yes Endocrine Disorders: Diabetes, Non-Insulin dep HEENT History of HEENT Disorders: No Cancer Yes Breast Did You Recieve Any Treatments: No Type of Treatment: Surgical Intervention Psychosocial History of Psychiatric Problem: No Integumentary History of Skin or Integumenta: Yes (SHINGLES; RECURRENT CELLULITIS LEFT ARM) Skin/Integumentary Disorders: Recent Skin Changes Blood Transfusions History of Blood Disorders: No Adverse Reaction to a Blood Tr: No Family Medical History Significant Family History: No Pertinent Family Hx Family Hx: Cardiovascular disease 19 FATHER Hypertension DAUGHTER Kidney disease 19 MOTHER POOR LEG CIRCULATION G8 SISTER Review of Systems Constitutional: weakness EENTM: No see HPI, No no symptoms reported, No ear discharge, No hearing loss, No ear pain, No blurred vision, No double vision, No eye pain, No tearing, No vision loss, No dental problems, No hoarseness, No mouth pain, No mouth swelling , No epistaxis, No nose congestion, No nose pain, No throat pain, No throat swelling, No other Respiratory: No no symptoms reported, No see HPI, No cough, No dyspnea on exertion, No hemoptysis, No orthopnea, No phlegm, No short of breath, No stridor , No wheezing, No other Cardiovascular: edema (left arm) Gastrointestinal: No RUQ, No LUQ, No RLQ, No LLQ, No no symptoms reported, No see HPI, No abdominal pain, No constipation, No diarrhea, No dysphagia, No hematemesis, No heartburn, No jaundice, No loss of appetite, No melena, No nausea, No vomiting, No other Genitourinary: No no symptoms reported, No see HPI, No decreased output, No discharge, No dysuria, No frequency, No hematuria, No hesitancy, No incontinence , No nocturia, No pain, No other Musculoskeletal: No no symptoms reported, No see HPI, No back pain, No gout, No joint pain, No joint swelling, No muscle pain, No muscle stiffness, No muscle cramps, No muscle twitching, No muscle weakness, No neck pain, No other Skin: other (redness and swelling to left upper arm) Psychiatric/Neurological: Anxiety, Depressed, Weakness Physical Exam Vital Signs Vital Signs - First Documented 08/10/18 17:50 Temp 98.2 Pulse 65 Resp 18 B/P (MAP) 124/60 Pulse Ox 95 O2 Delivery Room Air Capillary Refill : Height, Weight, BMI Height: 5'6.00" Weight: 239lbs. 8.0oz. 108.773570jq; 38.7 BMI Method:Stated General Appearance: Mild Distress (frustrated/tearful) HEENT: Normal ENT Inspection Neck: Supple Respiratory: Lungs Clear Cardiovascular: Regular Rate, Rhythm Gastrointestinal: Normal Bowel Sounds, Non Tender, Soft Rectal: Deferred Back: No CVA Tenderness Extremity: Non Tender, No Calf Tenderness, No Pedal Edema Neurologic/Psychiatric: Alert, Oriented x3 Skin: Erythema (and swelling to left hand and arm extending up to just below shoulder) Assessment/Plan Assessment and Plan 1. Acute Cellulitis of LUE--IV vancomycin and IV rocephin, elevate arm 2. Chronic Lymphedema of LUE--discussed wrapping more frequently after this infection cleared 3. Hypertension--resume home meds 4. Diabetes mellitus II--start acucchecks with SSI 5. Depressed mood secondary to medical condition--start low dose sertraline Admission Diagnosis Admission Status: Inpatient Order (span 2 midnights) Reason for Inpatient Admission: Will need at least 48-72 hours of IV abx for infection Clinical Quality Measures DVT/VTE Risk/Contraindication: Risk Factor Score Per Nursin RFS Level Per Nursing on Admit: 4+=Very High KERLINE LUBIN DO Aug 10, 2018 19:34
[2018-08-10 20:00] VITALS: BP 127/60
[2018-08-10] MEDS ORDERED: ACETAMINOPHEN 500 MG TAB (TYLENOL) PO PRN (20:30)
[2018-08-10] MEDS ORDERED: IBUPROFEN 600 MG (MOTRIN) TAB PO PRN (20:30)
[2018-08-10] MEDS: SERTRALINE 50 MG (ZOLOFT) TABLET PO SCH (20:37)
[2018-08-10] MEDS ORDERED: TEMAZEPAM 7.5 MG CAP (RESTORIL) PO SCH (21:00)
[2018-08-11] VITALS: BP 107/56
[2018-08-11 04:00] VITALS: BP 140/66
[2018-08-11 06:50] LABS: BASOPHILS % (AUTO) 0 % (0-10); EOSINOPHILS # (AUTO) 0.1 10^3/uL (0.0-0.3); EOSINOPHILS % (AUTO) 0 % (0-10); HEMATOCRIT 37 % (35-52); HEMOGLOBIN 12.4 G/DL (11.5-16.0); LYMPHOCYTES % (AUTO) 6 % (12-44); MEAN CORPUSCULAR HEMOGLOBIN 31 PG (25-34); MEAN CORPUSCULAR HGB CONC 34 G/DL (32-36); MEAN CORPUSCULAR VOLUME 91 FL (80-99); MEAN PLATELET VOLUME 10.4 FL (7.4-10.4); MONOCYTES # (AUTO) 0.6 X 10^3 (0.0-1.0); MONOCYTES % (AUTO) 3 % (0-12); NEUTROPHILS # (AUTO) 15.9 X 10^3 (1.8-7.8); NEUTROPHILS % (AUTO) 91 % (42-75); PLATELET COUNT 210 10^3/uL (130-400); RED CELL DISTRIBUTION WIDTH 13.2 % (10.0-14.5); WHITE BLOOD COUNT 17.6 10^3/uL (4.3-11.0)
[2018-08-11 07:13] LABS: BUN/CREATININE RATIO 30; CALCIUM 8.9 MG/DL (8.5-10.1); CARBON DIOXIDE 21 MMOL/L (21-32); CHLORIDE 103 MMOL/L (98-107); CREATININE SERUM 0.88 MG/DL (0.60-1.30); GFR ESTIMATED > 60; GLUCOSE 138 MG/DL (70-105); SODIUM 133 MMOL/L (135-145)
[2018-08-11] MEDS: inSUlin ASPART (NovoLOG) 1 UNIT/0.01 ML (CHARGE PER UNIT) SC SCH ×4 (07:14→20:48)
--- NOTE | 2018-08-11 07:18 | NUR ---
Vancomycin - Using Adjusted Bodywt of 79kg, CrCl = 67ml/min. Patient received 1gm vanco in ER. Will start 1500mg IV every 12 hours. Trough ordered prior to 4th dose.
[2018-08-11 08:00] VITALS: BP 109/60
[2018-08-11] MEDS: amLODIPine 5 MG (NORVASC) TAB PO SCH (09:08)
[2018-08-11] MEDS: LOSARTAN 100 MG (COZAAR) TABLET PO SCH (09:08)
[2018-08-11] MEDS: HYDROCHLOROTHIAZIDE 25 MG (HCTZ) TAB PO SCH (09:08)
[2018-08-11] MEDS: VANCOMYCIN 1500 MG/NS 500 ML IVPB IV SCH ×6 (09:09→20:48)
--- NOTE | 2018-08-11 09:19 | Progress Note (SOAP) ---
Subjective Date Seen by a Provider: Aug 11, 2018 Time Seen by a Provider: 09:16 Subjective/Events-last exam Fwup LUE cellulitis, LUE lymphedema, HTN, DMII, depressed mood. States does not feel well. Objective Exam Vital Signs Date Time Temp Pulse Resp B/P (MAP) Pulse Ox O2 Delivery O2 Flow Rate FiO2 08/11/18 04:00 98.1 60 18 140/66 (90) 94 NIV CPAP 08/11/18 00:00 97.0 55 20 107/56 (73) 94 NIV CPAP 08/10/18 20:00 Room Air 08/10/18 20:00 98.7 60 20 127/60 (82) 96 Room Air 08/10/18 18:00 95 Room Air 08/10/18 17:50 98.2 65 18 124/60 95 Room Air 08/10/18 17:45 98.1 80 18 141/60 (87) 97 I & O 08/11/18 07:00 Intake Total 1040 ml Output Total 150 ml Balance 890 ml Capillary Refill : General Appearance: Mild Distress Neck: Supple Respiratory: Lungs Clear Cardiovascular: Regular Rate, Rhythm Gastrointestinal: normal bowel sounds, non tender, soft Extremity: No Calf Tenderness, No Pedal Edema Neurologic/Psychiatric: Alert, Oriented x3 Skin: Erythema (left arm still with erythema/swelling) Results Lab Laboratory Tests 08/10/18 16:42: White Blood Count 15.7H, Red Blood Count 4.87, Hemoglobin 15.0, Hematocrit 44, Mean Corpuscular Volume 91, Mean Corpuscular Hemoglobin 31, Mean Corpuscular Hemoglobin Concent 34, Red Cell Distribution Width 13.0, Platelet Count 224, Mean Platelet Volume 10.2, Neutrophils (%) (Auto) 90H, Lymphocytes (%) (Auto) 6L , Monocytes (%) (Auto) 4, Eosinophils (%) (Auto) 0, Basophils (%) (Auto) 0, Neutrophils # (Auto) 14.1H, Lymphocytes # (Auto) 0.9L, Monocytes # (Auto) 0.7, Eosinophils # (Auto) 0.0, Basophils # (Auto) 0.0, Neutrophils % (Manual) 80, Lymphocytes % (Manual) 8, Monocytes % (Manual) 1, Eosinophils % (Manual) 0, Basophils % (Manual) 0, Band Neutrophils 11, Toxic Granulation 1+, Blood Morphology Comment NORMAL, Sodium Level 136, Potassium Level 4.4, Chloride Level 104, Carbon Dioxide Level 21, Anion Gap 11, Blood Urea Nitrogen 21H, Creatinine 0.97, Estimat Glomerular Filtration Rate 57, BUN/Creatinine Ratio 22 , Glucose Level 122H, Calcium Level 10.2H, Corrected Calcium 10.1, Total Bilirubin 0.9, Aspartate Amino Transf (AST/SGOT) 21, Alanine Aminotransferase ( ALT/SGPT) 20, Alkaline Phosphatase 78, C-Reactive Protein High Sensitivity 1.04H , Total Protein 7.0, Albumin 4.1 08/10/18 20:24: Glucometer 164H 08/11/18 05:40: White Blood Count 17.6H, Red Blood Count 4.02L, Hemoglobin 12.4, Hematocrit 37, Mean Corpuscular Volume 91, Mean Corpuscular Hemoglobin 31, Mean Corpuscular Hemoglobin Concent 34, Red Cell Distribution Width 13.2, Platelet Count 210, Mean Platelet Volume 10.4, Neutrophils (%) (Auto) 91H, Lymphocytes (%) (Auto) 6L , Monocytes (%) (Auto) 3, Eosinophils (%) (Auto) 0, Basophils (%) (Auto) 0, Neutrophils # (Auto) 15.9H, Lymphocytes # (Auto) 1.0, Monocytes # (Auto) 0.6, Eosinophils # (Auto) 0.1, Basophils # (Auto) 0.0, Sodium Level 133L, Potassium Level 4.0, Chloride Level 103, Carbon Dioxide Level 21, Anion Gap 9, Blood Urea Nitrogen 26H, Creatinine 0.88, Estimat Glomerular Filtration Rate > 60, BUN/ Creatinine Ratio 30, Glucose Level 138H, Calcium Level 8.9, C-Reactive Protein High Sensitivity 13.13H Assessment/Plan Assessment/Plan Assess & Plan/Chief Complaint 1. LUE cellulitis--Vanc BID 2. Lymphedema of LUE--elevate 3. Hypertension--back on home meds 4. DMII--on SSI 5. Depressed mood due to medical condition--start zoloft Clinical Quality Measures Admission Status Admission Dx 1. Acute Cellulitis of LUE--IV vancomycin and IV rocephin, elevate arm 2. Chronic Lymphedema of LUE--discussed wrapping more frequently after this infection cleared 3. Hypertension--resume home meds 4. Diabetes mellitus II--start acucchecks with SSI 5. Depressed mood secondary to medical condition--start low dose sertraline DVT/VTE Risk/Contraindication: Risk Factor Score Per Nursin RFS Level Per Nursing on Admit: 4+=Very High EMERALD JONAS DO Aug 11, 2018 09:19
[2018-08-11] MEDS ORDERED: ONDANSETRON 4 MG/2 ML (SDV) Z0FRAN IVP PRN (09:30)
[2018-08-11 12:00] VITALS: BP 138/71
[2018-08-11 16:00] VITALS: BP 143/72
[2018-08-11] MEDS: cefTRIAXone 1,000 MG/SWFI 10 ML IV PUSH IV SCH ×2 (17:28)
[2018-08-11 20:00] VITALS: BP 131/60
[2018-08-11] MEDS: TEMAZEPAM 15 MG (RESTORIL) CAP PO SCH (20:48)
[2018-08-11] MEDS: SERTRALINE 50 MG (ZOLOFT) TABLET PO SCH (20:48)
[2018-08-12] VITALS: BP 149/67
[2018-08-12] MEDS: inSUlin ASPART (NovoLOG) 1 UNIT/0.01 ML (CHARGE PER UNIT) SC SCH ×4 (06:15→21:10)
[2018-08-12 08:00] VITALS: BP 152/54
[2018-08-12] MEDS: amLODIPine 5 MG (NORVASC) TAB PO SCH (08:05)
[2018-08-12] MEDS: VANCOMYCIN 1500 MG/NS 500 ML IVPB IV SCH ×2 (08:13)
--- NOTE | 2018-08-12 09:00 | NUR ---
DR. JONAS HERE TO SEE PATIENT. PATIENT STATES DECREASED REDNESS AND SWELLING IN LEFT ARM AND OVERALL FEELS BETTER.
--- NOTE | 2018-08-12 09:00 | NUR ---
INFORMED DR. JONAS OF HR 46 AND REGULAR THIS AM. BP MEDS WILL BE ADJUSTED. FACE IS RED AND SHE STATES THIS IS NEW SINCE LEFT ARM CELLULITIS STARTED.
[2018-08-12] MEDS ORDERED: POTA20TA15 PO (09:10)
[2018-08-12] MEDS ORDERED: CLOP75TA28 PO (09:10)
[2018-08-12] MEDS ORDERED: METO-370 PO (09:10)
[2018-08-12] MEDS ORDERED: CETI10TA20 PO (09:10)
[2018-08-12] MEDS ORDERED: LACT1CAP72 PO (09:10)
--- NOTE | 2018-08-12 09:11 | NUR ---
SPOKE WITH THE PATIENT ABOUT HER MEDICATIONS. SHE HAD A LIST WITH HER AND WE WENT OVER THAT WELL THE EXT MED HX. SHE RECENTLY FILLED METOPROLOL ER 50MG DAILY, SHE HAD PREVIOUSLY BEEN ON THE 25MG. HER DOSE WAS INCREASED ON SUNDAY AND SHE TOOK THAT DOSE ON SUNDAY THEN WAS ADMITTED. SHE THINKS THEY ARE GOING TO PUT HER BACK TO THE 25MG HOWEVER I LEFT IT 50MG ON THE MED REC FOR NOW SINCE THAT WAS WHAT WAS MOST RECENTLY TAKEN AT HOME. SHE TAKES ASPIRIN 81MG, PROBIOTIC, AND ZYRTEC PRN OTC.
[2018-08-12] MEDS: HYDROCHLOROTHIAZIDE 25 MG (HCTZ) TAB PO SCH (10:21)
[2018-08-12] MEDS: LOSARTAN 100 MG (COZAAR) TABLET PO SCH (10:21)
[2018-08-12] MEDS: LACTOBACILLUS ACIDOPHILUS (PROBIOTIC) CAPSULE PO SCH (11:56)
[2018-08-12] MEDS: CLOPIDOGREL 75 MG (PLAVIX) TABLET PO SCH (11:56)
--- NOTE | 2018-08-12 12:00 | NUR ---
DR. JONAS NOTIFIED OF CONTINUED BRADYCARDIA WITH RATE OF 48 AND ORDER RECEIVED TO HOLD METOPROLOL TODAY.
[2018-08-12 15:44] VITALS: BP 149/80
[2018-08-12] MEDS: cefTRIAXone 1,000 MG/SWFI 10 ML IV PUSH IV SCH ×2 (16:41)
--- NOTE | 2018-08-12 18:00 | NUR ---
LEFT ARM REMAINS VERY SWOLLEN, ALTHOUGH REDNESS IMPROVED. PATIENT REFUSES TO ELEVATE ARM. STATES HAS BEEN THROUGH THIS MANY TIMES AND ELEVATION DOES NOT HELP.
[2018-08-12] MEDS ORDERED: TROUGH ORDER-PHARMACY XX NR (18:30)
--- NOTE | 2018-08-12 18:30 | NUR ---
DR. JONAS NOTIFIED THAT LEFT ARM SWELLING APPEARS WORSE TO THIS NURSE AND PATIENT. VENOUS DOPPLER ORDERED.
--- NOTE | 2018-08-12 18:58 | NUR ---
US STATES THEY DO NOT HAVE ANYONE STATIONARY ENGINEER REFRIGERATION TONIGHT AND VENOUS DOPPLER CAN NOT BE DONE UNTIL AM. DR. JONAS NOTIFIED. ORDER TO GIVE ONE TIME DOSE OF LOVENOX. LEFT FOREARM MARKED AND MEASURED 40 CM. Addendum: 08/12/18 at 1906 by JUAN BENNETT RN ABOVE LEFT FOREARM READING SHOULD BE 41 CM.
[2018-08-12] MEDS ORDERED: ENOXAPARIN 40 MG/0.4 ML (LOVENOX) SYR SC NR (19:00)
--- NOTE | 2018-08-12 19:15 | NUR ---
PHARMACY NOTIFIED OF CRITICAL VANCO TROUGH LEVEL AND VANCO ON HOLD UNTIL REPEAT TROUGH IN AM.
[2018-08-12] MEDS: TEMAZEPAM 15 MG (RESTORIL) CAP PO SCH (21:35)
[2018-08-12] MEDS: SERTRALINE 50 MG (ZOLOFT) TABLET PO SCH (21:35)
[2018-08-13 00:32] VITALS: BP 117/56
[2018-08-13] MEDS: inSUlin ASPART (NovoLOG) 1 UNIT/0.01 ML (CHARGE PER UNIT) SC SCH ×4 (05:48→20:38)
[2018-08-13] MEDS: LACTOBACILLUS ACIDOPHILUS (PROBIOTIC) CAPSULE PO SCH (05:56)
[2018-08-13] MEDS ORDERED: TROUGH ORDER-PHARMACY XX NR (07:00)
[2018-08-13 08:25] VITALS: BP 152/73
[2018-08-13 09:08] LABS: BASOPHILS % (AUTO) 0 % (0-10); EOSINOPHILS # (AUTO) 0.2 10^3/uL (0.0-0.3); EOSINOPHILS % (AUTO) 3 % (0-10); HEMATOCRIT 37 % (35-52); HEMOGLOBIN 12.5 G/DL (11.5-16.0); LYMPHOCYTES # (AUTO) 1.4 X 10^3 (1.0-4.0); LYMPHOCYTES % (AUTO) 17 % (12-44); MEAN CORPUSCULAR HEMOGLOBIN 31 PG (25-34); MEAN CORPUSCULAR HGB CONC 34 G/DL (32-36); MEAN CORPUSCULAR VOLUME 92 FL (80-99); MEAN PLATELET VOLUME 10.2 FL (7.4-10.4); MONOCYTES # (AUTO) 0.5 X 10^3 (0.0-1.0); MONOCYTES % (AUTO) 6 % (0-12); NEUTROPHILS # (AUTO) 5.8 X 10^3 (1.8-7.8); NEUTROPHILS % (AUTO) 74 % (42-75); PLATELET COUNT 225 10^3/uL (130-400); RED CELL DISTRIBUTION WIDTH 13.2 % (10.0-14.5); WHITE BLOOD COUNT 7.9 10^3/uL (4.3-11.0)
[2018-08-13] MEDS: VANCOMYCIN 1 GM/NS 250 ML IVPB IV SCH ×4 (09:51→20:38)
[2018-08-13] MEDS: ASPIRIN 81 MG CHEW (CHILDREN'S ASA) PO SCH (09:51)
[2018-08-13] MEDS: ATORVASTATIN 10 MG (LIPITOR) TABLET PO SCH (09:52)
[2018-08-13] MEDS: CLOPIDOGREL 75 MG (PLAVIX) TABLET PO SCH (09:52)
[2018-08-13] MEDS: amLODIPine 5 MG (NORVASC) TAB PO SCH (09:52)
[2018-08-13] MEDS: LOSARTAN 100 MG (COZAAR) TABLET PO SCH (09:52)
[2018-08-13] MEDS: HYDROCHLOROTHIAZIDE 12.5 MG (HCTZ) CAP PO SCH (09:52)
--- NOTE | 2018-08-13 10:15 | Diagnostic Imaging Report ---
PROCEDURE: US venous upper extremity left. TECHNIQUE: Multiple Real-time grayscale images were obtained of left upper extremity in various projections. Additional spectral analysis and color Doppler duplex images were also obtained. INDICATION: Arm pain and swelling. COMPARISON: There are no prior studies available for comparison. FINDINGS: There is generally good blood flow and compressibility at all levels of the deep venous system. There is no evidence for a deep venous thrombosis. IMPRESSION: There is no evidence for a deep venous thrombosis. Dictated by: Dictated on workstation # [id number]
[2018-08-13 11:37] LABS: BASOPHILS % (MANUAL) 0 %; EOSINOPHILS % (MANUAL) 2 %; LYMPHOCYTES % (MANUAL) 21 %; MONOCYTES % (MANUAL) 2 %; NEUTROPHILS % (MANUAL) 75 %
[2018-08-13 11:38] LABS: RBC MORPH NORMAL
[2018-08-13 15:57] VITALS: BP 158/72
[2018-08-13] MEDS: cefTRIAXone 1,000 MG/SWFI 10 ML IV PUSH IV SCH ×2 (17:18)
[2018-08-13] MEDS: SERTRALINE 50 MG (ZOLOFT) TABLET PO SCH (20:37)
[2018-08-13] MEDS: TEMAZEPAM 15 MG (RESTORIL) CAP PO SCH (20:38)
--- NOTE | 2018-08-13 21:34 | Progress Note (SOAP) ---
Subjective Date Seen by a Provider: Aug 12, 2018 Time Seen by a Provider: 08:40 Subjective/Events-last exam Fwup LUE cellulitis, LUE lymphedema, HTN, DMII, depressed mood. Slept better with higher dose of sleeping pill. Objective Exam Vital Signs Date Time Temp Pulse Resp B/P (MAP) Pulse Ox O2 Delivery O2 Flow Rate FiO2 08/13/18 15:57 98.2 54 18 158/72 (100) 96 Room Air 08/13/18 08:25 97.6 52 20 152/73 (99) 97 Room Air 08/13/18 08:09 Room Air 08/13/18 00:32 96.9 50 16 117/56 (76) 94 Room Air I & O 08/13/18 06:59 Intake Total 2135 ml Balance 2135 ml Capillary Refill : General Appearance: No Apparent Distress Neck: Supple Respiratory: Lungs Clear Cardiovascular: Regular Rate, Rhythm Extremity: Non Tender, No Calf Tenderness, No Pedal Edema Neurologic/Psychiatric: Alert, Oriented x3 Skin: Erythema (left upper arm with less erythema) Results Lab Laboratory Tests 08/13/18 05:08: Glucometer 117H 08/13/18 07:07: C-Reactive Protein High Sensitivity 9.61H, Vancomycin Level Trough 15.8 08/13/18 09:00: White Blood Count 7.9, Red Blood Count 3.99L, Hemoglobin 12.5, Hematocrit 37, Mean Corpuscular Volume 92, Mean Corpuscular Hemoglobin 31, Mean Corpuscular Hemoglobin Concent 34, Red Cell Distribution Width 13.2, Platelet Count 225, Mean Platelet Volume 10.2, Neutrophils (%) (Auto) 74, Lymphocytes (%) (Auto) 17 , Monocytes (%) (Auto) 6, Eosinophils (%) (Auto) 3, Basophils (%) (Auto) 0, Neutrophils # (Auto) 5.8, Lymphocytes # (Auto) 1.4, Monocytes # (Auto) 0.5, Eosinophils # (Auto) 0.2, Basophils # (Auto) 0.0, Neutrophils % (Manual) 75, Lymphocytes % (Manual) 21, Monocytes % (Manual) 2, Eosinophils % (Manual) 2, Basophils % (Manual) 0, Blood Morphology Comment NORMAL 08/13/18 11:12: Glucometer 133H 08/13/18 15:52: Glucometer 154H 08/13/18 20:05: Glucometer 138H Microbiology 08/10/18 Blood Culture - Preliminary, Resulted No growth Assessment/Plan Assessment/Plan Assess & Plan/Chief Complaint 1. LUE cellulitis--Vanc BID 2. Lymphedema of LUE--elevate 3. Hypertension--back on home meds but will decrease toprol due to bradycardia 4. DMII--on SSI 5. Depressed mood due to medical condition--continue [facility] Clinical Quality Measures Admission Status Admission Dx 1. Acute Cellulitis of LUE--IV vancomycin and IV rocephin, elevate arm 2. Chronic Lymphedema of LUE--discussed wrapping more frequently after this infection cleared 3. Hypertension--resume home meds 4. Diabetes mellitus II--start acucchecks with SSI 5. Depressed mood secondary to medical condition--start low dose sertraline DVT/VTE Risk/Contraindication: Risk Factor Score Per Nursin RFS Level Per Nursing on Admit: 4+=Very High EMERALD JONAS DO Aug 13, 2018 21:34
--- NOTE | 2018-08-13 21:36 | Progress Note (SOAP) ---
Subjective Date Seen by a Provider: Aug 13, 2018 Time Seen by a Provider: 08:35 Subjective/Events-last exam Fwup LUE cellulitis, LUE lymphedema, HTN, DMII, depressed mood. Left arm more swollen last night but much better this AM. Objective Exam Vital Signs Date Time Temp Pulse Resp B/P (MAP) Pulse Ox O2 Delivery O2 Flow Rate FiO2 08/13/18 15:57 98.2 54 18 158/72 (100) 96 Room Air 08/13/18 08:25 97.6 52 20 152/73 (99) 97 Room Air 08/13/18 08:09 Room Air 08/13/18 00:32 96.9 50 16 117/56 (76) 94 Room Air I & O 08/13/18 06:59 Intake Total 2135 ml Balance 2135 ml Capillary Refill : General Appearance: No Apparent Distress Respiratory: Lungs Clear Cardiovascular: Regular Rate, Rhythm Gastrointestinal: normal bowel sounds, non tender, soft Extremity: Non Tender, No Calf Tenderness, No Pedal Edema Neurologic/Psychiatric: Alert, Oriented x3 Skin: Erythema (to left arm much less and less edema) Results Lab Laboratory Tests 08/13/18 05:08: Glucometer 117H 08/13/18 07:07: C-Reactive Protein High Sensitivity 9.61H, Vancomycin Level Trough 15.8 08/13/18 09:00: White Blood Count 7.9, Red Blood Count 3.99L, Hemoglobin 12.5, Hematocrit 37, Mean Corpuscular Volume 92, Mean Corpuscular Hemoglobin 31, Mean Corpuscular Hemoglobin Concent 34, Red Cell Distribution Width 13.2, Platelet Count 225, Mean Platelet Volume 10.2, Neutrophils (%) (Auto) 74, Lymphocytes (%) (Auto) 17 , Monocytes (%) (Auto) 6, Eosinophils (%) (Auto) 3, Basophils (%) (Auto) 0, Neutrophils # (Auto) 5.8, Lymphocytes # (Auto) 1.4, Monocytes # (Auto) 0.5, Eosinophils # (Auto) 0.2, Basophils # (Auto) 0.0, Neutrophils % (Manual) 75, Lymphocytes % (Manual) 21, Monocytes % (Manual) 2, Eosinophils % (Manual) 2, Basophils % (Manual) 0, Blood Morphology Comment NORMAL 08/13/18 11:12: Glucometer 133H 08/13/18 15:52: Glucometer 154H 08/13/18 20:05: Glucometer 138H Microbiology 08/10/18 Blood Culture - Preliminary, Resulted No growth Assessment/Plan Assessment/Plan Assess & Plan/Chief Complaint 1. LUE cellulitis--Vanc BID 2. Lymphedema of LUE--elevate, Venous doppler neg for DVT 3. Hypertension--back on home meds 4. DMII--on SSI 5. Depressed mood due to medical condition--continue [facility] Clinical Quality Measures Admission Status Admission Dx 1. Acute Cellulitis of LUE--IV vancomycin and IV rocephin, elevate arm 2. Chronic Lymphedema of LUE--discussed wrapping more frequently after this infection cleared 3. Hypertension--resume home meds 4. Diabetes mellitus II--start acucchecks with SSI 5. Depressed mood secondary to medical condition--start low dose sertraline DVT/VTE Risk/Contraindication: Risk Factor Score Per Nursin RFS Level Per Nursing on Admit: 4+=Very High EMERALD JONAS DO Aug 13, 2018 21:35
[2018-08-13] MEDS ORDERED: SPIR50TA4 PO (21:40)
[2018-08-13] MEDS ORDERED: SERT50TA9 PO (21:40)
[2018-08-13] MEDS ORDERED: METO-387 PO (21:40)
[2018-08-13] MEDS ORDERED: CEPH750C7 PO (21:40)
[2018-08-13 23:38] VITALS: BP 150/70
[2018-08-14] MEDS: inSUlin ASPART (NovoLOG) 1 UNIT/0.01 ML (CHARGE PER UNIT) SC SCH ×2 (06:32→11:29)
[2018-08-14] MEDS: LACTOBACILLUS ACIDOPHILUS (PROBIOTIC) CAPSULE PO SCH (06:32)
[2018-08-14 08:00] VITALS: BP 178/71
[2018-08-14] MEDS: VANCOMYCIN 1 GM/NS 250 ML IVPB IV SCH ×2 (08:11)
[2018-08-14] MEDS: ASPIRIN 81 MG CHEW (CHILDREN'S ASA) PO SCH (08:12)
[2018-08-14] MEDS: HYDROCHLOROTHIAZIDE 12.5 MG (HCTZ) CAP PO SCH (08:12)
[2018-08-14] MEDS: amLODIPine 5 MG (NORVASC) TAB PO SCH (08:12)
[2018-08-14] MEDS: ATORVASTATIN 10 MG (LIPITOR) TABLET PO SCH (08:12)
[2018-08-14] MEDS: CLOPIDOGREL 75 MG (PLAVIX) TABLET PO SCH (08:12)
[2018-08-14] MEDS: LOSARTAN 100 MG (COZAAR) TABLET PO SCH (08:12)
--- NOTE | 2018-08-14 12:32 | Discharge Inst-Simple/Standard ---
Discharge Inst-Standard Discharge Medications New, Converted or Re-Newed RX: Transmitted to Pharmacy Patient Instructions/Follow Up Plan of Care/Instructions/FU: Fwup 1 week Activity as Tolerated: Yes Discharge Diet: ADA Diet, Cardiac Diet EMERALD JONAS DO Aug 14, 2018 12:32
== END 2018-08-14 13:45 | disposition home or self-care (01) | DRG 603 ==
LOC: EDUNIT# 16:02 → ER 16:03 → 4TH 17:25
PROVIDERS: ADMIT Family Medicine; ATTEND Family Medicine
DX: L03.114 Cellulitis of left upper limb (principal); I97.2 Postmastectomy lymphedema syndrome; I10 Essential (primary) hypertension; E11.9 Type 2 diabetes mellitus without complications; G47.30 Sleep apnea, unspecified; F32.9 Major depressive disorder, single episode, unspecified; Z90.12 Acquired absence of left breast and nipple
CPT/HCPCS: 36415; 80048; 80053; 80202; 82962; 85007; 85025; 85027; 86141; 87040; 96365

== ENCOUNTER 2018-08-28 13:56 | Outpatient (RCR) | payer MEDICARE ==
[~2018-08-28 13:56] MED LIST changes: +CEPH750C7 PO; +CETI10TA20 PO; +LACT1CAP72 PO; +METO-370 PO; +POTA20TA15 PO; +SERT50TA9 PO; +SPIR50TA4 PO
== END 2018-09-27 | disposition home or self-care (01) ==
LOC: CR3 13:56
PROVIDERS: ATTEND Internal Medicine Cardiovascular Disease
DX: Z29.8 Encounter for other specified prophylactic measures (principal)

== ENCOUNTER 2018-11-05 12:00 | Outpatient (CLI) | payer MEDICARE ==
[~2018-11-05] VITALS: Ht 167.6 cm; Wt 108.6 kg
[~2018-11-05 12:00] MED LIST changes: +SERT25TA5 PO
== END 2018-11-05 12:05 | disposition home or self-care (01) ==
LOC: PREOP 12:00
PROVIDERS: ATTEND Internal Medicine
DX: Z01.818 Encounter for other preprocedural examination (principal)

== ENCOUNTER 2018-11-08 07:51 | Day surgery (SDC) | payer MEDICARE ==
--- NOTE | 2018-11-01 17:23 | HISTORY AND PHYSICAL ---
DATE OF SERVICE: HISTORY OF PRESENT ILLNESS: The patient is a 72-year-old white female referred by Dr. Lubin for diagnostic colonoscopy due to history of diarrhea. She had a past history of colonic polyposis. I performed colonoscopy on her four years ago in 2014, at which time mild diverticular disease confined to sigmoid colon was noted without evidence for neoplasia or diverticulitis. She reports intermittent loose stools, typically in the morning, sometimes afternoon, but not at night without evidence for blood. Sunday was a bad day, she had 5 loose stools with some urgency, but no report of fecal incontinence. She has a past history of Clostridium difficile colitis after antibiotic exposure for recurrent cellulitis of the left upper extremity due to longstanding lymphedema from past left radical mastectomy over 12 years ago. She has had 2 admissions this year, the last one in August for cellulitis. She finished a course of empiric Flagyl. She does not believe she tested positive for C. difficile colitis this year, but the Flagyl did not help. Last Sunday she was started on fluconazole and rifaximin with no improvement in her symptoms to date. She had also tried colestipol 2 tablets twice a day without improvement. She denies any night sweats, chills or fever, and there has been no weight change. She denies any significant cramping and has noticed no bright red blood per rectum or melena. There have been no other associated medication changes. PAST MEDICAL HISTORY: Significant for breast cancer status post left radical mastectomy little over 12 years ago, complicated by lymphedema and recurrent cellulitis of the left upper extremity. She has history of type 2 diabetes mellitus, she reports it has been under good control. She had history of hyperlipidemia, hypertension and coronary artery disease. She underwent coronary stenting in 12/2016. Completed a year history of dual antiplatelet therapy. Currently, she is taking a baby aspirin daily and has had no problems with chest pain or acute coronary syndrome since stent placement that followed no reported non-ST segment elevation [place]. FAMILY HISTORY: She is not aware of any family history of GI tract malignancy or inflammatory bowel disease. SOCIAL HISTORY: She has rare alcohol intake and no past smoking history. 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 REVIEW OF SYSTEMS: CONSTITUTIONAL: The patient denies night sweats, chills, fever or weight change. GASTROINTESTINAL: As noted in the HPI. PSYCHIATRIC: The patient denies any current problems with anxiety or depression. PULMONARY: The patient denies chest pain, cough, dyspnea on exertion or at rest. PAST SURGICAL HISTORY: Significant for left radical mastectomy over 12 years ago. She had a laparoscopic cholecystectomy in 2011. PHYSICAL EXAMINATION: GENERAL: Reveals a pleasant white female, appears to be in no acute distress. VITAL SIGNS: BMI is greater than 35 with a weight of 232.4, this is down 14 pounds from her last office weight in 2015. Blood pressure 120/70. HEENT: Unremarkable. Sclerae nonicteric. She has a Mallampati class 3 pharyngeal configuration. CHEST: Clear to auscultation. CARDIOVASCULAR: Reveals a regular rate and rhythm with a soft 1 to 2/6 systolic ejection murmur heard best at second intercostal space without evidence for pulsus parvus et tardus. No S3 or S4 noted. ABDOMEN: Soft, supple without mass or organomegaly, although obesity diminishes sensitivity. She does have epigastric pain to palpation without rebound or guarding. Bowel sounds are positive. No bruits are noted. EXTREMITIES: Reveal no cyanosis or clubbing with trace edema to the mid tibia bilaterally. There is also lymphedema of the left upper extremity without erythema or warmth. ASSESSMENT AND PLAN: 1. For further evaluation of diarrhea, the patient is set up for colonoscopy on 11/08/2018. Prep instructions with Almanzar-prep kit were given and questions were answered. Electronic medical record was reviewed. With this, 45 minutes care time spent. 2. Coronary artery disease. It has been nearly 2 years since stent placement. We will have her hold aspirin for seven days prior to colonoscopy. 3. Type 2 diabetes mellitus. Continue current medications. 4. Hypertension, under good control. Job ID: [id number] DocumentID: [id number] Dictated Date: 10/31/2018 17:10:31 Registered Nurse Cardiac Telemetry Date: 10/31/2018 17:41:07 Dictated By: MARY MENDOZA MD
[~2018-11-08] VITALS: Ht 167.6 cm; Wt 108.6 kg
[2018-11-08 08:00] VITALS: BP 111/58
[2018-11-08] MEDS ORDERED: D5 LR IV SOLUTION 1,000 ML IV STA (08:04)
[2018-11-08] MEDS ORDERED: LIDOCAINE JELLY 2% 6 ML SYRINGE MM PRN (08:15)
[2018-11-08] MEDS ORDERED: fentaNYL INJECTION 100 MCG/2 ML AMP IVP ONE (08:15)
[2018-11-08] MEDS ORDERED: MIDAZOLAM 2 MG/2 ML (VERSED) VIAL IVP ONE (08:15)
[2018-11-08] MEDS ORDERED: MIDAZOLAM 2 MG/2 ML (VERSED) VIAL ONE (09:06)
[2018-11-08] MEDS ORDERED: fentaNYL INJECTION 100 MCG/2 ML AMP ONE (09:06)
[2018-11-08] MEDS ORDERED: LIDOCAINE JELLY 2% 6 ML SYRINGE ONE (09:07)
--- NOTE | 2018-11-08 09:08 | Pre-Op Note & Conscious Sedat ---
Pre-Operative Progress Note H&P Reviewed The H&P was reviewed, patient examined and no changes noted. Date H&P Reviewed: Nov 08, 2018 Time H&P Reviewed: 08:35 Conscious Sedation Pre-Proced ASA Score 2 For ASA 3 and 4: Consider anesthesia and medical clearance. Also, for patients with a history of failed moderate sedation consider anesthesia. Airway Lungs Heart ASA score ASA 1: a normal healthy patient ASA 2: a patient with a mild systemic disease (mid diabetes, controlled hypertension, obesity ASA 3: a patient with a severe systemic disease that limits activity (angina, COPD, prior Myocardial infarction) ASA 4: a patient with an incapacitating disease that is a constant threat to life (CHF, renal failure) ASA 5: a moribund patient not expected to survive 24 hrs. (ruptured aneurysm) ASA 6: a declared brain- patient whose organs are being harvested. For emergent operations, add the letter E after the classification Mallampati Classification Grade 3 Sedation Plan Analgesia, Amnesia, Plan communicated to team members, Discussed options with patient/fam, Discussed risks with patient/fam The patient is an appropriate candidate to undergo the planned procedure, sedation, and anesthesia. The patient immediately re-assessed prior to indication. MARY MENDOZA MD Nov 08, 2018 09:08
[2018-11-08 09:55] VITALS: BP 118/59
[2018-11-08 10:25] VITALS: BP 120/55
[2018-11-08] MEDS ORDERED: ASPI-999 PO (10:48)
[2018-11-08] MEDS ORDERED: CLOP75TA28 PO (10:48)
[2018-11-08 10:55] VITALS: BP 120/55
[2018-11-08 11:05] VITALS: BP 120/55
--- NOTE | 2018-11-08 17:03 | OPERATIVE REPORT ---
DATE OF SERVICE: COLONOSCOPY SUMMARY INDICATION FOR THE PROCEDURE: Diagnostic colonoscopy done for evaluation of diarrhea. The patient was placed in the left lateral decubitus position. Prior to undergoing colonoscopy, digital rectal evaluation was performed. Anal sphincter tone was normal and the perianal reflex was intact. The colonoscope was then inserted into the rectum and under direct visualization advanced to the cecum. The cecum was identified by identification of the ileocecal valve and cecal strap. Photographic documentation was obtained. A careful inspection was made as the colonoscope was withdrawn. The patient tolerated the procedure well. FINDINGS: There is no evidence for internal or external hemorrhoids and the rectum was unremarkable. A biopsy was obtained and submitted for evaluation for microscopic colitis. Several small sigmoid diverticulum were present without evidence for diverticulitis. No other sigmoid colonic abnormalities were appreciated. The descending colon, splenic flexure, transverse colon, hepatic flexure, ascending colon and cecum as well as terminal ileum distal 5 cm were unremarkable without evidence for inflammatory change, pseudomembrane formation or neoplasia. ASSESSMENT: Mild diverticular disease confined to the sigmoid colon was present without evidence for diverticulitis. This was an otherwise normal colonoscopy to the cecum including distal 5 cm of terminal ileum. As the patient has had several rounds of antibiotics including Flagyl without improvement in her symptoms, small bowel bacterial overgrowth is a less likely cause. I discussed with the patient that if her biopsy findings reveal evidence for microscopic colitis, would recommend a trial of Entocort and would probably initiate 3 mg b.i.d. and discuss further. If the biopsy is normal, would next try bile acid binders either colestipol or Questran before meals as the patient does have a history of cholecystectomy raising the possibility of bile salt related diarrhea. If this is not successful, then an antispasmodic Levsin or Bentyl before meals, especially breakfast to try to mitigate an accentuated gastrocolic reflex. The patient does not have any features to suggest secretory diarrhea or pancreatic exocrine insufficiency. I thank you for the referral of this pleasant lady. Job ID: [id number] DocumentID: [id number] Dictated Date: 11/08/2018 11:05:55 Mechanical Technician Date: 11/08/2018 17:03:05 Dictated By: MARY MENDOZA MD MTDD
== END 2018-11-08 11:05 | disposition home or self-care (01) ==
LOC: ENDO 07:51
PROVIDERS: ATTEND Internal Medicine
DX: R19.7 Diarrhea, unspecified (principal); K63.89 Other specified diseases of intestine; K57.30 Diverticulosis of large intestine without perforation or abscess without bleeding; E11.9 Type 2 diabetes mellitus without complications; E78.5 Hyperlipidemia, unspecified; I10 Essential (primary) hypertension; I25.10 Atherosclerotic heart disease of native coronary artery without angina pectoris; Z85.3 Personal history of malignant neoplasm of breast; Z95.5 Presence of coronary angioplasty implant and graft; Z90.12 Acquired absence of left breast and nipple; Z79.82 Long term (current) use of aspirin; Z79.899 Other long term (current) drug therapy

== ENCOUNTER 2019-01-18 14:36 | Observation (INO) | payer MEDICARE ==
[~2019-01-18] VITALS: Ht 167.7 cm; Wt 113.9 kg
--- NOTE | 2019-01-18 14:58 | ED Upper Extremity ---
General Stated Complaint: LEFT ARM SWELLING Source: patient Exam Limitations: no limitations History of Present Illness Date Seen by Provider: Jan 18, 2019 Time Seen by Provider: 14:56 Initial Comments To ER with reports of left arm redness since awakening this morning. She's had chills. She has a history of lymphedema to the left arm chronically from left mastectomy with lymph node resection. She's had recurrent episodes of cellulitis to this left upper extremity over the course of the past year or 2. Typically she has to be admitted for this but she also states that she presented to the emergency room earlier in the course this time and this isn't nearly as bad as it has been in the past. Onset: just prior to arrival Severity: moderate Pain/Injury Location: left arm, left elbow, left forearm Method of Injury: unknown Modifying Factors: Worse With Movement Allergies and Home Medications Allergies Coded Allergies: No Known Drug Allergies (Unverified , 11/05/18) Home Medications Amlodipine Besylate 5 Mg Tablet, 5 MG PO DAILY, (Reported) Amoxicillin/Potassium Clav 1 Each Tablet, 1 EACH PO BID Prescribed by: MONIQUE CHRISTY on 01/18/19 155 Aspirin 81 Mg Tab.chew, 81 MG PO DAILY Hold till Sunday Prescribed by: MARY MEDNOZA on 11/08/18 1048 Atorvastatin Calcium 10 Mg Tablet, 10 MG PO DAILY, (Reported) Cetirizine HCl 10 Mg Tablet, 10 MG PO HS PRN for ALLERIGES, (Reported) Clopidogrel Bisulfate 75 Mg Tablet, 75 MG PO DAILY Hold till Sunday Prescribed by: MARY MENDOZA on 11/08/18 1048 Lactobacillus Combo No.10 1 Each Capsule, 1 CAP PO DAILY, (Reported) Lactobacillus Combo No.10 1 Each Capsule, 1 EACH PO BID Prescribed by: MONIQUE CHRISTY on 01/18/19 155 Losartan/Hydrochlorothiazide 1 Each Tablet, 1 TAB PO DAILY, (Reported) Metoprolol Succinate 25 Mg Tab.er.24h, 25 MG PO DAILY Prescribed by: EMERALD LUBIN on 08/13/182139 Sertraline HCl 50 Mg Tablet, 50 MG PO HS Prescribed by: EMERALD LUBIN on 08/13/182139 Sertraline HCl 25 Mg Tablet, 25 MG PO HS, (Reported) Spironolactone 50 Mg Tablet, 50 MG PO DAILY Prescribed by: EMERALD LUBIN on 08/13/180 Patient Home Medication List Home Medication List Reviewed: Yes Review of Systems Constitutional: see HPI EENTM: see HPI Respiratory: no symptoms reported Cardiovascular: no symptoms reported Genitourinary: no symptoms reported Musculoskeletal: see HPI Skin: see HPI Psychiatric/Neurological: No Symptoms Reported Past Jbjlxhi-Gydugy-Pafrfn Hx Patient Social History Alcohol Beverage of Choice: Beer 2nd Hand Smoke Exposure: No Recent Foreign Travel: No Contact w/Someone Who Travel: No Recent Hopitalizations: No Immunizations Up To Date Tetanus Booster (TDap): Unknown Date of Pneumonia Vaccine: Jun 19, 2013 Seasonal Allergies Seasonal Allergies: No Past Medical History Surgeries: Yes Abdominal, Breast, Gallbladder, Orthopedic Respiratory: Yes Sleep Apnea Currently Using CPAP: Yes Currently Using BIPAP: No Cardiac: Yes (STENTS) Chronic Edema/Swelling, Coronary Artery Disease, Hypertension Neurological: No 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 Disorders: No Female 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 Disorders: 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 Sexually Transmitted Disease: No HIV/AIDS: No Genitourinary: Yes (OCCASIONAL UTI) UTI-Chronic Gastrointestinal: Yes Abdominal Hernia, C-Diff, Gall Bladder Disease Musculoskeletal: Yes (CHRONIC LYMPHEDEMA LEFT ARM; LEFT ANKLE FX/ORIF; RIGHT KN EE SCOPE) Fractures Endocrine: Yes Diabetes, Non-Insulin dep HEENT: No Cancer: Yes Breast Did You Recieve Any Treatments: Yes What Type of Treatment Did You: Surgical Intervention Psychosocial: No Integumentary: Yes (SHINGLES; RECURRENT CELLULITIS LEFT ARM) Recent Skin Changes Blood Disorders: No Adverse Reaction/Blood Tranf: No Family Medical History Cardiovascular disease 19 FATHER Hypertension DAUGHTER Kidney disease 19 MOTHER POOR LEG CIRCULATION G8 SISTER No Pertinent Family Hx Physical Exam Vital Signs Vital Signs - First Documented 01/18/19 15:26 Temp 37.2 Pulse 82 Resp 18 B/P (MAP) 151/70 Pulse Ox 96 Capillary Refill : Height, Weight, BMI Height: 5'6.00" Weight: 239lbs. 8.0oz. 108.634401gn; 38.7 BMI Method:Stated General Appearance: WD/WN, no apparent distress HEENT: PERRL/EOMI, normal ENT inspection Respiratory: no respiratory distress, no accessory muscle use Gastrointestinal: normal bowel sounds, non tender Shoulder: normal inspection, non-tender Elbow/Forearm: normal inspection, non-tender Wrist: Yes normal inspection, Yes non-tender Hand: normal inspection, non-tender Neurologic/Psychiatric: alert, normal mood/affect, oriented x 3 Skin: normal color, warm/dry, other (left upper extremity is circumferentially edematous and erythematous. No draining or open wounds) Progress/Results/Core Measures Results/Orders Lab Results Laboratory Tests Test 01/18/19 15:00 Range/Units White Blood Count 16.2 H 4.3-11.0 10^3/uL Red Blood Count 4.41 4.35-5.85 10^6/uL Hemoglobin 13.8 11.5-16.0 G/DL Hematocrit 41 35-52 % Mean Corpuscular Volume 92 80-99 FL Mean Corpuscular Hemoglobin 31 25-34 PG Mean Corpuscular Hemoglobin Concent 34 32-36 G/DL Red Cell Distribution Width 12.7 10.0-14.5 % Platelet Count 216 130-400 10^3/uL Mean Platelet Volume 10.3 7.4-10.4 FL Neutrophils (%) (Auto) 92 H 42-75 % Lymphocytes (%) (Auto) 4 L 12-44 % Monocytes (%) (Auto) 4 0-12 % Eosinophils (%) (Auto) 0 0-10 % Basophils (%) (Auto) 0 0-10 % Neutrophils # (Auto) 14.9 H 1.8-7.8 X 10^3 Lymphocytes # (Auto) 0.7 L 1.0-4.0 X 10^3 Monocytes # (Auto) 0.6 0.0-1.0 X 10^3 Eosinophils # (Auto) 0.0 0.0-0.3 10^3/uL Basophils # (Auto) 0.0 0.0-0.1 10^3/uL Neutrophils % (Manual) 91 % Lymphocytes % (Manual) 6 % Monocytes % (Manual) 1 % Eosinophils % (Manual) 0 % Basophils % (Manual) 0 % Band Neutrophils 2 % Blood Morphology Comment NORMAL Sodium Level 133 L 135-145 MMOL/L Potassium Level 5.2 H 3.6-5.0 MMOL/L Chloride Level 100 98-107 MMOL/L Carbon Dioxide Level 19 L 21-32 MMOL/L Anion Gap 14 5-14 MMOL/L Blood Urea Nitrogen 21 H 7-18 MG/DL Creatinine 1.20 0.60-1.30 MG/DL Estimat Glomerular Filtration Rate 44 BUN/Creatinine Ratio 18 Glucose Level 138 H 70-105 MG/DL Lactic Acid Level 1.58 0.50-2.00 MMOL/L Calcium Level 10.3 H 8.5-10.1 MG/DL Corrected Calcium 10.1 8.5-10.1 MG/DL Total Bilirubin 0.8 0.1-1.0 MG/DL Aspartate Amino Transf (AST/SGOT) 18 5-34 U/L Alanine Aminotransferase (ALT/SGPT) 19 0-55 U/L Alkaline Phosphatase 77 40-136 U/L Total Protein 7.4 6.4-8.2 GM/DL Albumin 4.3 3.2-4.5 GM/DL My Orders Orders - MONIQUE CHRISTY APRN Cbc With Automated Diff (01/18/19 14:52) Comprehensive Metabolic Panel (01/18/19 14:52) Blood Culture (01/18/19 14:52) Ed Iv/Invasive Line Start (01/18/19 14:52) Lactic Acid Analyzer (01/18/19 14:52) Ceftriaxone For Iv Use (Rocephin For I (01/18/19 15:00) Manual Differential (01/18/19 15:00) Ns Iv 500 Ml (Sodium Chloride 0.9%) (01/18/19 16:00) Medications Given in ED Current Medications Medications Dose Ordered Sig/Lyndon Route Start Time Stop Time Status Last Admin Dose Admin Ceftriaxone Sodium 1000 mg/ Sterile Water 10 ml @ 200 mls/hr ONCE ONCE IV 01/18/19 15:00 01/18/19 15:02 DC 01/18/19 15:21 200 MLS/HR Vital Signs/I&O 01/18/19 01/18/19 15:26 15:28 Temp 37.2 37.2 Pulse 82 82 Resp 18 18 B/P (MAP) 151/70 151/70 (97) Pulse Ox 96 Departure Communication (Admissions) Time/Spoke to Admitting Phy: 16:[address] Davis who is on-call for [facility], will admit. 1541-she does have leukocytosis but she is afebrile despite no use of antipyretics, she is not tachycardic she is not hypotensive and she has a normal lactic acid. Impression Primary Impression: Cellulitis of left arm Disposition: ADMITTED INPATIENT Condition: Stable Admissions Decision to Admit Reason: Admit from ER (General) Decision to Admit/Date: Jan 18, 2019 Time/Decision to Admit Time: 16:05 Departure-Patient Inst. Decision time for Depature: 15:48 Referrals: EMERALD LUBIN DO (PCP/Family) Primary Care Physician Patient Instructions: Cellulitis (Skin Infection), Adult (DC) Add. Discharge Instructions: 1. Return to ER for any fevers chills worsening redness swelling or other concerns. Start the oral antibiotics today. Follow-up with Dr. Lubin on Sunday. Copy Copies To 1: EMERALD LUBIN PETER J APRN Jan 18, 2019 14:58
[2019-01-18] MEDS ORDERED: cefTRIAXone FOR IV USE 1,000 MG in WATER (STERILE) FOR INJECTION 10 ML IV ONE (15:00)
[2019-01-18 15:14] LABS: BASOPHILS % (AUTO) 0 % (0-10); EOSINOPHILS % (AUTO) 0 % (0-10); HEMATOCRIT 41 % (35-52); HEMOGLOBIN 13.8 G/DL (11.5-16.0); LYMPHOCYTES # (AUTO) 0.7 X 10^3 (1.0-4.0); LYMPHOCYTES % (AUTO) 4 % (12-44); MEAN CORPUSCULAR HEMOGLOBIN 31 PG (25-34); MEAN CORPUSCULAR HGB CONC 34 G/DL (32-36); MEAN CORPUSCULAR VOLUME 92 FL (80-99); MEAN PLATELET VOLUME 10.3 FL (7.4-10.4); MONOCYTES # (AUTO) 0.6 X 10^3 (0.0-1.0); MONOCYTES % (AUTO) 4 % (0-12); NEUTROPHILS # (AUTO) 14.9 X 10^3 (1.8-7.8); NEUTROPHILS % (AUTO) 92 % (42-75); PLATELET COUNT 216 10^3/uL (130-400); RED CELL DISTRIBUTION WIDTH 12.7 % (10.0-14.5); WHITE BLOOD COUNT 16.2 10^3/uL (4.3-11.0)
[2019-01-18 15:35] LABS: ALBUMIN 4.3 GM/DL (3.2-4.5); BILIRUBIN,TOTAL 0.8 MG/DL (0.1-1.0); CALCIUM 10.3 MG/DL (8.5-10.1); CREATININE SERUM 1.2 MG/DL (0.60-1.30); POTASSIUM 5.2 MMOL/L (3.6-5.0); TOTAL PROTEIN 7.4 GM/DL (6.4-8.2)
[2019-01-18 15:45] LABS: BAND NEUTROPHILS 2 %; BASOPHILS % (MANUAL) 0 %; EOSINOPHILS % (MANUAL) 0 %; LYMPHOCYTES % (MANUAL) 6 %; MONOCYTES % (MANUAL) 1 %; NEUTROPHILS % (MANUAL) 91 %; RBC MORPH NORMAL
[2019-01-18] MEDS ORDERED: AMOX-358 PO (15:50)
[2019-01-18] MEDS ORDERED: LACT1CAP72 PO (15:51)
[2019-01-18] MEDS ORDERED: NS IV 500 ML 500 ML IV SCH (16:00)
[2019-01-18 17:00] VITALS: BP 157/73
--- NOTE | 2019-01-18 17:02 | NUR ---
CELINA ESPINOZA admitted to room 416-1, with an admitting diagnosis of cellulitis , on 01/18/19 from ED via wheel chair , accompanied by staff .CELINA ESPINOZA introduced to surroundings, call light, bed controls, phone, TV, temperature control, lights, meal times, smoking policy, visitor policy, side rail policy, bathrooms and showers. Patient Rights given to patient in the handbook. CELINA ESPINOZA verbalizes understanding that [facility] is not responsible for the loss or damage to any personal effects or valuables that are kept in the patients posession during their hospitalization. The following Patient Care Plans and discharge were discussed with the patient. CELINA ESPINOZA verbalizes understanding of Interdisciplinary Patient Education. Patient and family were informed about the Rapid Response Team and its purpose.
[2019-01-18] MEDS ORDERED: LACTATED RINGERS 1,000 ML IV ONE (18:32)
[2019-01-18 19:15] VITALS: BP 120/79
[2019-01-18] MEDS ORDERED: ACETAMINOPHEN 325 MG TABLET PO PRN (20:15)
[2019-01-18] MEDS ORDERED: IBUPROFEN 600 MG (MOTRIN) TAB PO PRN (20:15)
[2019-01-18] MEDS: ENOXAPARIN 40 MG/0.4 ML (LOVENOX) SYR SC SCH (20:47)
[2019-01-18] MEDS: ceFAZolin 1,000 MG/SWFI 10 ML IV PUSH IV SCH ×2 (21:57)
[2019-01-19] VITALS: BP 110/51
[2019-01-19] MEDS: LACTATED RINGERS 1,000 ML IV SCH ×2 (02:52→07:19)
[2019-01-19 04:00] VITALS: BP 125/61
[2019-01-19 05:05] LABS: BASOPHILS # (AUTO) 0.1 10^3/uL (0.0-0.1); BASOPHILS % (AUTO) 1 % (0-10); EOSINOPHILS # (AUTO) 0.1 10^3/uL (0.0-0.3); EOSINOPHILS % (AUTO) 1 % (0-10); HEMATOCRIT 36 % (35-52); HEMOGLOBIN 12.1 G/DL (11.5-16.0); LYMPHOCYTES # (AUTO) 2.1 X 10^3 (1.0-4.0); LYMPHOCYTES % (AUTO) 21 % (12-44); MEAN CORPUSCULAR HEMOGLOBIN 31 PG (25-34); MEAN CORPUSCULAR HGB CONC 34 G/DL (32-36); MEAN CORPUSCULAR VOLUME 93 FL (80-99); MEAN PLATELET VOLUME 10.5 FL (7.4-10.4); MONOCYTES # (AUTO) 0.6 X 10^3 (0.0-1.0); MONOCYTES % (AUTO) 6 % (0-12); NEUTROPHILS % (AUTO) 71 % (42-75); PLATELET COUNT 169 10^3/uL (130-400); RED CELL DISTRIBUTION WIDTH 12.8 % (10.0-14.5); WHITE BLOOD COUNT 9.9 10^3/uL (4.3-11.0)
[2019-01-19 05:27] LABS: ALANINE AMINOTRANSFERASE 13 U/L (0-55); ALBUMIN 3.4 GM/DL (3.2-4.5); ALKALINE PHOSPHATASE 62 U/L (40-136); BILIRUBIN,TOTAL 0.5 MG/DL (0.1-1.0); BUN/CREATININE RATIO 23; CARBON DIOXIDE 20 MMOL/L (21-32); CHLORIDE 108 MMOL/L (98-107); CREATININE SERUM 0.87 MG/DL (0.60-1.30); GFR ESTIMATED > 60; GLUCOSE 106 MG/DL (70-105); POTASSIUM 4.3 MMOL/L (3.6-5.0); SODIUM 137 MMOL/L (135-145)
[2019-01-19] MEDS: ceFAZolin 1,000 MG/SWFI 10 ML IV PUSH IV SCH ×6 (05:48→21:23)
[2019-01-19 08:00] VITALS: BP 158/72
[2019-01-19] MEDS ORDERED: ASPI-586 PO (09:25)
[2019-01-19 12:01] VITALS: BP 136/63
--- NOTE | 2019-01-19 13:08 | History & Physical-Hospitalist ---
History of Present Illness HPI/Chief Complaint This is a 73-year-old white female who presented to the emergency room yesterday with complaints of increased swelling and pain and erythema of her left arm. The patient had a radical mastectomy and axillary dissection of 19 lymph nodes in 2000. In this last year she has had 3 previous recurrences of cellulitis secondary to lymphedema and this arm. At the time of my interview this morning she says she's feeling better and ending the her white count is down to 9.9 and she's afebrile. She does have a history of C. difficile in the past. Source: patient Exam Limitations: no limitations Date Seen 01/19/19 Time Seen by a Provider: 12:30 Attending Physician Danica Davis MD PCP Kerline Jonas DO Referring Physician Date of Admission Jan 18, 2019 at 16:03 Home Medications & Allergies Home Medications Reviewed patient Home Medication Reconciliation performed by pharmacy medication reconciliations transfill technician and/or nursing. Patients Allergies have been reviewed. Allergies Allergies Coded Allergies No Known Drug Allergies (Unverified11/05/18) Past Osvjftx-Vzvwue-Dvikgj Hx Past Med/Social Hx: Reviewed Nursing Past Med/Soc Hx Patient Social History Marrital Status: Employed/Student: retired Alcohol Use: Occasionally Uses Alcohol Beverage of Choice: Beer Recreational Drug Use: No Smoking Status: Never a Smoker 2nd Hand Smoke Exposure: No Physical Abuse Screen: No Sexual Abuse: No Recent Foreign Travel: No Contact w/other who traveled: No Recent Hopitalizations: Yes Recent Infectious Disease Expo: No Immunizations Up To Date Tetanus Booster (TDap): Unknown Date of Pneumonia Vaccine: Jun 19, 2013 Seasonal Allergies Seasonal Allergies: No Past Medical History Surgeries: Abdominal, Breast, Gallbladder, Orthopedic Currently Using CPAP: Yes Currently Using BIPAP: No Cardiac: Chronic Edema/Swelling, Coronary Artery Disease, Hypertension 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: No Sexually Transmitted Disease: No HIV/AIDS: No Female 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 Disorders: Denies Menopausal Genitourinary: UTI-Chronic Gastrointestinal: Abdominal Hernia, C-Diff, Gall Bladder Disease Musculoskeletal: Fractures Endocrine: Diabetes, Non-Insulin dep Cancer: Breast Did You Recieve Any Treatments: Yes What Type of Treatment Did You: Surgical Intervention Skin/Integumentary: Recent Skin Changes History of Blood Disorders: No Adverse Reaction to Blood Vogel: No Family History Cardiovascular disease 19 FATHER Hypertension DAUGHTER Kidney disease 19 MOTHER POOR LEG CIRCULATION G8 SISTER No Pertinent Family Hx Review of Systems Constitutional: see HPI, chills Respiratory: no symptoms reported Cardiovascular: no symptoms reported Gastrointestinal: no symptoms reported Genitourinary: no symptoms reported Musculoskeletal: muscle pain Psychiatric/Neurological: No Symptoms Reported Physical Exam Physical Exam Vital Signs Vital Signs - First Documented 01/18/19 15:26 Temp 37.2 Pulse 82 Resp 18 B/P (MAP) 151/70 Pulse Ox 96 Capillary Refill : Less Than 3 Seconds Height, Weight, BMI Height: 5'6.00" Weight: 251lbs. 8.0oz. 113.530244yh; 39.36 BMI Method:Stated General Appearance: No Apparent Distress, WD/WN HEENT: Normal ENT Inspection, Pharynx Normal Neck: Full Range of Motion, Non Tender, Supple Respiratory: Lungs Clear, Normal Breath Sounds, No Accessory Muscle Use, No Respiratory Distress Cardiovascular: Regular Rate, Rhythm, No Gallop, Systolic Murmur (3/6) Gastrointestinal: Non Tender, Soft, Distended Extremity: Inflammation (left arm with lymphedema erythema and heat), Swelling Neurologic/Psychiatric: Alert, Oriented x3, No Motor/Sensory Deficits, Normal Mood/Affect Results Results/Procedures Labs Laboratory Tests 01/18/19 15:00 01/19/19 04:40 Patient resulted labs reviewed. Assessment/Plan Admission Diagnosis Cellulitis Lymphedema History cancer the breast remote no evidence of disease Hypertension Coronary artery disease with a history of stent placement Plan for 1 more day of Ancef and then discharge on oral antibiotics keeping in mind history of C. difficile Admission Status: Observation Clinical Quality Measures DVT/VTE Risk/Contraindication: Risk Factor Score Per Nursin RFS Level Per Nursing on Admit: 4+=Very High Copy Copies To 1: KERLINE JONAS KATHLEEN M MD Jan 19, 2019 13:08
[2019-01-19 16:28] VITALS: BP 128/60
[2019-01-19 20:20] VITALS: BP 121/63
[2019-01-19] MEDS: ENOXAPARIN 40 MG/0.4 ML (LOVENOX) SYR SC SCH (21:25)
[2019-01-20] VITALS: BP 118/56
[2019-01-20 04:00] VITALS: BP 143/63
[2019-01-20] MEDS: ceFAZolin 1,000 MG/SWFI 10 ML IV PUSH IV SCH ×4 (06:32→14:22)
[2019-01-20 08:00] VITALS: BP 153/88
--- NOTE | 2019-01-20 08:11 | NUR ---
MED REC WAS COMPLETED OVER THE WEEKEND, WHEN I SPOKE WITH THE PT (SHE HAD A LIST OF HER MEDS) AND WENT THRU THE EXT MED HISTORY EVERYTHING WAS CORRECT. I DID NOT NEED TO UPDATE ANYTHING. OTC MEDS: PROBIOTIC: 1 DAILY ASPIRIN 81M DAILY CETIRIZINE 10M DAILY
[2019-01-20] MEDS ORDERED: SPIRONOLACTONE 100 MG (ALDACTONE) TABLET PO SCH (09:00)
[2019-01-20] MEDS ORDERED: LOSARTAN 100 MG (COZAAR) TABLET PO SCH (09:00)
[2019-01-20] MEDS ORDERED: ENOXAPARIN 40 MG/0.4 ML (LOVENOX) SYR SC SCH (09:00)
[2019-01-20] MEDS ORDERED: HYDROCHLOROTHIAZIDE 12.5 MG (HCTZ) CAP PO SCH (09:00)
[2019-01-20] MEDS ORDERED: amLODIPine 5 MG (NORVASC) TAB PO SCH (09:00)
[2019-01-20] MEDS ORDERED: CLOPIDOGREL 75 MG (PLAVIX) TABLET PO SCH (09:00)
[2019-01-20] MEDS ORDERED: LACTOBACILLUS ACIDOPHILUS (PROBIOTIC) CAPSULE PO SCH (09:00)
[2019-01-20] MEDS ORDERED: ASPIRIN E.C. 81 MG (ECOTRIN) TAB PO SCH (09:00)
[2019-01-20 12:00] VITALS: BP 142/64
[2019-01-20] MEDS ORDERED: CEPH500C PO (13:56)
[2019-01-20] MEDS ORDERED: FLUT9.9S NS (13:56)
[2019-01-20] MEDS ORDERED: LORATADINE (CLARITIN) 10 MG TAB PO PRN (21:00)
== END 2019-01-20 13:54 | disposition home or self-care (01) ==
LOC: EDUNIT# 14:36 → ER 14:37 → UNDOADMOB 16:03 → 4TH 16:03 → UNDODISOB 01-20 14:43
PROVIDERS: ADMIT Internal Medicine; ATTEND Internal Medicine
DX: L03.114 Cellulitis of left upper limb (principal); G47.30 Sleep apnea, unspecified; I25.10 Atherosclerotic heart disease of native coronary artery without angina pectoris; I10 Essential (primary) hypertension; I89.0 Lymphedema, not elsewhere classified; E11.9 Type 2 diabetes mellitus without complications; Z87.2 Personal history of diseases of the skin and subcutaneous tissue; Z79.82 Long term (current) use of aspirin; Z79.02 Long term (current) use of antithrombotics/antiplatelets; Z87.448 Personal history of other diseases of urinary system; Z90.10 Acquired absence of unspecified breast and nipple; Z85.3 Personal history of malignant neoplasm of breast; Z95.1 Presence of aortocoronary bypass graft; Z79.899 Other long term (current) drug therapy; Z82.49 Family history of ischemic heart disease and other diseases of the circulatory system
CPT/HCPCS: 36415; 80053; 83605; 85007; 85025; 85027; 87040; 96361; 96365; G0378

== ENCOUNTER 2019-01-23 07:15 | Emergency (ER) | payer MEDICARE ==
[~2019-01-23] VITALS: Ht 167 cm; Wt 115.0 kg
[~2019-01-23 07:15] MED LIST changes: +AMOX-358 PO; +ASPI-586 PO; +CEPH500C PO; +FLUT9.9S NS
[2019-01-23] MEDS ORDERED: LACTATED RINGERS 1,000 ML IV ONE ×2 (08:09→12:35)
[2019-01-23] MEDS ORDERED: ACETAMINOPHEN 500 MG TAB (TYLENOL) PO PRN (08:15)
--- NOTE | 2019-01-23 08:51 | ED General ---
General Chief Complaint: Fever-Adult/Adol Stated Complaint: FEVER;CHILLS;DIARRHEA;LOWER BACK PAIN Nursing Triage Note: PT AMBULATED TO ROOM 7 PT CO OF FEVER, CHILLS, NAUSEA, DIARRHEA, PT HAS BEEN RECENTLY HOSP FOR LYMPHEDEMA AND CELLULITIS OF L ARM Nursing Sepsis Screen: No Definite Risk Source of Information: Patient Exam Limitations: No Limitations (MAYRA CASEY STUDENT) History of Present Illness Date Seen by Provider: Jan 23, 2019 Time Seen by Provider: 08:30 Initial Comments The patient is a wd/wn 73 y/o female who is here with a chief complaint of fever/chills and diarrhea. She reports that she began having diarrhea yesterday around 4 pm. Since then she has also been experiencing nausea, stomach pain, chills, decreased appetite, and subjective fevers. She is also complaining of pain in her shoulder, neck, and back that started yesterday morning. She reports that she was here on Sat and Sun for treatment of cellulitis in her right arm. She has concerns for c. diff colitis which she says that she had previously. She denies any shortness of breath, chest pain, or changes in urination. Timing/Duration: 12-24 Hours Associated Systoms: Cough, Fever/Chills, Loss of Appetite, Nausea/Vomiting; No Shortness of Air (MAYRA CASEY MED STUDENT) Timing/Duration: 1 Day Severity: Moderate Associated Systoms: Fever/Chills, Nausea/Vomiting, Weakness (DEISI HAMLIN MD) Allergies and Home Medications Allergies Coded Allergies: No Known Drug Allergies (Unverified , 11/05/18) Home Medications Amlodipine Besylate 5 Mg Tablet, 5 MG PO DAILY, (Reported) Aspirin 81 Mg Tablet.dr, 81 MG PO DAILY, (Reported) Atorvastatin Calcium 10 Mg Tablet, 10 MG PO DAILY, (Reported) Cephalexin 500 Mg Capsule, 500 MG PO QID Prescribed by: EMERALD LUBIN on 01/20/19 1356 Cetirizine HCl 10 Mg Tablet, 10 MG PO HS PRN for ALLERIGES, (Reported) Clopidogrel Bisulfate 75 Mg Tablet, 75 MG PO DAILY Hold till Sunday Prescribed by: MARY MENDOZA on 11/08/18 1048 Fluticasone Propionate 9.9 Ml [place].susp, 2 SPRAY NS DAILY 2 SPRAYS PER NOSTRIL DAILY X 2 DAYS THEN 1 SPRAY DAILY Prescribed by: EMERALD LUBIN on 01/20/19 1356 Lactobacillus Combo No.10 1 Each Capsule, 1 CAP PO DAILY, (Reported) Losartan/Hydrochlorothiazide 1 Each Tablet, 1 TAB PO DAILY, (Reported) Metoprolol Succinate 25 Mg Tab.er.24h, 25 MG PO DAILY Prescribed by: EMERALD LUBIN on 08/13/182139 Ondansetron 4 Mg Tab.rapdis, 4 MG PO Q6H PRN for NAUSEA/VOMITING Prescribed by: DEISI HAMLIN on 01/23/19 1213 Spironolactone 50 Mg Tablet, 50 MG PO DAILY Prescribed by: EMERALD LUBIN on 08/13/182139 Patient Home Medication List Home Medication List Reviewed: Yes (DEISI HAMLIN MD) Review of Systems Review of Systems Constitutional: chills, fever EENTM: No blurred vision, No double vision Respiratory: cough; No short of breath Cardiovascular: No chest pain Gastrointestinal: abdominal pain, loss of appetite Genitourinary: No dysuria, No frequency Musculoskeletal: back pain, neck pain (MAYRA CASEY STUDENT) Constitutional: see HPI EENTM: no symptoms reported Respiratory: cough; No short of breath Gastrointestinal: abdominal pain, diarrhea, nausea, vomiting Genitourinary: no symptoms reported Musculoskeletal: see HPI Skin: no symptoms reported (DEISI HAMLIN MD) All Other Systems Reviewed Negative Unless Noted: Yes (DEISI HAMLIN MD) Past Mdyuffq-Mbiaey-Mbdign Hx Past Med/Social Hx: Reviewed Nursing Past Med/Soc Hx (DEISI HAMLIN MD) Patient Social History Alcohol Use: Denies Use Alcohol Beverage of Choice: Beer Recreational Drug Use: No Smoking Status: Never a Smoker 2nd Hand Smoke Exposure: No Recent Foreign Travel: No Contact w/Someone Who Travel: No Recent Infectious Disease Expo: No Recent Hopitalizations: Yes (MAYRA CASEY STUDENT) Immunizations Up To Date Tetanus Booster (TDap): Unknown Date of Pneumonia Vaccine: Jun 19, 2013 (MAYRA CASEY STUDENT) Seasonal Allergies Seasonal Allergies: No (ETCHESON,MAYRA K MED STUDENT) Past Medical History Surgeries: No Abdominal, Breast, Gallbladder, Orthopedic Respiratory: No Sleep Apnea Currently Using CPAP: Yes Currently Using BIPAP: No Cardiac: Yes (STENTS) Chronic Edema/Swelling, Coronary Artery Disease, Hypertension Neurological: No 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 Disorders: No Female 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 Disorders: Denies 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 Sexually Transmitted Disease: No HIV/AIDS: No Genitourinary: Yes (OCCASIONAL UTI) UTI-Chronic Gastrointestinal: Yes Abdominal Hernia, C-Diff, Gall Bladder Disease Musculoskeletal: Yes (CHRONIC LYMPHEDEMA LEFT ARM; LEFT ANKLE FX/ORIF; RIGHT KNEE SCOPE) Fractures Endocrine: Yes Diabetes, Non-Insulin dep HEENT: No Cancer: Yes Breast Did You Recieve Any Treatments: Yes What Type of Treatment Did You: Surgical Intervention Psychosocial: No Integumentary: Yes (SHINGLES; RECURRENT CELLULITIS LEFT ARM) Recent Skin Changes Blood Disorders: No Adverse Reaction/Blood Tranf: No (MAYRA CASEY STUDENT) Family Medical History Reviewed Nursing Family Hx (DEISI HAMLIN MD) Cardiovascular disease 19 FATHER Hypertension DAUGHTER Kidney disease 19 MOTHER POOR LEG CIRCULATION G8 SISTER No Pertinent Family Hx (MAYRA CASEY STUDENT) Physical Exam-Suspected Sepsis Physical Exam Vital Signs Vital Signs - First Documented 01/23/19 07:53 Temp 37.3 Pulse 64 Resp 18 B/P (MAP) 89/54 (66) Pulse Ox 94 (DEISI HAMLIN MD) Vital Signs Capillary Refill : Less Than 3 Seconds (MAYRA CASEY STUDENT) Blood Pressure Mean: 66 Height, Weight, BMI Height: 5'6.00" Weight: 251lbs. 8.0oz. [id number]; 41.00 BMI Method:Stated General Appearance: No Apparent Distress, WD/WN Respiratory: Chest Non Tender, Lungs Clear, Normal Breath Sounds Cardiovascular: No Edema, No Murmur Gastrointestinal: Normal Bowel Sounds, Non Tender Back: No CVA Tenderness, No Vertebral Tenderness Extremity: Normal Inspection, Non Tender Neurologic/Psychiatric: Alert, Oriented x3, No Motor/Sensory Deficits (MAYRA CASEY MED STUDENT) General Appearance: No Apparent Distress, WD/WN HEENT: PERRL/EOMI, Pharynx Normal Neck: Non Tender, Supple Respiratory: Lungs Clear, Normal Breath Sounds Cardiovascular: Regular Rate, Rhythm, No Murmur Gastrointestinal: Non Tender, Soft, Abnormal Bowel Sounds (hyperactive) Back: Normal Inspection, No CVA Tenderness, No Vertebral Tenderness Extremity: Normal Inspection, Normal Range of Motion, Non Tender Neurologic/Psychiatric: Alert, Oriented x3 Skin: normal color, warm/dry (DEISI HAMLIN MD) Focused Exam Lactate Level 01/23/19 08:36: Lactic Acid Level 0.77 (DEISI HAMLIN MD) Lactic Acid Level (DEISI HAMLIN MD) Progress/Results/Core Measures Suspected Sepsis Recent Fever Within 48 Hours: Yes Infection Criteria Present: Suspected New Infection New/Unexplained Altered Menta: No Sepsis Screen: No Definite Risk SIRS Temperature: Pulse: 64 Respiratory Rate: 18 Blood Pressure 89 /54 Mean: 66 (MAYRA CASEY STUDENT) Results/Orders Lab Results Laboratory Tests Test 01/23/19 08:36 01/23/19 09:25 Range/Units White Blood Count 15.4 H 4.3-11.0 10^3/uL Red Blood Count 3.95 L 4.35-5.85 10^6/uL Hemoglobin 12.4 11.5-16.0 G/DL Hematocrit 37 35-52 % Mean Corpuscular Volume 93 80-99 FL Mean Corpuscular Hemoglobin 31 25-34 PG Mean Corpuscular Hemoglobin Concent 34 32-36 G/DL Red Cell Distribution Width 12.6 10.0-14.5 % Platelet Count 201 130-400 10^3/uL Mean Platelet Volume 10.1 7.4-10.4 FL Neutrophils (%) (Auto) 89 H 42-75 % Lymphocytes (%) (Auto) 6 L 12-44 % Monocytes (%) (Auto) 5 0-12 % Eosinophils (%) (Auto) 0 0-10 % Basophils (%) (Auto) 0 0-10 % Neutrophils # (Auto) 13.7 H 1.8-7.8 X 10^3 Lymphocytes # (Auto) 0.9 L 1.0-4.0 X 10^3 Monocytes # (Auto) 0.7 0.0-1.0 X 10^3 Eosinophils # (Auto) 0.0 0.0-0.3 10^3/uL Basophils # (Auto) 0.0 0.0-0.1 10^3/uL Neutrophils % (Manual) 91 % Lymphocytes % (Manual) 7 % Monocytes % (Manual) 1 % Basophils % (Manual) 1 % Blood Morphology Comment NORMAL Prothrombin Time 14.0 12.2-14.7 SEC INR Comment 1.0 0.8-1.4 Activated Partial Thromboplast Time 27 24-35 SEC Sodium Level 134 L 135-145 MMOL/L Potassium Level 3.9 3.6-5.0 MMOL/L Chloride Level 104 98-107 MMOL/L Carbon Dioxide Level 20 L 21-32 MMOL/L Anion Gap 10 5-14 MMOL/L Blood Urea Nitrogen 18 7-18 MG/DL Creatinine 0.98 0.60-1.30 MG/DL Estimat Glomerular Filtration Rate 56 BUN/Creatinine Ratio 18 Glucose Level 128 H 70-105 MG/DL Lactic Acid Level 0.77 0.50-2.00 MMOL/L Calcium Level 9.4 8.5-10.1 MG/DL Corrected Calcium 9.6 8.5-10.1 MG/DL Total Bilirubin 0.9 0.1-1.0 MG/DL Aspartate Amino Transf (AST/SGOT) 17 5-34 U/L Alanine Aminotransferase (ALT/SGPT) 16 0-55 U/L Alkaline Phosphatase 54 40-136 U/L Troponin I < 0.028 <0.028 NG/ML Total Protein 6.5 6.4-8.2 GM/DL Albumin 3.8 3.2-4.5 GM/DL Urine Color YELLOW Urine Clarity CLEAR Urine pH 5 5-9 Urine Specific [place] 1.015 L 1.016-1.022 Urine Protein 1+ H NEGATIVE Urine Glucose (UA) NEGATIVE NEGATIVE Urine Ketones 2+ H NEGATIVE Urine Nitrite NEGATIVE NEGATIVE Urine Bilirubin NEGATIVE NEGATIVE Urine Urobilinogen NORMAL NORMAL MG/DL Urine Leukocyte Esterase 3+ H NEGATIVE Urine RBC (Auto) NEGATIVE NEGATIVE Urine RBC NONE /HPF Urine WBC 10-25 H /HPF Urine Squamous Epithelial Cells 10-25 H /HPF Urine Crystals NONE /LPF Urine Bacteria TRACE /HPF Urine Casts PRESENT /LPF Urine Hyaline Casts >50 H /LPF Urine Mucus SMALL H /LPF Urine Culture Indicated CULTURE PENDING (DEISI HAMLIN MD) Micro Results Microbiology 01/23/19 C. difficile GDH Antigen & Toxins - Final, Complete 01/23/19 Influenza Types A,B Antigen (RAHEL) - Final, Complete (DEISI HAMLIN MD) My Orders Orders - DEISI HAMLIN MD Cbc With Automated Diff (01/23/19 08:09) Comprehensive Metabolic Panel (01/23/19 08:09) Blood Culture (01/23/19 08:09) Sputum Culture (01/23/19 08:09) Urine Culture (01/23/19 08:09) Protime With Inr (01/23/19 08:09) Partial Thromboplastin Time (01/23/19 08:09) Chest 1 View, Ap/Pa Only (01/23/19 08:09) Acetaminophen Tablet (Tylenol Tablet) (01/23/19 08:15) Ed Iv/Invasive Line Start (01/23/19 08:09) Ed Iv/Invasive Line Start (01/23/19 08:09) Vital Signs Adult Sepsis Patie Q15M (01/23/19 08:09) O2 (01/23/19 08:09) Remove Rings In Anticipation O (01/23/19 08:09) Lactic Acid Analyzer (01/23/19 08:09) Influenza A And B Antigens (01/23/19 08:09) Lactated Ringers (Lr 1000 Ml Iv Solution (01/23/19 08:09) C Difficile Ag + Toxin A/B. (01/23/19 08:09) Ekg Tracing (01/23/19 08:41) Troponin I (01/23/19 08:41) Manual Differential (01/23/19 08:36) Urinalysis (01/23/19 09:33) Ondansetron Injection (Zofran Injectio (01/23/19 09:45) Stool Culture (01/23/19 12:22) Methylprednisolone Sod Succ (Solu-Medrol (01/23/19 12:29) Ed Iv/Invasive Line Start (01/23/19 12:35) Lactated Ringers (Lr 1000 Ml Iv Solution (01/23/19 12:35) Metronidazole 500mg/100ml Ivpb (Flagyl 5 (01/23/19 13:45) (DEISI HAMLIN MD) Medications Given in ED Current Medications Medications Dose Ordered Sig/Lyndon Route Start Time Stop Time Status Last Admin Dose Admin Acetaminophen 1,000 mg ONCE PRN PO 01/23/19 08:15 01/23/19 08:19 DC 01/23/19 08:18 1,000 MG Lactated Ringer's 1,000 ml @ 0 mls/hr Q0M ONCE IV 01/23/19 08:09 01/23/19 08:11 DC 01/23/19 08:18 1,000 MLS/HR Lactated Ringer's 1,000 ml @ 0 mls/hr Q0M ONCE IV 01/23/19 12:35 01/23/19 12:37 DC 01/23/19 12:45 1,000 MLS/HR Metronidazole 100 ml @ 100 mls/hr ONCE ONCE IV 01/23/19 13:45 01/23/19 14:44 DC 01/23/19 14:20 100 MLS/HR Ondansetron HCl 4 mg ONCE ONCE IVP 01/23/19 09:45 01/23/19 09:46 DC 01/23/19 10:12 4 MG (DEISI HAMLIN MD) Vital Signs/I&O 01/23/19 07:53 Temp 37.3 Pulse 64 Resp 18 B/P (MAP) 89/54 (66) Pulse Ox 94 (DEISI HAMLIN MD) Vital Signs/I&O Capillary Refill : Less Than 3 Seconds (MAYRA CASEY MED STUDENT) Blood Pressure Mean: 66 Progress Note : Time: 08:45 Progress Note The patient is resting comfortably in the exam room. She will be evaluated for suspected sepsis with standard protocol. She will also be evaluated for possible LA, C.diff colitis, and influenza. (MAYRA CASEY MED STUDENT) Progress Note : Progress Note I have seen and evaluated the patient and agree with above except as indicated. I have directed the plan of care. Patient is here with nausea, vomiting and diarrhea. Recent hospitalization for cellulitis and is currently on Bactrim. Does have history of C. difficile. Reports fevers. Overall feels terrible but is feeling a little better now. Sepsis workup initiated. LR 1 L bolus ordered. Zofran 4 mg IV ordered. Monitor patient. 1200: Overall feeling better. Tolerated sips of fluid. Has not had repeat episodes of diarrhea since 5 AM. At this point I think she is safe to discharge home. She is currently on cephalexin for her cellulitis which has improved. She does have contamination of her urine and I do not believe that is a urinary tract infection but cultures are pending. Cephal exin would be a good choice for UTI as well. We will not change antibiotics at this point and are awaiting cultures. Discharged home with return precautions. Patient verbalize understanding instructions and agreement with plan. 1210: Patient had large bowel movement. Sample sent. She is feeling a bit weak again. 1240: I have discussed the case with Dr. Lubin. We will go ahead and do a dose of steroids and stop the cephalexin as she has had microscopic colitis previously and it had very similar presentation to this and was associated with antibiotics. Dr. Lubin will see her in the office tomorrow. We will go ahead and do another liter of fluid with LR 1 L bolus. If she is doing better after that and she will go home. 1508: Overall patient feels better and actually looks better after the second liter of fluid. Flagyl confusion complete. Her daughter has come up from dialysis and will stay with her. Discharged home with return precautions. Patient verbalize understanding instructions and agreement with plan. (DEISI HAMLIN MD) ECG Initial ECG Impression Date: Jan 23, 2019 Initial ECG Impression Time: 08:54 Initial ECG Rate: 57 Initial ECG Rhythm: Normal Sinus Initial ECG Comparisson: Changed Comment Sinus rhythm with LVH. Normal axis. No evidence of ST elevation LA. Change from previous of 12/22/16 in that the previously noted inverted T waves are now up right. Interpreted by me. (DEISI HAMLIN MD) Diagnostic Imaging Diagonstic Imaging: Xray Plain Films/CT/US/NM/MRI: chest Comments [facility], [facility]. [place], [place] NAME: CELINA ESPINOZA [facility] REC#: [id number] PT STATUS: REG ER : 1945 PHYSICIAN: DEISI HAMLIN MD ADMIT DATE: 01/23/19/ER Draft Date of Exam:01/23/19 CHEST 1 VIEW, AP/PA ONLY INDICATION: Fever, chills and nausea. TIME OF EXAM: 8:51 AM Correlation is made with prior chest from 12/21/2016. FINDINGS: The heart size is stable. Lungs are clear. No infiltrates are detected. No effusion or pneumothorax is seen. There are surgical clips in left axilla. IMPRESSION: No acute cardiopulmonary process is detected. Dictated on workstation # [id number] Dict: 01/23/19906 Trans: 01/23/19909 [id number] Interpreted by: YUDI ROSALES MD Electronically signed by: Reviewed: Reviewed by Me (DEISI HAMLIN MD) Departure Impression Primary Impression: Diarrhea Qualified Codes: R19.7 - Diarrhea, unspecified Additional Impressions: Acute dehydration Clostridium difficile infection Disposition: HOME, SELF-CARE Condition: Improved Departure-Patient Inst. Decision time for Depature: 15:08 (DEISI HAMLIN MD) Referrals: EMERALD LUBIN DO (PCP/Family) Primary Care Physician Patient Instructions: Dehydration, Adult (DC), Diarrhea and Traveler's Diarrhea, Adult (DC), Clostridium difficile Add. Discharge Instructions: All discharge instructions reviewed with patient and/or family. Voiced understanding. Take medications as previously prescribed except stop the cephalexin antibiotic. Take other medications as directed. Drink plenty of fluids by taking small sips frequently. Clear or light diet for the next 24 hours and then advance as tolerated. Follow-up with your doctor tomorrow for recheck and further evaluation. Return for worse pain, fever, vomiting, weakness, breathing problems or other concerns as needed. It is very important that you practice good handwashing as well as the family. You should clean contaminated surfaces with bleach wipes as needed. Scripts Metronidazole (Metronidazole) 500 Mg Tablet 500 MG PO TID, #21 TAB 0 Refills Prov: DEISI HAMLIN MD 01/23/19 Ondansetron (Ondansetron Odt) 4 Mg Tab.rapdis 4 MG PO Q6H PRN for NAUSEA/VOMITING, #8 TAB 0 Refills Prov: DEISI HAMLIN MD 01/23/19 Copy Copies To 1: EMERALD LUBIN JOSHUA K MED STUDENT Jan 23, 2019 08:51 DEISI HAMLIN MD Jan 23, 2019 09:43
[2019-01-23 09:08] LABS: BASOPHILS % (AUTO) 0 % (0-10); EOSINOPHILS % (AUTO) 0 % (0-10); HEMATOCRIT 37 % (35-52); HEMOGLOBIN 12.4 G/DL (11.5-16.0); LYMPHOCYTES # (AUTO) 0.9 X 10^3 (1.0-4.0); LYMPHOCYTES % (AUTO) 6 % (12-44); MEAN CORPUSCULAR HEMOGLOBIN 31 PG (25-34); MEAN CORPUSCULAR HGB CONC 34 G/DL (32-36); MEAN CORPUSCULAR VOLUME 93 FL (80-99); MEAN PLATELET VOLUME 10.1 FL (7.4-10.4); MONOCYTES # (AUTO) 0.7 X 10^3 (0.0-1.0); MONOCYTES % (AUTO) 5 % (0-12); NEUTROPHILS # (AUTO) 13.7 X 10^3 (1.8-7.8); NEUTROPHILS % (AUTO) 89 % (42-75); PLATELET COUNT 201 10^3/uL (130-400); RED CELL DISTRIBUTION WIDTH 12.6 % (10.0-14.5); WHITE BLOOD COUNT 15.4 10^3/uL (4.3-11.0)
--- NOTE | 2019-01-23 09:10 | Diagnostic Imaging Report ---
INDICATION: Fever, chills and nausea. TIME OF EXAM: 8:51 AM Correlation is made with prior chest from 12/21/2016. FINDINGS: The heart size is stable. Lungs are clear. No infiltrates are detected. No effusion or pneumothorax is seen. There are surgical clips in left axilla. IMPRESSION: No acute cardiopulmonary process is detected. Dictated by: Dictated on workstation # [id number]
[2019-01-23 09:29] LABS: ALANINE AMINOTRANSFERASE 16 U/L (0-55); ALBUMIN 3.8 GM/DL (3.2-4.5); ALKALINE PHOSPHATASE 54 U/L (40-136); BILIRUBIN,TOTAL 0.9 MG/DL (0.1-1.0); BUN/CREATININE RATIO 18; CALCIUM 9.4 MG/DL (8.5-10.1); CARBON DIOXIDE 20 MMOL/L (21-32); CHLORIDE 104 MMOL/L (98-107); CREATININE SERUM 0.98 MG/DL (0.60-1.30); GFR ESTIMATED 56; GLUCOSE 128 MG/DL (70-105); POTASSIUM 3.9 MMOL/L (3.6-5.0); SODIUM 134 MMOL/L (135-145); TOTAL PROTEIN 6.5 GM/DL (6.4-8.2)
[2019-01-23 09:43] LABS: BASOPHILS % (MANUAL) 1 %; LYMPHOCYTES % (MANUAL) 7 %; MONOCYTES % (MANUAL) 1 %; NEUTROPHILS % (MANUAL) 91 %
[2019-01-23 09:44] LABS: RBC MORPH NORMAL
[2019-01-23] MEDS ORDERED: ONDANSETRON 4 MG/2 ML (SDV) Z0FRAN IVP ONE (09:45)
[2019-01-23 10:09] LABS: BILIRUBIN,URINE NEGATIVE (NEGATIVE); CLARITY,URINE CLEAR; COLOR,URINE YELLOW; GLUCOSE, URINE (UA) NEGATIVE (NEGATIVE); KETONES,URINE 2+ (NEGATIVE); LEUKOCYTE ESTERASE ,URINE 3+ (NEGATIVE); NITRITE,URINE NEGATIVE (NEGATIVE); PH,URINE 5 (5-9); PROTEIN,URINE 1+ (NEGATIVE); UROBILINOGEN,URINE NORMAL (NORMAL)
[2019-01-23 10:27] LABS: BACTERIA,URINE TRACE /HPF; HYALINE CASTS, URINE >50 /LPF
[2019-01-23] MEDS ORDERED: ONDA4TAB11 PO (12:13)
--- NOTE | 2019-01-23 12:15 | NUR ---
PT HAS LARGE DIARRHEA STOOL, BED, COMMODE, FOUL SMELLING
[2019-01-23] MEDS ORDERED: methylPREDNISolone 125 MG (Solu-MEDROL) VIAL IV STA (12:29)
[2019-01-23] MEDS ORDERED: metroNIDAZOLE 500MG/100ML IVPB 100 ML IV ONE (13:45)
[2019-01-23] MEDS ORDERED: METR-145 PO (15:10)
[2019-01-23 15:38] VITALS: BP 132/64
== END 2019-01-23 15:38 | disposition home or self-care (01) ==
LOC: EDUNIT# 07:15 → ER 07:16
DX: R19.7 Diarrhea, unspecified (principal); E86.0 Dehydration; B96.89 Other specified bacterial agents as the cause of diseases classified elsewhere; I10 Essential (primary) hypertension; E11.9 Type 2 diabetes mellitus without complications; I25.10 Atherosclerotic heart disease of native coronary artery without angina pectoris; G47.30 Sleep apnea, unspecified; Z85.3 Personal history of malignant neoplasm of breast; Z87.440 Personal history of urinary (tract) infections; Z98.890 Other specified postprocedural states; Z99.89 Dependence on other enabling machines and devices; Z79.82 Long term (current) use of aspirin; Z79.02 Long term (current) use of antithrombotics/antiplatelets; Z82.49 Family history of ischemic heart disease and other diseases of the circulatory system
CPT/HCPCS: 36415; 71045; 80053; 81000; 83605; 84484; 85007; 85027; 85610; 85730; 87040; 87088; 87324; 87449; 87804; 93005

== ENCOUNTER → 2019-02-11 | Outpatient (CLI) | payer MEDICARE ==
[~2019-02-11] VITALS: Ht 167 cm; Wt 107.0 kg
[~2019-02-11] MED LIST changes: +CATHETER FLUSH 10 ML SYR IV PRN; +METR-145 PO; +ONDA4TAB11 PO; +REGADENOSON 0.4 MG/5 ML SYR (LEXISCAN) IV ONE
[2019-02-11 09:21] VITALS: BP 171/77
[2019-02-11 09:23] VITALS: BP 143/76
--- NOTE | 2019-02-11 16:08 | STRESS TEST ---
DATE OF SERVICE: 02/11/2019 RESTING AND POST REGADENOSON TECHNETIUM-99M TETROFOSMIN SPECT CT IMAGING ORDERING PHYSICIAN: Dr. Weston. OTHER PHYSICIAN: Dr. Lubin. CLINICAL DIAGNOSES: Coronary artery disease. Baseline images were carried out after injection of 10.92 mCi of technetium-99m Tetrofosmin. This was followed by 0.4 mg regadenoson and 31.6 mCi of technetium-99m Tetrofosmin for stress imaging. The electrocardiogram showed sinus rhythm at baseline. The electrocardiogram did not change significantly with the regadenoson infusion. The patient tolerated the procedure well. Review of images at rest and following stress indicates a small basal inferior perfusion defect that appears transient. Gated images show normal global left ventricular systolic function with normal regional wall motion. Left ventricular ejection fraction is calculated to be 60%. Left ventricular end diastolic volume is 82 mL. TID is absent (0.96). CONCLUSIONS: 1. This study suggests a small amount of basal inferior ischemia. 2. Normal regional wall motion. 3. Normal global left ventricular systolic function with a calculated ejection fraction of 60%. Job ID: [id number] DocumentID: [id number] Dictated Date: 02/11/2019 13:44:44 Military Education Coordinator Date: 02/11/2019 16:07:05 Dictated By: YRN WESTON MD, MA, FACP, FACC,
== END ==
LOC: CARD 07:58
PROVIDERS: ATTEND Internal Medicine Cardiovascular Disease
DX: I25.10 Atherosclerotic heart disease of native coronary artery without angina pectoris (principal); I77.9 Disorder of arteries and arterioles, unspecified
CPT/HCPCS: 78452; 93017

== ENCOUNTER 2019-02-18 19:05 | Inpatient (IN) | payer MEDICARE ==
[~2019-02-18] VITALS: Ht 168 cm; Wt 104.5 kg
[~2019-02-18 19:05] MED LIST changes: -FLUT16SP22 NS; -SPIR50TA PO
--- NOTE | 2019-02-18 19:30 | NUR ---
Lt arm noted to be inflammed, warm to touch, with + 1 non pitting edema noted.
[2019-02-18 19:46] LABS: BASOPHILS % (AUTO) 0 % (0-10); EOSINOPHILS % (AUTO) 0 % (0-10); HEMATOCRIT 41 % (35-52); LYMPHOCYTES # (AUTO) 0.4 X 10^3 (1.0-4.0); LYMPHOCYTES % (AUTO) 3 % (12-44); MEAN CORPUSCULAR HEMOGLOBIN 31 PG (25-34); MEAN CORPUSCULAR HGB CONC 34 G/DL (32-36); MEAN CORPUSCULAR VOLUME 91 FL (80-99); MEAN PLATELET VOLUME 10.2 FL (7.4-10.4); MONOCYTES # (AUTO) 0.8 X 10^3 (0.0-1.0); MONOCYTES % (AUTO) 5 % (0-12); NEUTROPHILS # (AUTO) 13.2 X 10^3 (1.8-7.8); NEUTROPHILS % (AUTO) 92 % (42-75); PLATELET COUNT 207 10^3/uL (130-400); WHITE BLOOD COUNT 14.4 10^3/uL (4.3-11.0)
--- NOTE | 2019-02-18 20:06 | ED General ---
General Chief Complaint: General Problems/Pain Stated Complaint: CHILLS, BODY ACHES Nursing Triage Note: Patient ambulatory to ER with complaint of chills and body aches that started 15:30 today. Patient states she was told that every time she gets chills and body aches she is supposed to come to the ER because she has an extensive history of infections. 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 Nursing Sepsis Screen: Possible Severe Sepsis Risk Source of Information: Patient Exam Limitations: No Limitations History of Present Illness Date Seen by Provider: Feb 18, 2019 Time Seen by Provider: 19:58 Initial Comments Warm to ER with reports of body aches and chills onset 30 p.m. today[address] She saw Dr. Dewey earlier today for follow-up visit and was feeling perfectly fine at that time. She follows with him for history of breast cancer, she's had a mastectomy with lymph node removal and subsequent lymphedema of the left arm with recurrent cellulitis of this. She was here on January 08 cellulitis left arm admitted for 2 days on antibiotics, was then back to days later for C. difficile. She presents with recurrent fevers and chills this afternoon but no apparent source of pain there is no redness to the arm that she noticed and no pain, no cough no shortness of breath no dysuria and no diarrhea. Timing/Duration: 1-2 Days Severity: Moderate Associated Systoms: Fever/Chills Allergies and Home Medications Allergies Coded Allergies: No Known Drug Allergies (Unverified , 11/05/18) Home Medications Amlodipine Besylate 5 Mg Tablet, 5 MG PO DAILY, (Reported) Aspirin 81 Mg Tablet.dr, 81 MG PO DAILY, (Reported) Atorvastatin Calcium 10 Mg Tablet, 10 MG PO DAILY, (Reported) Cephalexin 500 Mg Capsule, 500 MG PO QID Prescribed by: EMERALD LUBIN on 01/20/19 1356 Cetirizine HCl 10 Mg Tablet, 10 MG PO HS PRN for ALLERIGES, (Reported) Clopidogrel Bisulfate 75 Mg Tablet, 75 MG PO DAILY Hold till Sunday Prescribed by: MARY MENDOZA on 11/08/18 1048 Fluticasone Propionate 9.9 Ml Kellogg.susp, 2 SPRAY NS DAILY 2 SPRAYS PER NOSTRIL DAILY X 2 DAYS THEN 1 SPRAY DAILY Prescribed by: EMERALD LUBIN on 01/20/19 1356 Lactobacillus Combo No.10 1 Each Capsule, 1 CAP PO DAILY, (Reported) Losartan/Hydrochlorothiazide 1 Each Tablet, 1 TAB PO DAILY, (Reported) Metoprolol Succinate 25 Mg Tab.er.24h, 25 MG PO DAILY Prescribed by: EMERALD LUBIN on 08/13/182139 Metronidazole 500 Mg Tablet, 500 MG PO TID Prescribed by: DEISI HAMLIN on 01/23/19 1510 Ondansetron 4 Mg Tab.rapdis, 4 MG PO Q6H PRN for NAUSEA/VOMITING Prescribed by: DEISI HAMLIN on 01/23/19 1213 Spironolactone 50 Mg Tablet, 50 MG PO DAILY Prescribed by: EMERALD LUBIN on 08/13/182139 Patient Home Medication List Home Medication List Reviewed: Yes Review of Systems Review of Systems Constitutional: see HPI, chills, malaise EENTM: see HPI Respiratory: no symptoms reported Cardiovascular: no symptoms reported Genitourinary: no symptoms reported Musculoskeletal: no symptoms reported Skin: no symptoms reported Psychiatric/Neurological: No Symptoms Reported Past Rtbppve-Lwimlq-Jpmyqt Hx Patient Social History Alcohol Use: Rarely Uses Number of Drinks Today: AA Alcohol Beverage of Choice: Beer Recreational Drug Use: No Smoking Status: Never a Smoker 2nd Hand Smoke Exposure: No Recent Foreign Travel: No Contact w/Someone Who Travel: No Recent Infectious Disease Expo: No Recent Hopitalizations: Yes Immunizations Up To Date Tetanus Booster (TDap): Unknown Date of Pneumonia Vaccine: Jun 19, 2013 Seasonal Allergies Seasonal Allergies: No Past Medical History Surgeries: No Abdominal, Breast, Gallbladder, Orthopedic Respiratory: No Sleep Apnea Currently Using CPAP: Yes Currently Using BIPAP: No Cardiac: Yes (STENTS) Chronic Edema/Swelling, Coronary Artery Disease, Hypertension Neurological: No 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 Disorders: No Female 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 Disorders: Denies BUILDER BEAM History: Menopausal Sexually Transmitted Disease: No HIV/AIDS: No Genitourinary: Yes (OCCASIONAL UTI) UTI-Chronic Gastrointestinal: Yes Abdominal Hernia, C-Diff, Gall Bladder Disease Musculoskeletal: Yes (CHRONIC LYMPHEDEMA LEFT ARM; LEFT ANKLE FX/ORIF; RIGHT KNEE SCOPE) Fractures Endocrine: Yes Diabetes, Non-Insulin dep HEENT: No Cancer: Yes Breast Did You Recieve Any Treatments: Yes What Type of Treatment Did You: Surgical Intervention Psychosocial: No Integumentary: Yes (SHINGLES; RECURRENT CELLULITIS LEFT ARM) Recent Skin Changes Blood Disorders: No Adverse Reaction/Blood Tranf: No Family Medical History Cardiovascular disease 19 FATHER Hypertension DAUGHTER Kidney disease 19 MOTHER POOR LEG CIRCULATION G8 SISTER No Pertinent Family Hx Physical Exam Vital Signs Vital Signs - First Documented 02/18/19 19:12 Temp 37.8 Pulse 95 Resp 20 B/P (MAP) 112/46 (68) Pulse Ox 95 O2 Delivery Room Air Capillary Refill : Less Than 3 Seconds Height, Weight, BMI Height: 5'6.00" Weight: 251lbs. 8.0oz. 113.349515vg; 38.00 BMI Method:Stated General Appearance: No Apparent Distress, WD/WN Eyes: Bilateral Eye Normal Inspection, Bilateral Eye PERRL, Bilateral Eye EOMI Neck: Full Range of Motion, Normal Inspection Respiratory: Lungs Clear, Normal Breath Sounds, No Accessory Muscle Use, No Respiratory Distress Cardiovascular: Normal Peripheral Pulses, Systolic Murmur Gastrointestinal: Normal Bowel Sounds, Non Tender, Soft Extremity: Normal Capillary Refill, Normal Inspection Neurologic/Psychiatric: Alert, Oriented x3 Skin: Normal Color, Warm/Dry, Other Focused Exam Lactate Level 02/18/19 19:35: Lactic Acid Level 1.12 Lactic Acid Level Laboratory Tests Test 02/18/19 19:35 Lactic Acid Level 1.12 MMOL/L (0.50-2.00) Progress/Results/Core Measures Suspected Sepsis Recent Fever Within 48 Hours: Yes Infection Criteria Present: Suspected New Infection New/Unexplained Altered Menta: No Sepsis Screen: Possible Severe Sepsis Risk SIRS Temperature: Pulse: 95 Respiratory Rate: 20 Laboratory Tests 02/18/19 19:35: White Blood Count 14.4H Blood Pressure 112 /46 Mean: 68 02/18/19 19:35: Lactic Acid Level 1.12 Laboratory Tests 02/18/19 19:35: Creatinine 1.20, Platelet Count 207, Total Bilirubin 0.7 Results/Orders Lab Results Laboratory Tests Test 02/18/19 19:35 02/18/19 20:35 Range/Units White Blood Count 14.4 H 4.3-11.0 10^3/uL Red Blood Count 4.52 4.35-5.85 10^6/uL Hemoglobin 14.0 11.5-16.0 G/DL Hematocrit 41 35-52 % Mean Corpuscular Volume 91 80-99 FL Mean Corpuscular Hemoglobin 31 25-34 PG Mean Corpuscular Hemoglobin Concent 34 32-36 G/DL Red Cell Distribution Width 13.0 10.0-14.5 % Platelet Count 207 130-400 10^3/uL Mean Platelet Volume 10.2 7.4-10.4 FL Neutrophils (%) (Auto) 92 H 42-75 % Lymphocytes (%) (Auto) 3 L 12-44 % Monocytes (%) (Auto) 5 0-12 % Eosinophils (%) (Auto) 0 0-10 % Basophils (%) (Auto) 0 0-10 % Neutrophils # (Auto) 13.2 H 1.8-7.8 X 10^3 Lymphocytes # (Auto) 0.4 L 1.0-4.0 X 10^3 Monocytes # (Auto) 0.8 0.0-1.0 X 10^3 Eosinophils # (Auto) 0.0 0.0-0.3 10^3/uL Basophils # (Auto) 0.0 0.0-0.1 10^3/uL Neutrophils % (Manual) 79 % Lymphocytes % (Manual) 6 % Monocytes % (Manual) 1 % Band Neutrophils 14 % Blood Morphology Comment NORMAL Sodium Level 134 L 135-145 MMOL/L Potassium Level 5.0 3.6-5.0 MMOL/L Chloride Level 104 98-107 MMOL/L Carbon Dioxide Level 20 L 21-32 MMOL/L Anion Gap 10 5-14 MMOL/L Blood Urea Nitrogen 24 H 7-18 MG/DL Creatinine 1.20 0.60-1.30 MG/DL Estimat Glomerular Filtration Rate 44 BUN/Creatinine Ratio 20 Glucose Level 155 H 70-105 MG/DL Lactic Acid Level 1.12 0.50-2.00 MMOL/L Calcium Level 9.6 8.5-10.1 MG/DL Corrected Calcium 9.5 8.5-10.1 MG/DL Total Bilirubin 0.7 0.1-1.0 MG/DL Aspartate Amino Transf (AST/SGOT) 20 5-34 U/L Alanine Aminotransferase (ALT/SGPT) 21 0-55 U/L Alkaline Phosphatase 72 40-136 U/L Total Protein 7.1 6.4-8.2 GM/DL Albumin 4.1 3.2-4.5 GM/DL Urine Color YELLOW Urine Clarity CLEAR Urine pH 5 5-9 Urine Specific [place] 1.015 L 1.016-1.022 Urine Protein NEGATIVE NEGATIVE Urine Glucose (UA) NEGATIVE NEGATIVE Urine Ketones NEGATIVE NEGATIVE Urine Nitrite NEGATIVE NEGATIVE Urine Bilirubin NEGATIVE NEGATIVE Urine Urobilinogen NORMAL NORMAL MG/DL Urine Leukocyte Esterase 3+ H NEGATIVE Urine RBC (Auto) NEGATIVE NEGATIVE Urine RBC NONE /HPF Urine WBC 5-10 H /HPF Urine Squamous Epithelial Cells 5-10 /HPF Urine Crystals NONE /LPF Urine Bacteria FEW H /HPF Urine Casts NONE /LPF Urine Mucus NEGATIVE /LPF Urine Culture Indicated YES Micro Results Microbiology 02/18/19 Influenza Types A,B Antigen (RAHEL) - Final, Complete My Orders Orders - MONIQUE CHRISTY APRN Cbc With Automated Diff (02/18/19 19:20) Comprehensive Metabolic Panel (02/18/19 19:20) Ua Culture If Indicated (02/18/19 19:20) Blood Culture (02/18/19 19:20) Lactic Acid Analyzer (02/18/19 19:20) Influenza A And B Antigens (02/18/19 19:44) Chest 1 View, Ap/Pa Only (02/18/19 19:44) Manual Differential (02/18/19 19:35) Ondansetron Injection (Zofran Injectio (02/18/19 20:45) Urine Culture (02/18/19 20:35) Vancomycin 1,500 Mg X1 Ed Only (02/18/19 22:00) Medications Given in ED Current Medications Medications Dose Ordered Sig/Lyndon Route Start Time Stop Time Status Last Admin Dose Admin Ondansetron HCl 4 mg ONCE ONCE IVP 02/18/19 20:45 02/18/19 20:46 DC 02/18/19 20:43 4 MG Vital Signs/I&O 02/18/19 19:12 Temp 37.8 Pulse 95 Resp 20 B/P (MAP) 112/46 (68) Pulse Ox 95 O2 Delivery Room Air Capillary Refill : Less Than 3 Seconds Blood Pressure Mean: 68 Diagnostic Imaging Diagonstic Imaging: Xray Comments NAME: CELINA ESPINOZA [facility] REC#: [id number] PT STATUS: REG ER : 1945 PHYSICIAN: MONIQUE CHRISTY APRN ADMIT DATE: 02/18/19/ER Draft Date of Exam:02/18/19 CHEST 1 VIEW, AP/PA ONLY EXAM: Portable erect AP chest at 8:12 PM INDICATION: Chills. FINDINGS: The heart size is within normal limits and stable when compared to 01/23/2019. There is slight blunting of the left costophrenic angle. This finding is unchanged when compared to the prior exam of 12/21/2016 is probably related to pleural thickening. The lung seems generally clear. There is no evidence for failure, pneumonia or for a significant pleural effusion. The mediastinum is not widened. The osseous structures are intact. The incompletely healed fracture of the left clavicle seen previously is again evident. Surgical clips are again seen overlying the left axilla. IMPRESSION: 1. There is no evidence for an acute cardiopulmonary abnormality. 2. When compared to the prior study there has been no significant change. Dictated on workstation # [id number] Dict: 02/18/192018 Trans: 02/18/192025 [facility] [id number] Interpreted by: NORMA VALDEZ MD Electronically signed by: Departure Communication (Admissions) Time/Spoke to Admitting Phy: 21:46 Time/Spoke to Consulting Phy: 21:[address] Dewey at this time. There was no apparent source of infection on arrival, she's had a recurrent cellulitis of the left arm. However it didn't look red to her upon her arrival. I spoke with Dr. Dewey who is concerned about recurrence of these infections, recommends listening for murmur, if present an echocardiogram and empiric coverage for endocarditis. However since talking to him I was called back to the patient's room as she reports increasing redness to arm, the left arm is now bright red which is a change from her presentation on arrival here.She does in fact have a murmur but this isn't new, she follows with Dr. Weston. 2134-discussed the case with patient's primary care provider Dr. Lubin, recommends admission, empiric antibiotic use of vancomycin monotherapy as this would cover the skin mahnaz and be less prone to causing C. difficile colitis. We will not use broad-spectrum coverage given her recent C. difficile brought on by broad-spectrum antibiotic usage. Will consult Dr. Weston tomorrow simply for the sake of her murmur, echocardiogram may be warranted given the recurrent infections + murmur, however most of these have identifiable source being the left arm cellulitis. Impression Primary Impression: Cellulitis of left arm Additional Impression: Hx of Clostridium difficile infection Disposition: ADMITTED INPATIENT Condition: Stable Admissions Decision to Admit Reason: Admit from ER (General) Decision to Admit/Date: Feb 18, 2019 Time/Decision to Admit Time: 21:29 Departure-Patient Inst. Referrals: EMERALD LUBIN DO (PCP/Family) Primary Care Physician MONIQUE CHRISTY APRN Feb 18, 2019 20:06
[2019-02-18 20:08] LABS: ALBUMIN 4.1 GM/DL (3.2-4.5); BILIRUBIN,TOTAL 0.7 MG/DL (0.1-1.0); CALCIUM 9.6 MG/DL (8.5-10.1); CREATININE SERUM 1.2 MG/DL (0.60-1.30); TOTAL PROTEIN 7.1 GM/DL (6.4-8.2)
--- NOTE | 2019-02-18 20:28 | Diagnostic Imaging Report ---
EXAM: Portable erect AP chest at 8:12 PM INDICATION: Chills. FINDINGS: The heart size is within normal limits and stable when compared to 01/23/2019. There is slight blunting of the left costophrenic angle. This finding is unchanged when compared to the prior exam of 12/21/2016 is probably related to pleural thickening. The lung seems generally clear. There is no evidence for failure, pneumonia or for a significant pleural effusion. The mediastinum is not widened. The osseous structures are intact. The incompletely healed fracture of the left clavicle seen previously is again evident. Surgical clips are again seen overlying the left axilla. IMPRESSION: There is no evidence for an acute cardiopulmonary abnormality. When compared to the prior study there has been no significant change. Dictated by: Dictated on workstation # [id number]
[2019-02-18 20:36] LABS: BAND NEUTROPHILS 14 %; LYMPHOCYTES % (MANUAL) 6 %; MONOCYTES % (MANUAL) 1 %; NEUTROPHILS % (MANUAL) 79 %; RBC MORPH NORMAL
[2019-02-18] MEDS ORDERED: ONDANSETRON 4 MG/2 ML (SDV) Z0FRAN IVP ONE (20:45)
[2019-02-18 20:54] LABS: BILIRUBIN,URINE NEGATIVE (NEGATIVE); CLARITY,URINE CLEAR; COLOR,URINE YELLOW; GLUCOSE, URINE (UA) NEGATIVE (NEGATIVE); KETONES,URINE NEGATIVE (NEGATIVE); LEUKOCYTE ESTERASE ,URINE 3+ (NEGATIVE); NITRITE,URINE NEGATIVE (NEGATIVE); PH,URINE 5 (5-9); PROTEIN,URINE NEGATIVE (NEGATIVE)
[2019-02-18 21:11] LABS: BACTERIA,URINE FEW /HPF
[2019-02-18] MEDS ORDERED: VANCOMYCIN 1500 MG/NS 500 ML IVPB IV ONE ×2 (22:00)
[2019-02-18] MEDS ORDERED: VANCOMYCIN INJECTION 1,500 MG in NS IV 500 ML 500 ML IV ONE (22:00)
[2019-02-18 23:30] VITALS: BP 130/58
--- NOTE | 2019-02-18 23:30 | NUR ---
CELINA ESPINOZA admitted to room 424-1, with an admitting diagnosis of CELLULITIS LUE, SEPSIS, on 02/18/19 from ED via CART, accompanied by STAFF.CELINA ESPINOZA introduced to surroundings, call light, bed controls, phone, TV, temperature control, lights, meal times, smoking policy, visitor policy, side rail policy, bathrooms and showers. Patient Rights given to patient in the handbook. CELINA ESPINOZA verbalizes understanding that [facility] is not responsible for the loss or damage to any personal effects or valuables that are kept in the patients posession during their hospitalization.
--- NOTE | 2019-02-18 23:30 | NUR ---
PT CAME TO ROOM WITH VANC ALREADY RUNNING.
[2019-02-19] MEDS ORDERED: ACETAMINOPHEN 325 MG TABLET PO PRN (01:15)
[2019-02-19] MEDS ORDERED: IBUPROFEN 600 MG (MOTRIN) TAB PO PRN (01:15)
[2019-02-19] MEDS ORDERED: NS IV 1000 ML 1,000 ML IV SCH (01:15)
[2019-02-19 04:00] VITALS: BP 117/53
[2019-02-19 04:37] LABS: BASOPHILS % (AUTO) 0 % (0-10); EOSINOPHILS % (AUTO) 0 % (0-10); HEMATOCRIT 33 % (35-52); LYMPHOCYTES # (AUTO) 0.8 X 10^3 (1.0-4.0); LYMPHOCYTES % (AUTO) 7 % (12-44); MEAN CORPUSCULAR HEMOGLOBIN 31 PG (25-34); MEAN CORPUSCULAR HGB CONC 33 G/DL (32-36); MEAN CORPUSCULAR VOLUME 94 FL (80-99); MEAN PLATELET VOLUME 10.2 FL (7.4-10.4); MONOCYTES # (AUTO) 0.4 X 10^3 (0.0-1.0); MONOCYTES % (AUTO) 3 % (0-12); NEUTROPHILS % (AUTO) 90 % (42-75); PLATELET COUNT 153 10^3/uL (130-400); WHITE BLOOD COUNT 12.3 10^3/uL (4.3-11.0)
[2019-02-19 05:01] LABS: ALANINE AMINOTRANSFERASE 13 U/L (0-55); ALBUMIN 3.1 GM/DL (3.2-4.5); ALKALINE PHOSPHATASE 44 U/L (40-136); BILIRUBIN,TOTAL 0.8 MG/DL (0.1-1.0); BUN/CREATININE RATIO 27; CARBON DIOXIDE 19 MMOL/L (21-32); CHLORIDE 109 MMOL/L (98-107); CREATININE SERUM 0.91 MG/DL (0.60-1.30); GFR ESTIMATED > 60; GLUCOSE 114 MG/DL (70-105); POTASSIUM 4.6 MMOL/L (3.6-5.0); SODIUM 138 MMOL/L (135-145); TOTAL PROTEIN 5.7 GM/DL (6.4-8.2)
--- NOTE | 2019-02-19 07:20 | NUR ---
NOTIFIED DR. OSBORN OF CONSULT FOR PT. ORDERED ROUTINE EKG FOR PATIENT.
--- NOTE | 2019-02-19 07:47 | NUR ---
VANCOMYCIN DOSING SCR 0.91 (USED 1.0); CRCL ~ 62; BOLUS VANC 20 MG/KG X 104 KG ~ 2 GM THEN VANC 15 MG/KG ~ 1500 MG Q12H CHECK TROUGH LEVEL 02/20 AT 0900 HOLD DOSE AND CONTACT PHARMACY IF LEVEL IS GREATER THAN 20
[2019-02-19 08:40] VITALS: BP 110/58
[2019-02-19] MEDS: VANCOMYCIN 1500 MG/NS 500 ML IVPB IV SCH ×4 (09:38→22:05)
[2019-02-19] MEDS ORDERED: FLUT16SP22 NS (11:20)
[2019-02-19] MEDS ORDERED: METO-387 PO (11:20)
[2019-02-19] MEDS ORDERED: SPIR50TA PO (11:32)
[2019-02-19] MEDS ORDERED: CLOP75TA69 PO (11:32)
--- NOTE | 2019-02-19 11:32 | NUR ---
SPOKE WITH THE PATIENT ABOUT HER MEDICATIONS. SHE HAD A LIST AND I COMPARED IT WITH THE EXT MED HX. IN ADDITION TO WHAT IS SHOWN ON THE EXT MED HX JUDI ROBLES FILLED: 02-04-19 ATORVASTATIN 10MG #90 02-04-19 PLAVIX 75MG #90 12-24-18 SPIRONOLACTONE 50MG DAILY #90 SHE TAKES ASPIRIN 81MG DAILY, ZYRTEC PRN, AND A PROBIOTIC DAILY OTC.
[2019-02-19 12:00] VITALS: BP_SYST 109; BP_SYST 130; BP_DIAS 69; BP_DIAS 92
--- NOTE | 2019-02-19 14:25 | NUR ---
Pastoral care visit.
--- NOTE | 2019-02-19 15:33 | CONSULTATION REPORT ---
DATE OF SERVICE: 02/19/2019 The patient is admitted to room 424. PHYSICIAN REQUESTING CONSULTATION: Kerline Lubin DO IMPRESSION: 1. A 73-year-old female admitted with left upper extremity cellulitis and fever and chills. 2. History of multifocal left breast cancer, status post modified radical mastectomy and axillary node dissection in 1999. 3. Long-standing lymphedema of left upper extremity with few previous episodes of cellulitis in the left upper extremity. During the last one year, she has had fifth episode of cellulitis. 4. Previous history of C. difficile colitis a few times following antibiotic therapy for cellulitis. 5. Coronary artery disease with IA and stent placement in 2018. RECOMMENDATIONS: 1. Agree with antibiotic therapy with vancomycin. The patient has been afebrile today. 2. Agree with cardiology consultation. The patient may need transesophageal echo to rule out vegetations. 3. She will need to see a lymphedema therapist for decompression therapy and reeducation regarding care of left upper extremity. Currently, there is no lymphedema therapist at [facility] and we will schedule this on an outpatient basis. 4. I will follow the patient with you. BRIEF HISTORY: The patient is a 73-year-old female with history of multifocal triple negative left breast cancer diagnosed in 1999 and she underwent modified radical mastectomy and axillary node dissection followed by adjuvant chemotherapy with CMF regimen for six months. She has been on surveillance since then without evidence of recurrent or metastatic disease. She developed lymphedema of the left upper extremity soon after her surgery and was wrapping her hands every night and using a compression sleeve intermittently. She has had few episodes of cellulitis in the past, but during the last year she has had four separate episodes of left upper extremity cellulitis with the current admission being the fifth. The patient was seen on an outpatient basis yesterday morning at the [facility] and did not have any complaints. Left upper extremity was unremarkable except for the lymphedema. By yesterday evening, she complained of fever and shaking chills and increased swelling of the left upper extremity. She came to the emergency room and left arm was becoming red. Ortiz cultures were obtained and she was admitted to the hospital for antibiotic therapy. Medical oncology consultation was obtained for concurrent care. PAST MEDICAL HISTORY: Again significant for multifocal triple negative left breast cancer, status post left modified radical mastectomy and axillary node dissection complicated by left upper extremity lymphedema. She has history of diabetes mellitus type 2, hypertension, hyperlipidemia, coronary artery disease with IA requiring a stent placement in 2018. She has completed one year of dual antiplatelet therapy. History of C. difficile colitis a few times including the most recent one within the last 2 weeks. She has sleep apnea and uses CPAP machine at night. SOCIAL HISTORY: The patient is and lives alone in [place], [place]. 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 She has a daughter who lives in [place]. No history of tobacco or recreational drug use. She uses alcohol socially, averaging occasional beer. FAMILY HISTORY: Significant for coronary artery disease in her father and chronic kidney disease in her mother. Her daughter has hypertension. No history of malignancies in the family that the patient knows of. PHYSICAL EXAMINATION: GENERAL: Today showed an elderly female, obese, awake and oriented, in no acute distress. VITAL SIGNS: Temperature was 37.2 degrees Celsius, pulse rate of 57, respirations 18, blood pressure 110/58 with oxygen saturation of 94% on room air. HEENT: Normocephalic, extraocular muscles intact, conjunctivae pink, oral mucosa moist. NECK: Supple, with no JVD. No cervical, supraclavicular or axillary lymphadenopathy palpable. CHEST: Symmetrical. LUNGS: Fairly clear to auscultation without wheezes or rales. CARDIOVASCULAR: Regular in rate and rhythm with a grade II early systolic murmur. ABDOMEN: Obese, soft, nontender with no hepatosplenomegaly or other masses palpable. EXTREMITIES: Showed lymphedema of the left upper extremity. There is reddish erythema of most of the left upper extremity, which is warm to touch. Rest of the extremities showed no edema or erythema. NEUROLOGIC: Showed no focal motor deficits. LABORATORY DATA: CBC done yesterday at the time of emergency room visit showed WBC 14.4, hemoglobin 14.0, platelet count 207,000 with neutrophil count 13.2 and lymphocyte count 0.4. CBC done today morning showed white count of 12.3, hemoglobin 11.0 and platelet count 153,000 with neutrophil count 11.0. CMP done today showed normal electrolytes except chloride of 109 and CO2 of 19. BUN was 25 and creatinine 0.91 with GFR more than 60 mL per minute. Nonfasting glucose was 114. Liver function studies were within normal limits except albumin level of 3.1. Urinalysis was unremarkable. Influenza screen was negative. Blood cultures are pending. Chest x-ray done at the emergency room showed no evidence of an acute cardiopulmonary abnormality. IMPRESSION: 1. Left upper extremity cellulitis. 2. Febrile illness due to above. 3. Lymphedema of the left upper extremity due to left modified radical mastectomy and axillary node dissection completed in 1999. 4. History of multifocal triple negative left breast cancer, status post left modified radical mastectomy and axillary node dissection in 1999. 5. History of coronary artery disease, IA, stent placement, hypertension and hyperlipidemia. RECOMMENDATIONS: 1. Agree with antibiotic therapy with vancomycin. The patient has been afebrile today and continue to monitor closely. Await blood culture results and adjust antibiotic therapy if necessary. 2. Because of recurrent left upper extremity cellulitis and lymphedema, she will benefit with consultation from the lymphedema therapist. We will schedule this on an outpatient basis as there are no certified lymphedema therapist at [facility] at this time. 3. The patient may need a transesophageal echocardiogram to rule out vegetations. We will leave the final decision to Dr. Weston. 4. 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 Recent treatment for C. difficile colitis completed within the last 2 weeks. Continue to monitor for any symptoms of diarrhea. 5. We will follow the patient with you. Job ID: [id number] DocumentID: [id number] Dictated Date: 02/19/2019 14:45:10 Auditing Coder Date: 02/19/2019 15:32:14 Dictated By: AMITA FOREMAN MD
[2019-02-19 16:00] VITALS: BP 140/64
--- NOTE | 2019-02-19 18:15 | Consultation-Cardiology ---
HPI-Cardiology Cardiology Consultation: Date of Consultation 02/19/19 Time Seen by a Provider: 13:00 Date of Admission Attending Physician Kerline Lubin DO Admitting Physician Kerline Lubin DO Consulting Physician YRN OSBORN MD, MA, FACP, FACC, FSCAI, CCDS HPI: Chief Complaint: CC: L forearm swelling and discomfort HPI 73 yo woman admitted to Dr Lubin'fernanda on 02/18/19 with redness and discomfort in the L forearm and fever and chills - diagnosed as L forearm cellulitis No cp or palp or syncope Chronic, moderate exertional shortness of breath Chronic swelling of L forearm, diagnosed as lymphedema H/o intermittent diarrhea that started after prolonged antibiotic therapy for multiple recent episodes of L arm cellulits Review of Systems-Cardiology Review of Systems Constitutional: chills, fever, malaise, tiredness; No weight loss, No weight gain Eyes: No vision change Ears/Nose/Throat: No ear discharge, No nasal drainage, No recent hearing loss Respiratory: As described under HPI Cardiovascular: As described under HPI Gastrointestinal: No constipation; diarrhea (see HPI); No nausea, No vomiting Genitourinary: No dysuria, No hematuria, No urine frequency changes Musculoskeletal: As describe under HPI Skin: As described under HPI Psychiatric/Neurological: No seizure, No focal weakness, No syncope Hematologic: No bleeding abnormalities XMG-Fdhghi-Pgtojd Hx Patient Social History Alcohol Use: Rarely Uses Recreational Drug Use: No Smoking Status: Never a Smoker 2nd Hand Smoke Exposure: No Recent Foreign Travel: No Recent Infectious Disease Expo: No Hospitalization with Isolation: Denies Immunizations Up To Date Tetanus Booster (TDap): Unknown Date of Pneumonia Vaccine: Jun 19, 2013 Past Medical History PMH As described under Assessment. Family Medical History Family Medical History: Does not report fam h/o early CAD or SCD Family History: Cardiovascular disease 19 FATHER Hypertension DAUGHTER Kidney disease 19 MOTHER POOR LEG CIRCULATION G8 SISTER Allergies and Home Medications Allergies Coded Allergies: No Known Drug Allergies (Unverified , 11/05/18) Home Medications Amlodipine Besylate 5 Mg Tablet, 5 MG PO DAILY, (Reported) Aspirin 81 Mg Tablet.dr, 81 MG PO DAILY, (Reported) Atorvastatin Calcium 10 Mg Tablet, 10 MG PO DAILY, (Reported) Cetirizine HCl 10 Mg Tablet, 10 MG PO HS PRN for ALLERIGES, (Reported) Clopidogrel Bisulfate 75 Mg Tablet, 75 MG PO DAILY, (Reported) Fluticasone Propionate 16 Gm [place].susp, 1 SPRAY NS DAILY PRN for ALLERGIES, (Reported) Lactobacillus Combo No.10 1 Each Capsule, 1 CAP PO DAILY, (Reported) Losartan/Hydrochlorothiazide 1 Each Tablet, 1 TAB PO DAILY, (Reported) Metoprolol Succinate 25 Mg Tab.er.24h, 25 MG PO DAILY, (Reported) Spironolactone 50 Mg Tablet, 50 MG PO DAILY, (Reported) Patient Home Medication List Home Medication List Reviewed: Yes Physical Exam-Cardiology Physical Exam Vital Signs/I&O 02/19/19 02/19/19 02/19/19 02/19/19 07:00 08:00 08:40 12:00 Temp 37.2 36.9 Pulse 55 57 60 Resp 18 18 B/P (MAP) 110/58 (75) 109/69 (82) Pulse Ox 98 94 95 O2 Delivery NIV CPAP Room Air Room Air O2 Flow Rate 2.00 02/19/19 02/19/19 12:22 16:00 Temp 37.1 Pulse 55 60 Resp 20 B/P (MAP) 140/64 (89) Pulse Ox 96 O2 Delivery Room Air 02/19/19 00:00 Intake Total 500 ml Balance 500 ml Capillary Refill : Less Than 3 Seconds Constitutional: well-developed, well-nourished HEENT: PERRL, EOMI; No xanthelasmas are seen Neck: carotid pulses are 2 + bilaterally, with good upstrokes Respiratory: No accessory muscle use; lungs clear to percussion, lungs clear to auscultation Cardiovascular: regular rate-rhythm, S1 and S2, systolic murmur (2/6 MSM at card base) Gastrointestinal: No tender; soft; No guarding, No rebound; audible bowel sounds Extremities: other (swelling and redness and somewhat increased temp of the L forearm); No clubbing, No cyanosis Neurologic/Psychiatric: oriented x 3, other (moves all limbs equally) Skin: other (see extremities exam above) Data Review Labs Laboratory Tests 02/18/19 19:35: White Blood Count 14.4H, Red Blood Count 4.52, Hemoglobin 14.0, Hematocrit 41, Mean Corpuscular Volume 91, Mean Corpuscular Hemoglobin 31, Mean Corpuscular Hemoglobin Concent 34, Red Cell Distribution Width 13.0, Platelet Count 207, Mean Platelet Volume 10.2, Neutrophils (%) (Auto) 92H, Lymphocytes (%) (Auto) 3L , Monocytes (%) (Auto) 5, Eosinophils (%) (Auto) 0, Basophils (%) (Auto) 0, Neutrophils # (Auto) 13.2H, Lymphocytes # (Auto) 0.4L, Monocytes # (Auto) 0.8, Eosinophils # (Auto) 0.0, Basophils # (Auto) 0.0, Neutrophils % (Manual) 79, Ly mphocytes % (Manual) 6, Monocytes % (Manual) 1, Band Neutrophils 14, Blood Morphology Comment NORMAL, Sodium Level 134L, Potassium Level 5.0, Chloride Level 104, Carbon Dioxide Level 20L, Anion Gap 10, Blood Urea Nitrogen 24H, Creatinine 1.20, Estimat Glomerular Filtration Rate 44, BUN/Creatinine Ratio 20, Glucose Level 155H, Lactic Acid Level 1.12, Calcium Level 9.6, Corrected Calcium 9.5, Total Bilirubin 0.7, Aspartate Amino Transf (AST/SGOT) 20, Alanine Aminotransferase (ALT/SGPT) 21, Alkaline Phosphatase 72, Total Protein 7.1, Albumin 4.1 02/18/19 20:35: Urine Color YELLOW, Urine Clarity CLEAR, Urine pH 5, Urine Specific [place] 1.015L, Urine Protein NEGATIVE, Urine Glucose (UA) NEGATIVE, Urine Ketones NEGATIVE, Urine Nitrite NEGATIVE, Urine Bilirubin NEGATIVE, Urine Urobilinogen NORMAL, Urine Leukocyte Esterase 3+H, Urine RBC (Auto) NEGATIVE, Urine RBC NONE, Urine WBC 5-10H, Urine Squamous Epithelial Cells 5-10, Urine Crystals NONE, Urine Bacteria FEWH, Urine Casts NONE, Urine Mucus NEGATIVE, Urine Culture Indicated YES 02/19/19 04:05: White Blood Count 12.3H, Red Blood Count 3.53L, Hemoglobin 11.0#L, Hematocrit 33L, Mean Corpuscular Volume 94, Mean Corpuscular Hemoglobin 31, Mean Corpuscular Hemoglobin Concent 33, Red Cell Distribution Width 13.0, Platelet Count 153, Mean Platelet Volume 10.2, Neutrophils (%) (Auto) 90H, Lymphocytes (%) (Auto) 7L, Monocytes (%) (Auto) 3, Eosinophils (%) (Auto) 0, Basophils (%) (Auto) 0, Neutrophils # (Auto) 11.0H, Lymphocytes # (Auto) 0.8L, Monocytes # (Auto) 0.4, Eosinophils # (Auto) 0.0, Basophils # (Auto) 0.0, Sodium Level 138, Potassium Level 4.6, Chloride Level 109H, Carbon Dioxide Level 19L, Anion Gap 10, Blood Urea Nitrogen 25H, Creatinine 0.91, Estimat Glomerular Filtration Rate > 60, BUN/Creatinine Ratio 27, Glucose Level 114H, Calcium Level 8.0L, Corrected Calcium 8.7, Total Bilirubin 0.8, Aspartate Amino Transf (AST/SGOT) 16, Alanine Aminotransferase (ALT/SGPT) 13, Alkaline Phosphatase 44, Total Protein 5.7L, Albumin 3.1L Microbiology 02/18/19 Blood Culture - Preliminary, Resulted No growth 02/18/19 Influenza Types A,B Antigen (RAHEL) - Final, Complete 02/18/19 Urine Culture - Final, Complete NO GROWTH Laboratory Tests 02/18/19 19:35 02/19/19 04:05 A/P-Cardiology Assessment/Admission Diagnosis Recurrent cellulitis in the L forearm that has chronic lymphedema Ch exertional shortness of breath CAD. Card cath of 12/21/16: 99% mid vessel stenosis of the left anterior descending artery with slow distal flow. To this, successful intervention was carried out. Following deployment of Alpine Xience 2.75 x 18 mm stent, there is 0% residual stenosis and distal flow was normal. The rest of the coronary vessels have mild to moderate disease. Impairment of global left ventricular systolic function with left ventricular ejection fraction of 40%. Anterolateral apical hypokinesis. Elevated left ventricular end-diastolic pressure. No significant mitral regurgitation seen on this study. MPI of 02/12/19: a small amount of basal inferior ischemia, normal regional wall motion, normal global left ventricular systolic function with a calculated ejection fraction of 60%. Echo of 11/20/18: LVEF 60-65%, mod to sev dilation of LA, mild to mod with valve area approx 1.5 cm, RVSP 25 mmHg Impaired fasting glucose Intolerance to higher dose statin due to profound weakness and muscle discomfort Obesity with BM approx 39 Hypertension L mastectomy with lymph node dissection in Apr 2000. Has had L arm lymphedema since then Chronic, intermittent diarrhea and h/o C Diff followed by Dr Lubin, her pcp Carotid art disease. Carotid u/s of 08/09/18 showed R ICA stenosis of 60% and less than 40% of the L ICA Discussion and Recomendations * Continue previous cardiac regimen * She has multiple comorbidities * Will follow with you * ANA MARÍA to eval for endocarditis on 02/21/19 Clinical Quality Measures DVT/VTE Risk/Contraindication: Risk Factor Score Per Nursin RFS Level Per Nursing on Admit: 2=Moderate YRN OSBORN MD FACP FAC CCDS Feb 19, 2019 18:15
[2019-02-19] MEDS ORDERED: TEMAZEPAM 7.5 MG CAP (RESTORIL) PO PRN (19:15)
--- NOTE | 2019-02-19 19:16 | History & Physical ---
History of Present Illness History of Present Illness Reason for visit/HPI This is a 73 year old female with chronic lymphedema of her left upper extremity who presented to the emergency room with sudden onset of fever and chills. Her flu was negative but while she was in the emergency room her left arm started to become red. She had a recent episode of cellulitis but did not finish a full antibiotic treatment regimen because she developed clostridium difficile colitis. Her arm was much improved at the time that she developed the C. Diff so she was treated for the C. Diff with flagyl and her other antibiotics for her left arm cellulitis were discontinued. She had been doing well until today when she had the sudden onset of the fever and chills. She will be admitted for IV antibiotics and cardiology consult to assess for possible endocarditis. The patient is very discouraged about the recurrent cellulitis. We have discussed that she is prone to this because of her chronic lymphedema. We have also discussed the importance of wrapping her arm routinely. She does admit that she does well after an infection but then she starts to get lax with wrapping once she is feeling better. Date of Admission Feb 18, 2019 at 21:42 Date Seen by a Provider: Feb 19, 2019 Time Seen by a Provider: 13:00 I consulted on this patient on 02/19/19 19:10 Attending Physician Kerline Jonas DO Admitting Physician Kerline Jonas DO Consult Allergies and Home Medications Allergies Coded Allergies: No Known Drug Allergies (Unverified , 11/05/18) Home Medications Amlodipine Besylate 5 Mg Tablet, 5 MG PO DAILY, (Reported) Aspirin 81 Mg Tablet.dr, 81 MG PO DAILY, (Reported) Atorvastatin Calcium 10 Mg Tablet, 10 MG PO DAILY, (Reported) Cetirizine HCl 10 Mg Tablet, 10 MG PO HS PRN for ALLERIGES, (Reported) Clopidogrel Bisulfate 75 Mg Tablet, 75 MG PO DAILY, (Reported) Fluticasone Propionate 16 Gm [place].susp, 1 SPRAY NS DAILY PRN for ALLERGIES, (Reported) Lactobacillus Combo No.10 1 Each Capsule, 1 CAP PO DAILY, (Reported) Losartan/Hydrochlorothiazide 1 Each Tablet, 1 TAB PO DAILY, (Reported) Metoprolol Succinate 25 Mg Tab.er.24h, 25 MG PO DAILY, (Reported) Spironolactone 50 Mg Tablet, 50 MG PO DAILY, (Reported) Patient Home Medication List Home Medication List Reviewed: Yes Past Mesgxyh-Mqygqf-Yyouud Hx Past Med/Social Hx: Reviewed Nursing Past Med/Soc Hx Patient Social History Marrital Status: Alcohol Use: Rarely Uses Number of Drinks Today: AA Alcohol Beverage of Choice: Beer Recreational Drug Use: No Smoking Status: Never a Smoker 2nd Hand Smoke Exposure: No Recent Foreign Travel: No Contact w/other who traveled: No Recent Hopitalizations: Yes Recent Infectious Disease Expo: No Immunizations Up To Date Tetanus Booster (TDap): Unknown Date of Pneumonia Vaccine: Jun 19, 2013 Seasonal Allergies Seasonal Allergies: No Past Medical History Surgeries: Abdominal, Breast, Gallbladder, Orthopedic Currently Using CPAP: Yes Currently Using BIPAP: No Cardiac: Chronic Edema/Swelling, Coronary Artery Disease, Hypertension 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: No Sexually Transmitted Disease: No HIV/AIDS: No Female 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 Disorders: Denies Menopausal Genitourinary: UTI-Chronic Gastrointestinal: Abdominal Hernia, C-Diff, Gall Bladder Disease Musculoskeletal: Fractures Endocrine: Diabetes, Non-Insulin dep Cancer: Breast Did You Recieve Any Treatments: Yes What Type of Treatment Did You: Surgical Intervention Skin/Integumentary: Recent Skin Changes History of Blood Disorders: No Adverse Reaction to Blood Vogel: No Family History Cardiovascular disease 19 FATHER Hypertension DAUGHTER Kidney disease 19 MOTHER POOR LEG CIRCULATION G8 SISTER No Pertinent Family Hx Review of Systems Constitutional: chills, fever, weakness EENTM: No see HPI, No no symptoms reported, No ear discharge, No hearing loss, No ear pain, No blurred vision, No double vision, No eye pain, No tearing, No vision loss, No dental problems, No hoarseness, No mouth pain, No mouth swelling, No epistaxis, No nose congestion, No nose pain, No throat pain, No throat swelling, No other Respiratory: No no symptoms reported, No see HPI, No cough, No dyspnea on exertion, No hemoptysis, No orthopnea, No phlegm, No short of breath, No stridor, No wheezing, No other Cardiovascular: No no symptoms reported, No see HPI, No chest pain, No edema, No Hx of Intervention, No palpitations, No syncope, No vascular heart diseas, No other Gastrointestinal: No RUQ, No LUQ, No RLQ, No LLQ, No no symptoms reported, No see HPI, No abdominal pain, No constipation, No diarrhea, No dysphagia, No he matemesis, No heartburn, No jaundice, No loss of appetite, No melena, No nausea, No vomiting, No other Genitourinary: No no symptoms reported, No see HPI, No decreased output, No discharge, No dysuria, No frequency, No hematuria, No hesitancy, No incontinence, No nocturia, No pain, No other Musculoskeletal: muscle weakness Skin: change in color (left arm redness) Psychiatric/Neurological: Depressed, Weakness Physical Exam Vital Signs Vital Signs - First Documented 02/18/19 02/18/19 19:12 22:15 Temp 37.8 Pulse 95 Resp 20 B/P (MAP) 112/46 (68) Pulse Ox 95 O2 Delivery Room Air O2 Flow Rate 2.00 Capillary Refill : Less Than 3 Seconds Height, Weight, BMI Height: 5'6.00" Weight: 251lbs. 8.0oz. 113.275656gh; 37.02 BMI Method:Stated General Appearance: No Apparent Distress HEENT: Normal ENT Inspection Neck: Supple Respiratory: Lungs Clear Cardiovascular: Regular Rate, Rhythm, Systolic Murmur, Gallop/S4 Gastrointestinal: Normal Bowel Sounds, Non Tender, Soft Rectal: Deferred Back: No CVA Tenderness Extremity: Non Tender, No Calf Tenderness, No Pedal Edema Neurologic/Psychiatric: Alert, Oriented x3 Skin: Erythema (to left forearm with increased warmth and chronic lymphedema) Comments Laboratory Tests 02/18/19 19:35: White Blood Count 14.4H, Red Blood Count 4.52, Hemoglobin 14.0, Hematocrit 41, Mean Corpuscular Volume 91, Mean Corpuscular Hemoglobin 31, Mean Corpuscular Hemoglobin Concent 34, Red Cell Distribution Width 13.0, Platelet Count 207, Mean Platelet Volume 10.2, Neutrophils (%) (Auto) 92H, Lymphocytes (%) (Auto) 3L , Monocytes (%) (Auto) 5, Eosinophils (%) (Auto) 0, Basophils (%) (Auto) 0, Neutrophils # (Auto) 13.2H, Lymphocytes # (Auto) 0.4L, Monocytes # (Auto) 0.8, Eosinophils # (Auto) 0.0, Basophils # (Auto) 0.0, Neutrophils % (Manual) 79, Lymphocytes % (Manual) 6, Monocytes % (Manual) 1, Band Neutrophils 14, Blood Morphology Comment NORMAL, Sodium Level 134L, Potassium Level 5.0, Chloride Level 104, Carbon Dioxide Level 20L, Anion Gap 10, Blood Urea Nitrogen 24H, Creatinine 1.20, Estimat Glomerular Filtration Rate 44, BUN/Creatinine Ratio 20, Glucose Level 155H, Lactic Acid Level 1.12, Calcium Level 9.6, Corrected Calcium 9.5, Total Bilirubin 0.7, Aspartate Amino Transf (AST/SGOT) 20, Alanine Aminotransferase (ALT/SGPT) 21, Alkaline Phosphatase 72, Total Protein 7.1, Albumin 4.1 02/18/19 20:35: Urine Color YELLOW, Urine Clarity CLEAR, Urine pH 5, Urine Specific [place] 1.015L, Urine Protein NEGATIVE, Urine Glucose (UA) NEGATIVE, Urine Ketones NEGATIVE, Urine Nitrite NEGATIVE, Urine Bilirubin NEGATIVE, Urine Urobilinogen NORMAL, Urine Leukocyte Esterase 3+H, Urine RBC (Auto) NEGATIVE, Urine RBC NONE, Urine WBC 5-10H, Urine Squamous Epithelial Cells 5-10, Urine Crystals NONE, Urine Bacteria FEWH, Urine Casts NONE, Urine Mucus NEGATIVE, Urine Culture Indicated YES 02/19/19 04:05: White Blood Count 12.3H, Red Blood Count 3.53L, Hemoglobin 11.0#L, Hematocrit 33L, Mean Corpuscular Volume 94, Mean Corpuscular Hemoglobin 31, Mean Corpuscular Hemoglobin Concent 33, Red Cell Distribution Width 13.0, Platelet Count 153, Mean Platelet Volume 10.2, Neutrophils (%) (Auto) 90H, Lymphocytes (%) (Auto) 7L, Monocytes (%) (Auto) 3, Eosinophils (%) (Auto) 0, Basophils (%) (Auto) 0, Neutrophils # (Auto) 11.0H, Lymphocytes # (Auto) 0.8L, Monocytes # (Auto) 0.4, Eosinophils # (Auto) 0.0, Basophils # (Auto) 0.0, Sodium Level 138, Potassium Level 4.6, Chloride Level 109H, Carbon Dioxide Level 19L, Anion Gap 10, Blood Urea Nitrogen 25H, Creatinine 0.91, Estimat Glomerular Filtration Rate > 60, BUN/Creatinine Ratio 27, Glucose Level 114H, Calcium Level 8.0L, Corrected Calcium 8.7, Total Bilirubin 0.8, Aspartate Amino Transf (AST/SGOT) 16, Alanine Aminotransferase (ALT/SGPT) 13, Alkaline Phosphatase 44, Total Protein 5.7L, Albumin 3.1L Microbiology 02/18/19 Blood Culture - Preliminary, Resulted No growth 02/18/19 Influenza Types A,B Antigen (RAHEL) - Final, Complete 02/18/19 Urine Culture - Final, Complete NO GROWTH Assessment/Plan Assessment and Plan 1. Chronic Left Arm Lymphedema with Acute Cellulitis--admit on IV Vancomycin due to recent C. Diff 2. Recurrent Left Arm Cellulitis--Cardiology for ANA MARÍA to rule out endocarditis, did discuss ID eval as outpatient, also discussed the role of the lymphedema in her recurrent arm cellulitis 3. Hypertension--resume home meds 4. History of CAD--restart plavix, aspirin, home meds, cardiology consulted 5. History of Breast Cancer with Left sided Mastectomy--consult oncology Admission Diagnosis Admission Status: Inpatient Order (span 2 midnights) Reason for Inpatient Admission: Will need extended IV abx due to recurrence Clinical Quality Measures DVT/VTE Risk/Contraindication: Risk Factor Score Per Nursin RFS Level Per Nursing on Admit: 2=Moderate KERLINE JONAS DO Feb 19, 2019 19:16
[2019-02-19 19:31] VITALS: BP 133/62
[2019-02-19] MEDS ORDERED: LORATADINE (CLARITIN) 10 MG TAB PO PRN (21:00)
[2019-02-20 00:20] VITALS: BP 112/56
[2019-02-20 04:00] VITALS: BP 122/56
[2019-02-20] MEDS: LACTOBACILLUS ACIDOPHILUS (PROBIOTIC) CAPSULE PO SCH (06:18)
[2019-02-20 08:00] VITALS: BP 124/72
[2019-02-20] MEDS: amLODIPine 5 MG (NORVASC) TAB PO SCH (08:19)
[2019-02-20] MEDS: ASPIRIN 81 MG CHEW (CHILDREN'S ASA) PO SCH (08:19)
[2019-02-20] MEDS: HYDROCHLOROTHIAZIDE 12.5 MG (HCTZ) CAP PO SCH (08:20)
[2019-02-20] MEDS: LOSARTAN 100 MG (COZAAR) TABLET PO SCH (08:20)
[2019-02-20] MEDS: SPIRONOLACTONE 25 MG (ALDACTONE) TAB PO SCH (08:20)
[2019-02-20] MEDS: CLOPIDOGREL 75 MG (PLAVIX) TABLET PO SCH (08:20)
[2019-02-20] MEDS ORDERED: TROUGH ORDER-PHARMACY XX NR (09:00)
--- NOTE | 2019-02-20 09:49 | Progress Note - Cardiology ---
Cardiology SOAP Progress Note Subjective: Sitting up in recliner at the bedside. States she feels good. Redness in left arm has improved. No c/o CP, palpitations, dyspnea. Objective: I&O/Vital Signs 02/20/19 02/20/19 02/20/19 02/20/19 07:00 08:00 08:00 12:00 Temp 36.2 36.2 Pulse 61 81 57 Resp 18 20 B/P (MAP) 124/72 (89) 120/67 (84) Pulse Ox 98 99 O2 Delivery Room Air Room Air Room Air 02/20/19 02/20/19 13:00 15:30 Temp 36.5 Pulse 56 54 Resp 18 B/P (MAP) 113/56 (75) Pulse Ox 97 O2 Delivery Room Air 02/20/19 00:00 Intake Total 1630 ml Output Total 1900 ml Balance -270 ml Weight (Pounds): 251 Weight (Ounces): 8.0 Weight (Calculated Kilograms): 113.915777 Constitutional: well-developed, well-nourished Respiratory: No accessory muscle use; lungs clear to percussion, lungs clear to auscultation Cardiovascular: regular rate-rhythm, S1 and S2, systolic murmur (2/6 MSM at card base) Gastrointestional: No tender; soft; No guarding, No rebound; audible bowel sounds Extremities: other (swelling and redness and somewhat increased temp of the L forearm); No clubbing, No cyanosis Neurologic/Psychiatric: oriented x 3, other (moves all limbs equally) Skin: other (see extremities exam above) Results/Procedures: Labs Laboratory Tests 02/20/19 09:04: Vancomycin Level Trough 25.8*H Microbiology 02/18/19 Blood Culture - Preliminary, Resulted No growth 02/18/19 Influenza Types A,B Antigen (RAHEL) - Final, Complete 02/18/19 Urine Culture - Final, Complete NO GROWTH A/P: Assessment: Recurrent cellulitis in the L forearm that has chronic lymphedema Ch exertional shortness of breath CAD. Card cath of 12/21/16: 99% mid vessel stenosis of the left anterior descending artery with slow distal flow. To this, successful intervention was carried out. Following deployment of Alpine Xience 2.75 x 18 mm stent, there is 0% residual stenosis and distal flow was normal. The rest of the coronary vessels have mild to moderate disease. Impairment of global left ventricular systolic function with left ventricular ejection fraction of 40%. Anterolateral apical hypokinesis. Elevated left ventricular end-diastolic pressure. No significant mitral regurgitation seen on this study. MPI of 02/12/19: a small amount of basal inferior ischemia, normal regional wall motion, normal global left ventricular systolic function with a calculated ejection fraction of 60%. Echo of 11/20/18: LVEF 60-65%, mod to sev dilation of LA, mild to mod with valve area approx 1.5 cm, RVSP 25 mmHg Impaired fasting glucose Intolerance to higher dose statin due to profound weakness and muscle discomfort Obesity with BM approx 39 Hypertension L mastectomy with lymph node dissection in Apr 2000. Has had L arm lymphedema since then Chronic, intermittent diarrhea and h/o C Diff followed by Dr Lubin, her pcp Carotid art disease. Carotid u/s of 08/09/18 showed R ICA stenosis of 60% and less than 40% of the L ICA Plan: * Continue previous cardiac regimen * She has multiple comorbidities * Will follow with you * ANA MARÍA to eval for endocarditis on 02/21/19 Physician Assessment Physician Assessment No cp or palp or syncope Chronic, mod exertional shortness of breath Mild gen malaise Cor: reg Lungs: good bilat air entry Ext: no c/c/e, except edema and redness of the L forearm A&R * As documented in our note above that I updated (italics) and as noted below * ANA MARÍA planned tomorrow * I discussed the rationale, procedure, risk, benefits, potential complications and alternatives of ANA MARÍA with her. She understands and provides informed consent FRANDY VASQUEZ Feb 20, 2019 09:49 YRN OSBORN MD FACP FAC CCDS Feb 20, 2019 18:07
[2019-02-20 12:00] VITALS: BP 120/67
[2019-02-20 15:30] VITALS: BP 113/56
--- NOTE | 2019-02-20 16:17 | NUR ---
dr head notified of patients low heart rate in the 40s. stated " it was normal for her due to her heart medications" no other instructions given at this time
--- NOTE | 2019-02-20 16:20 | NUR ---
RD ASSESSMENT PMHx: cellulitis; CAD; HTN; DM; CA(breast) PT INTERACTION: Pt was awake and pleasant during nutrition assessment. Pt states current appetite is "so/so" and that it comes and goes. Pt states that she tries to follow a [employer] diet and portion control her meals. Pt states n current issues with chewing/swallowing at this time. Pt states no issues with n/v/c/d at this time, and that her last BM was 02/18. Pt states no recent wt changes. Note unable to determine recent wt hx, per chart review. Pt states current DM management is pretty good. Pt states not knowing most recent HbA1c. Upon visual exam, pt appears to be adequately nourished with no visible signs of muscle/fat wasting and a BMI of 37. ABNORMAL NUTRITION-RELATED LAB VALUES: Ca 8.0 (L); Pro 5.7 (L); alb 3.1 (L); Cl 109 (H); BUN 25 (H); glu 114 (H) Est. kcal needs: 4225-2904 kcal (15-18 kcal/kg) Est. Pro needs: 84-104 g Pro (0.8-1.0 g Pro/kg) PES STATEMENT: Inadequate oral intake (NI-2.1) related to loss of appetite as evidenced by avg PO intake 58% | pt interview INTERVENTION: Continue with current diet order of 2g Na Diet. Encouraged pt to eat when able. Pt may benefit from nutrition supplementation if poor po intake continues. Will continue to follow for PO intake status. MONITOR/EVALUATE: PO Intake; Plan of Care; Hydration Status; Weight Status; Lab Values Flaca Wasserman, MS, RD, LD Ext. 133
--- NOTE | 2019-02-20 18:13 | Progress Note ---
Standard Progress Note Progress Notes/Assess & Plan Date Seen by a Provider: Feb 20, 2019 Time Seen by a Provider: 18:09 Progress/Assessment & Plan 73-year-old female with history of multifocal triple negative left breast cancer, status post left modified radical mastectomy and axillary node di ssection in 1999 with stage I cancer. Chronic left upper extremity lymphedema following axillary node dissection. Patient admitted with left upper extremity erythema and fever clinically consistent with cellulitis. Status post pancultures and started on IV antibiotic with vancomycin. Patient is feeling better and the erythema has almost completely disappeared. She still has ly mphedema but the forearm and arm is not tense like the past 2 days. This is the fifth episode of cellulitis within the last year. She is scheduled for a ANA MARÍA tomorrow because of a cardiac murmur. She will need to reestablish with a lymphedema therapist on an outpatient basis for continued care of the lymphedema as well as reeducation regarding care of left upper extremity. We will arrange this on an outpatient basis. Continue current care and made discharged home when medically stable. Focused Exam Lactate Level 02/18/19 19:35: Lactic Acid Level 1.12 AMITA FOREMAN Feb 20, 2019 18:13
[2019-02-20 19:24] VITALS: BP 135/59
[2019-02-20] MEDS: VANCOMYCIN INJECTION 1,250 MG in NS (IVPB) 250 ML IV SCH (20:18)
--- NOTE | 2019-02-20 21:23 | Progress Note ---
Subjective Date Seen by a Provider: Feb 20, 2019 Time Seen by a Provider: 12:45 Subjective/Events-last exam Fwup left arm cellulitis, chronic left arm lymphedema, HTN, recent C. Diff colitis. Patient is sitting up in chair. Feels much better and arm looking better. Focused Exam Lactate Level 02/18/19 19:35: Lactic Acid Level 1.12 Objective Exam Vital Signs Date Time Temp Pulse Resp B/P (MAP) Pulse Ox O2 Delivery O2 Flow Rate FiO2 02/20/19 19:24 36.5 58 17 135/59 (84) 98 Room Air 02/20/19 18:59 52 02/20/19 15:30 36.5 54 18 113/56 (75) 97 Room Air 02/20/19 13:00 56 02/20/19 12:00 36.2 57 20 120/67 (84) 99 Room Air 02/20/19 08:00 Room Air 02/20/19 08:00 36.2 81 18 124/72 (89) 98 Room Air 02/20/19 07:00 61 02/20/19 04:40 35.7 61 18 93 NIV CPAP 02/20/19 04:00 122/56 (78) 02/20/19 01:02 61 02/20/19 00:20 36.2 60 20 112/56 (74) 95 NIV CPAP 02/19/19 23:32 NIV CPAP 2.00 I & O 02/20/19 07:00 Intake Total 2430 ml Output Total 2800 ml Balance -370 ml Capillary Refill : Less Than 3 Seconds General Appearance: No Apparent Distress Respiratory: Lungs Clear Cardiovascular: Regular Rate, Rhythm Neurologic/Psychiatric: Alert, Oriented x3 Skin: Warm/Dry, Other (left arm with much less erythema and much less warmth) Results Lab Laboratory Tests 02/20/19 09:04: Vancomycin Level Trough 25.8*H Microbiology 02/18/19 Blood Culture - Preliminary, Resulted No growth 02/18/19 Influenza Types A,B Antigen (RAHEL) - Final, Complete 02/18/19 Urine Culture - Final, Complete NO GROWTH Assessment/Plan Assessment/Plan Assess & Plan/Chief Complaint 1. Left Arm Cellulitis--on Vancomycin 2. Recurrent Cellulitis of Left Arm--plan is ANA MARÍA tomorrow 3. Chronic Lymphedema of left arm--will plan on lymphedema therapy after DC 4. Hypertension--home meds restarted 5. Recent C. Diff Colitis--bowels back to normal Clinical Quality Measures Admission Status Admission Dx 1. Chronic Left Arm Lymphedema with Acute Cellulitis--admit on IV Vancomycin due to recent C. Diff 2. Recurrent Left Arm Cellulitis--Cardiology for ANA MARÍA to rule out endocarditis, did discuss ID eval as outpatient, also discussed the role of the lymphedema in her recurrent arm cellulitis 3. Hypertension--resume home meds 4. History of CAD--restart plavix, aspirin, home meds, cardiology consulted 5. History of Breast Cancer with Left sided Mastectomy--consult oncology DVT/VTE Risk/Contraindication: Risk Factor Score Per Nursin RFS Level Per Nursing on Admit: 2=Moderate EMERALD JONAS DO Feb 20, 2019 21:23
--- NOTE | 2019-02-20 22:15 | NUR ---
CONSENT FORM WAS SIGNED BY PATIENT FOR ANA MARÍA PROCEDURE ON 02/21/2019.
[2019-02-21] VITALS (14 sets, daily range): BP systolic 98–200; BP diastolic 56–84
[2019-02-21] MEDS: LACTOBACILLUS ACIDOPHILUS (PROBIOTIC) CAPSULE PO SCH (04:40)
[2019-02-21 05:31] LABS: BASOPHILS % (AUTO) 1 % (0-10); EOSINOPHILS # (AUTO) 0.3 10^3/uL (0.0-0.3); EOSINOPHILS % (AUTO) 4 % (0-10); HEMATOCRIT 38 % (35-52); HEMOGLOBIN 12.7 G/DL (11.5-16.0); LYMPHOCYTES # (AUTO) 2.1 X 10^3 (1.0-4.0); LYMPHOCYTES % (AUTO) 30 % (12-44); MEAN CORPUSCULAR HEMOGLOBIN 32 PG (25-34); MEAN CORPUSCULAR HGB CONC 34 G/DL (32-36); MEAN CORPUSCULAR VOLUME 94 FL (80-99); MEAN PLATELET VOLUME 10.5 FL (7.4-10.4); MONOCYTES # (AUTO) 0.8 X 10^3 (0.0-1.0); MONOCYTES % (AUTO) 12 % (0-12); NEUTROPHILS # (AUTO) 3.8 X 10^3 (1.8-7.8); NEUTROPHILS % (AUTO) 54 % (42-75); PLATELET COUNT 206 10^3/uL (130-400); RED CELL DISTRIBUTION WIDTH 13.2 % (10.0-14.5); WHITE BLOOD COUNT 7.1 10^3/uL (4.3-11.0)
[2019-02-21 05:41] LABS: INR 0.9 (0.8-1.4); PROTHROMBIN TIME PATIENT 12.8 SEC (12.2-14.7)
[2019-02-21 05:55] LABS: ALANINE AMINOTRANSFERASE 23 U/L (0-55); ALBUMIN 3.4 GM/DL (3.2-4.5); ALKALINE PHOSPHATASE 49 U/L (40-136); BILIRUBIN,TOTAL 0.4 MG/DL (0.1-1.0); BUN/CREATININE RATIO 21; CALCIUM 9.4 MG/DL (8.5-10.1); CARBON DIOXIDE 21 MMOL/L (21-32); CHLORIDE 107 MMOL/L (98-107); CREATININE SERUM 0.85 MG/DL (0.60-1.30); GFR ESTIMATED > 60; GLUCOSE 105 MG/DL (70-105); POTASSIUM 4.5 MMOL/L (3.6-5.0); SODIUM 138 MMOL/L (135-145); TOTAL PROTEIN 6.2 GM/DL (6.4-8.2)
[2019-02-21] MEDS ORDERED: NS IV 1000 ML 1,000 ML IV ONE (06:00)
--- NOTE | 2019-02-21 08:05 | NUR ---
PT TRANSFERRED VIA BED FOR ANA MARÍA AT THIS TIME. IV LEAKING. PLASTER HELPER STATES THEY WILL ATTEMPT NEW IV USING ULTRA SOUND.
[2019-02-21] MEDS ORDERED: LIDOCAINE 2% VISCOUS 15 ML UDC ONE (08:08)
[2019-02-21] MEDS ORDERED: fentaNYL INJECTION 100 MCG/2 ML AMP ONE (08:15)
[2019-02-21] MEDS ORDERED: MIDAZOLAM 5 MG/5 ML (VERSED) VIAL ONE (08:15)
[2019-02-21] MEDS ORDERED: LIDOCAINE 2% VISCOUS 15 ML UDC PO ONE (09:15)
[2019-02-21] MEDS ORDERED: MIDAZOLAM 5 MG/5 ML (VERSED) VIAL IV ONE (09:15)
[2019-02-21] MEDS ORDERED: fentaNYL INJECTION 100 MCG/2 ML AMP IV ONE (09:15)
--- NOTE | 2019-02-21 10:21 | Progress Note - Cardiology ---
Cardiology SOAP Progress Note Subjective: No cp or palp or syncope Gen malaise L forearm swelling and discomfort as before Objective: I&O/Vital Signs 02/21/19 02/21/19 02/21/19 02/21/19 00:00 00:32 04:00 07:00 Temp 36.0 36.4 Pulse 47 50 53 49 Resp 18 18 B/P (MAP) 161/64 (96) 114/56 (75) Pulse Ox 95 95 O2 Delivery NIV CPAP NIV CPAP 02/21/19 02/21/19 02/21/19 02/21/19 08:00 08:30 08:30 08:35 Temp 36.9 Pulse 56 52 65 Resp 20 16 16 B/P (MAP) 98/64 (75) 172/79 (110) 187/59 (101) Pulse Ox 96 95 97 99 O2 Delivery Room Air Room Air Simple Mask Simple Mask O2 Flow Rate 6.00 02/21/19 02/21/19 02/21/19 02/21/19 08:40 08:45 08:50 08:55 Pulse 70 62 61 61 Resp 16 16 16 16 B/P (MAP) 146/82 (103) 200/84 (122) 191/71 (111) 160/67 (98) Pulse Ox 99 99 99 97 O2 Delivery Simple Mask Simple Mask Simple Mask Simple Mask 02/21/19 02/21/19 02/21/19 09:00 09:15 09:32 Pulse 56 52 49 Resp 16 16 16 B/P (MAP) 154/60 (91) 144/59 (87) 145/61 (89) Pulse Ox 97 95 62 O2 Delivery Simple Mask Room Air Room Air 02/21/19 00:00 Intake Total 2242.5 ml Output Total 1900 ml Balance 342.5 ml Weight (Pounds): 251 Weight (Ounces): 8.0 Weight (Calculated Kilograms): 113.700063 Constitutional: well-developed, well-nourished Respiratory: No accessory muscle use; lungs clear to percussion, lungs clear to auscultation Cardiovascular: regular rate-rhythm, S1 and S2, systolic murmur (2/6 MSM at card base) Gastrointestional: No tender; soft; No guarding, No rebound; audible bowel sounds Extremities: other (swelling and redness and somewhat increased temp of the L forearm); No clubbing, No cyanosis Neurologic/Psychiatric: oriented x 3, other (moves all limbs equally) Skin: other (see extremities exam above) Results/Procedures: Labs Laboratory Tests 02/21/19 04:30: White Blood Count 7.1, Red Blood Count 4.01L, Hemoglobin 12.7, Hematocrit 38, Mean Corpuscular Volume 94, Mean Corpuscular Hemoglobin 32, Mean Corpuscular Hemoglobin Concent 34, Red Cell Distribution Width 13.2, Platelet Count 206, Mean Platelet Volume 10.5H, Neutrophils (%) (Auto) 54, Lymphocytes (%) (Auto) 30, Monocytes (%) (Auto) 12, Eosinophils (%) (Auto) 4, Basophils (%) (Auto) 1, Neutrophils # (Auto) 3.8, Lymphocytes # (Auto) 2.1, Monocytes # (Auto) 0.8, Eosinophils # (Auto) 0.3, Basophils # (Auto) 0.0, Prothrombin Time 12.8, INR Comment 0.9, Sodium Level 138, Potassium Level 4.5, Chloride Level 107, Carbon Dioxide Level 21, Anion Gap 10, Blood Urea Nitrogen 18, Creatinine 0.85, Estimat Glomerular Filtration Rate > 60, BUN/Creatinine Ratio 21, Glucose Level 105, Calcium Level 9.4, Corrected Calcium 9.9, Total Bilirubin 0.4, Aspartate Amino Transf (AST/SGOT) 19, Alanine Aminotransferase (ALT/SGPT) 23, Alkaline Phosphatase 49, Total Protein 6.2L, Albumin 3.4 Microbiology 02/18/19 Blood Culture - Preliminary, Resulted No growth 02/18/19 Influenza Types A,B Antigen (RAHEL) - Final, Complete 02/18/19 Urine Culture - Final, Complete NO GROWTH Laboratory Tests 02/21/19 04:30 Laboratory Tests 02/21/19 04:30 A/P: Assessment: Recurrent cellulitis in the L forearm that has chronic lymphedema ANA MARÍA of 02/21/19: LVEF 60-65%, mild to mod thickening and calcification of a tricuspid aortic valve leaflets, no intracardiac vegetation or thrombus, trivial MR Ch exertional shortness of breath CAD. Card cath of 12/21/16: 99% mid vessel stenosis of the left anterior descending artery with slow distal flow. To this, successful intervention was carried out. Following deployment of Alpine Xience 2.75 x 18 mm stent, there is 0% residual stenosis and distal flow was normal. The rest of the coronary vessels have mild to moderate disease. Impairment of global left ventricular systolic function with left ventricular ejection fraction of 40%. Anterolateral apical hypokinesis. Elevated left ventricular end-diastolic pressure. No significant mitral regurgitation seen on this study. MPI of 02/12/19: a small amount of basal inferior ischemia, normal regional wall motion, normal global left ventricular systolic function with a calculated ejection fraction of 60%. Echo of 11/20/18: LVEF 60-65%, mod to sev dilation of LA, mild to mod with valve area approx 1.5 cm, RVSP 25 mmHg Impaired fasting glucose Intolerance to higher dose statin due to profound weakness and muscle discomfort Obesity with BM approx 39 Hypertension L mastectomy with lymph node dissection in Apr 2000. Has had L arm lymphedema since then Chronic, intermittent diarrhea and h/o C Diff followed by Dr Lubin, her pcp Carotid art disease. Carotid u/s of 08/09/18 showed R ICA stenosis of 60% and less than 40% of the L ICA Plan: * Continue previous cardiac regimen * She has multiple comorbidities * I explained the ANA MARÍA results to her and answered CV-related questions * Ok to d/c from cardiac standpoint YRN OSBORN MD FACP FAC CCDS Feb 21, 2019 10:21
[2019-02-21] MEDS: VANCOMYCIN INJECTION 1,250 MG in NS (IVPB) 250 ML IV SCH (10:37)
[2019-02-21] MEDS: LOSARTAN 100 MG (COZAAR) TABLET PO SCH (10:38)
[2019-02-21] MEDS: CLOPIDOGREL 75 MG (PLAVIX) TABLET PO SCH (10:38)
[2019-02-21] MEDS: amLODIPine 5 MG (NORVASC) TAB PO SCH (10:38)
[2019-02-21] MEDS: ASPIRIN 81 MG CHEW (CHILDREN'S ASA) PO SCH (10:38)
[2019-02-21] MEDS: HYDROCHLOROTHIAZIDE 12.5 MG (HCTZ) CAP PO SCH (10:38)
[2019-02-21] MEDS: SPIRONOLACTONE 25 MG (ALDACTONE) TAB PO SCH (10:42)
--- NOTE | 2019-02-21 10:49 | Discharge Summary ---
Discharge Summary Hospital Course Was the Problem List Reviewed?: Yes Hospital Course Date of Admission: Feb 18, 2019 at 21:42 Admission Diagnosis : Family Physician/Provider: Kerline Lubin DO Date of Discharge: 02/21/19 Discharge Diagnosis: [ ] Hospital Course: This is a 73 year old female with a history of recurrent left arm cellulitis due to chronic left arm lymphedema who presented to the emergency room with sudden onset of fever and chills. While she was in the emergency room her left arm started turning red. She was admitted for IV antibiotics and further evaluation. She was given IV Vancomycin due to a history of recent Clostridium difficile colitis following antibiotic therapy for cellulitis of her arm. Cardiology was consulted and she underwent a ANA MARÍA to rule out endocarditis. This was normal and her blood cultures were negative as well. At the time of discharge she is feeling much better. Her arm is back to normal and her WBC count is back to normal. She was given a dose of IV vancomycin right before discharge and then will start oral Vancomycin tomorrow. She will follow up in my office next week and we discussed an infectious disease consult as an outpatient. Labs and Pending Lab Test: Laboratory Tests 02/21/19 04:30: White Blood Count 7.1, Red Blood Count 4.01L, Hemoglobin 12.7, Hematocrit 38, Mean Corpuscular Volume 94, Mean Corpuscular Hemoglobin 32, Mean Corpuscular Hemoglobin Concent 34, Red Cell Distribution Width 13.2, Platelet Count 206, Mean Platelet Volume 10.5H, Neutrophils (%) (Auto) 54, Lymphocytes (%) (Auto) 30, Monocytes (%) (Auto) 12, Eosinophils (%) (Auto) 4, Basophils (%) (Auto) 1, Neutrophils # (Auto) 3.8, Lymphocytes # (Auto) 2.1, Monocytes # (Auto) 0.8, Eosinophils # (Auto) 0.3, Basophils # (Auto) 0.0, Prothrombin Time 12.8, INR Comment 0.9, Sodium Level 138, Potassium Level 4.5, Chloride Level 107, Carbon Dioxide Level 21, Anion Gap 10, Blood Urea Nitrogen 18, Creatinine 0.85, Estimat Glomerular Filtration Rate > 60, BUN/Creatinine Ratio 21, Glucose Level 105, Calcium Level 9.4, Corrected Calcium 9.9, Total Bilirubin 0.4, Aspartate Amino Transf (AST/SGOT) 19, Alanine Aminotransferase (ALT/SGPT) 23, Alkaline Phosphatase 49, Total Protein 6.2L, Albumin 3.4 Microbiology 02/18/19 Blood Culture - Preliminary, Resulted No growth 02/18/19 Influenza Types A,B Antigen (RAHEL) - Final, Complete 02/18/19 Urine Culture - Final, Complete NO GROWTH Home Meds Active Reported Aldactone (Spironolactone) 50 Mg Tablet 50 Mg PO DAILY Plavix (Clopidogrel Bisulfate) 75 Mg Tablet 75 Mg PO DAILY Metoprolol Succinate 25 Mg Tab.er.24h 25 Mg PO DAILY Fluticasone Propionate 16 Gm Ash.susp 1 Ash NS DAILY PRN Aspir 81 (Aspirin) 81 Mg Tablet.dr 81 Mg PO DAILY Zyrtec (Cetirizine HCl) 10 Mg Tablet 10 Mg PO HS PRN Probiotic (Lactobacillus Combo No.10) 1 Each Capsule 1 Cap PO DAILY Atorvastatin Calcium 10 Mg Tablet 10 Mg PO DAILY Losartan-Hctz 100-12.5 mg Tab (Losartan/Hydrochlorothiazide) 1 Each Tablet 1 Tab PO DAILY Amlodipine Besylate 5 Mg Tablet 5 Mg PO DAILY Assessment/Pt Instructions 1. Acute Left Arm Cellulitis--improved 2. Recurrent Left Arm Cellulitis 3. Chronic Left Arm Lymphedema 4. Hypertension 5. Recent C. Diff Colitis Discharge Instructions Discharge Diet: ADA Diet, Cardiac Diet Activity as Tolerated: Yes Pneumonia Vaccine Order Indica: Yes Discharge Physical Examination Vital Signs Vital Signs Date Time Temp Pulse Resp B/P (MAP) Pulse Ox O2 Delivery O2 Flow Rate FiO2 02/21/19 09:32 49 16 145/61 (89) 62 Room Air 02/21/19 08:30 6.00 02/21/19 08:00 36.9 General Appearance: No Apparent Distress Respiratory: Lungs Clear Cardiovascular: Regular Rate, Rhythm Extremity: Other (left arm lymphedema) Skin: Warm/Dry Neurologic/Psychiatric: Alert, Oriented x3 Allergies: Coded Allergies: No Known Drug Allergies (Unverified , 11/05/18) Discharge Summary Date of Admission Feb 18, 2019 at 21:42 Date of Discharge Clinical Quality Measures DVT/VTE Risk/Contraindication: Risk Factor Score Per Nursin RFS Level Per Nursing on Admit: 2=Moderate KERLINE LUBIN DO Feb 21, 2019 10:47
[2019-02-21] MEDS ORDERED: VANC250C5 PO (10:56)
[2019-02-22] MEDS ORDERED: TROUGH ORDER-PHARMACY XX NR (08:00)
== END 2019-02-21 12:26 | disposition home or self-care (01) | DRG 603 ==
LOC: EDUNIT# 19:05 → ER 19:07 → 4TH 21:42
PROVIDERS: ADMIT Family Medicine; ATTEND Family Medicine
DX: L03.114 Cellulitis of left upper limb (principal); I97.2 Postmastectomy lymphedema syndrome; I10 Essential (primary) hypertension; I25.10 Atherosclerotic heart disease of native coronary artery without angina pectoris; I25.2 Old myocardial infarction; I35.0 Nonrheumatic aortic (valve) stenosis; E66.9 Obesity, unspecified; R01.1 Cardiac murmur, unspecified; E11.9 Type 2 diabetes mellitus without complications; E78.5 Hyperlipidemia, unspecified; G47.30 Sleep apnea, unspecified; F32.9 Major depressive disorder, single episode, unspecified; I65.23 Occlusion and stenosis of bilateral carotid arteries; K52.9 Noninfective gastroenteritis and colitis, unspecified; Z90.12 Acquired absence of left breast and nipple; Z90.89 Acquired absence of other organs; Z95.5 Presence of coronary angioplasty implant and graft; Z68.37 Body mass index [BMI] 37.0-37.9, adult; Z85.3 Personal history of malignant neoplasm of breast; Z87.19 Personal history of other diseases of the digestive system
CPT/HCPCS: 36415; 71045; 80053; 80202; 81000; 83605; 85007; 85025; 85027; 85610; 87040; 87088; 87804; 93005; 93312; 99213

== ENCOUNTER → 2019-02-18 | Outpatient (CLI) | payer MEDICARE ==
[~2019-02-18] MED LIST changes: -CATHETER FLUSH 10 ML SYR IV PRN; +FLUT16SP22 NS; -REGADENOSON 0.4 MG/5 ML SYR (LEXISCAN) IV ONE; +SPIR50TA PO
[2019-02-18 10:10] LABS: BASOPHILS # (AUTO) 0.1 10^3/uL (0.0-0.1); BASOPHILS % (AUTO) 1 % (0-10); EOSINOPHILS # (AUTO) 0.3 10^3/uL (0.0-0.3); EOSINOPHILS % (AUTO) 5 % (0-10); HEMATOCRIT 43 % (35-52); HEMOGLOBIN 14.5 G/DL (11.5-16.0); LYMPHOCYTES # (AUTO) 1.7 X 10^3 (1.0-4.0); LYMPHOCYTES % (AUTO) 27 % (12-44); MEAN CORPUSCULAR HEMOGLOBIN 31 PG (25-34); MEAN CORPUSCULAR HGB CONC 34 G/DL (32-36); MEAN CORPUSCULAR VOLUME 93 FL (80-99); MEAN PLATELET VOLUME 10.2 FL (7.4-10.4); MONOCYTES # (AUTO) 0.6 X 10^3 (0.0-1.0); MONOCYTES % (AUTO) 8 % (0-12); NEUTROPHILS # (AUTO) 3.8 X 10^3 (1.8-7.8); NEUTROPHILS % (AUTO) 59 % (42-75); PLATELET COUNT 232 10^3/uL (130-400); RED CELL DISTRIBUTION WIDTH 12.9 % (10.0-14.5); WHITE BLOOD COUNT 6.5 10^3/uL (4.3-11.0)
[2019-02-18 10:33] LABS: ALBUMIN 4.3 GM/DL (3.2-4.5); BILIRUBIN,TOTAL 0.7 MG/DL (0.1-1.0); CALCIUM 10.4 MG/DL (8.5-10.1); CREATININE SERUM 1.08 MG/DL (0.60-1.30); POTASSIUM 5.9 MMOL/L (3.6-5.0); TOTAL PROTEIN 7.4 GM/DL (6.4-8.2)
== END ==
LOC: ONC 08:25
PROVIDERS: ATTEND Internal Medicine Hematology & Oncology
DX: Z08 Encounter for follow-up examination after completed treatment for malignant neoplasm (principal); Z85.3 Personal history of malignant neoplasm of breast; Z90.12 Acquired absence of left breast and nipple; Z92.21 Personal history of antineoplastic chemotherapy
CPT/HCPCS: 36415; 80053; 85025; 99213

== ENCOUNTER → 2019-03-11 | Outpatient (CLI) | payer MEDICARE ==
[~2019-03-11] MED LIST changes: +FLUT16SP22 NS; +SPIR50TA PO; +VANC250C5 PO
--- NOTE | 2019-03-11 14:17 | Diagnostic Imaging Report ---
PROCEDURE: US venous upper extremity left. TECHNIQUE: Multiple real-time grayscale images were obtained of left upper extremity in various projections. Additional spectral analysis and color Doppler duplex images were also obtained. INDICATION: Lymphedema. FINDINGS: The left jugular, subclavian, axillary, brachial, cephalic, and basilic veins demonstrate normal response to compression, augmentation, and Valsalva. There are no abnormal left upper extremity fluid collections or masses. IMPRESSION: No evidence of deep venous thrombosis in the left upper extremity. Dictated by: Dictated on workstation # [id number]
== END ==
LOC: RAD 11:09
PROVIDERS: ATTEND Internal Medicine Infectious Disease
DX: M79.89 Other specified soft tissue disorders (principal); L03.90 Cellulitis, unspecified; I89.0 Lymphedema, not elsewhere classified

== ENCOUNTER 2019-03-16 10:12 | Inpatient (IN) | payer MEDICARE ==
[~2019-03-16] VITALS: Ht 167.7 cm; Wt 109.7 kg
--- NOTE | 2019-03-16 10:35 | NUR ---
PT STATES NO CHANGE IN MEDS
[2019-03-16 11:01] LABS: BASOPHILS % (AUTO) 0 % (0-10); EOSINOPHILS % (AUTO) 0 % (0-10); HEMATOCRIT 40 % (35-52); HEMOGLOBIN 13.3 G/DL (11.5-16.0); LYMPHOCYTES # (AUTO) 0.9 X 10^3 (1.0-4.0); LYMPHOCYTES % (AUTO) 5 % (12-44); MEAN CORPUSCULAR HEMOGLOBIN 32 PG (25-34); MEAN CORPUSCULAR HGB CONC 34 G/DL (32-36); MEAN CORPUSCULAR VOLUME 94 FL (80-99); MEAN PLATELET VOLUME 10.2 FL (7.4-10.4); MONOCYTES # (AUTO) 0.6 X 10^3 (0.0-1.0); MONOCYTES % (AUTO) 3 % (0-12); NEUTROPHILS # (AUTO) 15.7 X 10^3 (1.8-7.8); NEUTROPHILS % (AUTO) 91 % (42-75); PLATELET COUNT 207 10^3/uL (130-400); RED CELL DISTRIBUTION WIDTH 13.1 % (10.0-14.5); WHITE BLOOD COUNT 17.1 10^3/uL (4.3-11.0)
[2019-03-16 11:06] LABS: PROTHROMBIN TIME PATIENT 13.4 SEC (12.2-14.7)
[2019-03-16 11:13] LABS: ALBUMIN 4.1 GM/DL (3.2-4.5); BILIRUBIN,TOTAL 1.1 MG/DL (0.1-1.0); CALCIUM 9.7 MG/DL (8.5-10.1); CREATININE SERUM 1.06 MG/DL (0.60-1.30); POTASSIUM 5.4 MMOL/L (3.6-5.0); TOTAL PROTEIN 7.6 GM/DL (6.4-8.2)
--- NOTE | 2019-03-16 11:23 | ED General ---
General Stated Complaint: LEFT ARM SWELLING Source of Information: Patient Exam Limitations: No Limitations History of Present Illness Date Seen by Provider: Mar 16, 2019 Time Seen by Provider: 10:56 Initial Comments Here with report of a few days of upper respiratory symptoms including runny nose and subjective fever last night. Today woke up and noted her left arm was hurting and then noted increasing redness consistent with cellulitis. She does have lymphedema of the left arm and has had several episodes of cellulitis of that arm. She states usually she will have some other infection and it will turn into cellulitis of the arm. Also reports that vancomycin is usually what as needed to clear this infection. She does follow with Dr. Lubin. Denies nausea or vomiting. Does have runny nose and mild cough. No chills currently. Did have fever last night. Timing/Duration: 2-3 Days, Getting Worse Severity: Moderate Modifying Factors: improves with Medication Associated Systoms: No Chest Pain; Cough, Fever/Chills; No Loss of Appetite, No Nausea/Vomiting, No Shortness of Air, No Weakness Allergies and Home Medications Allergies Coded Allergies: No Known Drug Allergies (Unverified , 11/05/18) Home Medications Amlodipine Besylate 5 Mg Tablet, 5 MG PO DAILY, (Reported) Aspirin 81 Mg Tablet.dr, 81 MG PO DAILY, (Reported) Atorvastatin Calcium 10 Mg Tablet, 10 MG PO DAILY, (Reported) Cetirizine HCl 10 Mg Tablet, 10 MG PO HS PRN for ALLERIGES, (Reported) Clopidogrel Bisulfate 75 Mg Tablet, 75 MG PO DAILY, (Reported) Fluticasone Propionate 16 Gm [place].susp, 1 SPRAY NS DAILY PRN for ALLERGIES, (Reported) Lactobacillus Combo No.10 1 Each Capsule, 1 CAP PO DAILY, (Reported) Losartan/Hydrochlorothiazide 1 Each Tablet, 1 TAB PO DAILY, (Reported) Metoprolol Succinate 25 Mg Tab.er.24h, 25 MG PO DAILY, (Reported) Spironolactone 50 Mg Tablet, 50 MG PO DAILY, (Reported) Vancomycin HCl 250 Mg Capsule, 500 MG PO Q8H Prescribed by: EMERALD LUBIN on 02/21/19 1056 Patient Home Medication List Home Medication List Reviewed: Yes Review of Systems Review of Systems Constitutional: see HPI; No chills; fever EENTM: see HPI Respiratory: see HPI Cardiovascular: No chest pain; edema Gastrointestinal: No abdominal pain, No nausea, No vomiting Genitourinary: No dysuria, No frequency, No pain Musculoskeletal: muscle pain; No muscle weakness Skin: change in color; No lesions Psychiatric/Neurological: No Symptoms Reported Hematologic/Lymphatic: No Symptoms Reported All Other Systems Reviewed Negative Unless Noted: Yes Past Rpydgxn-Jlokvi-Ngjopm Hx Past Med/Social Hx: Reviewed Nursing Past Med/Soc Hx Patient Social History Alcohol Use: Occasionally Uses Alcohol Beverage of Choice: Beer Recreational Drug Use: No Smoking Status: Never a Smoker 2nd Hand Smoke Exposure: No Recent Foreign Travel: No Contact w/Someone Who Travel: No Recent Hopitalizations: Yes Immunizations Up To Date Tetanus Booster (TDap): Unknown Date of Pneumonia Vaccine: Jun 19, 2013 Seasonal Allergies Seasonal Allergies: No Past Medical History Surgeries: No Abdominal, Breast, Gallbladder, Orthopedic Respiratory: No Sleep Apnea Currently Using CPAP: Yes Currently Using BIPAP: No Cardiac: Yes (STENTS) Chronic Edema/Swelling, Coronary Artery Disease, Hypertension Neurological: No 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 Disorders: No Female 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 Sexually Transmitted Disease: No HIV/AIDS: No Genitourinary: Yes (OCCASIONAL UTI) UTI-Chronic Gastrointestinal: Yes Abdominal Hernia, C-Diff, Gall Bladder Disease Musculoskeletal: Yes (CHRONIC LYMPHEDEMA LEFT ARM; LEFT ANKLE FX/ORIF; RIGHT KNEE SCOPE) Fractures Endocrine: Yes Diabetes, Non-Insulin dep HEENT: No Cancer: Yes Breast Did You Recieve Any Treatments: Yes What Type of Treatment Did You: Surgical Intervention Psychosocial: No Integumentary: Yes (SHINGLES; RECURRENT CELLULITIS LEFT ARM) Recent Skin Changes Blood Disorders: No Adverse Reaction/Blood Tranf: No Family Medical History Reviewed Nursing Family Hx Cardiovascular disease 19 FATHER Hypertension DAUGHTER Kidney disease 19 MOTHER POOR LEG CIRCULATION G8 SISTER No Pertinent Family Hx Physical Exam-Suspected Sepsis Physical Exam Vital Signs Vital Signs - First Documented 03/16/19 10:25 Temp 37.3 Pulse 66 Resp 18 B/P (MAP) 114/45 (68) Pulse Ox 95 Capillary Refill : Height, Weight, BMI Height: 5'6.00" Weight: 251lbs. 8.0oz. 113.267242mz; 37.02 BMI Method:Stated General Appearance: WD/WN, Mild Distress (tearful secondary to frequent infections of the arm) HEENT: PERRL/EOMI, Pharynx Normal, Other (mild lateral nasal congestion with clear rhinorrhea and moderate erythema) Neck: Non Tender, Supple Respiratory: Lungs Clear, Normal Breath Sounds Cardiovascular: Regular Rate, Rhythm, No Murmur Gastrointestinal: Non Tender, Soft Back: Normal Inspection, No CVA Tenderness, No Vertebral Tenderness Extremity: Normal Range of Motion, Non Tender Neurologic/Psychiatric: Alert, Oriented x3 Skin: normal color, warm/dry Focused Exam Lactate Level 03/16/19 10:35: Lactic Acid Level 1.16 Lactic Acid Level Laboratory Tests Test 03/16/19 10:35 Lactic Acid Level 1.16 MMOL/L (0.50-2.00) Progress/Results/Core Measures Suspected Sepsis SIRS Temperature: Pulse: Respiratory Rate: Laboratory Tests 03/16/19 10:35: White Blood Count 17.1H Blood Pressure / Mean: 03/16/19 10:35: Lactic Acid Level 1.16 Laboratory Tests 03/16/19 10:35: Creatinine 1.06, INR Comment 1.0, Platelet Count 207, Total Bilirubin 1.1H Results/Orders Lab Results Laboratory Tests Test 03/16/19 10:35 Range/Units White Blood Count 17.1 H 4.3-11.0 10^3/uL Red Blood Count 4.22 L 4.35-5.85 10^6/uL Hemoglobin 13.3 11.5-16.0 G/DL Hematocrit 40 35-52 % Mean Corpuscular Volume 94 80-99 FL Mean Corpuscular Hemoglobin 32 25-34 PG Mean Corpuscular Hemoglobin Concent 34 32-36 G/DL Red Cell Distribution Width 13.1 10.0-14.5 % Platelet Count 207 130-400 10^3/uL Mean Platelet Volume 10.2 7.4-10.4 FL Neutrophils (%) (Auto) 91 H 42-75 % Lymphocytes (%) (Auto) 5 L 12-44 % Monocytes (%) (Auto) 3 0-12 % Eosinophils (%) (Auto) 0 0-10 % Basophils (%) (Auto) 0 0-10 % Neutrophils # (Auto) 15.7 H 1.8-7.8 X 10^3 Lymphocytes # (Auto) 0.9 L 1.0-4.0 X 10^3 Monocytes # (Auto) 0.6 0.0-1.0 X 10^3 Eosinophils # (Auto) 0.0 0.0-0.3 10^3/uL Basophils # (Auto) 0.0 0.0-0.1 10^3/uL Neutrophils % (Manual) 95 % Lymphocytes % (Manual) 4 % Monocytes % (Manual) 1 % Blood Morphology Comment NORMAL Prothrombin Time 13.4 12.2-14.7 SEC INR Comment 1.0 0.8-1.4 Activated Partial Thromboplast Time 26 24-35 SEC Sodium Level 134 L 135-145 MMOL/L Potassium Level 5.4 H 3.6-5.0 MMOL/L Chloride Level 106 98-107 MMOL/L Carbon Dioxide Level 15 L 21-32 MMOL/L Anion Gap 13 5-14 MMOL/L Blood Urea Nitrogen 25 H 7-18 MG/DL Creatinine 1.06 0.60-1.30 MG/DL Estimat Glomerular Filtration Rate 51 BUN/Creatinine Ratio 24 Glucose Level 121 H 70-105 MG/DL Lactic Acid Level 1.16 0.50-2.00 MMOL/L Calcium Level 9.7 8.5-10.1 MG/DL Corrected Calcium 9.6 8.5-10.1 MG/DL Total Bilirubin 1.1 H 0.1-1.0 MG/DL Aspartate Amino Transf (AST/SGOT) 21 5-34 U/L Alanine Aminotransferase (ALT/SGPT) 19 0-55 U/L Alkaline Phosphatase 67 40-136 U/L Total Protein 7.6 6.4-8.2 GM/DL Albumin 4.1 3.2-4.5 GM/DL My Orders Orders - DEISI HAMLIN MD Cbc With Automated Diff (03/16/19 10:55) Comprehensive Metabolic Panel (03/16/19 10:55) Blood Culture (03/16/19 10:55) Sputum Culture (03/16/19 10:55) Protime With Inr (03/16/19 10:55) Partial Thromboplastin Time (03/16/19 10:55) Chest 1 View, Ap/Pa Only (03/16/19 10:55) Ed Iv/Invasive Line Start (03/16/19 10:55) Vital Signs Adult Sepsis Patie Q15M (03/16/19 10:55) O2 (03/16/19 10:55) Remove Rings In Anticipation O (03/16/19 10:55) Lactic Acid Analyzer (03/16/19 10:55) Manual Differential (03/16/19 10:35) Lactated Ringers (Lr 1000 Ml Iv Solution (03/16/19 11:49) Ceftriaxone For Iv Use (Rocephin For I (03/16/19 12:30) Vancomycin Injection (Vancomycin Injecti (03/16/19 12:30) Vital Signs/I&O 03/16/19 10:25 Temp 37.3 Pulse 66 Resp 18 B/P (MAP) 114/45 (68) Pulse Ox 95 Capillary Refill : Progress Note : Progress Note Seen and evaluated. IV, labs, chest x-ray, blood cultures and lactic acid ordered as a part of the sepsis protocol. We did not get UA as she is having no urinary tract symptoms. Monitor patient. 1152: Findings of cellulitis of the left arm. I did discuss the case with Dr. Jose, on-call for Dr. Lubin. We will go ahead and initiate Rocephin and vancomycin IV as well as LR 1 L bolus. Patient to be admitted for the cellulitis and continue vancomycin and Rocephin. This is discussed with the patient and agrees with plan. Patient does have findings of sepsis but not severe sepsis or septic shock at this point. Admit, inpatient status. Diagnostic Imaging Diagonstic Imaging: Xray Plain Films/CT/US/NM/MRI: chest Comments NAME: CELINA ESPINOZA [facility] REC#: [id number] PT STATUS: REG ER : 1945 PHYSICIAN: DEISI HAMLIN MD ADMIT DATE: 03/16/19/ER Signed POSDate of Exam: 03/16/19 CHEST 1 VIEW, AP/PA ONLY INDICATION: Left arm lymphedema. History of breast cancer. TECHNIQUE: Single view chest 11:10 AM. CORRELATION STUDY: 02/18/2019, 12/21/2016, 09/11/2011 FINDINGS: Heart size relatively stable. There is fullness of the hilar structures disproportionate greater involving the right. This has been present previously but perhaps slightly more prominent. Asymmetric density of the right lung base. This is likely largely attributed to asymmetric soft tissue structures overlapping the chest wall. Surgical clips over the left axilla. Ununited left mid clavicle fracture. IMPRESSION: 1. No definitive evidence for infiltrate or otherwise acute abnormality of the chest. Dictated by: Dictated on workstation # [id number] Dict: 03/16/19 1119 Trans: 03/16/19 1200 Interpreted by: ALLYN SÁNCHEZ DO Electronically signed by: ALLYN SÁNCHEZ DO 03/16/19 1200 Departure Communication (Admissions) Time/Spoke to Admitting Phy: 11:52 Impression Primary Impression: Cellulitis of arm, left Additional Impression: Sepsis Qualified Codes: A41.9 - Sepsis, unspecified organism Disposition: ADMITTED INPATIENT Condition: Stable Admissions Decision to Admit Reason: Admit from ER (General) Decision to Admit/Date: Mar 16, 2019 Time/Decision to Admit Time: 11:52 Departure-Patient Inst. Referrals: EMERALD LUBIN DO (PCP/Family) Primary Care Physician DEISI HAMLIN MD Mar 16, 2019 11:23 POS
--- NOTE | 2019-03-16 11:26 | Diagnostic Imaging Report ---
INDICATION: Left arm lymphedema. History of breast cancer. TECHNIQUE: Single view chest 11:10 AM. CORRELATION STUDY: 02/18/2019, 12/21/2016, 09/11/2011 FINDINGS: Heart size relatively stable. There is fullness of the hilar structures disproportionate greater involving the right. This has been present previously but perhaps slightly more prominent. Asymmetric density of the right lung base. This is likely largely attributed to asymmetric soft tissue structures overlapping the chest wall. Surgical clips over the left axilla. Ununited left mid clavicle fracture. IMPRESSION: 1. No definitive evidence for infiltrate or otherwise acute abnormality of the chest. Dictated by: Dictated on workstation # [id number]
[2019-03-16 11:43] LABS: LYMPHOCYTES % (MANUAL) 4 %; MONOCYTES % (MANUAL) 1 %; NEUTROPHILS % (MANUAL) 95 %; RBC MORPH NORMAL
[2019-03-16] MEDS ORDERED: LACTATED RINGERS 1,000 ML IV ONE (11:49)
[2019-03-16] MEDS ORDERED: cefTRIAXone FOR IV USE 1,000 MG in WATER (STERILE) FOR INJECTION 10 ML IV ONE (12:30)
[2019-03-16] MEDS ORDERED: VANCOMYCIN INJECTION 2,000 MG in NS IV 500 ML 500 ML IV SCH (12:30)
[2019-03-16] MEDS ORDERED: VANCOMYCIN INJECTION 2,000 MG in NS IV 500 ML 500 ML IV NR (12:39)
[2019-03-16 13:14] VITALS: BP 125/68
--- NOTE | 2019-03-16 13:20 | NUR ---
CELINA ESPINOZA admitted to room 421-1, with an admitting diagnosis of CELLULITIS, on 03/16/19 from ER, accompanied byIAN.CELINA ESPINOZA introduced to surroundings, call light, bed controls, phone, TV, temperature control, lights, meal times, smoking policy, visitor policy, side rail policy, bathrooms and showers. CELINA ESPINOZA verbalizes understanding that [facility] is not responsible for the loss or damage to any personal effects or valuables that are kept in the patients posession during their hospitalization. The following Patient Care Plans were discussed with thePATIENT: Discharge Planning, PAIN,INFECTION CONTROL, and TEMPERATURE CHANGE. CELINA ESPINOZA verbalizes understanding of Interdisciplinary Patient Education.
[2019-03-16 15:37] VITALS: BP 139/62
[2019-03-16 19:34] VITALS: BP 118/56
[2019-03-16] MEDS ORDERED: FLUTICASONE NASAL SPRAY (FLONASE) 16 GM BTL NS PRN (20:45)
[2019-03-16] MEDS ORDERED: ACETAMINOPHEN 325 MG TABLET PO PRN (20:45)
[2019-03-16] MEDS ORDERED: ANTACID SUSP 30 ML UDC (MYLANTA) PO PRN (20:45)
[2019-03-16] MEDS ORDERED: ONDANSETRON 4 MG/2 ML (SDV) Z0FRAN IV PRN (20:45)
[2019-03-16] MEDS ORDERED: TEMAZEPAM 7.5 MG CAP (RESTORIL) PO PRN (20:45)
[2019-03-16] MEDS ORDERED: MILK OF MAGNESIA 400 MG/5 ML 30 ML UDC PO PRN (20:45)
[2019-03-16] MEDS ORDERED: NON-FORMULARY MEDICATION 1 EA EA (Cetirizine HCl (Zyrtec) 10 MG) PO PRN (20:45)
[2019-03-16] MEDS: MELATONIN 3 MG TABLET PO PRN (21:09)
[2019-03-16] MEDS ORDERED: LORATADINE (CLARITIN) 10 MG TAB PO PRN (21:15)
[2019-03-17] VITALS: BP 97/58
[2019-03-17] MEDS: VANCOMYCIN 1500 MG/NS 500 ML IVPB IV SCH ×4 (00:30→12:56)
[2019-03-17 04:11] VITALS: BP 113/60
[2019-03-17 05:35] LABS: BASOPHILS % (AUTO) 0 % (0-10); EOSINOPHILS # (AUTO) 0.3 10^3/uL (0.0-0.3); EOSINOPHILS % (AUTO) 4 % (0-10); HEMATOCRIT 35 % (35-52); HEMOGLOBIN 11.7 G/DL (11.5-16.0); LYMPHOCYTES # (AUTO) 1.1 X 10^3 (1.0-4.0); LYMPHOCYTES % (AUTO) 16 % (12-44); MEAN CORPUSCULAR HEMOGLOBIN 31 PG (25-34); MEAN CORPUSCULAR HGB CONC 33 G/DL (32-36); MEAN CORPUSCULAR VOLUME 93 FL (80-99); MEAN PLATELET VOLUME 9.6 FL (7.4-10.4); MONOCYTES # (AUTO) 0.5 X 10^3 (0.0-1.0); MONOCYTES % (AUTO) 8 % (0-12); NEUTROPHILS # (AUTO) 4.8 X 10^3 (1.8-7.8); NEUTROPHILS % (AUTO) 71 % (42-75); PLATELET COUNT 164 10^3/uL (130-400); RED CELL DISTRIBUTION WIDTH 13.3 % (10.0-14.5); WHITE BLOOD COUNT 6.7 10^3/uL (4.3-11.0)
[2019-03-17 05:46] LABS: ALANINE AMINOTRANSFERASE 19 U/L (0-55); ALBUMIN 3.5 GM/DL (3.2-4.5); ALKALINE PHOSPHATASE 44 U/L (40-136); BILIRUBIN,TOTAL 0.6 MG/DL (0.1-1.0); BUN/CREATININE RATIO 22; CALCIUM 8.9 MG/DL (8.5-10.1); CARBON DIOXIDE 20 MMOL/L (21-32); CHLORIDE 108 MMOL/L (98-107); CREATININE SERUM 0.83 MG/DL (0.60-1.30); GFR ESTIMATED > 60; GLUCOSE 104 MG/DL (70-105); POTASSIUM 4.3 MMOL/L (3.6-5.0); SODIUM 137 MMOL/L (135-145); TOTAL PROTEIN 5.9 GM/DL (6.4-8.2)
[2019-03-17 08:00] VITALS: BP 82/47
[2019-03-17] MEDS: CLOPIDOGREL 75 MG (PLAVIX) TABLET PO SCH (08:59)
[2019-03-17] MEDS: LACTOBACILLUS ACIDOPHILUS (PROBIOTIC) CAPSULE PO SCH (08:59)
[2019-03-17] MEDS: ASPIRIN 81 MG CHEW (CHILDREN'S ASA) PO SCH (08:59)
[2019-03-17] MEDS ORDERED: NON-FORMULARY MEDICATION 1 EA EA (Lactobacillus Combo No.10 (Probiotic) 1 CAP) PO SCH (09:00)
[2019-03-17] MEDS ORDERED: NON-FORMULARY MEDICATION 1 EA EA (Aspirin (Aspir 81) 81 MG) PO SCH (09:00)
--- NOTE | 2019-03-17 11:10 | NUR ---
CM/SS visited the patient to assess for any needs prior to discharge. The patient stated that she does not have any needs at this time. The patient's daughter drove here from [place] to assist with any other needs. The patient's plan is to return home after IV antibiotics. Addendum: 03/17/19 at 1506 by NOLBERTO LUNA REDEVELOPMENT SPECIALIST social work student reviewed and approved.
[2019-03-17] MEDS ORDERED: ASCO100T6 PO (11:58)
[2019-03-17 12:00] VITALS: BP 126/71
[2019-03-17] MEDS ORDERED: VANCOMYCIN 250 MG/5 ML PO (12:04)
--- NOTE | 2019-03-17 12:08 | NUR ---
SPOKE WITH PT (SHE HAD A HOME MEDS LIST), CALLED [facility] AND WENT THRU THE EXT MED HISTORY TO COMPLETE THE MED REC. PT WAS ABLE TO TELL ME HOW/ WHEN SHE TAKES ALL HER MEDICATIONS. SPIRONOLACTONE WAS LAST FILLED ON 08-14-2018 #30, HOWEVER THIS IS READY TO BE PICKED UP AT HER PHARMACY. THE FOLLOWING ARE FILL DATES THAT WERE NOT INCLUDED ON THE EXT MED HIS: 02-04-2019 ATORVASTATIN #90/90 02-04-2019 CLOPIDOGREL#90/90DS OTC MEDS: VITAMIN C PROBIOTIC ASPIRIN
[2019-03-17] MEDS: cefTRIAXone 1,000 MG/SWFI 10 ML IV PUSH IV SCH ×2 (12:56)
[2019-03-17 16:00] VITALS: BP 119/67
--- NOTE | 2019-03-17 17:11 | History & Physicial ---
History of Present Illness History of Present Illness Reason for visit/HPI This is a 73 year old female with a known history of left arm lyphedema with recent recurrent cellulitis. She stated that she had recent upper respiratory symptoms and then spent most of the day outside Sunday putting up [place] lights and decorations. She noted swelling to her left arm on Sunday so she presented to the emergency room where she was found to have erythema to her left arm as well as an elevated WBC count at 17,100. She was recently treated with Vancomycin for cellulitis due to a recent history of clostridium difficile colitis from antibiotic use for her left arm cellulitis. She will be admitted for IV Vancomycin and IV rocephin. Date of Admission Mar 16, 2019 at 11:52 Date Seen by a Provider: Mar 17, 2019 Time Seen by a Provider: 12:35 I consulted on this patient on 03/17/19 17:05 Attending Physician Mayte Jose MD Admitting Physician Kerline Jonas DO Consult Allergies and Home Medications Allergies Coded Allergies: No Known Drug Allergies (Unverified , 11/05/18) Home Medications Amlodipine Besylate 5 Mg Tablet, 5 MG PO DAILY, (Reported) Ascorbic Acid 100 Mg Tablet, 100 MG PO DAILY, (Reported) Aspirin 81 Mg Tablet.dr, 81 MG PO DAILY, (Reported) Atorvastatin Calcium 10 Mg Tablet, 10 MG PO DAILY, (Reported) Cetirizine HCl 10 Mg Tablet, 10 MG PO HS PRN for ALLERIGES, (Reported) Clopidogrel Bisulfate 75 Mg Tablet, 75 MG PO DAILY, (Reported) Lactobacillus Combo No.10 1 Each Capsule, 1 CAP PO DAILY, (Reported) Losartan/Hydrochlorothiazide 1 Each Tablet, 1 TAB PO DAILY, (Reported) Metoprolol Succinate 25 Mg Tab.er.24h, 25 MG PO DAILY, (Reported) Spironolactone 50 Mg Tablet, 50 MG PO DAILY, (Reported) LAST FILLED 08-14-2018 #30 (THERE IS A PRESCRIPTION READY TO BE PICKED UP AT [facility]) [Vancomycin 250MG/5ML] 250 SUSP, 1.25 ML PO DAILY, (Reported) PICKED UP A 14 DAY SUPPLY ON 03-03-2019- WAS TAKING 2.5 ML THREE TIMES A DAY X 7 DAYS, THEN DECRESED TO 1.25ML DAILY X 7 DAYS Patient Home Medication List Home Medication List Reviewed: Yes Past Cvkfutt-Aibebk-Klihbp Hx Patient Social History Alcohol Use: Occasionally Uses Number of Drinks Today: AA Alcohol Beverage of Choice: Beer Recreational Drug Use: No Smoking Status: Never a Smoker 2nd Hand Smoke Exposure: No Physical Abuse Screen: No Sexual Abuse: No Recent Foreign Travel: No Contact w/other who traveled: No Recent Hopitalizations: Yes (jan 19, 2019) Recent Infectious Disease Expo: No Immunizations Up To Date Tetanus Booster (TDap): Unknown Pediatric: No Date of Pneumonia Vaccine: Mar 16, 2015 Seasonal Allergies Seasonal Allergies: No Surgeries Yes (cancer, gall bladder, ) Abdominal, Breast, Gallbladder, Orthopedic Respiratory Yes Currently Using CPAP: Yes Currently Using BIPAP: No Cardiovascular Yes Chronic Edema/Swelling, Coronary Artery Disease, Hypertension Neurological No 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 System Hx 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 Disorders: No Sexually Transmitted Disease: No HIV/AIDS: No Female 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 Genitourinary No UTI-Chronic Gastrointestinal No Abdominal Hernia, C-Diff, Gall Bladder Disease Musculoskeletal No Fractures Endocrine History of Endocrine Disorders: No Endocrine Disorders: Diabetes, Non-Insulin dep HEENT History of HEENT Disorders: No Cancer Yes Breast Did You Recieve Any Treatments: Yes Type of Treatment: Chemotherapy Psychosocial History of Psychiatric Problem: No Integumentary History of Skin or Integumenta: No Skin/Integumentary Disorders: Recent Skin Changes Blood Transfusions History of Blood Disorders: No Adverse Reaction to a Blood Tr: No Family Medical History Significant Family History: No Pertinent Family Hx Family Hx: Cardiovascular disease 19 FATHER Hypertension DAUGHTER Kidney disease 19 MOTHER POOR LEG CIRCULATION G8 SISTER Review of Systems Constitutional: fever, weakness EENTM: nose congestion Respiratory: cough Cardiovascular: edema Gastrointestinal: No RUQ, No LUQ, No RLQ, No LLQ, No no symptoms reported, No see HPI, No abdominal pain, No constipation, No diarrhea, No dysphagia, No hematemesis, No heartburn, No jaundice, No loss of appetite, No melena, No nausea, No vomiting, No other Genitourinary: No no symptoms reported, No see HPI, No decreased output, No discharge, No dysuria, No frequency, No hematuria, No hesitancy, No incontinence, No nocturia, No pain, No other Musculoskeletal: No no symptoms reported, No see HPI, No back pain, No gout, No joint pain, No joint swelling, No muscle pain, No muscle stiffness, No muscle cramps, No muscle twitching, No muscle weakness, No neck pain, No other Skin: other (left arm swelling/erythema) Psychiatric/Neurological: Weakness Physical Exam Vital Signs Vital Signs - First Documented 03/16/19 03/16/19 03/17/19 10:25 13:14 00:00 Temp 37.3 Pulse 66 Resp 18 B/P (MAP) 114/45 (68) Pulse Ox 95 O2 Delivery Room Air O2 Flow Rate 2.00 Capillary Refill : Less Than 3 SecondsLess Than 3 Seconds Height, Weight, BMI Height: 5'6.00" Weight: 251lbs. 8.0oz. 113.580237ub; 39.00 BMI Method:Stated General Appearance: No Apparent Distress HEENT: Normal ENT Inspection Neck: Supple Respiratory: Lungs Clear Cardiovascular: Regular Rate, Rhythm, Systolic Murmur Gastrointestinal: Normal Bowel Sounds, Non Tender, Soft Rectal: Deferred Back: No CVA Tenderness Extremity: Non Tender, No Calf Tenderness, No Pedal Edema Neurologic/Psychiatric: Alert, Oriented x3 Skin: Warm/Dry, Other (left arm lymphedema but erythema much improved) Assessment/Plan Assessment and Plan 1. Left Arm Cellulitis--recurrent--admit for IV rocephin and Vancomycin 2. Left Arm Lymphedema--chronic--have discussed seeing new lymphedema specialist 3. Hypertension with current hypotension--hold BP meds and monitor BP 4. History of CAD--resume plavix, aspirin, atorvastatin Admission Diagnosis Admission Status: Inpatient Order (span 2 midnights) Reason for Inpatient Admission: Will require at least 48hrs of IV abx Clinical Quality Measures DVT/VTE Risk/Contraindication: Risk Factor Score Per Nursin RFS Level Per Nursing on Admit: 4+=Very High KERLINE JONAS DO Mar 17, 2019 17:11 POS
[2019-03-17 19:39] VITALS: BP 134/73
[2019-03-17] MEDS: MELATONIN 3 MG TABLET PO PRN (23:12)
[2019-03-18 00:30] VITALS: BP 114/65
[2019-03-18] MEDS: VANCOMYCIN 1500 MG/NS 500 ML IVPB IV SCH ×2 (01:02)
[2019-03-18 04:00] VITALS: BP 121/79
[2019-03-18 08:00] VITALS: BP 113/76
[2019-03-18] MEDS: CLOPIDOGREL 75 MG (PLAVIX) TABLET PO SCH (08:32)
[2019-03-18] MEDS: ASPIRIN 81 MG CHEW (CHILDREN'S ASA) PO SCH (08:32)
[2019-03-18] MEDS: LACTOBACILLUS ACIDOPHILUS (PROBIOTIC) CAPSULE PO SCH (08:32)
[2019-03-18 12:00] VITALS: BP 131/71
[2019-03-18] MEDS ORDERED: TROUGH ORDER-PHARMACY XX NR (12:00)
[2019-03-18] MEDS ORDERED: DOXY100C2 PO (12:26)
--- NOTE | 2019-03-18 12:53 | NUR ---
DR JONAS NOTIFIED OF [facility] TROPH 26.6. PT IS TO BE DISCHARGED.
[2019-03-18] MEDS: cefTRIAXone 1,000 MG/SWFI 10 ML IV PUSH IV SCH ×2 (12:54)
--- NOTE | 2019-03-18 13:04 | NUR ---
VANCOMYCIN DOSING TROUGH LEVEL 26.6 - HOLD DOSE AND RESTART VANC 1500 MG Q24H TONIGHT AT 2300
--- NOTE | 2019-03-18 14:23 | Physician Query Clarification ---
PQ-Conflicting Diagnosis Admission/Discharge Admission Date: Mar 16, 2019 at 11:52 Discharge Date: Mar 18, 2019 at 13:42 The medical record reflects the following clinical scenario: History/Risk Factors: Cellulitis-Left arm Clinical Findings:WBC 17.1, T 37.3, Pulse 66, Resp 18, BP 114/68, Lactic acid 1.16, Blood cultures-no growth. Treatment: IV Vancomycin and IV Rocephin Question: Do you agree with the impression of Sepsis per ED physician, Dr. Wilburn. Please document a response in Progress Note or Discharge Summary. 1. Yes 2. No 3. Other, with explanation of clinical findings 4. Clinically undetermined, no explanation for clinical findings. PHYSICIAN RESPONSE Do you agree w/Consulting Dx?: Other,explanation/clincal findings Please remember a lack of response to the above will prompt a phone page by [facility]/Coding staff. In responding to this query, please exercise your independent professional judgment. The purpose of this communication is to more accurately reflect the complexity of your patients condition. The fact that a question is asked does not imply that any particular answer is desired or expected. Thank you for your timely response to this clarification. Requestors name: Kusum Cook [facility] Phone # ext [phone] or [phone] THIS PHYSICIAN QUERY FORM IS A PERMANENT PART OF THE MEDICAL RECORD KUSUM COOK Mar 18, 2019 14:23 EMERALD WATTS DO Mar 21, 2019 10:50 POS
[2019-03-18] MEDS ORDERED: VANCOMYCIN 1500 MG/NS 500 ML IVPB IV SCH ×2 (23:00)
--- NOTE | 2019-03-21 10:49 | Discharge Summary ---
Diagnosis/Chief Complaint Date of Admission Mar 16, 2019 at 11:52 Date of Discharge Mar 18, 2019 at 13:42 Discharge Date: Mar 18, 2019 Discharge Diagnosis 1. Left Arm Cellulitis with SIRS--improved 2. Chronic Left Arm Lymphedema 3. Hypertension with hypotension from SIRS 4. Recent Clostridium Difficile Colitis 5. Diabetes mellitus, II--stable 6. History of Breast Cancer with left sided mastectomy Reason Hospital Visit This is a 73 year old female with a known history of left arm lyphedema with recent recurrent cellulitis. She stated that she had recent upper respiratory symptoms and then spent most of the day outside Sunday putting up [place] lights and decorations. She noted swelling to her left arm on Sunday so she presented to the emergency room where she was found to have erythema to her left arm as well as an elevated WBC count at 17,100. She was recently treated with Vancomycin for cellulitis due to a recent history of clostridium difficile colitis from antibiotic use for her left arm cellulitis. She will be admitted for IV Vancomycin and IV rocephin. Discharge Summary Hospital Course Was the Problem List Reviewed?: Yes Hospital Course This is a 73 year old female with a known history of left arm lyphedema with recent recurrent cellulitis. She stated that she had recent upper respiratory symptoms and then spent most of the day outside Sunday putting up [place] lights and decorations. She noted swelling to her left arm on Sunday so she presented to the emergency room where she was found to have erythema to her left arm as well as an elevated WBC count at 17,100. She was recently treated with Vancomycin for cellulitis due to a recent history of clostridium difficile colitis from antibiotic use for her left arm cellulitis. She will be admitted for IV Vancomycin and IV rocephin. By the second hospital day her WBC count was back to normal at 6,700 and the redness to the left arm was resolved. She was afebrile and feeling much better but it was decided to keep her for at least another 24hrs of antibiotics due to concern of SIRS. The following morning her arm continued to be back to its baseline with no erythema and no fever. She was given her IV rocephin and IV vancomycin doses. She will start doxycycline po for 1 week starting tomorrow and then will do minocycline 100mg daily for 30 days as a prophylaxis. She will resume her spironolactone and amlodopine starting tomorrow then do a BP check in my office at the end of the week. Labs Laboratory Tests 03/18/19 12:15: Vancomycin Level Trough 26.6*H Procedures None. Discharge Physical Examination Allergies: Coded Allergies: No Known Drug Allergies (Unverified , 11/05/18) Vitals & I&Os Vital Signs Date Time Temp Pulse Resp B/P (MAP) Pulse Ox O2 Delivery O2 Flow Rate FiO2 03/18/19 13:42 03/18/19 12:00 36.6 62 20 97 Room Air 03/17/19 12:00 2.00 General Appearance: Alert, Oriented X3, Cooperative, No Acute Distress Respiratory: Clear to Auscultation Cardiovascular: Regular Rate Extremities: No Clubbing, No Cyanosis, Other (LUE lymphedema) Skin: No Rashes Psych/Mental Status: Mental Status NL, Mood NL Discharge Home Medications Reviewed and agree with Discharge Medication list on patient's Discharge Instruction sheet Instructions to Patient/Family Please see electronic discharge instructions given to patient. Clinical Quality Measures DVT/VTE Risk/Contraindication: Risk Factor Score Per Nursin RFS Level Per Nursing on Admit: 4+=Very High EMERALD JONAS DO Mar 21, 2019 10:49 POS
== END 2019-03-18 13:42 | disposition home or self-care (01) | DRG 603 ==
LOC: EDUNIT# 10:12 → ER 10:13 → 4TH 11:52
PROVIDERS: ADMIT Family Medicine; ATTEND Family Medicine
DX: L03.114 Cellulitis of left upper limb (principal); R65.10 Systemic inflammatory response syndrome (SIRS) of non-infectious origin without acute organ dysfunction; I89.0 Lymphedema, not elsewhere classified; I25.10 Atherosclerotic heart disease of native coronary artery without angina pectoris; I95.9 Hypotension, unspecified; I10 Essential (primary) hypertension; E11.9 Type 2 diabetes mellitus without complications; R05 Cough; G47.30 Sleep apnea, unspecified; J34.89 Other specified disorders of nose and nasal sinuses; R09.81 Nasal congestion; R60.9 Edema, unspecified; Z95.5 Presence of coronary angioplasty implant and graft; Z85.3 Personal history of malignant neoplasm of breast; Z90.12 Acquired absence of left breast and nipple
CPT/HCPCS: 36415; 71045; 80053; 80202; 83605; 85007; 85025; 85027; 85610; 85730; 87040; 96374

== ENCOUNTER 2019-06-05 14:30 | Outpatient (RCR) | payer MEDICARE ==
[~2019-06-05 14:30] MED LIST changes: +ASCO100T6 PO; -CETI10TA20 PO; +CETI10TA21 PO; +DOXY100C2 PO; +LISI1TAB26 PO; +METF500T19 PO; -METF500T8 PO; -METO-370 PO; -METO-387 PO; +METO50TA7 PO; +MTP25TSR PO; +VANCOMYCIN 250 MG/5 ML PO
== END 2019-08-27 | disposition home or self-care (01) ==
PROVIDERS: ATTEND Internal Medicine Hematology & Oncology
DX: I89.0 Lymphedema, not elsewhere classified (principal); C50.412 Malignant neoplasm of upper-outer quadrant of left female breast

== ENCOUNTER → 2019-09-16 | Outpatient (CLI) | payer MEDICARE ==
--- NOTE | 2019-09-16 14:51 | Diagnostic Imaging Report ---
HISTORY: Bilateral leg pain. COMPARISON: None. TECHNIQUE: Ankle-brachial index measurements obtained bilaterally. FINDINGS: The right brachial blood pressure measures 121. Multiple measurements were obtained in the thigh, calf, and lower legs bilaterally. Right AZAEL: 1.45 Left AZAEL: 1.30 IMPRESSION: AZAEL measurements within normal limits bilaterally. Dictated by: Dictated on workstation # [id number]
== END ==
LOC: RAD 12:05
PROVIDERS: ATTEND Nurse Practitioner Family
DX: I70.213 Atherosclerosis of native arteries of extremities with intermittent claudication, bilateral legs (principal)
CPT/HCPCS: 93923

== ENCOUNTER → 2019-10-30 | Outpatient (CLI) | payer MEDICARE ==
[~2019-10-30] MED LIST changes: +METF-865 PO; -METF500T19 PO
--- NOTE | 2019-10-31 10:04 | Diagnostic Imaging Report ---
EXAMINATION: Unilateral right breast screening INDICATION: Left mastectomy for carcinoma in 2000 This study was compared to the prior exams of 10/28/2018, 10/25/2017 and 10/24/2016. At this time there are no current complaints. The breast is predominantly replaced by fat. The macrocalcification seen previously are again evident and not significantly changed. There is no primary or secondary sign of malignancy noted. IMPRESSION: There is no evidence for malignancy. ACR category 1 ACR BI-RADS Category 1: Negative. Result letter will be mailed to the patient. Note: At least 10% of breast cancer is not imaged by mammography. Dictated by: Dictated on workstation # [id number]
== END ==
LOC: RAD 10:18
PROVIDERS: ATTEND Internal Medicine Hematology & Oncology
DX: Z12.31 Encounter for screening mammogram for malignant neoplasm of breast (principal); Z85.3 Personal history of malignant neoplasm of breast
CPT/HCPCS: 77063

== ENCOUNTER → 2020-04-06 | Outpatient (CLI) | payer MEDICARE ==
[~2020-04-06] MED LIST changes: +AMLO-250 PO; -AMLO5TAB9 PO; +ASPI-1238 PO; -ASPI-983 PO; -CETI10TA21 PO; +CETI10TA49 PO; -CLIN300C11 PO; +CLIN300C12 PO
[2020-04-06 10:46] LABS: BASOPHILS # (AUTO) 0.1 10^3/uL (0.0-0.1); BASOPHILS % (AUTO) 1 % (0-10); EOSINOPHILS # (AUTO) 0.1 10^3/uL (0.0-0.3); EOSINOPHILS % (AUTO) 2 % (0-10); HEMATOCRIT 45 % (35-52); HEMOGLOBIN 14.7 g/dL (11.5-16.0); LYMPHOCYTES # (AUTO) 1.9 10^3/uL (1.0-4.0); LYMPHOCYTES % (AUTO) 20 % (12-44); MEAN CORPUSCULAR HEMOGLOBIN 31 pg (25-34); MEAN CORPUSCULAR HGB CONC 33 g/dL (32-36); MEAN CORPUSCULAR VOLUME 96 fL (80-99); MEAN PLATELET VOLUME 9.9 fL (9.0-12.2); MONOCYTES # (AUTO) 0.6 10^3/uL (0.0-1.0); MONOCYTES % (AUTO) 6 % (0-12); NEUTROPHILS # (AUTO) 6.8 10^3/uL (1.8-7.8); NEUTROPHILS % (AUTO) 72 % (42-75); PLATELET COUNT 238 10^3/uL (130-400); WHITE BLOOD COUNT 9.5 10^3/uL (4.3-11.0)
[2020-04-06 11:10] LABS: ALBUMIN 4.1 GM/DL (3.2-4.5); BILIRUBIN,TOTAL 0.9 MG/DL (0.1-1.0); CALCIUM 9.6 MG/DL (8.5-10.1); CREATININE SERUM 1.16 MG/DL (0.60-1.30); POTASSIUM 5.4 MMOL/L (3.6-5.0); TOTAL PROTEIN 6.9 GM/DL (6.4-8.2)
== END ==
LOC: ONC 10:28
PROVIDERS: ATTEND Internal Medicine Hematology & Oncology
DX: C50.412 Malignant neoplasm of upper-outer quadrant of left female breast (principal); I97.2 Postmastectomy lymphedema syndrome; I25.10 Atherosclerotic heart disease of native coronary artery without angina pectoris; I21.9 Acute myocardial infarction, unspecified; Z90.11 Acquired absence of right breast and nipple; Z98.890 Other specified postprocedural states
CPT/HCPCS: 80053; 85025; G0463; 99213

== ENCOUNTER → 2020-04-21 | Outpatient (CLI) | payer MEDICARE ==
--- NOTE | 2020-04-21 10:57 | Diagnostic Imaging Report ---
CT ABD/PELVIS WO(KIDNEY STONE) TECHNIQUE: Unenhanced CT imaging of the abdomen and pelvis was performed. 2-D reformats are created and submitted for interpretation. Automatic exposure controls were utilized to optimize patient dose. INDICATION: Flank pain, elevated white blood cell. Renal sufficiency. COMPARISON: CT abdomen and pelvis of 09/11/2011. FINDINGS: Evaluation of the abdominal viscera is mildly limited without contrast. Lower chest: Patchy groundglass opacities in the right lower lobe. Peritoneum: No free intraperitoneal air or fluid. Liver and biliary system: Unenhanced liver is normal. Cholecystectomy. No pathologic biliary duct dilatation. Spleen and Pancreas: Spleen is normal. Unenhanced pancreas is grossly normal. Adrenals: Normal. tract: Bilateral renal cortical atrophy is similar to prior examination. No renal or ureteral calculi. No solid renal mass. Urinary bladder is decompressed, limiting assessment. The uterus and ovaries are normal in appearance. GI tract: Stomach is decompressed. No bowel obstruction. No pericolonic inflammatory changes. Appendix is not seen. Vasculature and Lymph nodes: Normal caliber aorta has moderate atherosclerotic plaquing. No abdominal or pelvic lymphadenopathy. Musculoskeletal: No concerning osseous lesion. Small fat-containing infraumbilical hernia. Advanced degenerative disc disease and facet osteoarthritis in the lower lumbar spine. IMPRESSION: 1. No urinary tract likely or obstructive uropathy. 2. No bowel obstruction, colitis or diverticulitis. 3. Cholecystectomy. 4. Patchy opacities in the right lower lobe are age indeterminate and could be due to an infectious process or aspiration in the appropriate setting. Alternatively, this could be an area of atelectasis. Dictated by: Dictated on workstation # [id number]
== END ==
LOC: RAD 10:25
PROVIDERS: ATTEND Family Medicine
DX: N28.9 Disorder of kidney and ureter, unspecified (principal); D72.829 Elevated white blood cell count, unspecified; E87.5 Hyperkalemia; Z90.49 Acquired absence of other specified parts of digestive tract
CPT/HCPCS: 36415; 74176; 84132

== ENCOUNTER → 2020-05-28 | Outpatient (CLI) | payer MEDICARE ==
[~2020-05-28] MED LIST changes: +BAMLANIVIMAB (NON FORM) 700 MG in NS (IVPB) 250 ML IV ONE; +EPINEPHrine INJECTION 1 MG/ML AMP IM PRN; +diphenhydrAMINE 50 MG/ML INJ (BENADRYL) IV PRN
[2020-05-28 13:02] VITALS: BP 99/51
[2020-05-28 14:09] VITALS: BP 134/57
== END ==
LOC: INFUSION 12:13
PROVIDERS: ATTEND Family Medicine
DX: U07.1 COVID-19 (principal)

== ENCOUNTER → 2020-11-01 | Outpatient (CLI) | payer MEDICARE ==
[~2020-11-01] MED LIST changes: -BAMLANIVIMAB (NON FORM) 700 MG in NS (IVPB) 250 ML IV ONE; -EPINEPHrine INJECTION 1 MG/ML AMP IM PRN; -LISI10TA2 PO; +LISI10TA25 PO; +SERT-412 PO; +SERT-413 PO; -SERT25TA5 PO; -SERT50TA9 PO; -diphenhydrAMINE 50 MG/ML INJ (BENADRYL) IV PRN
--- NOTE | 2020-11-01 10:26 | Diagnostic Imaging Report ---
INDICATION: Routine screening. COMPARISON: 10/30/2019 and 10/28/2018. TECHNIQUE: Unilateral right 2D and 3D screening mammography was performed with CAD. FINDINGS: Scattered fibroglandular densities are identified in the right breast. There are scattered benign calcifications in the right breast. No mass or malignant appearing microcalcifications are seen. The right axilla is unremarkable. IMPRESSION: No mammographic features suspicious for malignancy are identified. ACR BI-RADS Category 2: Benign findings. Result letter will be mailed to the patient. Note: At least 10% of breast cancer is not imaged by mammography. Dictated by: Dictated on workstation # [id number]
== END ==
LOC: RAD 08:30
PROVIDERS: ATTEND Internal Medicine Hematology & Oncology
DX: Z12.31 Encounter for screening mammogram for malignant neoplasm of breast (principal); Z85.3 Personal history of malignant neoplasm of breast
CPT/HCPCS: 77063

== ENCOUNTER → 2020-11-26 | Outpatient (CLI) | payer MEDICARE ==
[~2020-11-26] MED LIST changes: +SULF1TAB38 PO
== END ==
LOC: CARD 09:30
PROVIDERS: ATTEND Nurse Practitioner Family
DX: I08.0 Rheumatic disorders of both mitral and aortic valves (principal)
CPT/HCPCS: 93306

== ENCOUNTER → 2020-11-30 | Outpatient (CLI) | payer MEDICARE ==
[~2020-11-30] MED LIST changes: +CATHETER FLUSH 10 ML SYR IV PRN; +REGADENOSON 0.4 MG/5 ML SYR (LEXISCAN) IV ONE
[2020-11-30 09:07] VITALS: BP 151/61
--- NOTE | 2020-11-30 15:35 | STRESS TEST ---
DATE OF SERVICE: 11/30/2020 RESTING AND POST REGADENOSON TECHNETIUM-99M TETROFOSMIN SPECT CT IMAGING CLINICAL DIAGNOSES: Shortness of breath. Baseline images were carried out after injection of 10.37 mCi of technetium-99M Tetrofosmin. This was followed by 0.4 mg regadenoson and 30.1 mCi of technetium-99m Tetrofosmin for stress imaging. The electrocardiogram showed sinus rhythm at baseline. It did not change significantly with the regadenoson infusion. The patient had some nausea and dry heaving following regadenoson infusion, which resolved in a few minutes. Review of images at rest and following stress suggest a small to moderate amount of basal anterior ischemia. Gated images show normal global left ventricular systolic function with normal regional wall motion. Left ventricular ejection fraction is calculated to be 75%. CONCLUSIONS: 1. This study is suggestive of a small to moderate amount of basal inferior ischemia. 2. Normal regional wall motion. 3. Normal global left ventricular systolic function with a calculated ejection fraction of 75%. Job ID: [id number] DocumentID: [id number] Dictated Date: 11/30/2020 14:04:21 Turkey Roll Maker Date: 11/30/2020 15:34:40 Dictated By: YRN OSBORN MD, MA, FACP, FACC,
== END ==
LOC: CARD 07:30
PROVIDERS: ATTEND Nurse Practitioner Family
DX: R06.09 Other forms of dyspnea (principal); R06.02 Shortness of breath
CPT/HCPCS: 78452; 93017; A9502

== ENCOUNTER 2021-01-11 08:00 | Day surgery (SDC) | payer MEDICARE ==
[~2021-01-11] VITALS: Ht 167.6 cm; Wt 119.8 kg
[2021-01-11] VITALS (9 sets, daily range): BP systolic 144–171; BP diastolic 69–82
[2021-01-11 07:44] LABS: HEMATOCRIT 44 % (35-52); HEMOGLOBIN 14.3 g/dL (11.5-16.0); MEAN CORPUSCULAR HEMOGLOBIN 32 pg (25-34); MEAN CORPUSCULAR HGB CONC 33 g/dL (32-36); MEAN CORPUSCULAR VOLUME 97 fL (80-99); MEAN PLATELET VOLUME 10.3 fL (9.0-12.2); PLATELET COUNT 264 10^3/uL (130-400); WHITE BLOOD COUNT 9.7 10^3/uL (4.3-11.0)
[2021-01-11 07:57] LABS: INR 0.9 (0.8-1.4); PROTHROMBIN TIME PATIENT 12.3 SEC (12.2-14.7)
[~2021-01-11 08:00] MED LIST changes: -CATHETER FLUSH 10 ML SYR IV PRN; +HEParin (CATH LAB) 2,000 ML IV ONE; +LIDOCAINE 1% INJ 20 ML 20 ML VIAL ONE; +NS IV 1000 ML 1,000 ML IV SCH; +NS IV 1000 ML 1,000 ML ONE; -REGADENOSON 0.4 MG/5 ML SYR (LEXISCAN) IV ONE
[2021-01-11] MEDS ORDERED: CHOL200059 PO (08:18)
[2021-01-11] MEDS ORDERED: SPIR50TA PO (08:18)
[2021-01-11] MEDS ORDERED: L.AC1CAP6 PO (08:18)
[2021-01-11] MEDS ORDERED: ASPI-1238 PO (08:18)
[2021-01-11 08:38] LABS: ALBUMIN 3.7 GM/DL (3.2-4.5); BILIRUBIN,TOTAL 0.5 MG/DL (0.1-1.0); CALCIUM 9.8 MG/DL (8.5-10.1); CREATININE SERUM 0.88 MG/DL (0.60-1.30); POTASSIUM 4.6 MMOL/L (3.6-5.0); TOTAL PROTEIN 6.1 GM/DL (6.4-8.2)
[2021-01-11] MEDS ORDERED: LOSA1TAB26 PO (08:38)
[2021-01-11] MEDS ORDERED: ACET325T38 PO (08:38)
[2021-01-11] MEDS ORDERED: MTP25TSR PO (08:38)
[2021-01-11] MEDS ORDERED: BUDE3CAP5 PO (08:38)
[2021-01-11] MEDS ORDERED: MINO100C5 PO (08:38)
[2021-01-11] MEDS ORDERED: MIDAZOLAM 5 MG/5 ML (VERSED) VIAL ONE (08:40)
[2021-01-11] MEDS ORDERED: fentaNYL INJ 100 MCG/2 ML AMP ONE (08:40)
[2021-01-11] MEDS ORDERED: LOSA100T57 PO (09:05)
--- NOTE | 2021-01-11 09:10 | Cardiac Procedure Note-CS/ASA ---
Pre-Procedure Note Pre-Op Procedure Note H&P Reviewed The H&P was reviewed, patient examined and no changes noted. Date H&P Reviewed: Jan 11, 2021 Time H&P Reviewed: 08:45 Conscious Sedation Pre-Proced Time 08:45 ASA Score 3 For ASA 3 and 4: Consider anesthesia and medical clearance. Also, for patients with a history of failed moderate sedation consider anesthesia. Airway Lungs Heart ASA score ASA 1: a normal healthy patient ASA 2: a patient with a mild systemic disease (mid diabetes, controlled hypertension, obesity ASA 3: a patient with a severe systemic disease that limits activity (angina, COPD, prior Myocardial infarction) ASA 4: a patient with an incapacitating disease that is a constant threat to life (CHF, renal failure) ASA 5: a moribund patient not expected to survive 24 hrs. (ruptured aneurysm) ASA 6: a declared brain- patient whose organs are being harvested. For emergent operations, add the letter E after the classification Mallampati Classification Grade 3 Sedation Plan Analgesia, Amnesia, Plan communicated to team members, Discussed options with patient/fam, Discussed risks with patient/fam The patient is an appropriate candidate to undergo the planned procedure, sedation, and anesthesia. The patient immediately re-assessed prior to indication. YRN OSBORN MD FACP FAC CCDS Jan 11, 2021 09:10
--- NOTE | 2021-01-11 09:13 | Discharge Inst-Cardiology ---
Discharge Inst-Cardiac Discharge Medications Continued Medications: Acetaminophen (Tylenol) 325 Mg Tablet 650 MG PO Q6H PRN for PAIN-MILD (1-4), TAB Amlodipine Besylate (Amlodipine Besylate) 5 Mg Tablet 5 MG PO DAILY, TAB Ascorbic Acid (Vitamin C) 100 Mg Tablet 100 MG PO DAILY, TAB Aspirin (Aspirin EC) 81 Mg Tablet.dr 81 MG PO DAILY, TAB Atorvastatin Calcium (Atorvastatin Calcium) 10 Mg Tablet 10 MG PO DAILY, TAB Budesonide (Budesonide EC) 3 Mg Capdr...er 3 MG PO DAILY, CAP Cetirizine HCl (Zyrtec) 10 Mg Tablet 10 MG PO HS PRN for ALLERIGES, TAB Cholecalciferol (Vitamin D3) (Vitamin D3) 50 Mcg Tablet 50 MCG PO DAILY, TAB Clopidogrel Bisulfate (Plavix) 75 Mg Tablet 75 MG PO DAILY, TAB L.acidoph & Paracasei,B.lactis (Probiotic) 1 Each Capsule 1 EACH PO DAILY, CAP Losartan Potassium (Losartan Potassium) 100 Mg Tablet 100 MG PO DAILY, TAB Metoprolol Succinate (Metoprolol Succinate) 25 Mg Tab.er.24h 25 MG PO DAILY, TAB Minocycline HCl (Minocycline HCl) 100 Mg Capsule 100 MG PO TU,SUN, CAP Spironolactone (Aldactone) 50 Mg Tablet 50 MG PO DAILY, TAB YRN OSBORN MD [facility]S Jan 11, 2021 09:13
--- NOTE | 2021-01-11 09:13 | Discharge Inst-Post CATH ---
Discharge Inst-CATH/EP Post Cardiac Cath/EP D/C Inst Follow Up/Plan F/u with Dr Weston in 2 weeks ACTIVITY * Go Home directly and rest. * Limit activity of the leg (or wrist if it was used) for 7 days including aerobics, swimming, jogging, bicycling, etc. * Restrict stair-climbing for 7 days if possible, if not, climb up with your no n-cath leg, then bring together on the same step. * Avoid lifting, pushing, pulling or excessive movement of the affected ext remity for 7 days. * Customary sexual activity may be resumed after 2 days-use caution not to use a position that strains or causes pain to the affected extremity. * No driving for 24 hours. * NO SMOKING. * Avoid straining for bowel movements for 7 days. * Gentle walking on level ground is allowed. * Returning to work will depend on the type of procedure and the results. Your doctor will discuss this with you. CALL YOUR DOCTOR FOR ANY OF THE FOLLOWING: *If bleeding from the puncture site occurs- Apply gentle pressure to site with clean cloth and call your doctor or EMS. * If a knot or lump forms under the skin, increases in size, or causes pain. * If bruising appears to be worsening or moving further down your leg instead of disappearing. * Temperature above 101 F. CARE OF YOUR GROIN INCISION; * Bruising or purple discoloration of the skin near the puncture site is common. * You may shower only, no bathtub bathing for 5 days. Be careful to avoid slipping as your leg may feel stiff. * If a closure device was used on your femoral artery, please see the attached guide regarding care of the device and your leg. * Leave dressing on FOR 24 hours. CARE OF YOUR WRIST INCISION; * Bruising or purple discoloration of the skin near the puncture site is common. * You may shower. * DO NOT submerge wrist. * Leave dressing on FOR 24 hours. YRN WESTON MD FACP FAC CCDS Jan 11, 2021 09:13
[2021-01-11] MEDS ORDERED: NS IV 1000 ML 1,000 ML IV SCH (09:15)
[2021-01-11] MEDS ORDERED: PATIENT MAY USE OWN MEDS, ALL PO SCH (09:15)
--- NOTE | 2021-01-11 09:31 | CARDIAC CATHETERIZATION ---
DATE OF SERVICE: 01/11/2021 CARDIAC CATHETERIZATION REPORT The patient is a 75-year-old lady, who has a history of coronary artery disease and has had stenting of the mid left anterior descending artery in 1917 after she had presented with acute non-ST elevation myocardial infarction. Recent myocardial perfusion imaging has indicated a small to moderate amount of basal inferior ischemia. Cardiac catheterization was recommended for further evaluation. Informed consent was obtained. DESCRIPTION OF PROCEDURE: She was brought to the cardiac catheterization laboratory in a fasting state. Right groin was prepared and draped in the usual sterile fashion. Lidocaine 1% was used to local anesthesia. Modified Seldinger technique was used to advance a 5-[place] sheath in the right femoral artery, 5-[place] JL4 catheter was used for left coronary angiography, 5-[place] JR4 catheter for right coronary angiography, 5-[place] pigtail catheter was used for left heart catheterization and left ventricular angiography. Angiography of the right femoral artery was carried out to the sheath. Mynx was used to achieve hemostasis. She tolerated the procedure well. HEMODYNAMICS: Left ventricular end-diastolic pressure following coronary angiography was 23 mmHg. There was no significant pressure gradient on pullback across the aortic valve. Ascending aortic pressure was 127/65 with a mean of 88 mmHg. CORONARY ANGIOGRAPHY: Left main coronary artery is free of significant disease. Left anterior descending artery has a patent stent in its mid portion that is known to be Alpine Xience 2.75 x 18 mm stent that was implanted in 12/2016. It does not show any significant stent restenosis. The rest of the left anterior descending and the left circumflex arteries have mild plaques. Right coronary artery is dominant. It has diffuse mild plaques. There is 30% mid vessel stenosis of the right coronary. LEFT VENTRICULAR ANGIOGRAPHY: Left ventricular angiography was carried out in the right anterior oblique projection. Global left ventricular systolic function normal. No regional wall motion abnormalities are seen in this view. Left ventricular ejection fraction approximately 65 to 70%. CONCLUSIONS: 1. Angiographically mild coronary artery disease, patent stent in the mid left anterior descending (known to be Alpine Xience 2.75 x 18 mm placed 2016). 2. Normal global left ventricular systolic function with ejection fraction 65 to 70%. 3. Elevated left ventricular end-diastolic pressure (23 mmHg). RECOMMENDATIONS: Based on results of the study, it appears appropriate to continue a conservative approach. Risk factor modification has been reviewed. Current regimen is being continued. Outpatient followup is advised. Job ID: [id number] DocumentID: [id number] Dictated Date: 01/11/2021 09:07:25 Car Icer Date: 01/11/2021 09:30:35 Dictated By: YRN OSBORN MD, MA, FACP, FACC,
== END 2021-01-11 13:18 | disposition home or self-care (01) ==
LOC: CATH 08:00 → SDC 09:20 → CATH 13:18
PROVIDERS: ATTEND Internal Medicine Cardiovascular Disease
DX: I25.10 Atherosclerotic heart disease of native coronary artery without angina pectoris (principal); I25.2 Old myocardial infarction; I35.0 Nonrheumatic aortic (valve) stenosis; I65.23 Occlusion and stenosis of bilateral carotid arteries; I13.0 Hypertensive heart and chronic kidney disease with heart failure and stage 1 through stage 4 chronic kidney disease, or unspecified chronic kidney disease; I50.9 Heart failure, unspecified; N18.30 Chronic kidney disease, stage 3 unspecified; E66.01 Morbid (severe) obesity due to excess calories; E78.2 Mixed hyperlipidemia; I25.5 Ischemic cardiomyopathy; Z68.41 Body mass index [BMI] 40.0-44.9, adult; R73.02 Impaired glucose tolerance (oral); I89.0 Lymphedema, not elsewhere classified; K52.9 Noninfective gastroenteritis and colitis, unspecified; G47.33 Obstructive sleep apnea (adult) (pediatric); Z85.3 Personal history of malignant neoplasm of breast; Z90.10 Acquired absence of unspecified breast and nipple; Z86.16 Personal history of COVID-19; Z79.899 Other long term (current) drug therapy; Z79.82 Long term (current) use of aspirin; Z11.2 Encounter for screening for other bacterial diseases
CPT/HCPCS: 80053; 80061; 85027; 85610; 85730; 87081; 93458; C1760; C1894; 36415

== ENCOUNTER 2021-02-13 09:13 | Emergency (ER) | payer MEDICARE ==
[~2021-02-13] VITALS: Ht 167 cm; Wt 117.9 kg
[~2021-02-13 09:13] MED LIST changes: +ACET325T38 PO; +BUDE3CAP5 PO; +CHOL200059 PO; -DOXY100C2 PO; +DOXY100C5 PO; -HEParin (CATH LAB) 2,000 ML IV ONE; -LIDOCAINE 1% INJ 20 ML 20 ML VIAL ONE; +LOSA100T57 PO; +MINO100C5 PO; -NS IV 1000 ML 1,000 ML IV SCH; -NS IV 1000 ML 1,000 ML ONE
--- NOTE | 2021-02-13 09:34 | ED Upper Extremity ---
General Chief Complaint: Upper Extremity Stated Complaint: L ARM CELLULITIS Source: patient Exam Limitations: no limitations History of Present Illness Date Seen by Provider: Feb 13, 2021 Time Seen by Provider: 09:20 Initial Comments Patient is a 75-year-old female who presents to the emergency department with a chief complaint of concern for cellulitis of the left upper extremity. Patient relates that she has had prior episodes of cellulitis in her left arm related to having had a mastectomy about 20 years ago for breast cancer with subsequent lymph node dissection. She states the last time she had an issue with cellulitis was in March 2019. Patient states that she woke up in the middle of the night with left arm discomfort, redness, feelings of generalized malaise and fatigue. She has been struggling with some upper respiratory congestion/ "allergies" the last several days. denies sore throat, ear ache. She noticed a significant amount of redness to the left upper arm this morning. She states she is not a diabetic but possibly "borderline". She has a history of heart disease status post cardiac stent on Plavix and baby aspirin. Had a cardiac cath about 2 weeks ago that showed "stable" disease, with continues conservative management, Denies any recent injuries to the left arm or bug bites or scratching. All other review of systems reviewed and negative except as stated Onset: other (middle of the night) Severity: moderate Pain/Injury Location: left arm Allergies and Home Medications Allergies Coded Allergies: No Known Drug Allergies (Unverified , 11/05/18) Patient Home Medication List Home Medication List Reviewed: Yes Acetaminophen (Tylenol) 325 Mg Tablet, 650 MG PO Q6H PRN for PAIN-MILD (1-4), (Reported) Entered as Reported by: DARIAN BAKER on 01/11/21 0838 Amlodipine Besylate (Amlodipine Besylate) 5 Mg Tablet, 5 MG PO DAILY, (Reported) Entered as Reported by: KEN VARGAS on 05/31/18 0839 Ascorbic Acid (Vitamin C) 100 Mg Tablet, 100 MG PO DAILY, (Reported) Entered as Reported by: ANUSHA STRICKLAND on 03/17/19 1158 Aspirin (Aspirin EC) 81 Mg Tablet.dr, 81 MG PO DAILY, (Reported) Entered as Reported by: DARIAN BAKER on 01/11/21 0818 Atorvastatin Calcium (Atorvastatin Calcium) 10 Mg Tablet, 10 MG PO DAILY, (Reported) Entered as Reported by: KEN VARGAS on 05/31/18 0839 Budesonide (Budesonide EC) 3 Mg Capdr...er, 3 MG PO DAILY, (Reported) Entered as Reported by: DARIAN BAKER on 01/11/21 08 Cetirizine HCl (Zyrtec) 10 Mg Tablet, 10 MG PO HS PRN for ALLERIGES, (Reported) Entered as Reported by: KEN VARGAS on 08/12/18 0910 Cholecalciferol (Vitamin D3) (Vitamin D3) 50 Mcg Tablet, 50 MCG PO DAILY, (Reported) Entered as Reported by: DARIAN BAKER on 01/11/21 08 Clopidogrel Bisulfate (Plavix) 75 Mg Tablet, 75 MG PO DAILY, (Reported) Entered as Reported by: KEN VARGAS on 02/19/19 1132 Doxycycline Hyclate (Doxycycline Hyclate) 100 Mg Tablet, 100 MG PO BID, (Reported) Entered as Reported by: DARIAN BAKER on 02/14/21 1423 L.acidoph & Paracasei,B.lactis (Probiotic) 1 Each Capsule, 1 EACH PO DAILY, (Reported) Entered as Reported by: DARIAN BAKER on 01/11/21 08 Losartan Potassium (Losartan Potassium) 100 Mg Tablet, 100 MG PO DAILY, (Reported) Entered as Reported by: DARIAN BAKER on 01/11/21 09 Metoprolol Succinate (Metoprolol Succinate) 25 Mg Tab.er.24h, 25 MG PO DAILY, (Reported) Entered as Reported by: DARIAN BAKER on 01/11/21 08 Minocycline HCl (Minocycline HCl) 100 Mg Capsule, 100 MG PO ,SUN, (Reported) Entered as Reported by: DARIAN BAKER on 01/11/21 08 Spironolactone (Aldactone) 50 Mg Tablet, 50 MG PO DAILY, (Reported) Entered as Reported by: DARIAN BAKER on 01/11/21 08 Discontinued Medications Doxycycline Hyclate (Doxycycline Hyclate) 100 Mg Tablet, 100 MG PO BID Discontinued Reason: Duplicate Order Prescribed by: ARMANDO PIERCE on 02/13/21 1110 Review of Systems Constitutional: see HPI, malaise EENTM: no symptoms reported Respiratory: no symptoms reported Cardiovascular: no symptoms reported Gastrointestinal: no symptoms reported, nausea, other (decreased appetite) Genitourinary: no symptoms reported Musculoskeletal: no symptoms reported Skin: change in color (erythematous rash to the LUE, spares the shoulder/deltoid region; almost circumferential; spans 15cm diameter across the front of the upper left arm. small area, about 3cm of petechial rash volar aspect of the upper left arm. Left arm is not overly edematous, not tense or indurated. Distal NVI to the left arm there is some mild increased warmth) Psychiatric/Neurological: Anxiety All Other Systems Reviewed Negative Unless Noted: Yes Past Fxhcnvd-Labuip-Zrvoai Hx Patient Social History Tobacco Use?: No Substance use?: No Alcohol Use?: Yes Alcohol Frequency: Several times a month Pt feels they are or have been: No Immunizations Up To Date Tetanus Booster (TDap): Unknown PED Vaccines UTD: No First/Initial COVID19 Vaccinat: AUGUST 2020 Second COVID19 Vaccination Bin: SEPTEMBER 2020 COVID19 Vaccine Brush Cleaner: JAVEIR Seasonal Allergies Seasonal Allergies: No Past Medical History Surgeries: Yes (cancer, gall bladder, ) Abdominal, Breast, Coronary Stent, Gallbladder, Orthopedic Respiratory: Yes Sleep Apnea Currently Using CPAP: Yes Currently Using BIPAP: No Cardiac: Yes Chronic Edema/Swelling, Coronary Artery Disease, Hypertension Neurological: No 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 Disorders: No 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 Sexually Transmitted Disease: No HIV/AIDS: No Genitourinary: No UTI-Chronic Gastrointestinal: No Abdominal Hernia, C-Diff, Gall Bladder Disease Musculoskeletal: No Fractures Endocrine: No Diabetes, Non-Insulin dep HEENT: No Cancer: Yes Breast Did You Recieve Any Treatments: Yes What Type of Treatment Did You: Chemotherapy Psychosocial: No Integumentary: No Recent Skin Changes Blood Disorders: No Adverse Reaction/Blood Tranf: No Family Medical History Cardiovascular disease 19 FATHER Hypertension DAUGHTER Kidney disease 19 MOTHER POOR LEG CIRCULATION G8 SISTER No Pertinent Family Hx Physical Exam Vital Signs Vital Signs - First Documented 02/13/21 02/13/21 09:17 09:58 Temp 36.3 Pulse 75 Resp 20 B/P (MAP) 159/78 (105) Pulse Ox 95 O2 Delivery Room Air FiO2 96 Capillary Refill : Height, Weight, BMI Height: 5'6.00" Weight: 251lbs. 8.0oz. [id number]; 42.64 BMI Method:Stated General Appearance: WD/WN, no apparent distress HEENT: PERRL/EOMI Neck: normal inspection Cardiovascular: regular rate, rhythm Respiratory: lungs clear, normal breath sounds, no respiratory distress, no a ccessory muscle use Gastrointestinal: normal bowel sounds, non tender, soft Shoulder: non-tender, no evidence of injury, normal ROM, soft tissue tenderness (upper extremity erythema (marked with a skin pen) just distal to the deltoid, almost circumferential, mildly tender to palpation (light red) slightly patchy extends to the elbow and forearm - slight erythema to the dorsum of the hand with swelling there, too - ; no open wounds or excoriations), swelling Elbow/Forearm: normal inspection, normal ROM, Left, swelling Wrist: Yes no evidence of injury, Yes normal ROM, Yes swelling Hand: non-tender, no evidence of injury, Left, swelling Neurologic/Tendon: normal sensation, normal motor functions, normal tendon functions Neurologic/Psychiatric: alert, normal mood/affect, oriented x 3 Skin: warm/dry Progress/Results/Core Measures Results/Orders Lab Results Laboratory Tests Test 02/13/21 09:45 Range/Units White Blood Count 22.0 H 4.3-11.0 10^3/uL Red Blood Count 4.30 3.80-5.11 10^6/uL Hemoglobin 13.7 11.5-16.0 g/dL Hematocrit 41 35-52 % Mean Corpuscular Volume 95 80-99 fL Mean Corpuscular Hemoglobin 32 25-34 pg Mean Corpuscular Hemoglobin Concent 34 32-36 g/dL Red Cell Distribution Width 12.4 10.0-14.5 % Platelet Count 200 130-400 10^3/uL Mean Platelet Volume 10.1 9.0-12.2 fL Immature Granulocyte % (Auto) 1 % Neutrophils (%) (Auto) 92 H 42-75 % Lymphocytes (%) (Auto) 3 L 12-44 % Monocytes (%) (Auto) 3 0-12 % Eosinophils (%) (Auto) 0 0-10 % Basophils (%) (Auto) 0 0-10 % Neutrophils # (Auto) 20.2 H 1.8-7.8 10^3/uL Lymphocytes # (Auto) 0.8 L 1.0-4.0 10^3/uL Monocytes # (Auto) 0.7 0.0-1.0 10^3/uL Eosinophils # (Auto) 0.0 0.0-0.3 10^3/uL Basophils # (Auto) 0.1 0.0-0.1 10^3/uL Immature Granulocyte # (Auto) 0.2 H 0.0-0.1 10^3/uL Neutrophils % (Manual) 97 % Lymphocytes % (Manual) 2 % Monocytes % (Manual) 1 % Blood Morphology Comment NORMAL Sodium Level 134 L 135-145 MMOL/L Potassium Level 4.5 3.6-5.0 MMOL/L Chloride Level 102 98-107 MMOL/L Carbon Dioxide Level 21 21-32 MMOL/L Anion Gap 11 5-14 MMOL/L Blood Urea Nitrogen 25 H 7-18 MG/DL Creatinine 1.10 0.60-1.30 MG/DL Estimat Glomerular Filtration Rate 49 BUN/Creatinine Ratio 23 Glucose Level 163 H 70-105 MG/DL Lactic Acid Level 1.20 0.50-2.00 MMOL/L Calcium Level 9.5 8.5-10.1 MG/DL Corrected Calcium 9.7 8.5-10.1 MG/DL Total Bilirubin 1.3 H 0.1-1.0 MG/DL Aspartate Amino Transf (AST/SGOT) 14 5-34 U/L Alanine Aminotransferase (ALT/SGPT) 19 0-55 U/L Alkaline Phosphatase 65 40-136 U/L Total Protein 6.6 6.4-8.2 GM/DL Albumin 3.7 3.2-4.5 GM/DL Micro Results Microbiology 02/13/21 Blood Culture - Preliminary, Resulted No growth 02/13/21 Blood Culture - Preliminary, Resulted No growth My Orders Orders - ARMANDO PIERCE MD Cbc With Automated Diff (02/13/21:) Comprehensive Metabolic Panel (02/13/21:) Blood Culture (02/13/21:) Chest 1 View, Ap/Pa Only (02/13/21:) Ed Iv/Invasive Line Start (02/13/21:) Ed Iv/Invasive Line Start (02/13/21:) Vital Signs Adult Sepsis Patie Q15M (02/13/21:28) O2 (10/10/21 09:28) Remove Rings In Anticipation O (02/13/21 09:28) Lactic Acid Analyzer (02/13/21 09:28) Manual Differential (02/13/21 09:45) Vancomycin Injection (Vancomycin Injecti (02/13/21 10:45) Vital Signs/I&O Progress Progress Note : Time: 10:43 Progress Note Patient's labs reviewed, 22K WBC. no other significant abnormalities. VSS, afebrile, good BP. Technically does not meet criteria for SIRS/Spesis. (lactic acid <2). WIll give a dose of Vanc IV and discuss discharge with the patient. 1102 Re-checked Ms Espinoza; she is resting comfortably, slight discomfort to dorsum of left hand secondary to erythema and swelling. She states the swelling is a little more prominent than usual. I discussed with her the kelly of care - a dose of Vancomycin and starting her on doxycycline (extensive review of the records from 2019 when she had multiple episodes and hospitalizations for the celulitis). It seems the Vanc works really well for her. And one of the last times Dr Lubin took care of her she put her on the Doxy. She didnt tolerate Keflex or really any other antibiotics well - as they seem to cause her bouts of C-Diff colitis. Reassured patient her labs look great (in spite of the 22k WBC). SHe meets no criteria at this point for SIRS/Sepsis - not tachy, good BP, normal RR, Afebrile. No organ dysfunction signs. I do not believe there is any indication for hospitalization. Ms Espinoza is a little apprehensive about this - but is willing to try an outpatient course - "so i can sit in my recliner tonight and watch the chief's game". She states she will call Dr Lubin's office first thing in the morning. I have given her good return precautions. She verbalizes understanding, all questions are sought and answered. She is stable for discharge. Diagnostic Imaging Diagonstic Imaging: Xray Plain Films/CT/US/NM/MRI: chest Comments [facility] [place], [place] NAME: CELINA ESPINOZA [facility] REC#: [id number] PT STATUS: REG ER : 1945 PHYSICIAN: ARMANDO PIERCE MD ADMIT DATE: 02/13/21/ER Signed Date of Exam:02/13/21 CHEST 1 VIEW, AP/PA ONLY CHEST 1 VIEW, AP/PA ONLY Indication: Sepsis Comparison: 03/16/2019 Findings: Stable convex lateral contour of the right hilum which is likely due to prominent vasculature given stability for greater than 2 years. Visualized lungs are clear. No pleural effusion or pneumothorax. Normal cardiac silhouette. Impression: 1. No acute cardiopulmonary process by portable radiography. Dictated by: Dictated on workstation # [id number] Dict: 02/13/21 1010 Trans: 02/13/21 1013 [facility] [id number] Interpreted by: HELLEN HERNANDEZ MD Electronically signed by: HELLEN HERNANDEZ MD 02/13/21 1013 Departure Impression Primary Impression: Cellulitis of left upper arm Disposition: 01 HOME, SELF-CARE Condition: Stable Departure-Patient Inst. Decision time for Depature: 11:08 Referrals: EMERALD LUBIN DO (PCP/Family) Primary Care Physician Patient Instructions: Cellulitis (Skin Infection), Adult (DC) Add. Discharge Instructions: Drink plenty of fluids to stay well-hydrated. Start doxycycline 100 mg tablets tonight. Take 1 twice daily. Please call Dr. LUBIN's office first thing in the morning for a follow-up appointment this week. Come back into the emergency department for reevaluation if you experience any new, concerning or emergent complaints. Copy Copies To 1: EMERALD LUBIN KATHRYN M MD Feb 13, 2021 09:34
[2021-02-13 09:50] LABS: BASOPHILS # (AUTO) 0.1 10^3/uL (0.0-0.1); BASOPHILS % (AUTO) 0 % (0-10); EOSINOPHILS % (AUTO) 0 % (0-10); HEMATOCRIT 41 % (35-52); HEMOGLOBIN 13.7 g/dL (11.5-16.0); LYMPHOCYTES # (AUTO) 0.8 10^3/uL (1.0-4.0); LYMPHOCYTES % (AUTO) 3 % (12-44); MEAN CORPUSCULAR HEMOGLOBIN 32 pg (25-34); MEAN CORPUSCULAR HGB CONC 34 g/dL (32-36); MEAN CORPUSCULAR VOLUME 95 fL (80-99); MEAN PLATELET VOLUME 10.1 fL (9.0-12.2); MONOCYTES # (AUTO) 0.7 10^3/uL (0.0-1.0); MONOCYTES % (AUTO) 3 % (0-12); NEUTROPHILS # (AUTO) 20.2 10^3/uL (1.8-7.8); NEUTROPHILS % (AUTO) 92 % (42-75); PLATELET COUNT 200 10^3/uL (130-400)
[2021-02-13 10:02] LABS: ALBUMIN 3.7 GM/DL (3.2-4.5); POTASSIUM 4.5 MMOL/L (3.6-5.0)
[2021-02-13 10:03] LABS: CALCIUM 9.5 MG/DL (8.5-10.1)
[2021-02-13 10:04] LABS: TOTAL PROTEIN 6.6 GM/DL (6.4-8.2)
[2021-02-13 10:06] LABS: BILIRUBIN,TOTAL 1.3 MG/DL (0.1-1.0)
[2021-02-13 10:08] LABS: CREATININE SERUM 1.1 MG/DL (0.60-1.30)
--- NOTE | 2021-02-13 10:14 | Diagnostic Imaging Report ---
CHEST 1 VIEW, AP/PA ONLY Indication: Sepsis Comparison: 03/16/2019 Findings: Stable convex lateral contour of the right hilum which is likely due to prominent vasculature given stability for greater than 2 years. Visualized lungs are clear. No pleural effusion or pneumothorax. Normal cardiac silhouette. Impression: 1. No acute cardiopulmonary process by portable radiography. Dictated by: Dictated on workstation # [id number]
[2021-02-13 10:16] LABS: LYMPHOCYTES % (MANUAL) 2 %; MONOCYTES % (MANUAL) 1 %; NEUTROPHILS % (MANUAL) 97 %; RBC MORPH NORMAL
[2021-02-13] MEDS ORDERED: VANCOMYCIN INJECTION 1,000 MG in NS (IVPB) 250 ML IV ONE (10:45)
[2021-02-13] MEDS ORDERED: DOXY100T2 PO (11:10)
[2021-02-13 12:42] VITALS: BP 132/56
[2021-02-14] MEDS ORDERED: DOXY100T2 PO ×2 (14:23)
== END 2021-02-13 12:42 | disposition home or self-care (01) ==
LOC: EDUNIT# 09:13 → ER 09:15
DX: L03.114 Cellulitis of left upper limb (principal); G47.30 Sleep apnea, unspecified; I10 Essential (primary) hypertension; I25.10 Atherosclerotic heart disease of native coronary artery without angina pectoris; E11.9 Type 2 diabetes mellitus without complications; Z79.82 Long term (current) use of aspirin; Z79.01 Long term (current) use of anticoagulants; Z79.899 Other long term (current) drug therapy
CPT/HCPCS: 36415; 71045; 80053; 83605; 85007; 85027; 87040

== ENCOUNTER 2021-02-14 11:23 | Inpatient (IN) | payer MEDICARE ==
[~2021-02-14] VITALS: Ht 167 cm; Wt 120.3 kg
[~2021-02-14 11:23] MED LIST changes: +DOXY100T2 PO
[2021-02-14 12:08] VITALS: BP 135/79
[2021-02-14] MEDS ORDERED: PATIENT MAY USE OWN MEDS, ALL PO SCH (12:15)
[2021-02-14] MEDS ORDERED: ENOXAPARIN 40 MG/0.4 ML (LOVENOX) SYR SC SCH (12:15)
[2021-02-14] MEDS ORDERED: VANCOMYCIN INJECTION 0.1 MG in NS (IVPB) 250 ML IV SCH (12:30)
[2021-02-14] MEDS ORDERED: ACETAMINOPHEN 500 MG TAB (TYLENOL) PO PRN (12:30)
--- NOTE | 2021-02-14 12:41 | History & Physical ---
History of Present Illness History of Present Illness Reason for visit/HPI This is a 75 year old female with chronic left arm lymphedema and history of previous left arm cellulitis who presented to the emergency room yesterday with redness of her left arm. She was given IV vancomycin and sent home on oral antibiotics. She presented to my office today complaining of worsening symptoms. She will be directly admitted to the hospital for IV antibiotics. Date of Admission Feb 14, 2021 at 11:33 Date Seen by a Provider: Feb 14, 2021 Time Seen by a Provider: 12:36 I consulted on this patient on 02/14/21 12:33 Attending Physician Emerald Lubin DO Admitting Physician Emerald Lubin DO Consult Allergies and Home Medications Allergies Coded Allergies: No Known Drug Allergies (Unverified , 11/05/18) Patient Home Medication List Home Medication List Reviewed: Yes Acetaminophen (Tylenol) 325 Mg Tablet, 650 MG PO Q6H PRN for PAIN-MILD (1-4), (Reported) Entered as Reported by: DARIAN BAKER on 01/11/21 0838 Amlodipine Besylate (Amlodipine Besylate) 5 Mg Tablet, 5 MG PO DAILY, (Reported) Entered as Reported by: KEN VARGAS on 05/31/18 0839 Ascorbic Acid (Vitamin C) 100 Mg Tablet, 100 MG PO DAILY, (Reported) Entered as Reported by: ANUSHA STRICKLAND on 03/17/19 1158 Aspirin (Aspirin EC) 81 Mg Tablet.dr, 81 MG PO DAILY, (Reported) Entered as Reported by: DARIAN BAKER on 01/11/21 0818 Atorvastatin Calcium (Atorvastatin Calcium) 10 Mg Tablet, 10 MG PO DAILY, (Reported) Entered as Reported by: KEN VARGAS on 05/31/18 0839 Budesonide (Budesonide EC) 3 Mg Capdr...er, 3 MG PO DAILY, (Reported) Entered as Reported by: DARIAN BAKER on 01/11/21 0838 Cetirizine HCl (Zyrtec) 10 Mg Tablet, 10 MG PO HS PRN for ALLERIGES, (Reported) Entered as Reported by: KEN VARGAS on 08/12/18 0910 Cholecalciferol (Vitamin D3) (Vitamin D3) 50 Mcg Tablet, 50 MCG PO DAILY, (Reported) Entered as Reported by: DARIAN BAKER on 01/11/21 0818 Clopidogrel Bisulfate (Plavix) 75 Mg Tablet, 75 MG PO DAILY, (Reported) Entered as Reported by: KEN VARGAS on 02/19/19 1132 Doxycycline Hyclate (Doxycycline Hyclate) 100 Mg Tablet, 100 MG PO BID Prescribed by: ARMANDO PIERCE on 02/13/21 1110 L.acidoph & Paracasei,B.lactis (Probiotic) 1 Each Capsule, 1 EACH PO DAILY, (Reported) Entered as Reported by: DARIAN BAKER on 01/11/21 0818 Losartan Potassium (Losartan Potassium) 100 Mg Tablet, 100 MG PO DAILY, (Reported) Entered as Reported by: DARIAN BAKER on 01/11/21 09 Metoprolol Succinate (Metoprolol Succinate) 25 Mg Tab.er.24h, 25 MG PO DAILY, (Reported) Entered as Reported by: DARIAN BAKER on 01/11/21 08 Minocycline HCl (Minocycline HCl) 100 Mg Capsule, 100 MG PO ,SUN, (Reported) Entered as Reported by: DARIAN BAKER on 01/11/21 0838 Spironolactone (Aldactone) 50 Mg Tablet, 50 MG PO DAILY, (Reported) Entered as Reported by: DARIAN BAKER on 01/11/21817 Past Qooswst-Mkrfuj-Rlgddn Hx Patient Social History Employed/Student: retired Immunizations Up To Date First/Initial COVID19 Vaccinat: AUGUST 2020 Second COVID19 Vaccination Bin: SEPTEMBER 2020 Tetanus Booster (TDap): Unknown Hepatitis A: No Hepatitis B: No PED Vaccines UTD: No Date of Pneumonia Vaccine: Mar 16, 2015 Seasonal Allergies Seasonal Allergies: No Current Status Primary Language: Thai Past Medical History Surgeries: Abdominal, Breast, Coronary Stent, Gallbladder, Orthopedic Sleep Apnea Currently Using CPAP: Yes Currently Using BIPAP: No Chronic Edema/Swelling, Coronary Artery Disease, 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 Sexually Transmitted Disease: No HIV/AIDS: No UTI-Chronic Abdominal Hernia, C-Diff, Gall Bladder Disease Fractures Diabetes, Non-Insulin dep Breast Did You Recieve Any Treatments: Yes What Type of Treatment Did You: Chemotherapy Recent Skin Changes Blood Disorders: No Adverse Reaction/Blood Tranf: No Family Medical History Cardiovascular disease 19 FATHER Hypertension DAUGHTER Kidney disease 19 MOTHER POOR LEG CIRCULATION G8 SISTER No Pertinent Family Hx Review of Systems Constitutional: weakness EENTM: No see HPI, No no symptoms reported, No ear discharge, No hearing loss, No ear pain, No blurred vision, No double vision, No eye pain, No tearing, No vision loss, No dental problems, No hoarseness, No mouth pain, No mouth swelling, No epistaxis, No nose congestion, No nose pain, No throat pain, No throat swelling, No other Respiratory: No no symptoms reported, No see HPI, No cough, No dyspnea on exertion, No hemoptysis, No orthopnea, No phlegm, No short of breath, No stridor, No wheezing, No other Cardiovascular: edema Gastrointestinal: diarrhea, nausea Genitourinary: No no symptoms reported, No see HPI, No decreased output, No discharge, No dysuria, No frequency, No hematuria, No hesitancy, No incontinence, No nocturia, No pain, No other Musculoskeletal: muscle pain Skin: other (left arm redness) Psychiatric/Neurological: Anxiety, Weakness Physical Exam Vital Signs Vital Signs - First Documented 02/14/21 12:08 Temp 36.3 Pulse 89 Resp 20 B/P (MAP) 135/79 (97) Pulse Ox 97 Capillary Refill : Height, Weight, BMI Height: 5'6.00" Weight: 251lbs. 8.0oz. 113.809442yw; 42.00 BMI Method:Stated General Appearance: Mild Distress HEENT: Normal ENT Inspection Neck: Supple Respiratory: Lungs Clear Cardiovascular: Regular Rate, Rhythm Gastrointestinal: Normal Bowel Sounds, Non Tender, Soft Rectal: Deferred Back: No CVA Tenderness Extremity: Non Tender, No Calf Tenderness, No Pedal Edema, Inflammation (left arm lymphedema with erythema extending from hand up to just below axilla) Neurologic/Psychiatric: Alert, Oriented x3 Skin: Erythema (to left arm with increased warmth) Assessment/Plan Assessment and Plan 1. Left Arm Cellulitis--will admit and cover with Vancomycin due to history of C. Diff, cover with lovenox for DVT prophylaxis 2. Chronic Lymphedema of Left Arm 3. Hypertension--resume home meds 4. Diabetes mellitus--diet controlled--start accuchecks with SSI 5. History of CAD--resume plavix Admission Diagnosis Admission Status: Inpatient Order (span 2 midnights) Reason for Inpatient Admission: Will need at least 48hrs of IV antibiotics EMERALD LUBIN DO Feb 14, 2021 12:41
[2021-02-14 13:12] LABS: BASOPHILS # (AUTO) 0.1 10^3/uL (0.0-0.1); BASOPHILS % (AUTO) 0 % (0-10); EOSINOPHILS % (AUTO) 0 % (0-10); HEMATOCRIT 40 % (35-52); HEMOGLOBIN 12.9 g/dL (11.5-16.0); LYMPHOCYTES % (AUTO) 7 % (12-44); MEAN CORPUSCULAR HEMOGLOBIN 31 pg (25-34); MEAN CORPUSCULAR HGB CONC 32 g/dL (32-36); MEAN CORPUSCULAR VOLUME 96 fL (80-99); MEAN PLATELET VOLUME 10.2 fL (9.0-12.2); MONOCYTES # (AUTO) 0.8 10^3/uL (0.0-1.0); MONOCYTES % (AUTO) 5 % (0-12); NEUTROPHILS # (AUTO) 12.3 10^3/uL (1.8-7.8); NEUTROPHILS % (AUTO) 87 % (42-75); PLATELET COUNT 144 10^3/uL (130-400); WHITE BLOOD COUNT 14.2 10^3/uL (4.3-11.0)
[2021-02-14] MEDS: LACTOBACILLUS ACIDOPHILUS (PROBIOTIC) CAPSULE PO SCH ×2 (13:20→17:24)
[2021-02-14] MEDS: ONDANSETRON 4 MG/2 ML (SDV) Z0FRAN IVP PRN ×2 (13:21→22:41)
[2021-02-14 13:29] LABS: ALBUMIN 3.5 GM/DL (3.2-4.5); POTASSIUM 4.3 MMOL/L (3.6-5.0)
[2021-02-14 13:30] LABS: CALCIUM 9.7 MG/DL (8.5-10.1)
[2021-02-14 13:32] LABS: TOTAL PROTEIN 6.3 GM/DL (6.4-8.2)
[2021-02-14 13:33] LABS: BILIRUBIN,TOTAL 0.8 MG/DL (0.1-1.0)
[2021-02-14 13:34] LABS: ERYTHROCYTE SEDIMENTATION RATE 32 MM/HR (0-30)
[2021-02-14 13:35] LABS: CREATININE SERUM 0.92 MG/DL (0.60-1.30)
[2021-02-14] MEDS: NS IV 1000 ML 1,000 ML IV SCH ×3 (13:40→22:41)
[2021-02-14] MEDS ORDERED: VANCOMYCIN 2000 MG/NS 500 ML IVPB IV NR ×2 (14:00)
[2021-02-14] MEDS ORDERED: DOXY100T2 PO ×2 (14:23)
[2021-02-14 16:56] VITALS: BP 125/58
[2021-02-14 16:59] VITALS: BP 125/58
[2021-02-14] MEDS: inSUlin ASPART (NovoLOG) 1 UNIT/0.01 ML (CHARGE PER UNIT) SC SCH (20:00)
[2021-02-14 20:17] VITALS: BP 142/64
[2021-02-14 23:43] VITALS: BP 146/63
[2021-02-15] MEDS: VANCOMYCIN 1250 MG/NS 250 ML IVPB IV SCH ×4 (03:41→13:41)
[2021-02-15 04:07] VITALS: BP 125/59
[2021-02-15 06:01] LABS: HEMATOCRIT 37 % (35-52); HEMOGLOBIN 11.8 g/dL (11.5-16.0); MEAN CORPUSCULAR HEMOGLOBIN 31 pg (25-34); MEAN CORPUSCULAR HGB CONC 32 g/dL (32-36); MEAN CORPUSCULAR VOLUME 96 fL (80-99); MEAN PLATELET VOLUME 10.3 fL (9.0-12.2); PLATELET COUNT 167 10^3/uL (130-400); WHITE BLOOD COUNT 9.9 10^3/uL (4.3-11.0)
[2021-02-15] MEDS: PANTOPRAZOLE 40 MG (PROTONIX) TAB PO SCH (06:37)
[2021-02-15] MEDS: inSUlin ASPART (NovoLOG) 1 UNIT/0.01 ML (CHARGE PER UNIT) SC SCH ×4 (06:37→20:00)
[2021-02-15 07:54] VITALS: BP 145/65
--- NOTE | 2021-02-15 08:15 | Progress Note ---
Subjective Subjective Date Seen by Provider: Feb 15, 2021 Time Seen by Provider: 08:11 Pt with chronic L arm lymphedema and h/o of L arm cellulits is a follow up for recurrent L arm cellulitis. Pt reported some GERD symptoms yesterday that resolved with protonix. Today, pt reports feeling much better and denies any fever, chills, nausea, vomiting, chest pain, or SOB. Pt has not had a bowel movement yet and thus can not report on her diarrheal symptoms. WBC improved to 9.9 and L arm cellulitis has markedly decreased since yesterday. Review of Systems General: No Chills, No Fatigue; Appetite Pulmonary: No Dyspnea, No Cough Cardiovascular: No: Chest Pain, Palpitations, Edema Gastrointestinal: No: Nausea, Vomiting, Diarrhea Genitourinary: No Dysuria, No Frequency, No Incontinence Musculoskeletal: No: neck pain, back pain, leg pain Objective Exam Vital Signs Vital Signs Date Time Temp Pulse Resp B/P (MAP) Pulse Ox O2 Delivery O2 Flow Rate FiO2 02/15/21 07:54 36.1 64 18 145/65 (91) 97 Room Air 02/15/21 04:07 36.6 59 18 125/59 (81) 91 Room Air 02/14/21 23:43 36.9 65 18 146/63 (90) 91 Room Air 02/14/21 20:17 36.8 66 21 142/64 (90) 94 Room Air 02/14/21 20:10 94 02/14/21 16:59 36.4 65 20 125/58 (80) 96 Room Air 02/14/21 16:56 36.4 65 20 125/58 (80) 96 Room Air 02/14/21 12:08 36.3 89 20 135/79 (97) 97 02/14/21 11:30 97 I & O 02/15/21 07:00 Intake Total 3172.5 ml Output Total 1750 ml Balance 1422.5 ml General Appearance: No Apparent Distress, Obese HEENT: PERRL/EOMI Neck: Normal Inspection, Non Tender, Supple Respiratory: Chest Non Tender, Lungs Clear, Normal Breath Sounds, No Accessory Muscle Use, No Respiratory Distress Gastrointestinal: Normal Bowel Sounds, Non Tender Extremity: Normal Capillary Refill, Non Tender, No Calf Tenderness, Inflammation (Chronic left arm lymphedema with erythema extending from hand up to just below axilla, improved since yesterday) Neurologic/Psychiatric: Alert, Oriented x3, Normal Mood/Affect Skin: Warm/Dry, Erythema (L arm, improved since yesterday) Results Lab Laboratory Tests 02/14/21 12:45: White Blood Count 14.2H, Red Blood Count 4.17, Hemoglobin 12.9, Hematocrit 40, Mean Corpuscular Volume 96, Mean Corpuscular Hemoglobin 31, Mean Corpuscular Hemoglobin Concent 32, Red Cell Distribution Width 12.4, Platelet Count 144, Mean Platelet Volume 10.2, Immature Granulocyte % (Auto) 1, Neutrophils (%) (Auto) 87H, Lymphocytes (%) (Auto) 7L, Monocytes (%) (Auto) 5, Eosinophils (%) (Auto) 0, Basophils (%) (Auto) 0, Neutrophils # (Auto) 12.3H, Lymphocytes # (Auto) 1.0, Monocytes # (Auto) 0.8, Eosinophils # (Auto) 0.0, Basophils # (Auto) 0.1, Immature Granulocyte # (Auto) 0.1, Erythrocyte Sedimentation Rate 32H, Sodium Level 133L, Potassium Level 4.3, Chloride Level 103, Carbon Dioxide Level 19L, Anion Gap 11, Blood Urea Nitrogen 18, Creatinine 0.92, Estimat Glomerular Filtration Rate 60, BUN/Creatinine Ratio 20, Glucose Level 129H, Calcium Level 9.7, Corrected Calcium 10.1, Total Bilirubin 0.8, Aspartate Amino Transf (AST/SGOT) 21, Alanine Aminotransferase (ALT/SGPT) 24, Alkaline Phosphatase 57, C-Reactive Protein High Sensitivity 24.00H, Total Protein 6.3L, Albumin 3.5 02/14/21 17:02: Glucometer 127H 02/14/21 20:21: Glucometer 158H 02/15/21 05:41: White Blood Count 9.9, Red Blood Count 3.82, Hemoglobin 11.8, Hematocrit 37, Mean Corpuscular Volume 96, Mean Corpuscular Hemoglobin 31, Mean Corpuscular Hemoglobin Concent 32, Red Cell Distribution Width 12.6, Platelet Count 167, Mean Platelet Volume 10.3 02/15/21 06:35: Glucometer 112H Assessment/Plan Assessment/Plan Assessment and Plan 1. Left Arm Cellulitis-- Continue IV Vancomycin with history of C. Diff, lovenox for DVT ppx, hold IV fluids, continue to monitor, repeat labs in AM 2. Chronic Lymphedema of Left Arm 3. Hypertension--resume home meds 4. Diabetes mellitus--diet controlled--start accuchecks with SSI 5. History of CAD--resume plavix Supervisory-Addendum Brief Verification & Attestation Participated in pt care: history, physical Personally performed: exam, history, supervision of care Care discussed with: Medical Student Procedures: n/a Results interpretation: Verified all documentation Patient seen and examined. Agree with assessment and plan. CHARMAINE SCHULTE Feb 15, 2021 08:15 EMERALD JONAS DO Feb 15, 2021 08:32
[2021-02-15] MEDS: amLODIPine 5 MG (NORVASC) TAB PO SCH (08:32)
[2021-02-15] MEDS: LACTOBACILLUS ACIDOPHILUS (PROBIOTIC) CAPSULE PO SCH ×3 (08:33→17:56)
[2021-02-15] MEDS: LOSARTAN 100 MG (COZAAR) TABLET PO SCH (08:33)
[2021-02-15] MEDS: CLOPIDOGREL 75 MG (PLAVIX) TABLET PO SCH (08:33)
[2021-02-15 11:33] VITALS: BP 135/60
[2021-02-15] MEDS: ENOXAPARIN 40 MG/0.4 ML (LOVENOX) SYR SC SCH ×2 (11:46→22:22)
[2021-02-15 15:22] VITALS: BP 109/52
[2021-02-16 00:12] VITALS: BP 112/66
[2021-02-16] MEDS ORDERED: TROUGH ORDER-PHARMACY XX NR (01:00)
[2021-02-16] MEDS: VANCOMYCIN 1250 MG/NS 250 ML IVPB IV SCH ×2 (01:58)
[2021-02-16] MEDS: inSUlin ASPART (NovoLOG) 1 UNIT/0.01 ML (CHARGE PER UNIT) SC SCH ×2 (05:30→09:45)
[2021-02-16 06:07] LABS: HEMATOCRIT 37 % (35-52); HEMOGLOBIN 11.9 g/dL (11.5-16.0); MEAN CORPUSCULAR HEMOGLOBIN 31 pg (25-34); MEAN CORPUSCULAR HGB CONC 32 g/dL (32-36); MEAN CORPUSCULAR VOLUME 96 fL (80-99); MEAN PLATELET VOLUME 10.5 fL (9.0-12.2); PLATELET COUNT 188 10^3/uL (130-400); WHITE BLOOD COUNT 7.9 10^3/uL (4.3-11.0)
[2021-02-16] MEDS: PANTOPRAZOLE 40 MG (PROTONIX) TAB PO SCH (06:41)
[2021-02-16 08:00] VITALS: BP 144/67
--- NOTE | 2021-02-16 08:17 | Progress Note ---
Subjective Subjective Date Seen by Provider: Feb 16, 2021 Time Seen by Provider: 08:42 Pt with chronic L arm lymphedema and h/o of L arm cellulits is a follow up for recurrent L arm cellulitis. Pt sitting up comfortably in bed and L arm erythema area seems same as yesterday but slightly decreased intensity. WBC at 7.9. Vancomycin trough at 25 and IV Vancomycin was held. Pt reports some diarrhea yesterday. Denies any fever, chills, nausea, vomiting, chest pain, or SOB. Review of Systems General: No Chills, No Fatigue; Appetite HEENT: No Head Aches, No Visual Changes, No Sore Throat Pulmonary: No Dyspnea, No Cough Cardiovascular: No: Chest Pain, Palpitations, Edema Gastrointestinal: Diarrhea; No: Nausea, Vomiting Genitourinary: No Dysuria, No Frequency, No Incontinence Musculoskeletal: No: neck pain, back pain, leg pain Neurological: No: Weakness, Numbness, Seizures Objective Exam Vital Signs Vital Signs Date Time Temp Pulse Resp B/P (MAP) Pulse Ox O2 Delivery O2 Flow Rate FiO2 02/16/21 00:12 37.2 76 16 112/66 (81) 95 NIV CPAP 02/15/21 20:40 02/15/21 15:22 36.4 58 16 109/52 (71) 98 Room Air 02/15/21 11:33 36.2 61 18 135/60 (85) 97 Room Air I & O 02/16/21 07:00 Intake Total 2730 ml Output Total 2850 ml Balance -120 ml General Appearance: No Apparent Distress, Obese HEENT: PERRL/EOMI Neck: Normal Inspection, Non Tender, Supple Respiratory: Chest Non Tender, Lungs Clear, Normal Breath Sounds, No Accessory Muscle Use, No Respiratory Distress Cardiovascular: Regular Rate, Rhythm Gastrointestinal: Non Tender Back: Normal Inspection, No CVA Tenderness, No Vertebral Tenderness Extremity: Non Tender, No Calf Tenderness, Inflammation (Chronic left arm lymphedema with erythema extending from hand up to just below axilla) Neurologic/Psychiatric: Alert, Oriented x3, Normal Mood/Affect Skin: Warm/Dry, Erythema (L arm, same area but slightly decreased intensity) Results Lab Laboratory Tests 02/15/21 09:10: Glucometer 137H 02/15/21 14:19: Glucometer 134H 02/15/21 20:33: Glucometer 119H 02/16/21 01:02: Vancomycin Level Trough 25.0H 02/16/21 05:19: Glucometer 142H 02/16/21 05:31: White Blood Count 7.9, Red Blood Count 3.84, Hemoglobin 11.9, Hematocrit 37, Mean Corpuscular Volume 96, Mean Corpuscular Hemoglobin 31, Mean Corpuscular Hemoglobin Concent 32, Red Cell Distribution Width 12.6, Platelet Count 188, Mean Platelet Volume 10.5 Microbiology 02/14/21 Blood Culture - Preliminary, Resulted No growth Assessment/Plan Assessment/Plan Assessment and Plan 1. Left Arm Cellulitis-- Held IV Vancomycin, lovenox for DVT ppx, held IV fluids, await repeat Vanco trough, DC to home today on oral abx, follow up in outpatient office in two weeks or report to ER if symptoms reoccur 2. Chronic Lymphedema of Left Arm, recommend compression sleeve once cellulitis resolves 3. Hypertension--home meds 4. Diabetes mellitus--diet controlled--accuchecks with SSI 5. History of CAD--on plavix Supervisory-Addendum Brief Verification & Attestation Participated in pt care: history, physical Personally performed: exam, history, supervision of care Care discussed with: Medical Student Procedures: n/a Results interpretation: Verified all documentation Patient seen and examined. Agree with assessment and plan but will wait on noon Vanc level and give 1 more dose of Vanc prior to discharge. Patient has pending fwup with me on March 03 so will keep that. CHARMAINE SCHULTE Feb 16, 2021 08:17 EMERALD JONAS DO Feb 16, 2021 08:42
[2021-02-16] MEDS: LOSARTAN 100 MG (COZAAR) TABLET PO SCH (09:22)
[2021-02-16] MEDS: CLOPIDOGREL 75 MG (PLAVIX) TABLET PO SCH (09:22)
[2021-02-16] MEDS: LACTOBACILLUS ACIDOPHILUS (PROBIOTIC) CAPSULE PO SCH ×2 (09:22→12:56)
[2021-02-16] MEDS: amLODIPine 5 MG (NORVASC) TAB PO SCH (09:22)
[2021-02-16] MEDS: ENOXAPARIN 40 MG/0.4 ML (LOVENOX) SYR SC SCH (11:40)
[2021-02-16] MEDS ORDERED: TROUGH ORDER-PHARMACY XX ONE (12:00)
[2021-02-16] MEDS ORDERED: VANCOMYCIN 1250 MG/NS 250 ML IVPB IV SCH ×2 (14:00)
== END 2021-02-16 15:05 | disposition home or self-care (01) | DRG 603 ==
LOC: 4TH 11:33
PROVIDERS: ADMIT Family Medicine; ATTEND Family Medicine
DX: L03.114 Cellulitis of left upper limb (principal); I89.0 Lymphedema, not elsewhere classified; I25.10 Atherosclerotic heart disease of native coronary artery without angina pectoris; I10 Essential (primary) hypertension; K21.9 Gastro-esophageal reflux disease without esophagitis; F41.9 Anxiety disorder, unspecified; E11.9 Type 2 diabetes mellitus without complications; G47.30 Sleep apnea, unspecified; Z95.5 Presence of coronary angioplasty implant and graft; Z79.82 Long term (current) use of aspirin; Z82.49 Family history of ischemic heart disease and other diseases of the circulatory system
CPT/HCPCS: 36415; 80053; 80202; 82947; 85025; 85027; 85652; 86141; 87040

== ENCOUNTER → 2021-02-24 | Outpatient (CLI) | payer MEDICARE | LOC: ONC 10:34 | PROVIDERS: ATTEND Internal Medicine Hematology & Oncology | DX: C50.412 Malignant neoplasm of upper-outer quadrant of left female breast (principal); I89.0 Lymphedema, not elsewhere classified; I25.10 Atherosclerotic heart disease of native coronary artery without angina pectoris; I10 Essential (primary) hypertension; E78.5 Hyperlipidemia, unspecified; E66.01 Morbid (severe) obesity due to excess calories; Z92.21 Personal history of antineoplastic chemotherapy; Z90.12 Acquired absence of left breast and nipple | CPT/HCPCS: 99213 ==

== ENCOUNTER → 2021-04-26 | Outpatient (CLI) | payer MEDICARE ==
[~2021-04-26] MED LIST changes: +CLIN-144 PO; -CLIN300C12 PO; -LISI1TAB26 PO; +LISI1TAB48 PO; +POTA-160 PO; +POTA-179 PO; -POTA10TA6 PO; -POTA20TA15 PO
--- NOTE | 2021-04-26 14:48 | Diagnostic Imaging Report ---
PROCEDURE: US Thyroid. TECHNIQUE: Multiple Real-time grayscale images were obtained of the thyroid in various projections. INDICATION: Right thyroid nodule. COMPARISON: None available. FINDINGS: The right lobe of the thyroid gland measures 4.6 x 1.9 x 1.9 cm. An ovoid circumscribed hypoechoic avascular nodule with posterior acoustic enhancement measuring 0.9 x 0.6 cm is seen within the mid right thyroid lobe. The left lobe of the thyroid gland measures 4.3 x 1.1 x 1.4 cm. A tiny 0.3 cm cystic nodule is seen within the inferior pole of the left thyroid lobe. The isthmus is unremarkable. IMPRESSION: Small bilateral Ti RADS 2 nodules as described above including a dominant 0.9 cm Ti RADS 2 nodule within the right thyroid lobe. Given size and morphology, no definitive followup of these thyroid nodules is necessary unless clinically indicated otherwise. Dictated by: Dictated on workstation # [id number]
== END ==
LOC: RAD 13:00
PROVIDERS: ATTEND Family Medicine
DX: E04.2 Nontoxic multinodular goiter (principal); R59.1 Generalized enlarged lymph nodes
CPT/HCPCS: 76536

== ENCOUNTER → 2021-08-18 | Outpatient (CLI) | payer MEDICARE ==
--- NOTE | 2021-08-18 12:50 | Diagnostic Imaging Report ---
INDICATION: Lower back pain. COMPARISON: None FINDINGS: Frontal and lateral radiographic views of lumbar spine were obtained. There is [id number] dextro scoliotic deformity of the lumbar spine epicentered at the L3 level. AP static alignment shows straightening with slight reversal of normal lordotic curvature. There is no significant anterolisthesis or retrolisthesis. There is no evidence of jumped facets. Vertebral body heights are maintained. There is no acute fracture. There are advanced multilevel degenerative changes consistent with intervertebral disc height loss with multilevel endplate osteophyte formations. Note is made of calcified aortic atherosclerosis. IMPRESSION: 1. No acute fracture or dislocation lumbar spine. 2. Dextroscoliotic deformity with moderate multilevel degenerative changes. Dictated by: Dictated on workstation # [id number]
== END ==
LOC: RAD 11:18
PROVIDERS: ATTEND Family Medicine
DX: M47.816 Spondylosis without myelopathy or radiculopathy, lumbar region (principal); M41.86 Other forms of scoliosis, lumbar region
CPT/HCPCS: 72100

== ENCOUNTER → 2021-11-02 | Outpatient (CLI) | payer MEDICARE ==
--- NOTE | 2021-11-02 14:43 | Diagnostic Imaging Report ---
INDICATION: Routine screening. COMPARISON: 11/01/2020 and 10/30/2019. TECHNIQUE: Unilateral right 2D and 3D screening mammography was performed with CAD. FINDINGS: Scattered fibroglandular densities are identified bilaterally. The breast parenchymal pattern is stable. There are scattered benign calcifications. No mass or malignant-appearing microcalcifications are seen apart from benign nodules in the axilla. IMPRESSION: No mammographic features suspicious for malignancy are identified. ACR BI-RADS Category 2: Benign findings. Result letter will be mailed to the patient. Note: At least 10% of breast cancer is not imaged by mammography. Dictated by: Dictated on workstation # [id number]
== END ==
LOC: RAD 10:51
PROVIDERS: ATTEND Internal Medicine Hematology & Oncology
DX: Z12.31 Encounter for screening mammogram for malignant neoplasm of breast (principal)
CPT/HCPCS: 77063

== ENCOUNTER → 2022-04-03 | Outpatient (CLI) | payer MEDICARE ==
[~2022-04-03] MED LIST changes: +CATHETER FLUSH 10 ML SYR IV PRN; +HOLD METFORMIN - RECEIVED CONTRAST 20 ML VIAL IV SCH; +IOHEXOL 350 MG/ML 100 ML (OMNIPAQUE 350) VIAL IV ONE; +NS 100 ML (IVPB) BAG IV ONE
[2022-04-03 13:28] LABS: CREATININE SERUM 1.01 MG/DL (0.60-1.30)
--- NOTE | 2022-04-03 20:42 | Diagnostic Imaging Report ---
INDICATION: Pulmonary embolism, follow-up. TECHNIQUE: Multiple contiguous axial images were obtained through the chest after uneventful bolus administration of intravenous contrast. 3D reconstructed CTA MIP acquisitions were also performed. Auto Exposure Controls were utilized during the CT exam to meet ALARA standards for radiation dose reduction. By history, patient has history of previous pulmonary embolism in December 2021. There is no prior study available for comparison, however. There are no pulmonary emboli evident at this time. The thoracic aorta shows scattered atherosclerotic plaquing but no evidence of aneurysm or dissection. There are some aortic valvular calcifications. There are fairly extensive coronary artery calcifications. There are no enlarged mediastinal or hilar nodes. There are postsurgical changes in left axilla with evidence of previous left mastectomy. No overt adenopathy is seen at this time. There is no pleural or pericardial fluid. Visualized portions of the upper abdomen show no acute finding. There is some bibasilar scarring or atelectasis. There is no pulmonary parenchymal infiltrate or nodule. IMPRESSION: No pulmonary emboli are evident at this time, previous studies are not available for comparison. There are fairly extensive coronary artery calcifications. There are aortic valvular calcifications as well. There is no evidence of aortic dissection. There is no acute infiltrate or pleural or pericardial fluid collection. Dictated by: Dictated on workstation # [id number]
== END ==
LOC: RAD 12:54
PROVIDERS: ATTEND Family Medicine
DX: I25.10 Atherosclerotic heart disease of native coronary artery without angina pectoris (principal)
CPT/HCPCS: 36415; 71275; 82565; 84520

== ENCOUNTER → 2022-11-15 | Outpatient (CLI) | payer MEDICARE ==
[~2022-11-15] MED LIST changes: -CATHETER FLUSH 10 ML SYR IV PRN; +CLOP-31 PO; -CLOP75TA69 PO; -HOLD METFORMIN - RECEIVED CONTRAST 20 ML VIAL IV SCH; -IOHEXOL 350 MG/ML 100 ML (OMNIPAQUE 350) VIAL IV ONE; -LOSA100T57 PO; +LOSA100T58 PO; -NS 100 ML (IVPB) BAG IV ONE
--- NOTE | 2022-11-15 11:55 | Diagnostic Imaging Report ---
Indication: Routine screening. Comparison is made with prior mammogram 11/02/2021 and 10/24/2020. Unilateral right 2-D and 3-D screening mammography was performed with with CAD. The current study was also evaluated with a Computer Aided Detection (CAD) system. Scattered fibroglandular densities in the right breast are noted. There are scattered scattered benign calcifications. No spiculated mass or malignant-appearing microcalcifications are seen. Right axilla is unremarkable. IMPRESSION: BI-RADS Category 2 No mammographic features suspicious for malignancy are identified. ACR BI-RADS Category 2: Benign findings. Result letter will be mailed to the patient. Note: At least 10% of breast cancer is not imaged by mammography. Dictated by: Dictated on workstation # [id number]
== END ==
LOC: RAD 09:45
PROVIDERS: ATTEND Internal Medicine Hematology & Oncology
DX: Z12.31 Encounter for screening mammogram for malignant neoplasm of breast (principal); Z85.3 Personal history of malignant neoplasm of breast
CPT/HCPCS: 77063

== ENCOUNTER → 2023-01-15 | Outpatient (CLI) | payer MEDICARE | LOC: CARD 11:14 | PROVIDERS: ATTEND Nurse Practitioner Family | DX: I51.7 Cardiomegaly (principal); I35.0 Nonrheumatic aortic (valve) stenosis; J90 Pleural effusion, not elsewhere classified | CPT/HCPCS: 93306 ==

== ENCOUNTER → 2023-01-18 | Outpatient (CLI) | payer MEDICARE ==
--- NOTE | 2023-01-18 09:16 | Diagnostic Imaging Report ---
HISTORY: Pleural effusion COMPARISON: 04/28/2013 TECHNIQUE: 2 views of the chest FINDINGS: Lung volumes are normal. There is haziness and mild costophrenic blunting at the left lung base on the frontal view, but likely represents epicardial fat when compared to the CT from 04/03/2022, and no significant effusion is seen on the lateral view.. There is no pneumothorax or large effusion. The heart is normal in size. There is prominence of the right hilum, which appears to represent vasculature and appears stable since 2012. There are surgical clips in the left chest. IMPRESSION: 1. Mild blunting at the left costophrenic angle is thought to be due to epicardial fat rather than a pleural effusion. No other abnormality is seen. Dictated by: Dictated on workstation # [id number]
== END ==
LOC: RAD 07:29
PROVIDERS: ATTEND Nurse Practitioner Family
DX: J90 Pleural effusion, not elsewhere classified (principal)
CPT/HCPCS: 71046